=== PATIENT | male | born 1935 | race Caucasian/White ===

== ENCOUNTER 2016-08-05 18:35 | Emergency (ER) | payer MEDICARE, OTHER, MEDICAID ==
[2016-08-05] MEDS ORDERED: Morphine 2 MG/ML Syringe ONE ×2 (19:02→20:11)
[2016-08-05] MEDS ORDERED: Morphine 2 MG/ML Syringe IM ONE (19:03)
[2016-08-05] MEDS ORDERED: Omeprazole 40 MG Cap.CR PO ONE (19:04)
[2016-08-05] MEDS ORDERED: Omeprazole 20 MG Cap.CR ONE (19:09)
[2016-08-05 19:25] VITALS: BP 165/72
--- NOTE | 2016-08-05 19:34 | EDM.PDOC ---
ED HPI Trauma - General Chief Complaint: Lower Extremity Injury/Pain Stated Complaint: FALL-LEFT HIP PAIN Time Seen by Provider: 08/05/16 19:05 Source: Reports: Patient History Limitations: Reports: No limitations - History of Present Illness INITIAL COMMENTS - FREE TEXT/NARRATIVE: This is an 81yo M here for a fall and left hip pain. Patient states the pain is 10/10 and was unable to get up and EMT had to bring him to the ER. Patient denies any loc or other factors involved in his fall and states his legs gave out. Patient denies any other injury and states he did bump his head a little but denies any head concerns. Symptom Onset Date: 08/05/16 Symptom Onset Time: 18:30 Occurred When: just prior to arrival Occurred Where: home Method of Injury: fall Severity: severe Pain/Injury Location: Reports: lower extremity, left Consciousness: Reports: remembers incident, remembers coming to hosp Associated Symptoms: Reports: denies other symptoms Allergies/ADRs: Allergies eszopiclone [From Lunesta] Allergy (Verified 08/05/16 18:45) Cannot Remember metoprolol Allergy (Verified 08/05/16 18:45) Cannot Remember sertraline HCl [From Zoloft] Allergy (Verified 08/05/16 18:45) Cannot Remember Home Medications: Ambulatory Orders Acetaminophen [Tylenol] 500 mg PO QID PRN 06/03/13 [Confirmed 08/05/16] Aspirin [Low Dose Aspirin EC] 81 mg PO DAILY 06/03/13 [Confirmed 08/05/16] Folic Acid 0.8 mg PO DAILY 06/03/13 [Confirmed 08/05/16] Lisinopril 2.5 mg PO DAILY 06/03/13 [Confirmed 08/05/16] Nitroglycerin [Nitrolingual] 1 spray TRLING ASDIRECTED PRN 06/03/13 [Confirmed 08/05/16] Simvastatin [Zocor] 40 mg PO QPM 06/03/13 [Confirmed 08/05/16] Tamsulosin [Tamsulosin 24 Hr] 0.8 mg PO DAILY 06/03/13 [Confirmed 08/05/16] Venlafaxine [Effexor XR 24 Hr] 75 mg PO DAILY 06/03/13 [Confirmed 08/05/16] Venlafaxine [Effexor XR] 150 mg PO DAILY 06/03/13 [Confirmed 08/05/16] Calcium Carbonate [Calcium] 600 mg PO DAILY 06/22/16 [Confirmed 08/05/16] Carvedilol [Coreg] 12.5 mg PO BID 06/22/16 [Confirmed 08/05/16] Clopidogrel [Plavix] 75 mg PO DAILY 06/22/16 [Confirmed 08/05/16] Methylphenidate [Ritalin] 5 mg PO DAILY 06/22/16 [Confirmed 08/05/16] Multivitamin [Multivitamins] 1 each PO DAILY 06/22/16 [Confirmed 08/05/16] Pantoprazole Sodium 40 mg PO QPM 06/22/16 [Confirmed 08/05/16] clonazePAM [Clonazepam] 0.25 mg PO BID 07/03/16 [Confirmed 08/05/16] Past Medical History HEENT History: Reports: Hard of hearing, Impaired vision Cardiovascular History: Reports: CAD, Hypertension, Stents Respiratory History: Reports: Asthma, SOB Gastrointestinal History: Reports: GERD, Other (see below) Other Gastrointestinal History: barretts esophagus Neurological History: Reports: Headaches, chronic, Other (see below) Other Neuro History: occipital neuralgia Endocrine/Metabolic History: Reports: Diabetes, type II - Infectious Disease History Infectious Disease History: Reports: Chicken pox, Influenza, Measles, Mumps - Past Surgical History HEENT Surgical History: Reports: Tonsillectomy Cardiovascular Surgical History: Reports: Carotid stents GI Surgical History: Reports: Colonoscopy, Hernia, abdominal Male Surgical History: Reports: Vasectomy Neurological Surgical History: Reports: Other (see below) Other Neurological Surgeries/Procedures: [place] Musculoskeletal Surgical History: Reports: Hip replacement Social & Family History - Family History Family Medical History: Noncontributory - Tobacco Use Smoking Status *Q: Never Smoker Second Hand Smoke Exposure: No - Caffeine Use Caffeine Use: Reports: Coffee - Alcohol Use Days Per Week of Alcohol Use: 0 - Recreational Drug Use Recreational Drug Use: No Review of Systems - Review of Systems Review Of Systems: ROS reveals no pertinent complaints other than HPI. Trauma Exam - Physical Exam Exam: See Below Exam Limited By: No limitations General Appearance: Reports: alert, WD/WN, moderate distress Head: Reports: atraumatic, normocephalic Throat/Mouth: Reports: Normal inspection Neck: Reports: non-tender Respiratory Exam: Reports: no respiratory distress, lungs clear Cardiovascular: Reports: normal peripheral pulses, regular rate, rhythm GI/Abdominal: Reports: normal bowel sounds, soft, non tender Extremities: Reports: pain with movement, tenderness, unable to bear weight Neurologic: Reports: no motor/sensory deficits, normal mood/affect, oriented x 3 Skin: Reports: Normal color, Warm/dry, Ecchymosis (left thigh anterior, left hip lateral) Course - Vital Signs Last Recorded V/S: Last Vital Signs Temp 36.9 C 08/05/16 19:22 Pulse 67 08/05/16 19:22 Resp 20 08/05/16 19:22 BP 165/72 H 08/05/16 19:22 Pulse Ox 92 L 08/05/16 19:22 - Orders/Labs/Meds Orders: Active Orders 24 hr Category Date Time Status EKG Documentation Completion [RC] ASDIRECTED Care 08/05/16 19:52 Active Insert Bradford Catheter [Insert Urinary Catheter] [OM.PC] Care 08/05/16 20:30 Ordered Q24H Urinary Catheter Assessment [RC] ASDIRECTED Care 08/05/16 20:23 Active Hip Min 2V or 3V w Pelvis Lt [CR] Stat Exams 08/05/16 19:03 Taken Morphine Med 08/05/16 20:20 Active 2 mg IVPUSH Q1H PRN Sodium Chloride 0.9% [Saline Flush] Med 08/05/16 20:22 Active 10 ml FLUSH ASDIRECTED PRN Peripheral IV Insertion Adult [OM.PC] Routine Oth 08/05/16 20:22 Ordered EKG 12 Lead [EK] Routine Ther 08/05/16 19:51 Ordered Medication Orders Morphine Sulfate (Morphine) 2 mg IVPUSH Q1H PRN PRN Reason: Pain Last Admin: 08/05/16 20:27 Dose: 2 mg Sodium Chloride (Saline Flush) 10 ml FLUSH ASDIRECTED PRN PRN Reason: Keep Vein Open Meds: Medications Generic Name Dose Route Start Last Admin Trade Name Freq PRN Reason Stop Dose Admin Morphine Sulfate 2 mg 08/05/16 20:20 08/05/16 20:27 Morphine IVPUSH 2 mg Q1H PRN Administration Pain Sodium Chloride 10 ml 08/05/16 20:22 Saline Flush FLUSH ASDIRECTED PRN Keep Vein Open Discontinued Medications Generic Name Dose Route Start Last Admin Trade Name Freq PRN Reason Stop Dose Admin Morphine Sulfate Confirm 08/05/16 19:02 08/05/16 19:13 Morphine Administered 08/05/16 19:03 Not Given Dose 2 mg .ROUTE .STK-MED ONE Morphine Sulfate 2 mg 08/05/16 19:03 08/05/16 19:14 Morphine IM 08/05/16 19:04 2 mg ONETIME ONE Administration Morphine Sulfate Confirm 08/05/16 20:11 Morphine Administered 08/05/16 20:12 Dose 4 mg .ROUTE .STK-MED ONE Omeprazole 40 mg 08/05/16 19:04 08/05/16 19:39 Omeprazole PO 08/05/16 19:05 40 mg ONETIME ONE Administration Omeprazole Confirm 08/05/16 19:09 08/05/16 19:14 Omeprazole Administered 08/05/16 19:10 Not Given Dose 40 mg .ROUTE .STK-MED ONE Departure - Departure Time of Disposition: 20:30 Disposition: DC/Tfer to Acute Hospital 02 Condition: undetermined Clinical Impression: Fracture of femur Instructions: Hip Pain Referrals: PCP,None [Primary Care Provider] - Forms: ED Department Discharge - Problem List & Annotations (1) Fracture of femur SNOMED Code(s): 06196116 Code(s): S72.90XA - UNSP FRACTURE OF UNSP FEMUR, INIT ENCNTR FOR CLOSED FRACTURE Status: Acute Current Visit: Yes - Problem List Review Problem List Initiated/Reviewed/Updated: Yes - My Orders Last 24 Hours: My Active Orders 08/05/16 19:03 Hip Min 2V or 3V w Pelvis Lt [CR] Stat 08/05/16 19:51 EKG 12 Lead [EK] Routine 08/05/16 19:52 EKG Documentation Completion [RC] ASDIRECTED 08/05/16 20:20 Morphine 2 mg IVPUSH Q1H PRN 08/05/16 20:22 Sodium Chloride 0.9% [Saline Flush] 10 ml FLUSH ASDIRECTED PRN Peripheral IV Insertion Adult [OM.PC] Routine 08/05/16 20:23 Urinary Catheter Assessment [RC] ASDIRECTED 08/05/16 20:30 Insert Bradford Catheter [Insert Urinary Catheter] [OM.PC] Q24H - Assessment/Plan Last 24 Hours: My Active Orders 08/05/16 19:03 Hip Min 2V or 3V w Pelvis Lt [CR] Stat 08/05/16 19:51 EKG 12 Lead [EK] Routine 08/05/16 19:52 EKG Documentation Completion [RC] ASDIRECTED 08/05/16 20:20 Morphine 2 mg IVPUSH Q1H PRN 08/05/16 20:22 Sodium Chloride 0.9% [Saline Flush] 10 ml FLUSH ASDIRECTED PRN Peripheral IV Insertion Adult [OM.PC] Routine 08/05/16 20:23 Urinary Catheter Assessment [RC] ASDIRECTED 08/05/16 20:30 Insert Bradford Catheter [Insert Urinary Catheter] [OM.PC] Q24H Plan: Transfer to [place] under Dr. Tamez with Dr. Zayda alston on consult. Patient will be transferred to [facility]. Patient placed in a left knee splint placed as high up the thigh as possible. Patient to be sent BLS. Counseled and patient agrees with plan.
[2016-08-05] MEDS ORDERED: Sodium Chloride 0.9% 10 ML Syringe FLUSH PRN (20:22)
[2016-08-05] MEDS: Morphine 2 MG/ML Syringe IVPUSH PRN ×2 (20:27→21:04)
--- NOTE | 2016-08-06 08:48 | CR ---
DATE OF SERVICE: 08/05/16 CLINICAL DATA: Fall. PELVIS AND LEFT HIP: No priors. The patient is status post left total hip arthroplasty. There is a mildly displaced oblique fracture through the proximal femur that does involve the femoral component. I do not see any other acute abnormalities. [id number] MTDD
== END 2016-08-05 21:05 ==
LOC: LB.ED 18:35
DX: S72.002A Fracture of unspecified part of neck of left femur, initial encounter for closed fracture (principal); I25.10 Atherosclerotic heart disease of native coronary artery without angina pectoris; I10 Essential (primary) hypertension; J45.909 Unspecified asthma, uncomplicated; K21.9 Gastro-esophageal reflux disease without esophagitis; E11.9 Type 2 diabetes mellitus without complications; Z88.8 Allergy status to other drugs, medicaments and biological substances; Z98.890 Other specified postprocedural states; W19.XXXA Unspecified fall, initial encounter; Y92.009 Unspecified place in unspecified non-institutional (private) residence as the place of occurrence of the external cause
CPT/HCPCS: 51702; 73502; 93005; 96372; 96374; 99284; A0425; A0429; A9270; J2270

== ENCOUNTER 2016-08-13 09:41 | Inpatient (IN) | payer MEDICARE, OTHER, MEDICAID ==
[2016-08-20] MEDS ORDERED: Furosemide 20 MG Tab PO PRN (10:29)
[2016-08-20] MEDS ORDERED: Nitroglycerin 0.4 MG Tab.SL SL PRN (10:31)
[2016-08-20] MEDS ORDERED: Acetaminophen 500 MG Tab PO PRN (10:34)
[2016-08-20] MEDS ORDERED: Carvedilol 12.5 MG Tab PO SCH (20:00)
[2016-08-20] MEDS ORDERED: oxyCODONE 5 MG Tab PO PRN (20:04)
[2016-08-20] MEDS ORDERED: NITROGLYCERIN TRLING PRN (20:04)
--- NOTE | 2016-08-20 20:38 | PCM.HP ---
H&P History of Present Illness - General Date of Service: 08/20/16 Admit Problem/Dx: Admission Diagnosis/Problem Admission Diagnosis/Problem Pain management Source of Information: Patient History Limitations: Reports: No limitations - History of Present Illness Initial Comments - Free Text/Narative: Pt is a 82 year old male who had a fall and sustained left periprosthetic femur fracture on 08/05/16. He was transferred to [facility] and he did under go open reduction with internal fixation. Pt has tolerated the procedure well he did have some postoperative anemia and needed 4 units blood transfusion. Patient has recovered well. At this point he has been transferred to [place], [place] for physical rehabilitation. Pt is non weight bearing on his left lower extremity. No fever or chills. No discharge, pain or swelling in the wound site. No complaints or concern from patient. Pt does have multiple co-morbid condition which are stable. - Related Data Allergies/Adverse Reactions: Allergies Allergy/AdvReac Type Severity Reaction Status Date / Time eszopiclone [From Lunesta] Allergy Cannot Verified 08/20/16 14:17 Remember metoprolol Allergy Cannot Verified 08/20/16 14:17 Remember sertraline HCl [From Zoloft] Allergy Cannot Verified 08/20/16 14:17 Remember Home Medications: Home Meds Aspirin [Low Dose Aspirin EC] 81 mg PO DAILY 06/03/13 [History] Folic Acid 0.8 mg PO DAILY 06/03/13 [History] Lisinopril 2.5 mg PO DAILY 06/03/13 [History] Nitroglycerin [Nitrolingual] 1 spray TRLING ASDIRECTED PRN 06/03/13 [History] Tamsulosin [Tamsulosin 24 Hr] 0.8 mg PO DAILY 06/03/13 [History] Venlafaxine [Effexor XR 24 Hr] 75 mg PO DAILY 06/03/13 [History] Venlafaxine [Effexor XR] 150 mg PO DAILY 06/03/13 [History] Clopidogrel [Plavix] 75 mg PO DAILY 06/22/16 [History] Multivitamin [Multivitamins] 1 each PO DAILY 06/22/16 [History] Pantoprazole Sodium 40 mg PO QPM 06/22/16 [History] clonazePAM [Clonazepam] 0.25 mg PO BID 07/03/16 [History] Acetaminophen [Tylenol Extra Strength] 500 mg PO QID 08/20/16 [History] Calcium Carbonate/Vitamin D3 [Caltrate 600+D 1500 MG-400 Units] 1 tab PO DAILY 08/20/16 [History] Carvedilol [Coreg] 25 mg PO BID 08/20/16 [History] Diltiazem [Cardizem] 120 mg PO DAILY 08/20/16 [History] Enoxaparin [Lovenox] 40 mg INJECT DAILY 08/20/16 [History] Mirtazapine 7.5 mg PO QPM 08/20/16 [History] Sennosides [Senokot] 8.6 mg PO DAILY 08/20/16 [History] oxyCODONE 5 mg PO Q4H PRN 08/20/16 [History] predniSONE [Prednisone] 40 mg PO DAILY 08/20/16 [History] Past Medical History HEENT History: Reports: Hard of hearing, Impaired vision Cardiovascular History: Reports: CAD, Hypertension, Stents Respiratory History: Reports: Asthma, SOB Gastrointestinal History: Reports: GERD, Other (see below) Other Gastrointestinal History: barretts esophagus Musculoskeletal History: Reports: Arthritis, Other (see below) Other Musculoskeletal History: frequent falls Neurological History: Reports: Headaches, chronic, Other (see below) Other Neuro History: occipital neuralgia Endocrine/Metabolic History: Reports: Diabetes, type II - Infectious Disease History Infectious Disease History: Reports: Chicken pox, Influenza, Measles, Mumps - Past Surgical History HEENT Surgical History: Reports: Tonsillectomy Cardiovascular Surgical History: Reports: Carotid stents GI Surgical History: Reports: Colonoscopy, Hernia, abdominal Male Surgical History: Reports: Vasectomy Neurological Surgical History: Reports: Other (see below) Other Neurological Surgeries/Procedures: [facility] Musculoskeletal Surgical History: Reports: Hip replacement Social & Family History - Family History Family Medical History: Noncontributory - Tobacco Use Smoking Status *Q: Never Smoker Second Hand Smoke Exposure: No - Caffeine Use Caffeine Use: Reports: Coffee - Alcohol Use Days Per Week of Alcohol Use: 0 - Recreational Drug Use Recreational Drug Use: No H&P Review of Systems - Review of Systems: Review Of Systems: See Below General: Denies: fever, chills HEENT: Denies: rhinitis, sore throat Pulmonary: Denies: shortness of breath, cough, sputum Cardiovascular: Denies: chest pain, lightheadedness Gastrointestinal: Denies: Abdominal pain, Nausea, Vomiting Genitourinary: Denies: dysuria, frequency Musculoskeletal: Denies: neck pain, shoulder pain, joint pain, joint swelling Skin: Denies: pruritis, rash, erythema Psychiatric: Denies: confusion, depression Neurological: Denies: confusion, dizziness, headache Hematologic/Lymphatic: Denies: anemia, easy bleeding Exam - Exam Exam: See Below - Vital Signs Vital Signs: Last Vital Signs Temp 96.8 F 08/20/16 17:05 Pulse 61 08/20/16 17:05 Resp 22 H 08/20/16 17:05 BP 146/75 H 08/20/16 17:05 Pulse Ox 99 08/20/16 17:05 Weight: 86.183 kg - Exam General: alert, oriented, 4 HEENT: PERRLA, Hearing intact, Mucosa moist & pink, Nares patent, Normal nasal septum, Posterior pharynx clear, Conjunctiva clear, EOMI, EACs clear, TMs clear Neck: supple, trachea midline, 2 Lungs: Clear to auscultation, Normal respiratory effort Cardiovascular: regular rate, regular rhythm Abdomen: normal bowel sounds, soft Extremities: other (Left thigh: there is a long incision extending form the left iliac crest into the mid thigh over the lateral aspect. The staple are clean. the margin has normal inflammation of healing. very minimal tenderness to pressure. Normal distal neurovascular exam.) Peripheral Pulses: 2+: carotid (L), carotid (R), radial (L), radial (R), posterior tibial (L), posterior tibial (R), dorsalis pedis (L), dorsalis pedis ( R) Skin: warm, intact *Q Meaningful Use (ADM) - VTE *Q VTE Criteria *Q: - Stroke *Q Stroke Criteria *Q: - AMI *Q AMI Criteria *Q: - Problem List (1) Fracture of femur SNOMED Code(s): 28470338 ICD Code: S72.90XA - UNSP FRACTURE OF UNSP FEMUR, INIT ENCNTR FOR CLOSED FRACTURE Status: Acute Current Visit: No (2) Other specified rehabilitation procedure SNOMED Code(s): 942615683, 724389851 ICD Code: Z51.89 - ENCOUNTER FOR OTHER SPECIFIED AFTERCARE Status: Acute Current Visit: No Problem List Initiated/Reviewed/Updated: Yes Orders Last 24hrs: Active Orders 24 hr Category Date Time Status Patient Status [ADT] Routine ADT 08/20/16 19:46 Active OT Evaluation and Treatment [CONS] Routine Cons 08/20/16 19:46 Active PT Evaluation and Treatment [CONS] Routine Cons 08/20/16 19:46 Active Heart Healthy Diet [DIET] Diet 08/20/16 Dinner Ordered Acetaminophen [Tylenol Extra Strength] Med 08/21/16 08:00 Ordered 500 mg PO QID Acetaminophen [Tylenol Extra Strength] Med 08/20/16 10:34 Active 500 mg PO QID PRN Aspirin [Halfprin] Med 08/21/16 08:00 Active 81 mg PO DAILY Aspirin [Halfprin] Med 08/21/16 08:00 Ordered 81 mg PO DAILY Calcium Carbonate/Vitamin D3 [Caltrate 600+D 1500 MG- Med 08/21/16 08:00 Active 400 Units] 1 tab PO DAILY Calcium Carbonate/Vitamin D3 [Caltrate 600+D 1500 MG- Med 08/21/16 08:00 Ordered 400 Units] 1 tab PO DAILY Carvedilol [Coreg] Med 08/20/16 20:00 Active 25 mg PO BID Carvedilol [Coreg] Med 08/21/16 08:00 Ordered 25 mg PO BID ClonazePAM [KlonoPIN] Med 08/20/16 20:00 Active 0.25 mg PO BID Clopidogrel [Plavix] Med 08/21/16 08:00 Active 75 mg PO DAILY Clopidogrel [Plavix] Med 08/21/16 08:00 Ordered 75 mg PO DAILY Diltiazem [Cardizem CD] Med 08/21/16 08:00 Active 120 mg PO DAILY Diltiazem [Cardizem] Med 08/21/16 08:00 Ordered 120 mg PO DAILY Docusate Sodium/Sennosides [Senna Plus] Med 08/20/16 11:17 Active 2 tab PO DAILY PRN Enoxaparin [Lovenox] Med 08/21/16 08:00 Active 40 mg SUBCUT DAILY Enoxaparin [Lovenox] Med 08/21/16 08:00 Ordered 40 mg SUBCUT DAILY Folic Acid Med 08/21/16 08:00 Active 0.8 mg PO DAILY Folic Acid Med 08/21/16 08:00 Ordered 0.8 mg PO DAILY Furosemide [Lasix] Med 08/20/16 10:29 Active 20 mg PO DAILY PRN Lisinopril [Prinivil] Med 08/21/16 08:00 Active 2.5 mg PO DAILY Lisinopril [Prinivil] Med 08/21/16 08:00 Ordered 2.5 mg PO DAILY Methylphenidate [Ritalin] Med 08/21/16 08:00 Pending 5 mg PO DAILY Mirtazapine [Mirtazapine] Med 08/21/16 20:00 Ordered 7.5 mg PO QPM Mirtazapine [Remeron] Med 08/20/16 20:00 Active 7.5 mg PO BEDTIME Multivitamin [Multivitamins] Med 08/21/16 08:00 Ordered 1 each PO DAILY Multivitamins w-Iron/Ca/FA/Min [Thera M Plus] Med 08/21/16 08:00 Active 1 tab PO DAILY Nitroglycerin [Nitrolingual [place]] Med 08/20/16 20:04 Ordered 1 spray TRLING ASDIRECTED PRN Nitroglycerin [Nitrostat] Med 08/20/16 10:31 Active 0.4 mg SL ASDIRECTED PRN Pantoprazole [Protonix] Med 08/21/16 08:00 Active 40 mg PO DAILY Pantoprazole [Protonix] Med 08/21/16 20:00 Ordered 40 mg PO QPM Sennosides [Senna] Med 08/21/16 08:00 Ordered 8.6 mg PO DAILY Simvastatin [Zocor] Med 08/20/16 20:00 Active 40 mg PO BEDTIME Tamsulosin [Flomax] Med 08/21/16 08:00 Active 0.8 mg PO DAILY Tamsulosin [Flomax] Med 08/21/16 08:00 Ordered 0.8 mg PO DAILY Tuberculin, PPD [Aplisol] Med 08/20/16 19:46 Once 5 unit IDERM ONETIME ONE Venlafaxine [Effexor XR] Med 08/21/16 08:00 Active 150 mg PO DAILY Venlafaxine [Effexor XR] Med 08/21/16 08:00 Ordered 150 mg PO DAILY Venlafaxine [Effexor XR] Med 08/20/16 20:00 Active 75 mg PO BEDTIME Venlafaxine [Effexor XR] Med 08/21/16 08:00 Ordered 75 mg PO DAILY clonazePAM [Clonazepam] Med 08/21/16 08:00 Ordered 0.25 mg PO BID oxyCODONE Med 08/20/16 11:17 Active 0.5 - 1 mg PO Q4H PRN oxyCODONE Med 08/20/16 20:04 Ordered 5 mg PO Q4H PRN predniSONE Med 08/21/16 08:00 Active 40 mg PO DAILY predniSONE Med 08/21/16 08:00 Ordered 40 mg PO DAILY Resuscitation Status Routine Resus Stat 08/20/16 19:46 Ordered Medication Orders Acetaminophen (Tylenol Extra Strength) 500 mg PO QID PRN PRN Reason: MILD PAIN Acetaminophen (Tylenol Extra Strength) 500 mg PO QID [facility] Aspirin (Halfprin) 81 mg PO DAILY [facility] Aspirin (Halfprin) 81 mg PO DAILY [facility] Calcium Carbonate (Caltrate 600+D 1500 Mg-400 Units) 1 tab PO DAILY [facility] Calcium Carbonate (Caltrate 600+D 1500 Mg-400 Units) 1 tab PO DAILY [facility] Carvedilol (Coreg) 25 mg PO BID [facility] Carvedilol (Coreg) 25 mg PO BID [facility] Clonazepam (Klonopin) 0.25 mg PO BID [facility] Clopidogrel Bisulfate (Plavix) 75 mg PO DAILY [facility] Clopidogrel Bisulfate (Plavix) 75 mg PO DAILY [facility] Diltiazem HCl (Cardizem Cd) 120 mg PO DAILY [facility] Enoxaparin Sodium (Lovenox) 40 mg SUBCUT DAILY [facility] Stop: 09/05/16 10:00 Enoxaparin Sodium (Lovenox) 40 mg SUBCUT DAILY [facility] Folic Acid (Folic Acid) 0.8 mg PO DAILY [facility] Folic Acid (Folic Acid) 0.8 mg PO DAILY [facility] Furosemide (Lasix) 20 mg PO DAILY PRN PRN Reason: DIURETIC Lisinopril (Prinivil) 2.5 mg PO DAILY [facility] Lisinopril (Prinivil) 2.5 mg PO DAILY [facility] Methylphenidate HCl (Ritalin) 5 mg PO DAILY [facility] Mirtazapine (Remeron) 7.5 mg PO BEDTIME [facility] Multivitamins/Minerals (Thera M Plus) 1 tab PO DAILY [facility] Nitroglycerin (Nitrostat) 0.4 mg SL ASDIRECTED PRN PRN Reason: CHEST PAIN Non-Formulary Medication (Diltiazem [Cardizem]) 120 mg PO DAILY [facility] Non-Formulary Medication (Mirtazapine [Mirtazapine]) 7.5 mg PO QPM [facility] Non-Formulary Medication (Multivitamin [Multivitamins]) 1 each PO DAILY [facility] Non-Formulary Medication (Nitroglycerin [Nitrolingual [place]]) 1 spray TRLING ASDIRECTED PRN PRN Reason: Chest Pain Non-Formulary Medication (Clonazepam [Clonazepam]) 0.25 mg PO BID [facility] Oxycodone HCl (Oxycodone) 0.5 - 1 mg PO Q4H PRN PRN Reason: MODERATE PAIN Oxycodone HCl (Oxycodone) 5 mg PO Q4H PRN PRN Reason: Pain Pantoprazole Sodium (Protonix) 40 mg PO DAILY [facility] Pantoprazole Sodium (Protonix) 40 mg PO QPM [facility] Prednisone (Prednisone) 40 mg PO DAILY [facility] Stop: 08/21/16 09:00 Prednisone (Prednisone) 40 mg PO DAILY [facility] Senna (Senna) 8.6 mg PO DAILY [facility] Senna/Docusate Sodium (Senna Plus) 2 tab PO DAILY PRN PRN Reason: CONSTIPATION Simvastatin (Zocor) 40 mg PO BEDTIME [facility] Tamsulosin HCl (Flomax) 0.8 mg PO DAILY [facility] Tamsulosin HCl (Flomax) 0.8 mg PO DAILY [facility] Tuberculin PPD (Aplisol) 5 unit IDERM ONETIME ONE Stop: 08/20/16 19:47 Venlafaxine HCl (Effexor Xr) 150 mg PO DAILY [facility] Venlafaxine HCl (Effexor Xr) 75 mg PO BEDTIME [facility] Venlafaxine HCl (Effexor Xr) 75 mg PO DAILY [facility] Venlafaxine HCl (Effexor Xr) 150 mg PO DAILY [facility] Assessment/Plan Comment:: Assessment: Left femur fracture S/p reduction for rehab Plan: patient has been admitted for OT and MS rehab. Will have his verenice removed on august 24 here. Also he is on Lovenox, which will be stopped on 08/26 He does have followup appointment with . Will have social service set up the appointment and make transfer arrangement for patient. Will repeat CBC in 1 wk for his blood loss followup.
[2016-08-20] MEDS: Venlafaxine 75 MG Cap.ER PO SCH (20:44)
[2016-08-20] MEDS: Simvastatin 40 MG Tab PO SCH (20:44)
[2016-08-20] MEDS: Carvedilol 25 MG Tab PO SCH (20:44)
[2016-08-20] MEDS: Mirtazapine 15 MG Tab PO SCH (20:45)
[2016-08-20] MEDS: ClonazePAM 0.5 MG Tab PO SCH (20:45)
[2016-08-20] MEDS: oxyCODONE 5 MG Tab PO PRN (20:46)
[2016-08-20] MEDS ORDERED: Albuterol/Ipratropium 3.0-0.5 MG/3 ML Neb Soln ONE (23:16)
[2016-08-21] MEDS ORDERED: Clopidogrel 75 MG Tab PO SCH (08:00)
[2016-08-21] MEDS ORDERED: Non-Formulary Medication 1 Each (Multivitamin [Multivitamins] 1 EACH) PO SCH (08:00)
[2016-08-21] MEDS ORDERED: Tamsulosin 0.4 MG Cap.ER PO SCH (08:00)
[2016-08-21] MEDS ORDERED: Carvedilol 25 MG Tab PO SCH (08:00)
[2016-08-21] MEDS ORDERED: Sennosides 8.6 MG Tab PO SCH (08:00)
[2016-08-21] MEDS ORDERED: Enoxaparin 40 MG/0.4 ML Syringe SUBCUT SCH (08:00)
[2016-08-21] MEDS ORDERED: Venlafaxine 75 MG Cap.ER PO SCH (08:00)
[2016-08-21] MEDS ORDERED: Venlafaxine 150 MG Cap.ER PO SCH (08:00)
[2016-08-21] MEDS ORDERED: Aspirin 81 MG Tab.EC PO SCH (08:00)
[2016-08-21] MEDS ORDERED: Lisinopril 2.5 MG Tab PO SCH (08:00)
[2016-08-21] MEDS ORDERED: DILTIAZEM 120 MG PO SCH (08:00)
[2016-08-21] MEDS ORDERED: Calcium Carbonate 600 MG Tab PO SCH (08:00)
[2016-08-21] MEDS ORDERED: CLONAZEPAM 0.25 MG PO SCH (08:00)
[2016-08-21] MEDS ORDERED: Acetaminophen 500 MG Tab PO SCH (08:00)
[2016-08-21] MEDS ORDERED: Folic Acid 0.4 MG Tab PO SCH (08:00)
[2016-08-21] MEDS ORDERED: predniSONE 20 MG Tab PO SCH ×2 (08:00)
[2016-08-21] MEDS ORDERED: Calcium Carbonate/Vitamin D3 1500 MG-400 Units Tab PO SCH (08:00)
[2016-08-21] MEDS: Clopidogrel 75 MG Tab PO SCH (08:02)
[2016-08-21] MEDS: ClonazePAM 0.5 MG Tab PO SCH ×2 (08:03→19:50)
[2016-08-21] MEDS: Tamsulosin 0.4 MG Cap.ER PO SCH (08:03)
[2016-08-21] MEDS: Pantoprazole 40 MG Tab.CR PO SCH (08:03)
[2016-08-21] MEDS: Calcium Carbonate/Vitamin D3 1500 MG-400 Units Tab PO SCH (08:04)
[2016-08-21] MEDS: Multivitamins with Iron/Calcium/Folic Acid/Minerals Tab PO SCH (08:04)
[2016-08-21] MEDS: Folic Acid 0.4 MG Tab PO SCH (08:04)
[2016-08-21] MEDS: Aspirin 81 MG Tab.EC PO SCH (08:04)
[2016-08-21] MEDS: Venlafaxine 150 MG Cap.ER PO SCH (08:05)
[2016-08-21] MEDS: Diltiazem 120 MG Cap.CD PO SCH (08:10)
[2016-08-21] MEDS: Lisinopril 2.5 MG Tab PO SCH (08:10)
[2016-08-21] MEDS: Carvedilol 25 MG Tab PO SCH ×2 (08:10→19:49)
[2016-08-21] MEDS: Enoxaparin 40 MG/0.4 ML Syringe SUBCUT SCH (08:11)
[2016-08-21] MEDS: oxyCODONE 5 MG Tab PO PRN ×2 (13:44→19:48)
[2016-08-21] MEDS: Tuberculin, PPD 5 Units/0.1 ML 1 ML MDV IDERM ONE (14:57)
[2016-08-21] MEDS: Methylphenidate 5 MG Tab PO SCH (14:58)
[2016-08-21] MEDS: Simvastatin 40 MG Tab PO SCH (19:48)
[2016-08-21] MEDS: Venlafaxine 75 MG Cap.ER PO SCH (19:49)
[2016-08-21] MEDS: Diazepam 10 MG Tab PO PRN ×2 (19:50)
[2016-08-21] MEDS ORDERED: Non-Formulary Medication 1 Each (Mirtazapine [Mirtazapine] 7.5 MG) PO SCH (20:00)
[2016-08-21] MEDS: Mirtazapine 15 MG Tab PO SCH (20:00)
[2016-08-21] MEDS ORDERED: Pantoprazole 40 MG Tab.CR PO SCH (20:00)
[2016-08-22] MEDS ORDERED: Albuterol/Ipratropium 3.0-0.5 MG/3 ML Neb Soln ONE (01:55)
[2016-08-22] MEDS: oxyCODONE 5 MG Tab PO PRN (01:58)
[2016-08-22] MEDS: Tuberculin, PPD 5 Units/0.1 ML 1 ML MDV IDERM ONE (07:02)
[2016-08-22] MEDS: Enoxaparin 40 MG/0.4 ML Syringe SUBCUT SCH (08:37)
[2016-08-22] MEDS: Carvedilol 25 MG Tab PO SCH ×2 (08:39→20:11)
[2016-08-22] MEDS: Calcium Carbonate/Vitamin D3 1500 MG-400 Units Tab PO SCH (08:46)
[2016-08-22] MEDS: Folic Acid 0.4 MG Tab PO SCH (08:47)
[2016-08-22] MEDS: Methylphenidate 5 MG Tab PO SCH (08:51)
[2016-08-22] MEDS: Aspirin 81 MG Tab.EC PO SCH (08:51)
[2016-08-22] MEDS: Tamsulosin 0.4 MG Cap.ER PO SCH (08:53)
[2016-08-22] MEDS: Diltiazem 120 MG Cap.CD PO SCH (08:54)
[2016-08-22] MEDS: Lisinopril 2.5 MG Tab PO SCH (08:54)
[2016-08-22] MEDS: Multivitamins with Iron/Calcium/Folic Acid/Minerals Tab PO SCH (08:55)
[2016-08-22] MEDS: Clopidogrel 75 MG Tab PO SCH (08:56)
[2016-08-22] MEDS: Pantoprazole 40 MG Tab.CR PO SCH (08:57)
[2016-08-22] MEDS: Venlafaxine 150 MG Cap.ER PO SCH (08:58)
[2016-08-22] MEDS: ClonazePAM 0.5 MG Tab PO SCH ×2 (08:58→20:10)
[2016-08-22] MEDS ORDERED: oxyCODONE 5 MG Tab PO PRN (14:11)
[2016-08-22] MEDS ORDERED: Azithromycin 500 MG Tab PO ONE (15:25)
--- NOTE | 2016-08-22 15:32 | PCM.PN ---
- General Info Date of Service: 08/22/16 Admission Dx/Problem (Free Text): Pt was admitted on 08/20/16 for rehab s/p left femur internal fixation. He had some low SPO2 yesterday and was started on oxygen. But today has been coughing and has been having wheezing episodes. No fever or chills. Pt claims he feels weak. Has had his PT done today. - Review of Systems General: Denies: Fever, Weakness HEENT: Denies: contact lenses, post nasal drip, sinus congestion Pulmonary: Reports: cough, sputum, wheezing. Denies: shortness of breath Cardiovascular: Denies: Chest Pain, Palpitations Gastrointestinal: Denies: Abdominal pain, Nausea, Vomiting Genitourinary: Denies: dysuria, frequency, flank pain Skin: Reports: bruising (from lovenox injections) Neurological: Denies: Confusion, Dizziness - Patient Data Vitals - most recent: Last Vital Signs Temp 98.3 F 08/21/16 20:00 Pulse 64 08/22/16 08:54 Resp 18 08/22/16 08:00 BP 132/72 08/22/16 08:54 Pulse Ox 98 08/22/16 08:00 Weight - most recent: 86.183 kg Lab Results last 24 hrs: Laboratory Results - last 24 hr 08/22/16 Range/Units 14:15 WBC 10.5 (4.0-11.0) K/uL RBC 3.38 L (4.50-6.50) M/uL Hgb 10.2 L D (13.0-18.0) g/dL Hct 32.0 L D (40.0-54.0) % MCV 95 (76-96) fL MCH 30.2 (27.0-32.0) pg MCHC 31.9 (31.0-35.0) g/dL RDW 16.4 H (11.0-16.0) % Plt Count 575 H D (150-400) K/uL MPV 8.2 (6.0-10.0) fL Neut % (Auto) 81.6 H (45.0-70.0) % Lymph % (Auto) 9.2 L (20.0-40.0) % Edgar % (Auto) 7.6 (3.0-10.0) % Eos % (Auto) 1.5 (1.0-5.0) % Baso % (Auto) 0.1 (0.0-0.5) % Neut # 8.57 H (2.00-7.50) K/uL Lymph # 0.97 L (1.50-4.00) K/uL Edgar # 0.80 (0.20-0.80) K/uL Eos # 0.16 (0.04-0.40) K/uL Baso # 0.01 L (0.02-0.10) K/uL Med Orders - Current: Current Medications Acetaminophen (Tylenol Extra Strength) 500 mg PO QID PRN PRN Reason: MILD PAIN Albuterol/Ipratropium (Duoneb 3.0-0.5 Mg/3 Ml) 3 ml NEB Q6H PRN PRN Reason: Wheezing Aspirin (Halfprin) 81 mg PO DAILY [facility] Last Admin: 08/22/16 08:51 Dose: 81 mg Calcium Carbonate (Caltrate 600+D 1500 Mg-400 Units) 1 tab PO DAILY [facility] Last Admin: 08/22/16 08:46 Dose: 1 tab Carvedilol (Coreg) 25 mg PO BID [facility] Last Admin: 08/22/16 08:39 Dose: 25 mg Clonazepam (Klonopin) 0.25 mg PO BID [facility] Last Admin: 08/22/16 08:58 Dose: 0.25 mg Clopidogrel Bisulfate (Plavix) 75 mg PO DAILY [facility] Last Admin: 08/22/16 08:56 Dose: 75 mg Diazepam (Valium) 10 mg PO BEDTIME PRN PRN Reason: Insomnia Last Admin: 08/21/16 19:50 Dose: 10 mg Diltiazem HCl (Cardizem Cd) 120 mg PO DAILY [facility] Last Admin: 08/22/16 08:54 Dose: 120 mg Enoxaparin Sodium (Lovenox) 40 mg SUBCUT DAILY [facility] Stop: 09/05/16 10:00 Last Admin: 08/22/16 08:37 Dose: 40 mg Folic Acid (Folic Acid) 0.8 mg PO DAILY [facility] Last Admin: 08/22/16 08:47 Dose: 0.8 mg Furosemide (Lasix) 20 mg PO DAILY PRN PRN Reason: DIURETIC Last Admin: 08/21/16 11:41 Dose: 20 mg Lisinopril (Prinivil) 2.5 mg PO DAILY [facility] Last Admin: 08/22/16 08:54 Dose: 2.5 mg Methylphenidate HCl (Ritalin) 5 mg PO DAILY [facility] Last Admin: 08/22/16 08:51 Dose: 5 mg Mirtazapine (Remeron) 7.5 mg PO BEDTIME [facility] Last Admin: 08/21/16 20:00 Dose: 7.5 mg Multivitamins/Minerals (Thera M Plus) 1 tab PO DAILY [facility] Last Admin: 08/22/16 08:55 Dose: 1 tab Nitroglycerin (Nitrostat) 0.4 mg SL ASDIRECTED PRN PRN Reason: CHEST PAIN Oxycodone HCl (Oxycodone) 5 mg PO Q4H PRN PRN Reason: MODERATE PAIN Pantoprazole Sodium (Protonix) 40 mg PO DAILY [facility] Last Admin: 08/22/16 08:57 Dose: 40 mg Senna/Docusate Sodium (Senna Plus) 2 tab PO DAILY PRN PRN Reason: CONSTIPATION Simvastatin (Zocor) 40 mg PO BEDTIME [facility] Last Admin: 08/21/16 19:48 Dose: 40 mg Tamsulosin HCl (Flomax) 0.8 mg PO DAILY [facility] Last Admin: 08/22/16 08:53 Dose: 0.8 mg Venlafaxine HCl (Effexor Xr) 150 mg PO DAILY [facility] Last Admin: 08/22/16 08:58 Dose: 150 mg Venlafaxine HCl (Effexor Xr) 75 mg PO BEDTIME [facility] Last Admin: 08/21/16 19:49 Dose: 75 mg Discontinued Medications Acetaminophen (Tylenol Extra Strength) 500 mg PO QID [facility] Albuterol/Ipratropium (Duoneb 3.0-0.5 Mg/3 Ml) Confirm Administered Dose 3 ml .ROUTE .STK-MED ONE Stop: 08/20/16 23:17 Last Admin: 08/20/16 23:53 Dose: 3 ml Albuterol/Ipratropium (Duoneb 3.0-0.5 Mg/3 Ml) Confirm Administered Dose 3 ml .ROUTE .STK-MED ONE Stop: 08/22/16 01:56 Last Admin: 08/22/16 02:00 Dose: 3 ml Aspirin (Halfprin) 81 mg PO DAILY [facility] Calcium Carbonate (Caltrate 600+D 1500 Mg-400 Units) 1 tab PO DAILY [facility] Carvedilol (Coreg) 25 mg PO BID [facility] Clopidogrel Bisulfate (Plavix) 75 mg PO DAILY [facility] Enoxaparin Sodium (Lovenox) 40 mg SUBCUT DAILY [facility] Folic Acid (Folic Acid) 0.8 mg PO DAILY [facility] Lisinopril (Prinivil) 2.5 mg PO DAILY [facility] Non-Formulary Medication (Diltiazem [Cardizem]) 120 mg PO DAILY [facility] Non-Formulary Medication (Mirtazapine [Mirtazapine]) 7.5 mg PO QPM [facility] Non-Formulary Medication (Multivitamin [Multivitamins]) 1 each PO DAILY [facility] Non-Formulary Medication (Nitroglycerin [Nitrolingual [place]]) 1 spray TRLING ASDIRECTED PRN PRN Reason: Chest Pain Non-Formulary Medication (Clonazepam [Clonazepam]) 0.25 mg PO BID [facility] Oxycodone HCl (Oxycodone) 0.5 - 1 mg PO Q4H PRN PRN Reason: MODERATE PAIN Last Admin: 08/21/16 13:44 Dose: 5 mg Oxycodone HCl (Oxycodone) 5 mg PO Q4H PRN PRN Reason: Pain Oxycodone HCl (Oxycodone) 2.5 - 5 mg PO Q4H PRN PRN Reason: MODERATE PAIN Last Admin: 08/22/16 01:58 Dose: 5 mg Pantoprazole Sodium (Protonix) 40 mg PO QPM [facility] Prednisone (Prednisone) 40 mg PO DAILY [facility] Stop: 08/21/16 09:00 Last Admin: 08/21/16 08:04 Dose: 40 mg Prednisone (Prednisone) 40 mg PO DAILY [facility] Senna (Senna) 8.6 mg PO DAILY [facility] Tamsulosin HCl (Flomax) 0.8 mg PO DAILY [facility] Tuberculin PPD (Aplisol) 5 unit IDERM ONETIME ONE Stop: 08/20/16 19:47 Last Admin: 08/22/16 07:02 Dose: Not Given Venlafaxine HCl (Effexor Xr) 75 mg PO DAILY [facility] Venlafaxine HCl (Effexor Xr) 150 mg PO DAILY [facility] - Exam General: alert, oriented HEENT: Pupils equal, Pupils reactive, EOMI, Mucous membr. moist/pink Neck: supple Lungs: Decreased breath sounds (both base,left worse than right), Rhonchi ( expiratory rhonchi heard all over the lung zarate). No: Crackles Cardiovascular: Regular Rate, Regular Rhythm Abdomen: bowel sounds present, soft, no tenderness, no distension, other (skin brusing from lovenox injections) Extremities: no edema Skin: warm, intact, other (left thigh surgical wound appear clean and dry.) - Problem List & Annotations (1) Fracture of femur SNOMED Code(s): 82700461 Code(s): S72.90XA - UNSP FRACTURE OF UNSP FEMUR, INIT ENCNTR FOR CLOSED FRACTURE Status: Acute Current Visit: No (2) Other specified rehabilitation procedure SNOMED Code(s): 480144853, 598952849 Code(s): Z51.89 - ENCOUNTER FOR OTHER SPECIFIED AFTERCARE Status: Acute Current Visit: No (3) Left lower lobe pneumonia SNOMED Code(s): 285988689 Code(s): J18.1 - LOBAR PNEUMONIA, UNSPECIFIED ORGANISM Status: Acute Current Visit: Yes - Problem List Review Problem List Initiated/Reviewed/Updated: Yes - My Orders Last 24 Hours: My Active Orders 08/22/16 10:42 CULTURE MRSA SURVEY [RM] Routine 08/22/16 14:05 Incentive Breathing [RT Incentive Spirometry] [RC] ASDIRECTED Chest 1V Frontal [CR] Routine 08/22/16 14:11 oxyCODONE 5 mg PO Q4H PRN 08/22/16 15:23 RT Aerosol Therapy [RC] ASDIRECTED Albuterol/Ipratropium [DuoNeb 3.0-0.5 MG/3 ML] 3 ml NEB Q6H PRN 08/22/16 15:25 Azithromycin [Zithromax] 500 mg PO ONETIME ONE - Assessment Assessment:: S/p left femur internal fixation LEft lower lobe penumonia. - Plan Plan:: Pt's chest xray one view does show left lower lobe infiltrate. His CBC shows white count of 10.5 with 81 % neutros. Pt claims that he has developed some cough for past 2 days. He was sent lying down flat in a medivan on a ride of 7 hrs. Post major surgery pt's do get basal atelectasis of the lung, which might have turned into a pneumonia at this time. He has been wheezing and needing oxygen to keep his SPO2. Got 1 set of blood cultures. Started on ZPAk. Deep breathing exercises and incentive spirometry.
[2016-08-22] MEDS: Albuterol/Ipratropium 3.0-0.5 MG/3 ML Neb Soln NEB PRN (20:09)
[2016-08-22] MEDS: Mirtazapine 15 MG Tab PO SCH (20:10)
[2016-08-22] MEDS: Venlafaxine 75 MG Cap.ER PO SCH (20:11)
[2016-08-22] MEDS: Simvastatin 40 MG Tab PO SCH (20:11)
[2016-08-22] MEDS: Diazepam 10 MG Tab PO PRN (21:13)
[2016-08-23] MEDS: Albuterol/Ipratropium 3.0-0.5 MG/3 ML Neb Soln NEB PRN (05:22)
--- NOTE | 2016-08-23 09:28 | CR ---
DATE OF SERVICE: 08/22/16 CLINICAL DATA: wheezing AP CHEST: Comparison is made to a prior exam dated 04/20/15. The patient is status post median sternotomy. The heart is enlarged. The aorta is calcified and ectatic. The pulmonary vasculature does appear more prominent than on the prior exam and there is some cephalization of flow suggesting mild pulmonary venous congestion. There is a poorly defined infiltrate in the left lower lung consistent with pneumonia. There is blunting of both costophrenic angles consistent with bilateral pleural effusions. The exam is otherwise unchanged from the prior exam. [id number] [facility]
[2016-08-23] MEDS ORDERED: Sodium Chloride 0.9% 1,000 ML IV SCH (09:30)
[2016-08-23 10:34] VITALS: BP 124/89
== END 2016-08-23 09:14 | disposition home or self-care (01) | DRG 560 ==
LOC: LB.MS 08-20 10:16 → UNDOADMIN 08-20 10:16 → LB.MS 08-20 19:46
PROVIDERS: ADMIT Family Medicine; ATTEND Family Medicine
DX: M97.8XXD Periprosthetic fracture around other internal prosthetic joint, subsequent encounter (principal); J95.89 Other postprocedural complications and disorders of respiratory system, not elsewhere classified; I10 Essential (primary) hypertension; I25.10 Atherosclerotic heart disease of native coronary artery without angina pectoris; E11.9 Type 2 diabetes mellitus without complications; Z79.52 Long term (current) use of systemic steroids; M19.90 Unspecified osteoarthritis, unspecified site; K21.9 Gastro-esophageal reflux disease without esophagitis; Z95.1 Presence of aortocoronary bypass graft
CPT/HCPCS: 36415; 71010; 85025; 86580; 87040; 97110-GP; 97161-GP; 97166-GO; 97530-GP; 97535-GO; A9270-GY; J1650; J7040; J7620

== ENCOUNTER 2016-08-23 09:19 | Inpatient (IN) | payer MEDICARE, OTHER, MEDICAID ==
--- NOTE | 2016-08-23 09:39 | PCM.PN ---
- General Info Date of Service: 08/23/16 Admission Dx/Problem (Free Text): Pt has post operative left lower lobe pneumonia. His BP is running around 89/ 29mmhg. He is alert, but feels tired. Has poor appetite. no fever or chills. Was started on azithromycin yesterday. Has had blood culture drawn prior to starting antibiotics. No wheezing. He is maintaining his SPO2 around 93% on 3-4 litres of O2. No complaints from patient other than feeling tired. Functional Status: Reports: pain controlled, tolerating diet, urinating, new symptoms. Denies: ambulating - Review of Systems General: Reports: Weakness, Fatigue, Appetite (decreased). Denies: Fever HEENT: Denies: headaches, sinus congestion Pulmonary: Reports: cough. Denies: shortness of breath, hemoptysis, wheezing Cardiovascular: Denies: Chest Pain, Lightheadedness Gastrointestinal: Denies: Abdominal pain, Nausea, Vomiting Genitourinary: Denies: dysuria, frequency Musculoskeletal: Denies: joint pain, joint swelling Skin: Denies: pruritis, rash Neurological: Denies: Confusion, Dizziness, Headache, Numbness, Tingling - Patient Data Weight - most recent: 86.183 kg - Exam Quality Assessment: supplemental oxygen General: alert, oriented, cooperative HEENT: Pupils equal, Pupils reactive, EOMI, Mucous membr. moist/pink Neck: supple Lungs: Normal respiratory effort, Crackles (expiratory crakles coarse in the left lower lobe) Cardiovascular: Regular Rate, Regular Rhythm Abdomen: bowel sounds present, soft, no tenderness, no distension Extremities: no edema, other (the stapled wound over the left lateral thigh appears clean and healthy.) - Problem List & Annotations (1) Left lower lobe pneumonia SNOMED Code(s): 788302525 Code(s): J18.1 - LOBAR PNEUMONIA, UNSPECIFIED ORGANISM Status: Acute Current Visit: No (2) Fracture of femur SNOMED Code(s): 10243686 Code(s): S72.90XA - UNSP FRACTURE OF UNSP FEMUR, INIT ENCNTR FOR CLOSED FRACTURE Status: Acute Current Visit: No (3) Other specified rehabilitation procedure SNOMED Code(s): 014007405, 467972801 Code(s): Z51.89 - ENCOUNTER FOR OTHER SPECIFIED AFTERCARE Status: Acute Current Visit: No - Problem List Review Problem List Initiated/Reviewed/Updated: Yes - My Orders Last 24 Hours: My Active Orders 08/23/16 09:28 CBC WITH AUTO DIFF [HEME] Stat COMPREHENSIVE METABOLIC PN,CMP [CHEM] Stat 08/23/16 09:30 Azithromycin [Zithromax] 500 mg Sodium Chloride 0.9% [Normal Saline] 250 ml IV Q24H - Assessment Assessment:: S/p left femoral arthroplasty for rehab Left lower lobe pneumonia. Loss of appetite with hypotension - Plan Plan:: Apparently patient has has developed left lower lobe pneumonia. On the day of admission he was feeling fine other feeling exhausted form the long travel he had from [place], [place] to [place]. He did have some drop in his SPO2 with out symptoms and was started on O2 considering that he is bedridden. Yesterday, he started having coughing spell at which point I did reevaluate patient and get some workup done. His chest xray was consistent with left lower lobe pneumonia. Was started on azithromyicin after taking blood culture. Also duonebs have been started for bronchospasm and incentive spirometry initiated. Today morning, patient has been feeling exhausted has not eaten his breakfast and his BP was down to 89/29mmhg. Will give him a bolus of 500ml normal saline followed by 100ml per hour. If his oral intake improve will stop Iv fluids. His white count today is 7.6 from 10.5 Hemoglobin stable at 11.6. his ABG is reassuring. his lactic acid is mildly elevated consistent with his pneumonia. His electrolyte and renal function are normal. Will closely monitor patient.
[2016-08-23] MEDS ORDERED: Sodium Chloride 0.9% 1,000 ML IV SCH (10:30)
[2016-08-23] MEDS: Azithromycin 500 MG in Sodium Chloride 0.9% 250 ML IV SCH (10:32)
[2016-08-23] MEDS ORDERED: Acetaminophen 500 MG Tab PO PRN (11:00)
[2016-08-23] MEDS ORDERED: Furosemide 20 MG Tab PO PRN (11:11)
[2016-08-23] MEDS ORDERED: oxyCODONE 5 MG Tab PO PRN ×2 (11:15→11:32)
[2016-08-23] MEDS ORDERED: NITROGLYCERIN TRLING PRN (11:32)
[2016-08-23] MEDS ORDERED: Acetaminophen 500 MG Tab PO SCH (12:00)
[2016-08-23] MEDS: Tamsulosin 0.4 MG Cap.ER PO SCH ×2 (14:49→14:54)
[2016-08-23] MEDS: Venlafaxine 150 MG Cap.ER PO SCH (14:49)
[2016-08-23] MEDS: ClonazePAM 0.5 MG Tab PO SCH ×2 (14:50→20:48)
[2016-08-23] MEDS: Methylphenidate 5 MG Tab PO SCH (14:52)
[2016-08-23] MEDS: Pantoprazole 40 MG Tab.CR PO SCH (14:52)
[2016-08-23] MEDS: Clopidogrel 75 MG Tab PO SCH (14:54)
[2016-08-23] MEDS: Folic Acid 0.4 MG Tab PO SCH (14:55)
[2016-08-23] MEDS: Multivitamins with Iron/Calcium/Folic Acid/Minerals Tab PO SCH (14:56)
[2016-08-23] MEDS: Diltiazem 120 MG Cap.CD PO SCH (14:56)
[2016-08-23] MEDS: Calcium Carbonate/Vitamin D3 1500 MG-400 Units Tab PO SCH (14:57)
[2016-08-23] MEDS: Aspirin 81 MG Tab.EC PO SCH (14:57)
[2016-08-23] MEDS: Carvedilol 25 MG Tab PO SCH ×2 (14:57→20:45)
[2016-08-23] MEDS: Enoxaparin 40 MG/0.4 ML Syringe SUBCUT SCH (14:58)
[2016-08-23] MEDS: Lisinopril 2.5 MG Tab PO SCH (14:58)
[2016-08-23] MEDS ORDERED: Magnesium Hydroxide 400 MG/5 ML Susp 30 ML Cup ONE (15:33)
[2016-08-23] MEDS ORDERED: Pantoprazole 40 MG Tab.CR PO SCH (20:00)
[2016-08-23] MEDS ORDERED: Non-Formulary Medication 1 Each (Mirtazapine [Mirtazapine] 7.5 MG) PO SCH (20:00)
[2016-08-23] MEDS ORDERED: Carvedilol 25 MG Tab PO SCH (20:00)
[2016-08-23] MEDS ORDERED: CLONAZEPAM 0.25 MG PO SCH (20:00)
[2016-08-23] MEDS: Mirtazapine 15 MG Tab PO SCH (20:48)
[2016-08-23] MEDS: Venlafaxine 75 MG Cap.ER PO SCH (20:49)
[2016-08-23] MEDS: Simvastatin 40 MG Tab PO SCH (20:50)
[2016-08-23] MEDS ORDERED: Sodium Phosphate,Monobasic/Sodium Phosphate,Dibasic Enema 133 ML Bottle RECTAL ONE (22:25)
[2016-08-24] MEDS: Diazepam 10 MG Tab PO PRN (00:41)
[2016-08-24] MEDS: Albuterol/Ipratropium 3.0-0.5 MG/3 ML Neb Soln INH PRN ×3 (03:18→19:57)
[2016-08-24] MEDS ORDERED: Tamsulosin 0.4 MG Cap.ER PO SCH (08:00)
[2016-08-24] MEDS ORDERED: Calcium Carbonate/Vitamin D3 1500 MG-400 Units Tab PO SCH (08:00)
[2016-08-24] MEDS ORDERED: Sennosides 8.6 MG Tab PO SCH (08:00)
[2016-08-24] MEDS ORDERED: Lisinopril 2.5 MG Tab PO SCH (08:00)
[2016-08-24] MEDS ORDERED: Venlafaxine 75 MG Cap.ER PO SCH (08:00)
[2016-08-24] MEDS ORDERED: DILTIAZEM 120 MG PO SCH (08:00)
[2016-08-24] MEDS ORDERED: Non-Formulary Medication 1 Each (Multivitamin [Multivitamins] 1 EACH) PO SCH (08:00)
[2016-08-24] MEDS ORDERED: Aspirin 81 MG Tab.EC PO SCH (08:00)
[2016-08-24] MEDS ORDERED: Venlafaxine 150 MG Cap.ER PO SCH (08:00)
[2016-08-24] MEDS ORDERED: Clopidogrel 75 MG Tab PO SCH (08:00)
[2016-08-24] MEDS ORDERED: Enoxaparin 40 MG/0.4 ML Syringe SUBCUT SCH (08:00)
[2016-08-24] MEDS ORDERED: Folic Acid 0.4 MG Tab PO SCH (08:00)
[2016-08-24] MEDS: Calcium Carbonate/Vitamin D3 1500 MG-400 Units Tab PO SCH (08:54)
[2016-08-24] MEDS: Diltiazem 120 MG Cap.CD PO SCH (08:55)
[2016-08-24] MEDS: Carvedilol 25 MG Tab PO SCH ×2 (09:00→20:07)
[2016-08-24] MEDS: Venlafaxine 150 MG Cap.ER PO SCH (09:01)
[2016-08-24] MEDS: Enoxaparin 40 MG/0.4 ML Syringe SUBCUT SCH (09:01)
[2016-08-24] MEDS: Clopidogrel 75 MG Tab PO SCH (09:01)
[2016-08-24] MEDS: Aspirin 81 MG Tab.EC PO SCH (09:02)
[2016-08-24] MEDS: Methylphenidate 5 MG Tab PO SCH (09:02)
[2016-08-24] MEDS: Lisinopril 2.5 MG Tab PO SCH (09:02)
[2016-08-24] MEDS: predniSONE 20 MG Tab PO SCH (09:02)
[2016-08-24] MEDS: Multivitamins with Iron/Calcium/Folic Acid/Minerals Tab PO SCH (09:02)
[2016-08-24] MEDS: ClonazePAM 0.5 MG Tab PO SCH ×2 (09:03→19:59)
[2016-08-24] MEDS: Folic Acid 0.4 MG Tab PO SCH (09:05)
[2016-08-24] MEDS: Tamsulosin 0.4 MG Cap.ER PO SCH (09:05)
[2016-08-24] MEDS: Azithromycin 500 MG in Sodium Chloride 0.9% 250 ML IV SCH (09:30)
[2016-08-24] MEDS: Nitroglycerin 0.4 MG Tab.SL SL SCH (16:22)
[2016-08-24] MEDS: Venlafaxine 75 MG Cap.ER PO SCH (20:00)
[2016-08-24] MEDS: Pantoprazole 40 MG Tab.CR PO SCH (20:00)
[2016-08-24] MEDS: Simvastatin 40 MG Tab PO SCH (20:01)
[2016-08-24] MEDS: Mirtazapine 15 MG Tab PO SCH (20:47)
--- NOTE | 2016-08-25 09:50 | PCM.PN ---
- General Info Date of Service: 08/24/16 Admission Dx/Problem (Free Text): Pt has clinically improved, has been coughing, less shortness of breath. His bp is normal. Appetite has improved. Still coughing up sputum. no hemoptysis.On IV azithromycin. Functional Status: Reports: tolerating diet, urinating, incentive spirometry - Review of Systems General: Denies: Fever, Weakness HEENT: Denies: sinus congestion, visual changes Pulmonary: Reports: cough, sputum. Denies: shortness of breath, pleuritic chest pain, hemoptysis Cardiovascular: Denies: Chest Pain, Lightheadedness Gastrointestinal: Denies: Nausea, Vomiting Genitourinary: Denies: dysuria, frequency Musculoskeletal: Denies: shoulder pain, foot pain, joint pain Skin: Reports: bruising (from lovenox injections). Denies: pruritis, rash Neurological: Denies: No Symptoms - Patient Data Vitals - most recent: Last Vital Signs Temp 97.9 F 08/24/16 20:08 Pulse 44 L 08/24/16 20:08 Resp 22 H 08/24/16 20:08 BP 124/49 L 08/24/16 20:08 Pulse Ox 99 08/24/16 20:08 Weight - most recent: 80.921 kg Med Orders - Current: Current Medications Acetaminophen (Tylenol Extra Strength) 500 mg PO QID PRN PRN Reason: MILD PAIN Last Admin: 08/23/16 14:54 Dose: 500 mg Albuterol/Ipratropium (Duoneb 3.0-0.5 Mg/3 Ml) 3 ml INH Q6H PRN PRN Reason: Other Last Admin: 08/24/16 19:57 Dose: 3 ml Aspirin (Halfprin) 81 mg PO DAILY [facility] Last Admin: 08/24/16 09:02 Dose: 81 mg Calcium Carbonate (Caltrate 600+D 1500 Mg-400 Units) 1 tab PO DAILY [facility] Last Admin: 08/24/16 08:54 Dose: 1 tab Carvedilol (Coreg) 25 mg PO BID [facility] Last Admin: 08/24/16 20:07 Dose: Not Given Clonazepam (Klonopin) 0.25 mg PO BID [facility] Last Admin: 08/24/16 19:59 Dose: 0.25 mg Clopidogrel Bisulfate (Plavix) 75 mg PO DAILY [facility] Last Admin: 08/24/16 09:01 Dose: 75 mg Diazepam (Valium) 10 mg PO BEDTIME PRN PRN Reason: BEDTIME Last Admin: 08/24/16 00:41 Dose: 10 mg Diltiazem HCl (Cardizem Cd) 120 mg PO DAILY [facility] Last Admin: 08/24/16 08:55 Dose: 120 mg Enoxaparin Sodium (Lovenox) 40 mg SUBCUT DAILY [facility] Stop: 09/05/16 10:00 Last Admin: 08/24/16 09:01 Dose: 40 mg Folic Acid (Folic Acid) 0.8 mg PO DAILY [facility] Last Admin: 08/24/16 09:05 Dose: 0.8 mg Furosemide (Lasix) 20 mg PO DAILY PRN PRN Reason: DIURETIC Last Admin: 08/23/16 14:49 Dose: 20 mg Azithromycin 500 mg/ Sodium (Chloride) 250 mls @ 250 mls/hr IV Q24H [facility] Last Admin: 08/24/16 09:30 Dose: 250 mls/hr Lisinopril (Prinivil) 2.5 mg PO DAILY [facility] Last Admin: 08/24/16 09:02 Dose: 2.5 mg Methylphenidate HCl (Ritalin) 5 mg PO DAILY [facility] Last Admin: 08/24/16 09:02 Dose: 5 mg Mirtazapine (Remeron) 7.5 mg PO BEDTIME [facility] Last Admin: 08/24/16 20:47 Dose: 7.5 mg Multivitamins/Minerals (Thera M Plus) 1 tab PO DAILY [facility] Last Admin: 08/24/16 09:02 Dose: 1 tab Nitroglycerin (Nitrostat) 0.4 mg SL DAILY [facility] Last Admin: 08/24/16 16:22 Dose: Not Given Oxycodone HCl (Oxycodone) 5 mg PO Q4H PRN PRN Reason: MODERATE PAIN Pantoprazole Sodium (Protonix) 40 mg PO QPM [facility] Last Admin: 08/24/16 20:00 Dose: 40 mg Prednisone (Prednisone) 40 mg PO DAILY [facility] Last Admin: 08/24/16 09:02 Dose: 40 mg Senna/Docusate Sodium (Senna Plus) 2 tab PO DAILY PRN PRN Reason: CONSTIPATION Last Admin: 08/23/16 14:48 Dose: 2 tab Simvastatin (Zocor) 40 mg PO BEDTIME [facility] Last Admin: 08/24/16 20:01 Dose: 40 mg Tamsulosin HCl (Flomax) 0.8 mg PO DAILY [facility] Last Admin: 08/24/16 09:05 Dose: 0.8 mg Venlafaxine HCl (Effexor Xr) 150 mg PO DAILY [facility] Last Admin: 08/24/16 09:01 Dose: 150 mg Venlafaxine HCl (Effexor Xr) 75 mg PO BEDTIME [facility] Last Admin: 08/24/16 20:00 Dose: 75 mg Discontinued Medications Sodium Chloride (Normal Saline) 1,000 mls @ 100 mls/hr IV ASDIRECTED [facility] Magnesium Hydroxide (Milk Of Magnesia) Confirm Administered Dose 30 ml .ROUTE .STK-MED ONE Stop: 08/23/16 15:34 Last Admin: 08/23/16 16:00 Dose: 30 ml Sodium Biphosphate/Sodium Phosphate (Fleet Enema) 133 ml RECTAL ONETIME ONE Stop: 08/23/16 22:26 Last Admin: 08/23/16 23:32 Dose: 133 ml - Exam Quality Assessment: supplemental oxygen General: alert, oriented HEENT: Pupils equal, Pupils reactive, EOMI, Mucous membr. moist/pink Neck: supple Lungs: Normal respiratory effort, Crackles (coarse heard in left lower base. rest of the lung clears) Cardiovascular: Regular Rate, Regular Rhythm Abdomen: bowel sounds present, soft, no tenderness, no distension Extremities: no edema Skin: warm, intact, other (staoled surgical wound over the left thigh appears clean and healthy. No signs of infection) - Problem List & Annotations (1) Left lower lobe pneumonia SNOMED Code(s): 563500224 Code(s): J18.1 - LOBAR PNEUMONIA, UNSPECIFIED ORGANISM Status: Acute Current Visit: No (2) Fracture of femur SNOMED Code(s): 72388084 Code(s): S72.90XA - UNSP FRACTURE OF UNSP FEMUR, INIT ENCNTR FOR CLOSED FRACTURE Status: Acute Current Visit: No (3) Other specified rehabilitation procedure SNOMED Code(s): 561995215, 800664645 Code(s): Z51.89 - ENCOUNTER FOR OTHER SPECIFIED AFTERCARE Status: Acute Current Visit: No - Problem List Review Problem List Initiated/Reviewed/Updated: Yes - My Orders Last 24 Hours: My Active Orders 08/24/16 20:00 Pantoprazole [Protonix] 40 mg PO QPM - Assessment Assessment:: S/p left femoral arthroplasty for rehab Left lower lobe pneumonia. - Plan Plan:: Pt has left lower lobe pneumonia. He has been doing well. His shortness of breath and wheezing is better. Coughing up sputum. afebrile. His BP is stable presently not on IV fluids. Wound over left thigh clean and healthy. Will reassess patient tomorrow and if no change in his respiratory status , will change him to swing bed.
[2016-08-25] MEDS: Calcium Carbonate/Vitamin D3 1500 MG-400 Units Tab PO SCH (09:52)
[2016-08-25] MEDS: predniSONE 20 MG Tab PO SCH (09:52)
[2016-08-25] MEDS: Folic Acid 0.4 MG Tab PO SCH (09:52)
[2016-08-25] MEDS: Methylphenidate 5 MG Tab PO SCH (09:53)
[2016-08-25] MEDS: Carvedilol 25 MG Tab PO SCH ×2 (09:53→19:52)
[2016-08-25] MEDS: Diltiazem 120 MG Cap.CD PO SCH (09:56)
[2016-08-25] MEDS: Aspirin 81 MG Tab.EC PO SCH (09:57)
[2016-08-25] MEDS: Venlafaxine 150 MG Cap.ER PO SCH (09:57)
[2016-08-25] MEDS: Enoxaparin 40 MG/0.4 ML Syringe SUBCUT SCH (09:58)
[2016-08-25] MEDS: ClonazePAM 0.5 MG Tab PO SCH ×2 (09:58→19:53)
[2016-08-25] MEDS: Tamsulosin 0.4 MG Cap.ER PO SCH (09:58)
[2016-08-25] MEDS: Nitroglycerin 0.4 MG Tab.SL SL SCH (09:59)
[2016-08-25] MEDS: Clopidogrel 75 MG Tab PO SCH (10:00)
[2016-08-25] MEDS: Lisinopril 2.5 MG Tab PO SCH (10:00)
[2016-08-25] MEDS: Azithromycin 500 MG in Sodium Chloride 0.9% 250 ML IV SCH (10:00)
[2016-08-25] MEDS: Multivitamins with Iron/Calcium/Folic Acid/Minerals Tab PO SCH (10:00)
--- NOTE | 2016-08-25 11:46 | PCM.PN ---
- General Info Date of Service: 08/25/16 Admission Dx/Problem (Free Text): Pt has been coughing and getting lot of sputum. He has been afebrile. Feeding well. C/o being tired. Vital are stable. Maintaining SPO2 around 97-99%. No other complaints. Functional Status: Reports: tolerating diet, urinating, incentive spirometry - Review of Systems General: Denies: Fever, Weakness HEENT: Denies: sinus congestion, visual changes Pulmonary: Reports: cough, sputum. Denies: shortness of breath, hemoptysis, wheezing Cardiovascular: Denies: Chest Pain, Lightheadedness Gastrointestinal: Denies: Abdominal pain, Nausea, Vomiting Genitourinary: Denies: dysuria, frequency Musculoskeletal: Denies: joint pain, joint swelling Skin: Denies: pruritis, rash Neurological: Denies: Confusion, Dizziness Psychiatric: Denies: confusion, depression - Patient Data Vitals - most recent: Last Vital Signs Temp 97.9 F 08/24/16 20:08 Pulse 71 08/25/16 09:53 Resp 22 H 08/24/16 20:08 BP 141/53 H 08/25/16 09:59 Pulse Ox 99 08/24/16 20:08 Weight - most recent: 80.921 kg Med Orders - Current: Current Medications Acetaminophen (Tylenol Extra Strength) 500 mg PO QID PRN PRN Reason: MILD PAIN Last Admin: 08/23/16 14:54 Dose: 500 mg Albuterol/Ipratropium (Duoneb 3.0-0.5 Mg/3 Ml) 3 ml INH Q6H PRN PRN Reason: Other Last Admin: 08/24/16 19:57 Dose: 3 ml Aspirin (Halfprin) 81 mg PO DAILY [facility] Last Admin: 08/25/16 09:57 Dose: 81 mg Calcium Carbonate (Caltrate 600+D 1500 Mg-400 Units) 1 tab PO DAILY [facility] Last Admin: 08/25/16 09:52 Dose: 1 tab Carvedilol (Coreg) 25 mg PO BID [facility] Last Admin: 08/25/16 09:53 Dose: 25 mg Clonazepam (Klonopin) 0.25 mg PO BID [facility] Last Admin: 08/25/16 09:58 Dose: 0.25 mg Clopidogrel Bisulfate (Plavix) 75 mg PO DAILY [facility] Last Admin: 08/25/16 10:00 Dose: 75 mg Diazepam (Valium) 10 mg PO BEDTIME PRN PRN Reason: BEDTIME Last Admin: 08/24/16 00:41 Dose: 10 mg Diltiazem HCl (Cardizem Cd) 120 mg PO DAILY [facility] Last Admin: 08/25/16 09:56 Dose: Not Given Enoxaparin Sodium (Lovenox) 40 mg SUBCUT DAILY [facility] Stop: 09/05/16 10:00 Last Admin: 08/25/16 09:58 Dose: 40 mg Folic Acid (Folic Acid) 0.8 mg PO DAILY [facility] Last Admin: 08/25/16 09:52 Dose: 0.8 mg Furosemide (Lasix) 20 mg PO DAILY PRN PRN Reason: DIURETIC Last Admin: 08/23/16 14:49 Dose: 20 mg Azithromycin 500 mg/ Sodium (Chloride) 250 mls @ 250 mls/hr IV Q24H [facility] Last Admin: 08/25/16 10:00 Dose: 250 mls/hr Lisinopril (Prinivil) 2.5 mg PO DAILY [facility] Last Admin: 08/25/16 10:00 Dose: Not Given Methylphenidate HCl (Ritalin) 5 mg PO DAILY [facility] Last Admin: 08/25/16 09:53 Dose: 5 mg Mirtazapine (Remeron) 7.5 mg PO BEDTIME [facility] Last Admin: 08/24/16 20:47 Dose: 7.5 mg Multivitamins/Minerals (Thera M Plus) 1 tab PO DAILY [facility] Last Admin: 08/25/16 10:00 Dose: 1 tab Nitroglycerin (Nitrostat) 0.4 mg SL DAILY [facility] Last Admin: 08/25/16 09:59 Dose: Not Given Oxycodone HCl (Oxycodone) 5 mg PO Q4H PRN PRN Reason: MODERATE PAIN Pantoprazole Sodium (Protonix) 40 mg PO QPM [facility] Last Admin: 08/24/16 20:00 Dose: 40 mg Prednisone (Prednisone) 40 mg PO DAILY [facility] Last Admin: 08/25/16 09:52 Dose: 40 mg Senna/Docusate Sodium (Senna Plus) 2 tab PO DAILY PRN PRN Reason: CONSTIPATION Last Admin: 08/23/16 14:48 Dose: 2 tab Simvastatin (Zocor) 40 mg PO BEDTIME [facility] Last Admin: 08/24/16 20:01 Dose: 40 mg Tamsulosin HCl (Flomax) 0.8 mg PO DAILY [facility] Last Admin: 08/25/16 09:58 Dose: 0.8 mg Venlafaxine HCl (Effexor Xr) 150 mg PO DAILY [facility] Last Admin: 08/25/16 09:57 Dose: 150 mg Venlafaxine HCl (Effexor Xr) 75 mg PO BEDTIME [facility] Last Admin: 08/24/16 20:00 Dose: 75 mg Discontinued Medications Sodium Chloride (Normal Saline) 1,000 mls @ 100 mls/hr IV ASDIRECTED [facility] Magnesium Hydroxide (Milk Of Magnesia) Confirm Administered Dose 30 ml .ROUTE .STK-MED ONE Stop: 08/23/16 15:34 Last Admin: 08/23/16 16:00 Dose: 30 ml Sodium Biphosphate/Sodium Phosphate (Fleet Enema) 133 ml RECTAL ONETIME ONE Stop: 08/23/16 22:26 Last Admin: 08/23/16 23:32 Dose: 133 ml - Exam Quality Assessment: supplemental oxygen General: alert, oriented HEENT: Pupils equal, Pupils reactive, EOMI, Mucous membr. moist/pink Neck: supple Lungs: Normal respiratory effort, Decreased breath sounds (left base), Crackles (expiratory crackles heard) Cardiovascular: Regular Rate, Regular Rhythm Abdomen: bowel sounds present, soft, no tenderness, no distension Extremities: no edema, other (The stapled surgical woundover left thigh appears clean and healing well.) Peripheral Pulses: 2+: carotid (L), carotid (R), radial (L), radial (R) Skin: warm, intact Psy/Mental Status: alert, normal affect - Problem List & Annotations (1) Left lower lobe pneumonia SNOMED Code(s): 125618193 Code(s): J18.1 - LOBAR PNEUMONIA, UNSPECIFIED ORGANISM Status: Acute Current Visit: No (2) Fracture of femur SNOMED Code(s): 68817009 Code(s): S72.90XA - UNSP FRACTURE OF UNSP FEMUR, INIT ENCNTR FOR CLOSED FRACTURE Status: Acute Current Visit: No (3) Other specified rehabilitation procedure SNOMED Code(s): 342119534, 964292122 Code(s): Z51.89 - ENCOUNTER FOR OTHER SPECIFIED AFTERCARE Status: Acute Current Visit: No - Problem List Review Problem List Initiated/Reviewed/Updated: Yes - My Orders Last 24 Hours: My Active Orders 08/24/16 20:00 Pantoprazole [Protonix] 40 mg PO QPM - Assessment Assessment:: S/p left femoral arthroplasty for rehab Left lower lobe pneumonia. - Plan Plan:: Pt's left thigh wound appears clean and dry. Healing well. Has been working with therapy well. he has developed left lower lobe pneumonia. He has remained afebrile. maintain SPO2 well about 92%. Coughing and clearing up the secretions. Will start him on mucomyst to help with cough.Advised to continue incentive spirometry. Will stop his Azithromycin after tomorrow's dose. Need good pulmonary toileting.
[2016-08-25] MEDS ORDERED: guaiFENesin 600 MG Tab.ER PO SCH (14:00)
[2016-08-25] MEDS: Venlafaxine 75 MG Cap.ER PO SCH (19:52)
[2016-08-25] MEDS: Pantoprazole 40 MG Tab.CR PO SCH (19:54)
[2016-08-25] MEDS: Mirtazapine 15 MG Tab PO SCH (19:54)
[2016-08-25] MEDS: Simvastatin 40 MG Tab PO SCH (19:57)
[2016-08-26] MEDS: predniSONE 20 MG Tab PO SCH (08:30)
[2016-08-26] MEDS: Clopidogrel 75 MG Tab PO SCH (08:38)
[2016-08-26] MEDS: Lisinopril 2.5 MG Tab PO SCH (08:38)
[2016-08-26] MEDS: Enoxaparin 40 MG/0.4 ML Syringe SUBCUT SCH (08:38)
[2016-08-26] MEDS: Tamsulosin 0.4 MG Cap.ER PO SCH (08:38)
[2016-08-26] MEDS: ClonazePAM 0.5 MG Tab PO SCH ×2 (08:39→19:56)
[2016-08-26] MEDS: Folic Acid 0.4 MG Tab PO SCH (08:39)
[2016-08-26] MEDS: Diltiazem 120 MG Cap.CD PO SCH (08:39)
[2016-08-26] MEDS: Methylphenidate 5 MG Tab PO SCH (08:40)
[2016-08-26] MEDS: Calcium Carbonate/Vitamin D3 1500 MG-400 Units Tab PO SCH (08:40)
[2016-08-26] MEDS: Nitroglycerin 0.4 MG Tab.SL SL SCH (08:41)
[2016-08-26] MEDS: Carvedilol 25 MG Tab PO SCH ×2 (08:42→19:55)
[2016-08-26] MEDS: Multivitamins with Iron/Calcium/Folic Acid/Minerals Tab PO SCH (08:42)
[2016-08-26] MEDS: Aspirin 81 MG Tab.EC PO SCH (08:42)
[2016-08-26] MEDS: Venlafaxine 150 MG Cap.ER PO SCH (08:42)
--- NOTE | 2016-08-26 12:09 | PCM.PN ---
- General Info Date of Service: 08/26/16 Admission Dx/Problem (Free Text): Pt claims he has been feeling better. feeding well. Claims has mild cogh with sputum. HAs been suing incentive spirometer. Has been using less Oxygen. No fever or chills. 5th days of azithromycin Functional Status: Reports: tolerating diet, urinating, incentive spirometry - Review of Systems General: Denies: Fever, Weakness HEENT: Denies: headaches, sinus congestion Pulmonary: Reports: cough, sputum. Denies: shortness of breath, wheezing Cardiovascular: Denies: Chest Pain, Lightheadedness Gastrointestinal: Denies: Abdominal pain, Nausea, Vomiting Genitourinary: Denies: dysuria, frequency Musculoskeletal: Denies: neck pain, shoulder pain Skin: Reports: bruising (over abdomen from lovenox). Denies: pruritis, rash Neurological: Denies: Confusion, Dizziness, Headache Psychiatric: Denies: confusion, depression - Patient Data Vitals - most recent: Last Vital Signs Temp 97 F 08/26/16 08:00 Pulse 77 08/26/16 08:42 Resp 16 08/26/16 08:00 BP 152/67 H 08/26/16 08:42 Pulse Ox 98 08/26/16 00:00 Weight - most recent: 80.921 kg I&O - last 24 hours: Intake & Output 08/25/16 08/26/16 08/26/16 22:59 06:59 14:59 Intake Total 700 150 Output Total 600 300 Balance 100 -150 Med Orders - Current: Current Medications Acetaminophen (Tylenol Extra Strength) 500 mg PO QID PRN PRN Reason: MILD PAIN Last Admin: 08/23/16 14:54 Dose: 500 mg Albuterol/Ipratropium (Duoneb 3.0-0.5 Mg/3 Ml) 3 ml INH Q6H PRN PRN Reason: Other Last Admin: 08/24/16 19:57 Dose: 3 ml Aspirin (Halfprin) 81 mg PO DAILY [facility] Last Admin: 08/26/16 08:42 Dose: 81 mg Calcium Carbonate (Caltrate 600+D 1500 Mg-400 Units) 1 tab PO DAILY [facility] Last Admin: 08/26/16 08:40 Dose: 1 tab Carvedilol (Coreg) 25 mg PO BID [facility] Last Admin: 08/26/16 08:42 Dose: 25 mg Clonazepam (Klonopin) 0.25 mg PO BID [facility] Last Admin: 08/26/16 08:39 Dose: 0.25 mg Clopidogrel Bisulfate (Plavix) 75 mg PO DAILY [facility] Last Admin: 08/26/16 08:38 Dose: 75 mg Diazepam (Valium) 10 mg PO BEDTIME PRN PRN Reason: BEDTIME Last Admin: 08/24/16 00:41 Dose: 10 mg Diltiazem HCl (Cardizem Cd) 120 mg PO DAILY [facility] Last Admin: 08/26/16 08:39 Dose: 120 mg Enoxaparin Sodium (Lovenox) 40 mg SUBCUT DAILY [facility] Stop: 09/05/16 10:00 Last Admin: 08/26/16 08:38 Dose: 40 mg Folic Acid (Folic Acid) 0.8 mg PO DAILY [facility] Last Admin: 08/26/16 08:39 Dose: 0.8 mg Furosemide (Lasix) 20 mg PO DAILY PRN PRN Reason: DIURETIC Last Admin: 08/23/16 14:49 Dose: 20 mg Guaifenesin (Mucinex) 400 mg PO TID [facility] Azithromycin 500 mg/ Sodium (Chloride) 250 mls @ 250 mls/hr IV Q24H [facility] Last Admin: 08/25/16 10:00 Dose: 250 mls/hr Lisinopril (Prinivil) 2.5 mg PO DAILY [facility] Last Admin: 08/26/16 08:38 Dose: 2.5 mg Methylphenidate HCl (Ritalin) 5 mg PO DAILY [facility] Last Admin: 08/26/16 08:40 Dose: 5 mg Mirtazapine (Remeron) 7.5 mg PO BEDTIME [facility] Last Admin: 08/25/16 19:54 Dose: 7.5 mg Multivitamins/Minerals (Thera M Plus) 1 tab PO DAILY [facility] Last Admin: 08/26/16 08:42 Dose: 1 tab Nitroglycerin (Nitrostat) 0.4 mg SL DAILY [facility] Last Admin: 08/26/16 08:41 Dose: Not Given Oxycodone HCl (Oxycodone) 5 mg PO Q4H PRN PRN Reason: MODERATE PAIN Pantoprazole Sodium (Protonix) 40 mg PO QPM [facility] Last Admin: 08/25/16 19:54 Dose: 40 mg Prednisone (Prednisone) 40 mg PO DAILY [facility] Last Admin: 08/26/16 08:30 Dose: 40 mg Senna/Docusate Sodium (Senna Plus) 2 tab PO DAILY PRN PRN Reason: CONSTIPATION Last Admin: 08/23/16 14:48 Dose: 2 tab Simvastatin (Zocor) 40 mg PO BEDTIME [facility] Last Admin: 08/25/16 19:57 Dose: 40 mg Tamsulosin HCl (Flomax) 0.8 mg PO DAILY [facility] Last Admin: 08/26/16 08:38 Dose: 0.8 mg Venlafaxine HCl (Effexor Xr) 150 mg PO DAILY [facility] Last Admin: 08/26/16 08:42 Dose: 150 mg Venlafaxine HCl (Effexor Xr) 75 mg PO BEDTIME [facility] Last Admin: 08/25/16 19:52 Dose: 75 mg Discontinued Medications Sodium Chloride (Normal Saline) 1,000 mls @ 100 mls/hr IV ASDIRECTED [facility] Magnesium Hydroxide (Milk Of Magnesia) Confirm Administered Dose 30 ml .ROUTE .STK-MED ONE Stop: 08/23/16 15:34 Last Admin: 08/23/16 16:00 Dose: 30 ml Sodium Biphosphate/Sodium Phosphate (Fleet Enema) 133 ml RECTAL ONETIME ONE Stop: 08/23/16 22:26 Last Admin: 08/23/16 23:32 Dose: 133 ml - Exam Quality Assessment: supplemental oxygen General: alert, oriented HEENT: Pupils equal, Pupils reactive, EOMI, Mucous membr. moist/pink Neck: supple Lungs: Normal respiratory effort, Crackles (expiratory in the left base) Cardiovascular: Regular Rate, Regular Rhythm Abdomen: bowel sounds present, soft, no tenderness, no distension Extremities: no edema Wound/Incisions: healing well (left thigh stapled wound) - Problem List & Annotations (1) Left lower lobe pneumonia SNOMED Code(s): 182727462 Code(s): J18.1 - LOBAR PNEUMONIA, UNSPECIFIED ORGANISM Status: Acute Current Visit: No (2) Fracture of femur SNOMED Code(s): 32513828 Code(s): S72.90XA - UNSP FRACTURE OF UNSP FEMUR, INIT ENCNTR FOR CLOSED FRACTURE Status: Acute Current Visit: No (3) Other specified rehabilitation procedure SNOMED Code(s): 178567301, 133444592 Code(s): Z51.89 - ENCOUNTER FOR OTHER SPECIFIED AFTERCARE Status: Acute Current Visit: No - Problem List Review Problem List Initiated/Reviewed/Updated: Yes - My Orders Last 24 Hours: My Active Orders 08/25/16 14:00 guaiFENesin [Mucinex] 400 mg PO TID 08/25/16 Dinner Heart Healthy Diet [DIET] - Assessment Assessment:: S/p left femoral arthroplasty for rehab Left lower lobe pneumonia. - Plan Plan:: Pt's left thigh wound appears clean and dry. Healing well. he has developed left lower lobe pneumonia. He has remained afebrile. maintain SPO2 well about 92%.Will discontinue his azithromycin as this is 5th days. Continue incentive spirometry.
[2016-08-26] MEDS: Albuterol/Ipratropium 3.0-0.5 MG/3 ML Neb Soln INH PRN (13:06)
[2016-08-26] MEDS ORDERED: guaiFENesin 600 MG Tab.ER ONE (13:10)
[2016-08-26] MEDS: Venlafaxine 75 MG Cap.ER PO SCH (19:55)
[2016-08-26] MEDS: Pantoprazole 40 MG Tab.CR PO SCH (19:56)
[2016-08-26] MEDS: Mirtazapine 15 MG Tab PO SCH (19:57)
[2016-08-26] MEDS: Simvastatin 40 MG Tab PO SCH (19:58)
[2016-08-26] MEDS: Diazepam 10 MG Tab PO PRN (23:01)
[2016-08-27] MEDS ORDERED: Magnesium Hydroxide 400 MG/5 ML Susp 30 ML Cup ONE (00:23)
[2016-08-27] MEDS: Albuterol/Ipratropium 3.0-0.5 MG/3 ML Neb Soln INH PRN (06:17)
[2016-08-27] MEDS ORDERED: guaiFENesin 600 MG Tab.ER PO SCH (08:00)
[2016-08-27] MEDS: Tamsulosin 0.4 MG Cap.ER PO SCH (08:14)
[2016-08-27] MEDS: Carvedilol 25 MG Tab PO SCH (08:15)
[2016-08-27] MEDS: Lisinopril 2.5 MG Tab PO SCH (08:15)
[2016-08-27] MEDS: predniSONE 20 MG Tab PO SCH (08:15)
[2016-08-27] MEDS: Clopidogrel 75 MG Tab PO SCH (08:16)
[2016-08-27] MEDS: Multivitamins with Iron/Calcium/Folic Acid/Minerals Tab PO SCH (08:16)
[2016-08-27] MEDS: Methylphenidate 5 MG Tab PO SCH (08:16)
[2016-08-27] MEDS: ClonazePAM 0.5 MG Tab PO SCH (08:16)
[2016-08-27] MEDS: Aspirin 81 MG Tab.EC PO SCH (08:16)
[2016-08-27] MEDS: Folic Acid 0.4 MG Tab PO SCH (08:16)
[2016-08-27] MEDS: Diltiazem 120 MG Cap.CD PO SCH (08:17)
[2016-08-27] MEDS: Calcium Carbonate/Vitamin D3 1500 MG-400 Units Tab PO SCH (08:17)
[2016-08-27] MEDS: Venlafaxine 150 MG Cap.ER PO SCH (08:17)
[2016-08-27] MEDS: Enoxaparin 40 MG/0.4 ML Syringe SUBCUT SCH (08:18)
--- NOTE | 2016-08-27 09:20 | PCM.DCSUM1 ---
Discharge Summary - Hospital Course Free Text/Narrative:: Pt was admitted with left lower lobe pneumonia of acute onset. He was started on azithromycin. Over the period on time his SPO2 has improved. He has gone form using 4 litre [place] oxygen to maintain his SPO2 at 96% on room air. He is still coughing up sputum. He is off his 5 day course of azithromycin. afebrile and at his baseline. Feeing well. He does have left femoral fracture with internal fixation, for which he is under going rehab presently. So at this point. pt has been doing his incentive spirometry, and pulmonary toileting and mucinex for expectoration. Paln is to discharge him from acute care and change his admission status to swing bed. Staple over the left thigh removed under aseptic precautions and steri-strips applied. Pt advised to be careful when he is going to turn and roll in the bed, if there is increase lateral tension over the wound could cause wound dehiscence. Brief History: Pt was admitted as Swing bed on 08/20/16 post left femure internal fixation done at [facility]. He was placed in [facility] and had a long 7 -[address] he was found in a poll of urine and food all over his face and berd when he was admitted here. Pt did develop cough with productive sputum by day 2 of admisiin with his SPO2 dropping in mid 80s. At which point work up ws done and he had developed left lower lobe penumonia. Hence patient was admitted to inpatient care for treatment of Left lower lobe pneumonia. - Discharge Data Discharge Date: 08/27/16 Discharge Disposition: DC/Tfer W/I Hosp To Swing Condition: Good - Discharge Diagnosis/Problem(s) (1) Left lower lobe pneumonia SNOMED Code(s): 566662909 ICD Code: J18.1 - LOBAR PNEUMONIA, UNSPECIFIED ORGANISM Status: Acute Current Visit: No (2) Fracture of femur SNOMED Code(s): 38626322 ICD Code: S72.90XA - UNSP FRACTURE OF UNSP FEMUR, INIT ENCNTR FOR CLOSED FRACTURE Status: Acute Current Visit: No (3) Other specified rehabilitation procedure SNOMED Code(s): 481407275, 067203774 ICD Code: Z51.89 - ENCOUNTER FOR OTHER SPECIFIED AFTERCARE Status: Acute Current Visit: No - Patient Instructions Diet: Heart Healthy Diet Activity: As Tolerated (per rehab) Showering/Bathing: October Shower - Discharge Plan Home Medications: Home Meds Aspirin [Low Dose Aspirin EC] 81 mg PO DAILY 06/03/13 [History] Folic Acid 0.8 mg PO DAILY 06/03/13 [History] Lisinopril 2.5 mg PO DAILY 06/03/13 [History] Nitroglycerin [Nitrolingual [place]] 1 spray TRLING ASDIRECTED PRN 06/03/13 [ History] Tamsulosin [Flomax] 0.8 mg PO DAILY 06/03/13 [History] Venlafaxine [Effexor XR] 75 mg PO DAILY 06/03/13 [History] Venlafaxine [Effexor XR] 150 mg PO DAILY 06/03/13 [History] Clopidogrel [Plavix] 75 mg PO DAILY 06/22/16 [History] Multivitamin [Multivitamins] 1 each PO DAILY 06/22/16 [History] Pantoprazole Sodium 40 mg PO QPM 06/22/16 [History] clonazePAM [Clonazepam] 0.25 mg PO BID 07/03/16 [History] Acetaminophen [Tylenol Extra Strength] 500 mg PO QID 08/20/16 [History] Calcium Carbonate/Vitamin D3 [Caltrate 600+D 1500 MG-400 Units] 1 tab PO DAILY 08/20/16 [History] Carvedilol [Coreg] 25 mg PO BID 08/20/16 [History] Diltiazem [Cardizem] 120 mg PO DAILY 08/20/16 [History] Enoxaparin [Lovenox] 40 mg INJECT DAILY 08/20/16 [History] Mirtazapine 7.5 mg PO QPM 08/20/16 [History] Sennosides [Senokot] 8.6 mg PO DAILY 08/20/16 [History] oxyCODONE 5 mg PO Q4H PRN 08/20/16 [History] predniSONE [Prednisone] 40 mg PO DAILY 08/20/16 [History] guaiFENesin [Mucinex] 600 mg PO Q12H tab.er 08/27/16 [Rx] - Discharge Summary/Plan Comment DC Time >30 min.: Yes Discharge Summary/Plan Comment: Kindly use this discharge summary as the admission note for swing bed. - General Info Date of Service: 08/27/16 Functional Status: Reports: pain controlled, tolerating diet, urinating - Review of Systems General: Denies: Fever, Weakness HEENT: Denies: headaches, sinus congestion, sore throat Pulmonary: Reports: cough, sputum. Denies: shortness of breath, hemoptysis, wheezing Cardiovascular: Denies: Chest Pain, Lightheadedness Gastrointestinal: Denies: Abdominal pain, Nausea, Vomiting Genitourinary: Denies: dysuria, frequency Musculoskeletal: Denies: neck pain, joint pain, joint swelling Skin: Reports: bruising (from lovenox). Denies: pruritis, rash Neurological: Denies: Confusion, Dizziness, Headache - Patient Data Vitals - Most Recent: Last Vital Signs Temp 97.7 F 08/27/16 00:00 Pulse 73 08/27/16 08:17 Resp 20 08/27/16 00:00 BP 147/62 H 08/27/16 08:17 Pulse Ox 93 L 08/27/16 00:00 Weight - Most Recent: 80.921 kg I&O - Last 24 hours: Intake & Output 08/26/16 08/27/16 08/27/16 22:59 06:59 14:59 Intake Total 500 520 Output Total 600 675 Balance -100 -155 Med Orders - Current: Current Medications Acetaminophen (Tylenol Extra Strength) 500 mg PO QID PRN PRN Reason: MILD PAIN Last Admin: 08/23/16 14:54 Dose: 500 mg Albuterol/Ipratropium (Duoneb 3.0-0.5 Mg/3 Ml) 3 ml INH Q6H PRN PRN Reason: Other Last Admin: 08/27/16 06:17 Dose: 3 ml Aspirin (Halfprin) 81 mg PO DAILY [facility] Last Admin: 08/27/16 08:16 Dose: 81 mg Calcium Carbonate (Caltrate 600+D 1500 Mg-400 Units) 1 tab PO DAILY [facility] Last Admin: 08/27/16 08:17 Dose: 1 tab Carvedilol (Coreg) 25 mg PO BID [facility] Last Admin: 08/27/16 08:15 Dose: 25 mg Clonazepam (Klonopin) 0.25 mg PO BID [facility] Last Admin: 08/27/16 08:16 Dose: 0.25 mg Clopidogrel Bisulfate (Plavix) 75 mg PO DAILY [facility] Last Admin: 08/27/16 08:16 Dose: 75 mg Diazepam (Valium) 10 mg PO BEDTIME PRN PRN Reason: BEDTIME Last Admin: 08/26/16 23:01 Dose: 10 mg Diltiazem HCl (Cardizem Cd) 120 mg PO DAILY [facility] Last Admin: 08/27/16 08:17 Dose: 120 mg Enoxaparin Sodium (Lovenox) 40 mg SUBCUT DAILY [facility] Stop: 09/05/16 10:00 Last Admin: 08/27/16 08:18 Dose: 40 mg Folic Acid (Folic Acid) 0.8 mg PO DAILY [facility] Last Admin: 08/27/16 08:16 Dose: 0.8 mg Furosemide (Lasix) 20 mg PO DAILY PRN PRN Reason: DIURETIC Last Admin: 08/23/16 14:49 Dose: 20 mg Guaifenesin (Mucinex) 600 mg PO Q12H [facility] Lisinopril (Prinivil) 2.5 mg PO DAILY [facility] Last Admin: 08/27/16 08:15 Dose: 2.5 mg Methylphenidate HCl (Ritalin) 5 mg PO DAILY [facility] Last Admin: 08/27/16 08:16 Dose: 5 mg Mirtazapine (Remeron) 7.5 mg PO BEDTIME [facility] Last Admin: 08/26/16 19:57 Dose: 7.5 mg Multivitamins/Minerals (Thera M Plus) 1 tab PO DAILY [facility] Last Admin: 08/27/16 08:16 Dose: 1 tab Nitroglycerin (Nitrostat) 0.4 mg SL DAILY [facility] Last Admin: 08/26/16 08:41 Dose: Not Given Oxycodone HCl (Oxycodone) 5 mg PO Q4H PRN PRN Reason: MODERATE PAIN Pantoprazole Sodium (Protonix) 40 mg PO QPM [facility] Last Admin: 08/26/16 19:56 Dose: 40 mg Prednisone (Prednisone) 40 mg PO DAILY [facility] Last Admin: 08/27/16 08:15 Dose: 40 mg Senna/Docusate Sodium (Senna Plus) 2 tab PO DAILY PRN PRN Reason: CONSTIPATION Last Admin: 08/23/16 14:48 Dose: 2 tab Simvastatin (Zocor) 40 mg PO BEDTIME [facility] Last Admin: 08/26/16 19:58 Dose: 40 mg Tamsulosin HCl (Flomax) 0.8 mg PO DAILY [facility] Last Admin: 08/27/16 08:14 Dose: 0.8 mg Venlafaxine HCl (Effexor Xr) 150 mg PO DAILY [facility] Last Admin: 08/27/16 08:17 Dose: 150 mg Venlafaxine HCl (Effexor Xr) 75 mg PO BEDTIME [facility] Last Admin: 08/26/16 19:55 Dose: 75 mg Discontinued Medications Guaifenesin (Mucinex) Confirm Administered Dose 600 mg .ROUTE .STK-MED ONE Stop: 08/26/16 13:11 Last Admin: 08/26/16 18:31 Dose: 600 mg Azithromycin 500 mg/ Sodium (Chloride) 250 mls @ 250 mls/hr IV Q24H [facility] Last Admin: 08/25/16 10:00 Dose: 250 mls/hr Sodium Chloride (Normal Saline) 1,000 mls @ 100 mls/hr IV ASDIRECTED [facility] Magnesium Hydroxide (Milk Of Magnesia) Confirm Administered Dose 30 ml .ROUTE .STK-MED ONE Stop: 08/23/16 15:34 Last Admin: 08/23/16 16:00 Dose: 30 ml Magnesium Hydroxide (Milk Of Magnesia) Confirm Administered Dose 30 ml .ROUTE .STK-MED ONE Stop: 08/27/16 00:24 Last Admin: 08/27/16 00:28 Dose: 30 ml Sodium Biphosphate/Sodium Phosphate (Fleet Enema) 133 ml RECTAL ONETIME ONE Stop: 08/23/16 22:26 Last Admin: 08/23/16 23:32 Dose: 133 ml - Exam General: Reports: alert, oriented HEENT: Reports: Pupils equal, Pupils reactive, EOMI, Mucous membr. moist/pink Neck: Reports: supple Lungs: Reports: Normal respiratory effort, Decreased breath sounds, Crackles ( lefyt base expiratory crackle coarse) Cardiovascular: Reports: Regular Rate, Regular Rhythm Abdomen: Reports: bowel sounds present, soft, no tenderness, no distension Extremities: Reports: no edema, other (left thight well healed sugical wound. No signs of infection) Skin: Reports: warm, intact Neurological: Reports: no new focal deficit Psy/Mental Status: Reports: alert, normal affect, normal mood *Q Meaningful Use (DIS) - VTE *Q VTE Criteria *Q: - Stroke *Q Stroke Criteria *Q: - AMI *Q AMI Criteria *Q:
[2016-08-27 12:38] VITALS: BP 134/77
== END 2016-08-27 12:48 | disposition swing bed (61) | DRG 195 ==
LOC: LB.MS 09:19 → UNDOADMIN 09:19 → LB.MS 14:14
PROVIDERS: ADMIT Family Medicine; ATTEND Family Medicine
DX: J18.1 Lobar pneumonia, unspecified organism (principal); Z51.89 Encounter for other specified aftercare; S72.90XD Unspecified fracture of unspecified femur, subsequent encounter for closed fracture with routine healing
CPT/HCPCS: 36415; 36600; 80053; 81001; 82803; 83605; 85025; A9270-GY; J0456; J1650; J7050; J7620

== ENCOUNTER 2016-08-27 08:54 | Inpatient (IN) | payer MEDICARE, OTHER, MEDICAID ==
[2016-08-27] MEDS ORDERED: NITROGLYCERIN TRLING PRN (10:11)
[2016-08-27] MEDS ORDERED: Nitroglycerin 0.4 MG Tab.SL SL PRN (11:09)
[2016-08-27] MEDS ORDERED: Diazepam 10 MG Tab PO PRN (16:15)
[2016-08-27] MEDS: guaiFENesin 600 MG Tab.ER PO SCH ×2 (18:15→20:58)
[2016-08-27] MEDS: Acetaminophen 500 MG Tab PO SCH ×2 (18:15→20:57)
[2016-08-27] MEDS ORDERED: CLONAZEPAM 0.25 MG PO SCH (20:00)
[2016-08-27] MEDS ORDERED: Non-Formulary Medication 1 Each (Mirtazapine [Mirtazapine] 7.5 MG) PO SCH (20:00)
[2016-08-27] MEDS: Carvedilol 25 MG Tab PO SCH (20:56)
[2016-08-27] MEDS: ClonazePAM 0.5 MG Tab PO SCH (20:57)
[2016-08-27] MEDS: Pantoprazole 40 MG Tab.CR PO SCH (20:57)
[2016-08-27] MEDS: Simvastatin 40 MG Tab PO SCH (20:57)
[2016-08-27] MEDS: Mirtazapine 15 MG Tab PO SCH (20:57)
[2016-08-28] MEDS: guaiFENesin 600 MG Tab.ER PO SCH ×3 (00:39→22:00)
[2016-08-28] MEDS: ClonazePAM 0.5 MG Tab PO SCH ×2 (07:28→20:27)
[2016-08-28] MEDS: Venlafaxine 75 MG Cap.ER PO SCH ×2 (07:28→20:26)
[2016-08-28] MEDS: Aspirin 81 MG Tab.EC PO SCH (07:28)
[2016-08-28] MEDS: Clopidogrel 75 MG Tab PO SCH (07:29)
[2016-08-28] MEDS: Lisinopril 2.5 MG Tab PO SCH (07:29)
[2016-08-28] MEDS: Acetaminophen 500 MG Tab PO SCH ×4 (07:29→20:25)
[2016-08-28] MEDS: Sennosides 8.6 MG Tab PO SCH (07:30)
[2016-08-28] MEDS: predniSONE 20 MG Tab PO SCH (07:30)
[2016-08-28] MEDS: Multivitamins with Iron/Calcium/Folic Acid/Minerals Tab PO SCH (07:30)
[2016-08-28] MEDS: Carvedilol 25 MG Tab PO SCH ×2 (07:30→20:25)
[2016-08-28] MEDS: Folic Acid 0.4 MG Tab PO SCH (07:30)
[2016-08-28] MEDS: Venlafaxine 150 MG Cap.ER PO SCH (07:31)
[2016-08-28] MEDS: Enoxaparin 40 MG/0.4 ML Syringe SUBCUT SCH (07:31)
[2016-08-28] MEDS: Diltiazem 120 MG Cap.CD PO SCH (07:31)
[2016-08-28] MEDS: Calcium Carbonate/Vitamin D3 1500 MG-400 Units Tab PO SCH (07:31)
[2016-08-28] MEDS ORDERED: DILTIAZEM 120 MG PO SCH (08:00)
[2016-08-28] MEDS ORDERED: Non-Formulary Medication 1 Each (Multivitamin [Multivitamins] 1 EACH) PO SCH (08:00)
[2016-08-28] MEDS: Tamsulosin 0.4 MG Cap.ER PO SCH (08:26)
[2016-08-28] MEDS: oxyCODONE 5 MG Tab PO PRN (13:31)
[2016-08-28] MEDS ORDERED: Albuterol/Ipratropium 3.0-0.5 MG/3 ML Neb Soln ONE (13:48)
[2016-08-28] MEDS: Albuterol/Ipratropium 3.0-0.5 MG/3 ML Neb Soln NEB PRN ×2 (14:00→18:51)
[2016-08-28] MEDS ORDERED: Haloperidol 1 MG Tab PO ONE (19:33)
[2016-08-28] MEDS: Pantoprazole 40 MG Tab.CR PO SCH (20:25)
[2016-08-28] MEDS: Simvastatin 40 MG Tab PO SCH (20:25)
[2016-08-28] MEDS: Mirtazapine 15 MG Tab PO SCH (20:26)
[2016-08-29] MEDS: Clopidogrel 75 MG Tab PO SCH (08:43)
[2016-08-29] MEDS: Lisinopril 2.5 MG Tab PO SCH (08:43)
[2016-08-29] MEDS: Sennosides 8.6 MG Tab PO SCH (08:43)
[2016-08-29] MEDS: Acetaminophen 500 MG Tab PO SCH ×4 (08:43→19:44)
[2016-08-29] MEDS: Tamsulosin 0.4 MG Cap.ER PO SCH (08:43)
[2016-08-29] MEDS: predniSONE 20 MG Tab PO SCH (08:44)
[2016-08-29] MEDS: Carvedilol 25 MG Tab PO SCH ×2 (08:44→19:43)
[2016-08-29] MEDS: Diltiazem 120 MG Cap.CD PO SCH (08:44)
[2016-08-29] MEDS: ClonazePAM 0.5 MG Tab PO SCH ×2 (08:45→19:44)
[2016-08-29] MEDS: Folic Acid 0.4 MG Tab PO SCH (08:45)
[2016-08-29] MEDS: Aspirin 81 MG Tab.EC PO SCH (08:45)
[2016-08-29] MEDS: Venlafaxine 150 MG Cap.ER PO SCH (08:45)
[2016-08-29] MEDS: Calcium Carbonate/Vitamin D3 1500 MG-400 Units Tab PO SCH (08:46)
[2016-08-29] MEDS: Multivitamins with Iron/Calcium/Folic Acid/Minerals Tab PO SCH (08:46)
[2016-08-29] MEDS: Enoxaparin 40 MG/0.4 ML Syringe SUBCUT SCH (08:46)
[2016-08-29] MEDS: oxyCODONE 5 MG Tab PO PRN (13:00)
[2016-08-29] MEDS: guaiFENesin 600 MG Tab.ER PO SCH ×2 (15:28→23:11)
[2016-08-29] MEDS: QUEtiapine 25 MG Tab PO SCH (15:58)
[2016-08-29] MEDS: Pantoprazole 40 MG Tab.CR PO SCH (19:43)
[2016-08-29] MEDS: Venlafaxine 75 MG Cap.ER PO SCH (19:44)
[2016-08-29] MEDS: Mirtazapine 15 MG Tab PO SCH (19:45)
[2016-08-29] MEDS: Simvastatin 40 MG Tab PO SCH (19:46)
[2016-08-29] MEDS: Albuterol/Ipratropium 3.0-0.5 MG/3 ML Neb Soln NEB PRN (19:54)
[2016-08-30] MEDS: Enoxaparin 40 MG/0.4 ML Syringe SUBCUT SCH (08:21)
[2016-08-30] MEDS: Multivitamins with Iron/Calcium/Folic Acid/Minerals Tab PO SCH (08:21)
[2016-08-30] MEDS: Lisinopril 2.5 MG Tab PO SCH (08:21)
[2016-08-30] MEDS: ClonazePAM 0.5 MG Tab PO SCH (08:22)
[2016-08-30] MEDS: Clopidogrel 75 MG Tab PO SCH (08:22)
[2016-08-30] MEDS: QUEtiapine 25 MG Tab PO SCH ×2 (08:22→21:20)
[2016-08-30] MEDS: Aspirin 81 MG Tab.EC PO SCH (08:22)
[2016-08-30] MEDS: Tamsulosin 0.4 MG Cap.ER PO SCH (08:22)
[2016-08-30] MEDS: predniSONE 20 MG Tab PO SCH (08:22)
[2016-08-30] MEDS: Carvedilol 25 MG Tab PO SCH ×2 (08:23→21:16)
[2016-08-30] MEDS: Calcium Carbonate/Vitamin D3 1500 MG-400 Units Tab PO SCH (08:23)
[2016-08-30] MEDS: Sennosides 8.6 MG Tab PO SCH (08:23)
[2016-08-30] MEDS: Diltiazem 120 MG Cap.CD PO SCH (08:23)
[2016-08-30] MEDS: Venlafaxine 150 MG Cap.ER PO SCH (08:24)
[2016-08-30] MEDS: Acetaminophen 500 MG Tab PO SCH ×4 (08:24→21:21)
[2016-08-30] MEDS: Folic Acid 0.4 MG Tab PO SCH (08:24)
[2016-08-30] MEDS: guaiFENesin 600 MG Tab.ER PO SCH ×2 (09:31→21:18)
[2016-08-30] MEDS: oxyCODONE 5 MG Tab PO PRN (11:04)
[2016-08-30] MEDS: Magnesium Hydroxide 400 MG/5 ML Susp 30 ML Cup PO PRN (18:24)
[2016-08-30] MEDS ORDERED: ClonazePAM 0.5 MG Tab PO PRN (18:47)
[2016-08-30] MEDS ORDERED: Mirtazapine 15 MG Tab PO SCH (20:00)
--- NOTE | 2016-08-30 20:37 | PCM.PN ---
- General Info Date of Service: 08/30/16 Admission Dx/Problem (Free Text): Pt has had significant psychosis and agitation over the past few days now. He has been verbally abusive to the staff. Hence I have started patient on seroquel 25mg daily. Pt seems much calm today. No cough. has been maintaining his saturation well. tolerating diet well. Also patient has had choking episodes with food and has had speech eval today. Functional Status: Reports: pain controlled, tolerating diet, urinating, incentive spirometry - Review of Systems General: Denies: Fever, Weakness HEENT: Denies: glasses, visual changes Pulmonary: Denies: shortness of breath, cough, sputum, wheezing Cardiovascular: Denies: Chest Pain, Lightheadedness Gastrointestinal: Denies: Abdominal pain, Nausea, Vomiting Genitourinary: Denies: dysuria, frequency Musculoskeletal: Denies: joint pain, joint swelling Skin: Denies: bruising, pruritis, rash Neurological: Denies: Confusion, Dizziness Psychiatric: Reports: agitation. Denies: confusion, depression - Patient Data Vitals - most recent: Last Vital Signs Temp 97.8 F 08/30/16 08:00 Pulse 63 08/30/16 08:23 Resp 18 08/30/16 08:00 BP 142/74 H 08/30/16 08:23 Pulse Ox 96 08/30/16 08:00 Weight - most recent: 80.739 kg Med Orders - Current: Current Medications Acetaminophen (Tylenol Extra Strength) 500 mg PO QID [facility] Last Admin: 08/30/16 16:26 Dose: 500 mg Albuterol/Ipratropium (Duoneb 3.0-0.5 Mg/3 Ml) 3 ml NEB Q4H PRN PRN Reason: Shortness of Breath Last Admin: 08/29/16 19:54 Dose: 3 ml Aspirin (Halfprin) 81 mg PO DAILY [facility] Last Admin: 08/30/16 08:22 Dose: 81 mg Calcium Carbonate (Caltrate 600+D 1500 Mg-400 Units) 1 tab PO DAILY [facility] Last Admin: 08/30/16 08:23 Dose: 1 tab Carvedilol (Coreg) 25 mg PO BID [facility] Last Admin: 08/30/16 08:23 Dose: 25 mg Clonazepam (Klonopin) 0.25 mg PO BID PRN PRN Reason: Insomnia Clopidogrel Bisulfate (Plavix) 75 mg PO DAILY [facility] Last Admin: 08/30/16 08:22 Dose: 75 mg Diltiazem HCl (Cardizem Cd) 120 mg PO DAILY [facility] Last Admin: 08/30/16 08:23 Dose: 120 mg Enoxaparin Sodium (Lovenox) 40 mg SUBCUT DAILY [facility] Stop: 09/05/16 10:00 Last Admin: 08/30/16 08:21 Dose: 40 mg Folic Acid (Folic Acid) 0.8 mg PO DAILY [facility] Last Admin: 08/30/16 08:24 Dose: 0.8 mg Furosemide (Lasix) 20 mg PO DAILY PRN PRN Reason: edema Guaifenesin (Mucinex) 600 mg PO BID [facility] Lisinopril (Prinivil) 2.5 mg PO DAILY [facility] Last Admin: 08/30/16 08:21 Dose: 2.5 mg Magnesium Hydroxide (Milk Of Magnesia) 30 ml PO Q4H PRN PRN Reason: Constipation Last Admin: 08/30/16 18:24 Dose: 30 ml Mirtazapine (Remeron) 15 mg PO QPM [facility] Multivitamins/Minerals (Thera M Plus) 1 tab PO DAILY [facility] Last Admin: 08/30/16 08:21 Dose: 1 tab Nitroglycerin (Nitrostat) 0.4 mg SL ASDIRECTED PRN PRN Reason: CHEST PAIN Oxycodone HCl (Oxycodone) 5 mg PO Q4H PRN PRN Reason: MODERATE PAIN Last Admin: 08/30/16 11:04 Dose: 5 mg Pantoprazole Sodium (Protonix) 40 mg PO QPM [facility] Last Admin: 08/29/16 19:43 Dose: 40 mg Prednisone (Prednisone) 40 mg PO DAILY [facility] Last Admin: 08/30/16 08:22 Dose: 40 mg Quetiapine Fumarate (Seroquel) 37.5 mg PO QPM [facility] Senna (Senna) 8.6 mg PO DAILY [facility] Last Admin: 08/30/16 08:23 Dose: 8.6 mg Simvastatin (Zocor) 40 mg PO BEDTIME [facility] Last Admin: 08/29/16 19:46 Dose: 40 mg Tamsulosin HCl (Flomax) 0.8 mg PO DAILY [facility] Last Admin: 08/30/16 08:22 Dose: 0.8 mg Venlafaxine HCl (Effexor Xr) 75 mg PO BEDTIME [facility] Last Admin: 08/29/16 19:44 Dose: 75 mg Venlafaxine HCl (Effexor Xr) 150 mg PO DAILY [facility] Last Admin: 08/30/16 08:24 Dose: 150 mg Discontinued Medications Albuterol/Ipratropium (Duoneb 3.0-0.5 Mg/3 Ml) Confirm Administered Dose 3 ml .ROUTE .STK-MED ONE Stop: 08/28/16 13:49 Last Admin: 08/28/16 16:18 Dose: Not Given Clonazepam (Klonopin) 0.25 mg PO BID [facility] Last Admin: 08/30/16 08:22 Dose: 0.25 mg Diazepam (Valium) 10 mg PO BEDTIME PRN PRN Reason: pain/spasms Last Admin: 08/29/16 20:00 Dose: 10 mg Guaifenesin (Mucinex) 600 mg PO Q12H [facility] Last Admin: 08/30/16 09:31 Dose: 600 mg Haloperidol (Haldol) 5 mg PO ONETIME ONE Stop: 08/28/16 19:34 Last Admin: 08/28/16 19:49 Dose: 5 mg Mirtazapine (Remeron) 7.5 mg PO BEDTIME [facility] Last Admin: 08/29/16 19:45 Dose: 7.5 mg Mirtazapine (Remeron) 15 mg PO BEDTIME [facility] Quetiapine Fumarate (Seroquel) 25 mg PO DAILY [facility] Last Admin: 08/30/16 08:22 Dose: 25 mg - Exam General: alert, oriented HEENT: Pupils equal, Pupils reactive, EOMI, Mucous membr. moist/pink Neck: supple Lungs: Clear to auscultation, Normal respiratory effort Cardiovascular: Regular Rate, Regular Rhythm Extremities: no edema, other (left thigh wound is clean. there are intemittent verenice. no wound gaping. No signs of infection. non tender.) Psy/Mental Status: alert, agitated - Problem List & Annotations (1) Agitation SNOMED Code(s): 82264420 Code(s): R45.1 - RESTLESSNESS AND AGITATION Status: Acute Current Visit: Yes (2) Fracture of femur SNOMED Code(s): 38208580 Code(s): S72.90XA - UNSP FRACTURE OF UNSP FEMUR, INIT ENCNTR FOR CLOSED FRACTURE Status: Acute Current Visit: No - Problem List Review Problem List Initiated/Reviewed/Updated: Yes - My Orders Last 24 Hours: My Active Orders 08/30/16 08:44 Consult to Speech Language Pathology [TALENT ACQUISITION COORDINATOR Evaluation and Treatment] [CONS] Routine 08/30/16 17:57 Magnesium Hydroxide [Milk of Magnesia] 30 ml PO Q4H PRN 08/30/16 18:47 ClonazePAM [KlonoPIN] 0.25 mg PO BID PRN 08/30/16 20:00 guaiFENesin [Mucinex] 600 mg PO BID - Assessment Assessment:: left femur fracture S/p reduction Agitation Dysphagia - Plan Plan:: Verenice removed and steri-strips applied. wound appear clean and healthy. Also he has had psych eval today. His remeron has been increased to 15 mg and seroquel to 37.5 mg at bedtime. His klonopin is PRN and has discontinued his diazepam. Also he has had speech evaluation done today. recommended videoscopic swallow study for his choking episode. Will have it scheduled at [facility] for workup.
[2016-08-30] MEDS: Venlafaxine 75 MG Cap.ER PO SCH (21:17)
[2016-08-30] MEDS: Pantoprazole 40 MG Tab.CR PO SCH (21:18)
[2016-08-30] MEDS: Mirtazapine 15 MG Tab PO SCH (21:21)
[2016-08-30] MEDS: Simvastatin 40 MG Tab PO SCH (21:22)
[2016-08-31] MEDS: Lisinopril 2.5 MG Tab PO SCH (07:49)
[2016-08-31] MEDS: Sennosides 8.6 MG Tab PO SCH (07:49)
[2016-08-31] MEDS: Tamsulosin 0.4 MG Cap.ER PO SCH (07:50)
[2016-08-31] MEDS: Multivitamins with Iron/Calcium/Folic Acid/Minerals Tab PO SCH (07:50)
[2016-08-31] MEDS: Carvedilol 25 MG Tab PO SCH ×2 (07:50→20:04)
[2016-08-31] MEDS: predniSONE 20 MG Tab PO SCH (07:50)
[2016-08-31] MEDS: Calcium Carbonate/Vitamin D3 1500 MG-400 Units Tab PO SCH (07:51)
[2016-08-31] MEDS: Diltiazem 120 MG Cap.CD PO SCH (07:51)
[2016-08-31] MEDS: Clopidogrel 75 MG Tab PO SCH (07:51)
[2016-08-31] MEDS: Folic Acid 0.4 MG Tab PO SCH (07:51)
[2016-08-31] MEDS: Acetaminophen 500 MG Tab PO SCH ×4 (07:51→20:09)
[2016-08-31] MEDS: Aspirin 81 MG Tab.EC PO SCH (07:51)
[2016-08-31] MEDS: Enoxaparin 40 MG/0.4 ML Syringe SUBCUT SCH (07:52)
[2016-08-31] MEDS: guaiFENesin 600 MG Tab.ER PO SCH ×2 (07:52→20:08)
[2016-08-31] MEDS: Venlafaxine 150 MG Cap.ER PO SCH (07:52)
--- NOTE | 2016-08-31 07:57 | CONS ---
DATE OF CONSULTATION: 08/30/2016 Psychiatric Inpatient Consultation. A 60-minute Inpatient clinical event. IDENTIFICATION: The patient is an 81-year-old male who was admitted through the inpatient medical unit [facility] in [place], [place], and he was seen for psychiatric evaluation. CHIEF COMPLAINT: "I had a hip replacement about 15 years ago. I am subject to falls." HISTORY OF PRESENT ILLNESS: The patient is an 81-year-old male, who recently had a hip replacement surgery in [place], but then developed pneumonia, was subsequently admitted to the inpatient medical unit on 08/20/2016. The patient states that he has been more depressed of late because of his health issues and, in particular, "because of my confinement." He states "the fact that I cannot walk is probably" the most difficult thing for him to deal with at this point in time, and it brings his mood down quite a bit. The patient also reports that he struggles with some visual hallucinosis of late where "I see things out of the corners of my eyes." He has good interest in things, but he reports lack of energy. He also reports poor memory. He states he gets about 8 hours of sleep over a 24 hour period, but the sleep is sporadic, never more than 2 hours at a time. He denies any suicidal or homicidal ideation. He states he would like his meds adjusted to see if that would help with his mood and his energy levels. PSYCHIATRIC MEDICATIONS: At the time of presentation: 1. Effexor XR 150 mg q.a.m., 75 mg at bedtime. 2. Klonopin 0.25 mg b.i.d. 3. Remeron 7.5 mg at bedtime. 4. Seroquel 25 mg q.a.m. 5. Valium 10 mg daily p.r.n. ALLERGIES: NO KNOWN DRUG ALLERGIES. PAST MEDICAL HISTORY: 1. Status post hip replacement. 2. Status post pneumonia. 3. Status post stroke x2. REVIEW OF SYSTEMS: Aside from musculoskeletal, pulmonary and all other major organ systems are negative at this point in time for acute difficulties or complications. FAMILY PSYCHIATRIC AND CHEMICAL DEPENDENCY HISTORY: None reported. PAST PSYCHIATRIC AND CHEMICAL DEPENDENCY HISTORY: Denies any previous psychiatric hospitalization or chemical dependency. Denies any previous suicide attempts, self-induced behaviors, or eating disorder history. Does report a long-standing history of struggling with depression, since he was quite young and he reports long psychiatric medication history that includes Lunesta and Ritalin. SOCIAL HISTORY: The patient was born in [place] and raised in both [place] and [place], [place]. 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 He is x1 for 50 years, but his in 2011. He reports he has 1 child, who lives over in [place]. The patient currently lives in assisted living facility in [place] since 2016. MENTAL STATUS EXAM: The patient is an 81-year-old soft-spoken white male, in no apparent distress. Speech is at regular rate and rhythm. The patient is cognitively oriented x3. Psychomotor activities within normal limits. There are no abnormal motor movements or tics observed. Gait and station are not observed, as this patient is bedbound over the entirety of the interview. Mood is depressed. Affect is consistent with state of mood, somewhat restricted, but cooperative overall for the purposes of the inpatient psychiatric consultation. There is no behaviorally stated evidence of acute suicidal or homicidal ideation, but thought content is significant for visual hallucination. Thought processes organized overall, though the patient does display some tangentiality and circumstantiality that can be redirected during the course of interview. There are no acute manic symptoms or loose association evident. Judgement and insight appear unimpaired at this point in time. Motivation for help is good. Vitals at the time of presentation 142/74, 63, 18, and 97.8 degrees. IMPRESSION: Cherry I: 1. Major depressive disorder, recurrent F33.3. 2. Psychosis, not otherwise specified, F29. 3. Anxiety disorder, not otherwise specified, F41.9. Cherry II: None. Cherry III: 1. Post hip replacement. 2. Status post pneumonia. 3. Status post stroke x2. Cherry IV: Severe. Cherry V: 55. PLAN: 1. Increase Remeron from 7.5 to 15 mg at bedtime to help improve mood, reduce anxiety, and improve sleep patterns. 2. Change Seroquel from a.m. dosing to bedtime dosing and increase overall dose from 25 to 37.5 mg at bedtime to help treat the patient's visual hallucinosis and improved sleep initiation and maintenance at night, as well as to help reduce anxiety throughout the 24-hour period. 3. Continue Effexor XR 150 mg q.a.m., 75 mg at bedtime. 4. Continue Klonopin 0.25 mg b.i.d. for anxiety reduction. 5. Continue Valium 10 mg daily p.r.n. for time being. 6. Recommend the primary medical treatment consider discontinuing either the Valium or the Klonopin going forward, as eliminating one of these benzodiazepines may help the patient improve his energy levels and not be so sedated during the day. 7. Other medications at dose prescribed by the patient's primary medical treatment team. 8. We will continue to follow up with the patient on regular basis as needed while the patient remains on the medical unit. 9. We will follow up the patient sooner if there are any complications in the interim. 10.Crisis plan is in place. MAYDA /[id number]
[2016-08-31] MEDS: Pantoprazole 40 MG Tab.CR PO SCH (20:08)
[2016-08-31] MEDS: Mirtazapine 15 MG Tab PO SCH (20:08)
[2016-08-31] MEDS: Simvastatin 40 MG Tab PO SCH (20:08)
[2016-08-31] MEDS: Venlafaxine 75 MG Cap.ER PO SCH (20:09)
[2016-08-31] MEDS: QUEtiapine 25 MG Tab PO SCH (20:09)
[2016-08-31] MEDS: ClonazePAM 0.5 MG Tab PO PRN (22:15)
[2016-09-01] MEDS: Calcium Carbonate/Vitamin D3 1500 MG-400 Units Tab PO SCH (07:20)
[2016-09-01] MEDS: Folic Acid 0.4 MG Tab PO SCH (07:20)
[2016-09-01] MEDS: Tamsulosin 0.4 MG Cap.ER PO SCH (07:20)
[2016-09-01] MEDS: predniSONE 20 MG Tab PO SCH (07:21)
[2016-09-01] MEDS: Multivitamins with Iron/Calcium/Folic Acid/Minerals Tab PO SCH (07:21)
[2016-09-01] MEDS: Sennosides 8.6 MG Tab PO SCH (07:21)
[2016-09-01] MEDS: Clopidogrel 75 MG Tab PO SCH (07:21)
[2016-09-01] MEDS: Carvedilol 25 MG Tab PO SCH ×2 (07:22→19:16)
[2016-09-01] MEDS: Aspirin 81 MG Tab.EC PO SCH (07:22)
[2016-09-01] MEDS: guaiFENesin 600 MG Tab.ER PO SCH ×2 (07:22→19:17)
[2016-09-01] MEDS: Diltiazem 120 MG Cap.CD PO SCH (07:22)
[2016-09-01] MEDS: Acetaminophen 500 MG Tab PO SCH ×4 (07:22→19:16)
[2016-09-01] MEDS: Lisinopril 2.5 MG Tab PO SCH (07:23)
[2016-09-01] MEDS: Enoxaparin 40 MG/0.4 ML Syringe SUBCUT SCH (07:24)
[2016-09-01] MEDS: Venlafaxine 150 MG Cap.ER PO SCH (07:24)
[2016-09-01] MEDS: Magnesium Hydroxide 400 MG/5 ML Susp 30 ML Cup PO PRN ×2 (14:11→21:30)
[2016-09-01] MEDS ORDERED: Acetaminophen 500 MG Tab ONE (18:07)
[2016-09-01] MEDS: Mirtazapine 15 MG Tab PO SCH (19:16)
[2016-09-01] MEDS: QUEtiapine 25 MG Tab PO SCH (19:16)
[2016-09-01] MEDS: Venlafaxine 75 MG Cap.ER PO SCH (19:17)
[2016-09-01] MEDS: Simvastatin 40 MG Tab PO SCH (19:17)
[2016-09-01] MEDS: Pantoprazole 40 MG Tab.CR PO SCH (19:17)
[2016-09-02] MEDS: oxyCODONE 5 MG Tab PO PRN ×2 (01:22→23:19)
[2016-09-02] MEDS: Diltiazem 120 MG Cap.CD PO SCH (07:48)
[2016-09-02] MEDS: Clopidogrel 75 MG Tab PO SCH (07:48)
[2016-09-02] MEDS: Calcium Carbonate/Vitamin D3 1500 MG-400 Units Tab PO SCH (07:48)
[2016-09-02] MEDS: Lisinopril 2.5 MG Tab PO SCH (07:49)
[2016-09-02] MEDS: Folic Acid 0.4 MG Tab PO SCH (07:50)
[2016-09-02] MEDS: Carvedilol 25 MG Tab PO SCH ×2 (07:51→20:49)
[2016-09-02] MEDS: Multivitamins with Iron/Calcium/Folic Acid/Minerals Tab PO SCH (07:51)
[2016-09-02] MEDS: Sennosides 8.6 MG Tab PO SCH (07:51)
[2016-09-02] MEDS: ClonazePAM 0.5 MG Tab PO PRN ×2 (07:51→21:06)
[2016-09-02] MEDS: Acetaminophen 500 MG Tab PO SCH ×4 (07:51→21:05)
[2016-09-02] MEDS: Tamsulosin 0.4 MG Cap.ER PO SCH (07:52)
[2016-09-02] MEDS: Enoxaparin 40 MG/0.4 ML Syringe SUBCUT SCH (07:52)
[2016-09-02] MEDS: Venlafaxine 150 MG Cap.ER PO SCH (07:52)
[2016-09-02] MEDS: Aspirin 81 MG Tab.EC PO SCH (07:52)
[2016-09-02] MEDS: predniSONE 20 MG Tab PO SCH (07:53)
[2016-09-02] MEDS: guaiFENesin 600 MG Tab.ER PO SCH ×2 (07:53→21:01)
[2016-09-02] MEDS: Magnesium Hydroxide 400 MG/5 ML Susp 30 ML Cup PO PRN (14:53)
[2016-09-02] MEDS: Venlafaxine 75 MG Cap.ER PO SCH (20:56)
[2016-09-02] MEDS: Mirtazapine 15 MG Tab PO SCH (21:02)
[2016-09-02] MEDS: Pantoprazole 40 MG Tab.CR PO SCH (21:02)
[2016-09-02] MEDS: QUEtiapine 25 MG Tab PO SCH (21:03)
[2016-09-02] MEDS: Simvastatin 40 MG Tab PO SCH (21:05)
[2016-09-03] MEDS: Diltiazem 120 MG Cap.CD PO SCH (08:08)
[2016-09-03] MEDS: Tamsulosin 0.4 MG Cap.ER PO SCH (08:08)
[2016-09-03] MEDS: Clopidogrel 75 MG Tab PO SCH (08:09)
[2016-09-03] MEDS: Carvedilol 25 MG Tab PO SCH ×2 (08:09→20:19)
[2016-09-03] MEDS: Venlafaxine 150 MG Cap.ER PO SCH (08:09)
[2016-09-03] MEDS: guaiFENesin 600 MG Tab.ER PO SCH ×2 (08:10→20:21)
[2016-09-03] MEDS: Lisinopril 2.5 MG Tab PO SCH (08:10)
[2016-09-03] MEDS: Enoxaparin 40 MG/0.4 ML Syringe SUBCUT SCH (08:10)
[2016-09-03] MEDS: Aspirin 81 MG Tab.EC PO SCH (08:11)
[2016-09-03] MEDS: Folic Acid 0.4 MG Tab PO SCH (08:12)
[2016-09-03] MEDS: Calcium Carbonate/Vitamin D3 1500 MG-400 Units Tab PO SCH (08:12)
[2016-09-03] MEDS: predniSONE 20 MG Tab PO SCH (08:12)
[2016-09-03] MEDS: Sennosides 8.6 MG Tab PO SCH (08:13)
[2016-09-03] MEDS: Acetaminophen 500 MG Tab PO SCH ×4 (08:13→20:26)
[2016-09-03] MEDS: Multivitamins with Iron/Calcium/Folic Acid/Minerals Tab PO SCH (08:13)
[2016-09-03] MEDS: ClonazePAM 0.5 MG Tab PO PRN ×2 (13:53→20:28)
[2016-09-03] MEDS: Venlafaxine 75 MG Cap.ER PO SCH (20:20)
[2016-09-03] MEDS: Pantoprazole 40 MG Tab.CR PO SCH (20:21)
[2016-09-03] MEDS: Mirtazapine 15 MG Tab PO SCH (20:22)
[2016-09-03] MEDS: QUEtiapine 25 MG Tab PO SCH (20:22)
[2016-09-03] MEDS: Simvastatin 40 MG Tab PO SCH (20:26)
[2016-09-03] MEDS: oxyCODONE 5 MG Tab PO PRN (22:25)
[2016-09-04] MEDS: Lisinopril 2.5 MG Tab PO SCH (07:57)
[2016-09-04] MEDS: Folic Acid 0.4 MG Tab PO SCH (07:57)
[2016-09-04] MEDS: Aspirin 81 MG Tab.EC PO SCH (07:58)
[2016-09-04] MEDS: Multivitamins with Iron/Calcium/Folic Acid/Minerals Tab PO SCH (07:58)
[2016-09-04] MEDS: Tamsulosin 0.4 MG Cap.ER PO SCH (07:58)
[2016-09-04] MEDS: Carvedilol 25 MG Tab PO SCH ×2 (07:59→19:35)
[2016-09-04] MEDS: Clopidogrel 75 MG Tab PO SCH (07:59)
[2016-09-04] MEDS: Venlafaxine 150 MG Cap.ER PO SCH (08:00)
[2016-09-04] MEDS: Calcium Carbonate/Vitamin D3 1500 MG-400 Units Tab PO SCH (08:00)
[2016-09-04] MEDS: Sennosides 8.6 MG Tab PO SCH (08:01)
[2016-09-04] MEDS: guaiFENesin 600 MG Tab.ER PO SCH ×2 (08:01→19:36)
[2016-09-04] MEDS: predniSONE 20 MG Tab PO SCH (08:01)
[2016-09-04] MEDS: Enoxaparin 40 MG/0.4 ML Syringe SUBCUT SCH (08:01)
[2016-09-04] MEDS: Diltiazem 120 MG Cap.CD PO SCH (08:02)
[2016-09-04] MEDS: Acetaminophen 500 MG Tab PO SCH ×2 (08:02→19:34)
[2016-09-04] MEDS: Venlafaxine 75 MG Cap.ER PO SCH (19:35)
[2016-09-04] MEDS: Simvastatin 40 MG Tab PO SCH (19:35)
[2016-09-04] MEDS: Mirtazapine 15 MG Tab PO SCH (19:36)
[2016-09-04] MEDS: QUEtiapine 25 MG Tab PO SCH (19:36)
[2016-09-04] MEDS: Pantoprazole 40 MG Tab.CR PO SCH (19:36)
[2016-09-05] MEDS: ClonazePAM 0.5 MG Tab PO PRN ×2 (00:56→21:56)
[2016-09-05] MEDS: Acetaminophen 500 MG Tab PO SCH ×6 (08:27→19:33)
[2016-09-05] MEDS: Diltiazem 120 MG Cap.CD PO SCH (08:28)
[2016-09-05] MEDS: Calcium Carbonate/Vitamin D3 1500 MG-400 Units Tab PO SCH (08:28)
[2016-09-05] MEDS: Carvedilol 25 MG Tab PO SCH ×2 (08:29→19:37)
[2016-09-05] MEDS: Lisinopril 2.5 MG Tab PO SCH (08:30)
[2016-09-05] MEDS: Aspirin 81 MG Tab.EC PO SCH (08:30)
[2016-09-05] MEDS: Multivitamins with Iron/Calcium/Folic Acid/Minerals Tab PO SCH (08:30)
[2016-09-05] MEDS: guaiFENesin 600 MG Tab.ER PO SCH ×2 (08:31→19:36)
[2016-09-05] MEDS: Sennosides 8.6 MG Tab PO SCH (08:31)
[2016-09-05] MEDS: Venlafaxine 150 MG Cap.ER PO SCH (08:31)
[2016-09-05] MEDS: predniSONE 20 MG Tab PO SCH (08:31)
[2016-09-05] MEDS: Folic Acid 0.4 MG Tab PO SCH (08:32)
[2016-09-05] MEDS: Clopidogrel 75 MG Tab PO SCH (08:32)
[2016-09-05] MEDS: Tamsulosin 0.4 MG Cap.ER PO SCH (08:35)
[2016-09-05] MEDS: Enoxaparin 40 MG/0.4 ML Syringe SUBCUT SCH (08:36)
[2016-09-05] MEDS: Simvastatin 40 MG Tab PO SCH (19:34)
[2016-09-05] MEDS: Pantoprazole 40 MG Tab.CR PO SCH (19:34)
[2016-09-05] MEDS: Venlafaxine 75 MG Cap.ER PO SCH (19:34)
[2016-09-05] MEDS: Mirtazapine 15 MG Tab PO SCH (19:35)
[2016-09-05] MEDS: QUEtiapine 25 MG Tab PO SCH (19:35)
[2016-09-06] MEDS: Aspirin 81 MG Tab.EC PO SCH (07:43)
[2016-09-06] MEDS: Carvedilol 25 MG Tab PO SCH ×2 (07:43→19:19)
[2016-09-06] MEDS: Clopidogrel 75 MG Tab PO SCH (07:44)
[2016-09-06] MEDS: Multivitamins with Iron/Calcium/Folic Acid/Minerals Tab PO SCH (07:44)
[2016-09-06] MEDS: Tamsulosin 0.4 MG Cap.ER PO SCH (07:44)
[2016-09-06] MEDS: Sennosides 8.6 MG Tab PO SCH (07:45)
[2016-09-06] MEDS: Calcium Carbonate/Vitamin D3 1500 MG-400 Units Tab PO SCH (07:45)
[2016-09-06] MEDS: Acetaminophen 500 MG Tab PO SCH ×4 (07:45→19:20)
[2016-09-06] MEDS: Diltiazem 120 MG Cap.CD PO SCH (07:46)
[2016-09-06] MEDS: Folic Acid 0.4 MG Tab PO SCH (07:46)
[2016-09-06] MEDS: guaiFENesin 600 MG Tab.ER PO SCH ×2 (07:46→19:19)
[2016-09-06] MEDS: predniSONE 20 MG Tab PO SCH (07:47)
[2016-09-06] MEDS: Lisinopril 2.5 MG Tab PO SCH (07:47)
[2016-09-06] MEDS: Venlafaxine 150 MG Cap.ER PO SCH (07:48)
[2016-09-06] MEDS: Venlafaxine 75 MG Cap.ER PO SCH (19:16)
[2016-09-06] MEDS: QUEtiapine 25 MG Tab PO SCH (19:17)
[2016-09-06] MEDS: Mirtazapine 15 MG Tab PO SCH (19:17)
[2016-09-06] MEDS: Simvastatin 40 MG Tab PO SCH (19:18)
[2016-09-06] MEDS: Pantoprazole 40 MG Tab.CR PO SCH (19:19)
[2016-09-06] MEDS: ClonazePAM 0.5 MG Tab PO PRN (21:20)
[2016-09-07] MEDS: Tamsulosin 0.4 MG Cap.ER PO SCH (09:35)
[2016-09-07] MEDS: Lisinopril 2.5 MG Tab PO SCH (09:36)
[2016-09-07] MEDS: Aspirin 81 MG Tab.EC PO SCH (09:36)
[2016-09-07] MEDS: Clopidogrel 75 MG Tab PO SCH (09:36)
[2016-09-07] MEDS: predniSONE 20 MG Tab PO SCH (09:37)
[2016-09-07] MEDS: guaiFENesin 600 MG Tab.ER PO SCH ×2 (09:37→19:50)
[2016-09-07] MEDS: Calcium Carbonate/Vitamin D3 1500 MG-400 Units Tab PO SCH (09:37)
[2016-09-07] MEDS: Acetaminophen 500 MG Tab PO SCH ×4 (09:38→19:48)
[2016-09-07] MEDS: Carvedilol 25 MG Tab PO SCH ×2 (09:38→19:48)
[2016-09-07] MEDS: Sennosides 8.6 MG Tab PO SCH (09:38)
[2016-09-07] MEDS: Multivitamins with Iron/Calcium/Folic Acid/Minerals Tab PO SCH (09:38)
[2016-09-07] MEDS: Furosemide 20 MG Tab PO PRN (09:38)
[2016-09-07] MEDS: Folic Acid 0.4 MG Tab PO SCH (09:39)
[2016-09-07] MEDS: Venlafaxine 150 MG Cap.ER PO SCH (09:39)
[2016-09-07] MEDS: ClonazePAM 0.5 MG Tab PO PRN ×2 (09:39→20:37)
[2016-09-07] MEDS: Diltiazem 120 MG Cap.CD PO SCH (09:40)
[2016-09-07] MEDS: QUEtiapine 25 MG Tab PO SCH (19:48)
[2016-09-07] MEDS: Venlafaxine 75 MG Cap.ER PO SCH (19:48)
[2016-09-07] MEDS: Pantoprazole 40 MG Tab.CR PO SCH (19:48)
[2016-09-07] MEDS: Simvastatin 40 MG Tab PO SCH (19:48)
[2016-09-07] MEDS: Mirtazapine 15 MG Tab PO SCH (19:48)
[2016-09-07] MEDS: Psyllium Husk Powder Sugar Free 5.85 GM Packet PO SCH (19:49)
[2016-09-07] MEDS ORDERED: Psyllium Husk Powder Sugar Free 3.4 GM Packet PO SCH (20:00)
[2016-09-08] MEDS: ClonazePAM 0.5 MG Tab PO PRN ×2 (01:56→19:36)
[2016-09-08] MEDS ORDERED: Polyethylene Glycol 3350 Powder 17 GM Packet PO SCH (08:00)
[2016-09-08] MEDS: Tamsulosin 0.4 MG Cap.ER PO SCH (09:34)
[2016-09-08] MEDS: Aspirin 81 MG Tab.EC PO SCH (09:35)
[2016-09-08] MEDS: Acetaminophen 500 MG Tab PO SCH ×4 (09:35→19:36)
[2016-09-08] MEDS: Sennosides 8.6 MG Tab PO SCH (09:36)
[2016-09-08] MEDS: Venlafaxine 150 MG Cap.ER PO SCH (09:36)
[2016-09-08] MEDS: Calcium Carbonate/Vitamin D3 1500 MG-400 Units Tab PO SCH (09:36)
[2016-09-08] MEDS: Multivitamins with Iron/Calcium/Folic Acid/Minerals Tab PO SCH (09:37)
[2016-09-08] MEDS: Folic Acid 0.4 MG Tab PO SCH (09:37)
[2016-09-08] MEDS: Lisinopril 2.5 MG Tab PO SCH (09:37)
[2016-09-08] MEDS: Diltiazem 120 MG Cap.CD PO SCH (09:38)
[2016-09-08] MEDS: predniSONE 20 MG Tab PO SCH (09:40)
[2016-09-08] MEDS: Clopidogrel 75 MG Tab PO SCH (09:42)
[2016-09-08] MEDS: Carvedilol 25 MG Tab PO SCH ×2 (09:42→19:36)
[2016-09-08] MEDS: guaiFENesin 600 MG Tab.ER PO SCH ×2 (09:45→19:37)
[2016-09-08] MEDS: Venlafaxine 75 MG Cap.ER PO SCH (19:36)
[2016-09-08] MEDS: Psyllium Husk Powder Sugar Free 5.85 GM Packet PO SCH (19:37)
[2016-09-08] MEDS: Pantoprazole 40 MG Tab.CR PO SCH (19:37)
[2016-09-08] MEDS: QUEtiapine 25 MG Tab PO SCH (19:37)
[2016-09-08] MEDS: Simvastatin 40 MG Tab PO SCH (19:38)
[2016-09-08] MEDS: Mirtazapine 15 MG Tab PO SCH (19:38)
[2016-09-09] MEDS: predniSONE 20 MG Tab PO SCH (09:40)
[2016-09-09] MEDS: guaiFENesin 600 MG Tab.ER PO SCH ×2 (09:40→19:25)
[2016-09-09] MEDS: Clopidogrel 75 MG Tab PO SCH (09:41)
[2016-09-09] MEDS: Calcium Carbonate/Vitamin D3 1500 MG-400 Units Tab PO SCH (09:41)
[2016-09-09] MEDS: Carvedilol 25 MG Tab PO SCH ×2 (09:41→19:24)
[2016-09-09] MEDS: Folic Acid 0.4 MG Tab PO SCH (09:42)
[2016-09-09] MEDS: Lisinopril 2.5 MG Tab PO SCH (09:42)
[2016-09-09] MEDS: Multivitamins with Iron/Calcium/Folic Acid/Minerals Tab PO SCH (09:42)
[2016-09-09] MEDS: Tamsulosin 0.4 MG Cap.ER PO SCH (09:43)
[2016-09-09] MEDS: Sennosides 8.6 MG Tab PO SCH (09:44)
[2016-09-09] MEDS: Aspirin 81 MG Tab.EC PO SCH (09:44)
[2016-09-09] MEDS: Acetaminophen 500 MG Tab PO SCH ×2 (09:44→19:23)
[2016-09-09] MEDS: Venlafaxine 150 MG Cap.ER PO SCH (09:45)
[2016-09-09] MEDS: Diltiazem 120 MG Cap.CD PO SCH (09:45)
[2016-09-09] MEDS ORDERED: Polyethylene Glycol 3350 Powder 17 GM Packet ONE (12:45)
[2016-09-09] MEDS: Venlafaxine 75 MG Cap.ER PO SCH (19:22)
[2016-09-09] MEDS: ClonazePAM 0.5 MG Tab PO PRN (19:24)
[2016-09-09] MEDS: Pantoprazole 40 MG Tab.CR PO SCH (19:24)
[2016-09-09] MEDS: QUEtiapine 25 MG Tab PO SCH (19:24)
[2016-09-09] MEDS: Psyllium Husk Powder Sugar Free 5.85 GM Packet PO SCH (19:25)
[2016-09-09] MEDS: Mirtazapine 15 MG Tab PO SCH (19:25)
[2016-09-09] MEDS: Simvastatin 40 MG Tab PO SCH (19:25)
[2016-09-10] MEDS: Aspirin 81 MG Tab.EC PO SCH (07:58)
[2016-09-10] MEDS: Clopidogrel 75 MG Tab PO SCH (07:59)
[2016-09-10] MEDS: Lisinopril 2.5 MG Tab PO SCH (08:03)
[2016-09-10] MEDS: Acetaminophen 500 MG Tab PO SCH ×5 (08:03→21:00)
[2016-09-10] MEDS: Tamsulosin 0.4 MG Cap.ER PO SCH (08:04)
[2016-09-10] MEDS: Sennosides 8.6 MG Tab PO SCH (08:05)
[2016-09-10] MEDS: Folic Acid 0.4 MG Tab PO SCH (08:05)
[2016-09-10] MEDS: Carvedilol 25 MG Tab PO SCH ×2 (08:06→20:58)
[2016-09-10] MEDS: Diltiazem 120 MG Cap.CD PO SCH (08:06)
[2016-09-10] MEDS: Multivitamins with Iron/Calcium/Folic Acid/Minerals Tab PO SCH (08:06)
[2016-09-10] MEDS: Calcium Carbonate/Vitamin D3 1500 MG-400 Units Tab PO SCH (08:06)
[2016-09-10] MEDS: Venlafaxine 150 MG Cap.ER PO SCH (08:06)
[2016-09-10] MEDS: predniSONE 20 MG Tab PO SCH (08:07)
[2016-09-10] MEDS ORDERED: predniSONE 20 MG Tab ONE (08:10)
[2016-09-10] MEDS: guaiFENesin 600 MG Tab.ER PO SCH ×2 (08:10→21:01)
[2016-09-10] MEDS: oxyCODONE 5 MG Tab PO PRN (20:57)
[2016-09-10] MEDS: Venlafaxine 75 MG Cap.ER PO SCH (20:58)
[2016-09-10] MEDS: QUEtiapine 25 MG Tab PO SCH (21:00)
[2016-09-10] MEDS: Pantoprazole 40 MG Tab.CR PO SCH (21:00)
[2016-09-10] MEDS: Mirtazapine 15 MG Tab PO SCH (21:00)
[2016-09-10] MEDS: ClonazePAM 0.5 MG Tab PO PRN (21:00)
[2016-09-10] MEDS: Psyllium Husk Powder Sugar Free 5.85 GM Packet PO SCH (21:01)
[2016-09-10] MEDS: Simvastatin 40 MG Tab PO SCH (21:02)
[2016-09-11] MEDS: Diltiazem 120 MG Cap.CD PO SCH (08:48)
[2016-09-11] MEDS: Tamsulosin 0.4 MG Cap.ER PO SCH (08:49)
[2016-09-11] MEDS: Aspirin 81 MG Tab.EC PO SCH (08:49)
[2016-09-11] MEDS: Lisinopril 2.5 MG Tab PO SCH (08:49)
[2016-09-11] MEDS: Acetaminophen 500 MG Tab PO SCH ×4 (08:49→21:04)
[2016-09-11] MEDS: Calcium Carbonate/Vitamin D3 1500 MG-400 Units Tab PO SCH (08:49)
[2016-09-11] MEDS: predniSONE 20 MG Tab PO SCH (08:50)
[2016-09-11] MEDS: Folic Acid 0.4 MG Tab PO SCH (08:50)
[2016-09-11] MEDS: Sennosides 8.6 MG Tab PO SCH (08:51)
[2016-09-11] MEDS: Carvedilol 25 MG Tab PO SCH ×2 (08:51→21:03)
[2016-09-11] MEDS: Clopidogrel 75 MG Tab PO SCH (08:51)
[2016-09-11] MEDS: Multivitamins with Iron/Calcium/Folic Acid/Minerals Tab PO SCH (08:51)
[2016-09-11] MEDS: Venlafaxine 150 MG Cap.ER PO SCH (08:52)
[2016-09-11] MEDS: guaiFENesin 600 MG Tab.ER PO SCH ×2 (08:52→21:04)
--- NOTE | 2016-09-11 16:53 | PCM.PN ---
- General Info Date of Service: 09/11/16 Functional Status: Reports: pain controlled, tolerating diet - Review of Systems General: Reports: Weakness HEENT: Reports: no symptoms Pulmonary: Reports: no symptoms Cardiovascular: Reports: No Symptoms Gastrointestinal: Reports: No symptoms Genitourinary: Reports: no symptoms Musculoskeletal: Reports: leg pain Skin: Reports: no symptoms Neurological: Reports: No Symptoms Psychiatric: Reports: no symptoms - Patient Data Vitals - most recent: Last Vital Signs Temp 36.2 C 09/11/16 08:00 Pulse 64 09/11/16 08:51 Resp 18 09/11/16 08:00 BP 141/68 H 09/11/16 08:51 Pulse Ox 98 09/11/16 08:00 Weight - most recent: 79.832 kg Med Orders - Current: Current Medications Acetaminophen (Tylenol Extra Strength) 500 mg PO QID [facility] Last Admin: 09/11/16 13:09 Dose: 500 mg Albuterol/Ipratropium (Duoneb 3.0-0.5 Mg/3 Ml) 3 ml NEB Q4H PRN PRN Reason: Shortness of Breath Last Admin: 08/29/16 19:54 Dose: 3 ml Aspirin (Halfprin) 81 mg PO DAILY [facility] Last Admin: 09/11/16 08:49 Dose: 81 mg Calcium Carbonate (Caltrate 600+D 1500 Mg-400 Units) 1 tab PO DAILY [facility] Last Admin: 09/11/16 08:49 Dose: 1 tab Carvedilol (Coreg) 25 mg PO BID [facility] Last Admin: 09/11/16 08:51 Dose: 25 mg Clonazepam (Klonopin) 0.5 mg PO BID PRN PRN Reason: Anxiety Last Admin: 09/10/16 21:00 Dose: 0.5 mg Clopidogrel Bisulfate (Plavix) 75 mg PO DAILY [facility] Last Admin: 09/11/16 08:51 Dose: 75 mg Diltiazem HCl (Cardizem Cd) 120 mg PO DAILY [facility] Last Admin: 09/11/16 08:48 Dose: 120 mg Folic Acid (Folic Acid) 0.8 mg PO DAILY [facility] Last Admin: 09/11/16 08:50 Dose: 0.8 mg Furosemide (Lasix) 20 mg PO DAILY PRN PRN Reason: edema Last Admin: 09/07/16 09:38 Dose: 20 mg Guaifenesin (Mucinex) 600 mg PO BID [facility] Last Admin: 09/11/16 08:52 Dose: 600 mg Lisinopril (Prinivil) 2.5 mg PO DAILY [facility] Last Admin: 09/11/16 08:49 Dose: 2.5 mg Magnesium Hydroxide (Milk Of Magnesia) 30 ml PO Q4H PRN PRN Reason: Constipation Last Admin: 09/02/16 14:53 Dose: 30 ml Mirtazapine (Remeron) 15 mg PO QPM [facility] Last Admin: 09/10/16 21:00 Dose: 15 mg Multivitamins/Minerals (Thera M Plus) 1 tab PO DAILY [facility] Last Admin: 09/11/16 08:51 Dose: 1 tab Nitroglycerin (Nitrostat) 0.4 mg SL ASDIRECTED PRN PRN Reason: CHEST PAIN Oxycodone HCl (Oxycodone) 5 mg PO Q4H PRN PRN Reason: MODERATE PAIN Last Admin: 09/10/16 20:57 Dose: 5 mg Pantoprazole Sodium (Protonix) 40 mg PO QPM [facility] Last Admin: 09/10/16 21:00 Dose: 40 mg Prednisone (Prednisone) 40 mg PO DAILY [facility] Last Admin: 09/11/16 08:50 Dose: 40 mg Psyllium Husk (Metamucil Sugar Free) 1 pkt PO BEDTIME [facility] Last Admin: 09/10/16 21:01 Dose: 1 pkt Quetiapine Fumarate (Seroquel) 37.5 mg PO QPM [facility] Last Admin: 09/10/16 21:00 Dose: 37.5 mg Senna (Senna) 8.6 mg PO DAILY [facility] Last Admin: 09/11/16 08:51 Dose: 8.6 mg Simvastatin (Zocor) 40 mg PO BEDTIME [facility] Last Admin: 09/10/16 21:02 Dose: 40 mg Tamsulosin HCl (Flomax) 0.8 mg PO DAILY [facility] Last Admin: 09/11/16 08:49 Dose: 0.8 mg Venlafaxine HCl (Effexor Xr) 75 mg PO BEDTIME [facility] Last Admin: 09/10/16 20:58 Dose: 75 mg Venlafaxine HCl (Effexor Xr) 150 mg PO DAILY [facility] Last Admin: 09/11/16 08:52 Dose: 150 mg Discontinued Medications Acetaminophen (Tylenol Extra Strength) Confirm Administered Dose 500 mg .ROUTE .STK-MED ONE Stop: 09/01/16 18:08 Last Admin: 09/01/16 18:40 Dose: Not Given Albuterol/Ipratropium (Duoneb 3.0-0.5 Mg/3 Ml) Confirm Administered Dose 3 ml .ROUTE .STK-MED ONE Stop: 08/28/16 13:49 Last Admin: 08/28/16 16:18 Dose: Not Given Clonazepam (Klonopin) 0.25 mg PO BID [facility] Last Admin: 08/30/16 08:22 Dose: 0.25 mg Clonazepam (Klonopin) 0.25 mg PO BID PRN PRN Reason: Insomnia Diazepam (Valium) 10 mg PO BEDTIME PRN PRN Reason: pain/spasms Last Admin: 08/29/16 20:00 Dose: 10 mg Enoxaparin Sodium (Lovenox) 40 mg SUBCUT DAILY [facility] Stop: 09/05/16 10:00 Last Admin: 09/05/16 08:36 Dose: 40 mg Guaifenesin (Mucinex) 600 mg PO Q12H [facility] Last Admin: 08/30/16 09:31 Dose: 600 mg Haloperidol (Haldol) 5 mg PO ONETIME ONE Stop: 08/28/16 19:34 Last Admin: 08/28/16 19:49 Dose: 5 mg Mirtazapine (Remeron) 7.5 mg PO BEDTIME [facility] Last Admin: 08/29/16 19:45 Dose: 7.5 mg Mirtazapine (Remeron) 15 mg PO BEDTIME [facility] Polyethylene Glycol (Miralax) 17 gm PO DAILY [facility] Stop: 09/08/16 18:00 Last Admin: 09/08/16 09:57 Dose: 17 gm Polyethylene Glycol (Miralax) Confirm Administered Dose 17 gm .ROUTE .STK-MED ONE Stop: 09/09/16 12:46 Last Admin: 09/09/16 12:50 Dose: 17 gm Prednisone (Prednisone) Confirm Administered Dose 20 mg .ROUTE .STK-MED ONE Stop: 09/10/16 08:11 Last Admin: 09/10/16 08:10 Dose: Not Given Psyllium Husk (Metamucil Sugar Free) 1 packet PO BEDTIME [facility] Quetiapine Fumarate (Seroquel) 25 mg PO DAILY [facility] Last Admin: 08/30/16 08:22 Dose: 25 mg - Exam General: alert, oriented HEENT: Pupils equal, Pupils reactive, EOMI Neck: supple Lungs: Clear to auscultation, Normal respiratory effort Cardiovascular: Regular Rate, Regular Rhythm Extremities: other (left thigh tenderness) Peripheral Pulses: 2+: dorsalis pedis (L), dorsalis pedis (R) Skin: warm, dry, intact Wound/Incisions: healing well Neurological: no new focal deficit Psy/Mental Status: alert, normal affect, normal mood - Problem List Review Problem List Initiated/Reviewed/Updated: Yes - Assessment Assessment:: left femur fracture S/p reduction Agitation Dysphagia - Plan Plan:: Ludin removed and steri-strips applied. wound appear clean and healthy. Also he has had psych eval today. His remeron has been increased to 15 mg and seroquel to 37.5 mg at bedtime. His klonopin is PRN and has discontinued his diazepam. Also he has had speech evaluation done today. recommended videoscopic swallow study for his choking episode. Will have it scheduled at [facility] for workup. 09/11/16 Continue with current management and PT. Patient is doing well and wound healing well also. No changes to management or medications.
[2016-09-11] MEDS: Simvastatin 40 MG Tab PO SCH (21:02)
[2016-09-11] MEDS: Venlafaxine 75 MG Cap.ER PO SCH (21:02)
[2016-09-11] MEDS: Mirtazapine 15 MG Tab PO SCH (21:02)
[2016-09-11] MEDS: ClonazePAM 0.5 MG Tab PO PRN (21:02)
[2016-09-11] MEDS: Pantoprazole 40 MG Tab.CR PO SCH (21:04)
[2016-09-11] MEDS: Psyllium Husk Powder Sugar Free 5.85 GM Packet PO SCH (21:04)
[2016-09-11] MEDS: QUEtiapine 25 MG Tab PO SCH (21:04)
[2016-09-11] MEDS: oxyCODONE 5 MG Tab PO PRN (21:05)
[2016-09-12] MEDS: Clopidogrel 75 MG Tab PO SCH (08:32)
[2016-09-12] MEDS: Multivitamins with Iron/Calcium/Folic Acid/Minerals Tab PO SCH (08:32)
[2016-09-12] MEDS: Aspirin 81 MG Tab.EC PO SCH (08:32)
[2016-09-12] MEDS: Tamsulosin 0.4 MG Cap.ER PO SCH (08:32)
[2016-09-12] MEDS: Acetaminophen 500 MG Tab PO SCH ×4 (08:32→19:34)
[2016-09-12] MEDS: Folic Acid 0.4 MG Tab PO SCH (08:33)
[2016-09-12] MEDS: predniSONE 20 MG Tab PO SCH (08:33)
[2016-09-12] MEDS: Calcium Carbonate/Vitamin D3 1500 MG-400 Units Tab PO SCH (08:33)
[2016-09-12] MEDS: Lisinopril 2.5 MG Tab PO SCH (08:33)
[2016-09-12] MEDS: Carvedilol 25 MG Tab PO SCH ×2 (08:34→19:36)
[2016-09-12] MEDS: Diltiazem 120 MG Cap.CD PO SCH (08:34)
[2016-09-12] MEDS: Sennosides 8.6 MG Tab PO SCH (08:34)
[2016-09-12] MEDS: Venlafaxine 150 MG Cap.ER PO SCH (08:35)
[2016-09-12] MEDS: guaiFENesin 600 MG Tab.ER PO SCH ×2 (08:35→19:33)
[2016-09-12] MEDS: Psyllium Husk Powder Sugar Free 5.85 GM Packet PO SCH (19:31)
[2016-09-12] MEDS: Pantoprazole 40 MG Tab.CR PO SCH (19:33)
[2016-09-12] MEDS: Simvastatin 40 MG Tab PO SCH (19:33)
[2016-09-12] MEDS: Venlafaxine 75 MG Cap.ER PO SCH (19:33)
[2016-09-12] MEDS: QUEtiapine 25 MG Tab PO SCH (19:34)
[2016-09-12] MEDS: Mirtazapine 15 MG Tab PO SCH (19:34)
[2016-09-13] MEDS: Tamsulosin 0.4 MG Cap.ER PO SCH (08:15)
[2016-09-13] MEDS: Aspirin 81 MG Tab.EC PO SCH (08:15)
[2016-09-13] MEDS: Folic Acid 0.4 MG Tab PO SCH (08:16)
[2016-09-13] MEDS: Lisinopril 2.5 MG Tab PO SCH (08:16)
[2016-09-13] MEDS: Acetaminophen 500 MG Tab PO SCH ×4 (08:17→19:56)
[2016-09-13] MEDS: Diltiazem 120 MG Cap.CD PO SCH (08:17)
[2016-09-13] MEDS: Clopidogrel 75 MG Tab PO SCH (08:17)
[2016-09-13] MEDS: Multivitamins with Iron/Calcium/Folic Acid/Minerals Tab PO SCH (08:17)
[2016-09-13] MEDS: Sennosides 8.6 MG Tab PO SCH (08:17)
[2016-09-13] MEDS: Venlafaxine 150 MG Cap.ER PO SCH (08:17)
[2016-09-13] MEDS: Calcium Carbonate/Vitamin D3 1500 MG-400 Units Tab PO SCH (08:17)
[2016-09-13] MEDS: Carvedilol 25 MG Tab PO SCH ×2 (08:17→19:56)
[2016-09-13] MEDS: guaiFENesin 600 MG Tab.ER PO SCH ×2 (08:18→19:56)
[2016-09-13] MEDS: predniSONE 20 MG Tab PO SCH (08:18)
[2016-09-13] MEDS: Venlafaxine 75 MG Cap.ER PO SCH (19:55)
[2016-09-13] MEDS: QUEtiapine 25 MG Tab PO SCH (19:55)
[2016-09-13] MEDS: Psyllium Husk Powder Sugar Free 5.85 GM Packet PO SCH (19:55)
[2016-09-13] MEDS: Pantoprazole 40 MG Tab.CR PO SCH (19:56)
[2016-09-13] MEDS: Simvastatin 40 MG Tab PO SCH (19:56)
[2016-09-13] MEDS: Mirtazapine 15 MG Tab PO SCH (19:56)
[2016-09-14] MEDS: predniSONE 20 MG Tab PO SCH (08:08)
[2016-09-14] MEDS: Folic Acid 0.4 MG Tab PO SCH (08:09)
[2016-09-14] MEDS: Sennosides 8.6 MG Tab PO SCH (08:10)
[2016-09-14] MEDS: Tamsulosin 0.4 MG Cap.ER PO SCH (08:10)
[2016-09-14] MEDS: Diltiazem 120 MG Cap.CD PO SCH (08:11)
[2016-09-14] MEDS: guaiFENesin 600 MG Tab.ER PO SCH ×2 (08:12→20:05)
[2016-09-14] MEDS: Lisinopril 2.5 MG Tab PO SCH (08:12)
[2016-09-14] MEDS: Multivitamins with Iron/Calcium/Folic Acid/Minerals Tab PO SCH (08:13)
[2016-09-14] MEDS: Venlafaxine 150 MG Cap.ER PO SCH (08:13)
[2016-09-14] MEDS: Carvedilol 25 MG Tab PO SCH ×2 (08:13→20:05)
[2016-09-14] MEDS: Acetaminophen 500 MG Tab PO SCH ×4 (08:13→20:05)
[2016-09-14] MEDS: Clopidogrel 75 MG Tab PO SCH (08:14)
[2016-09-14] MEDS: Calcium Carbonate/Vitamin D3 1500 MG-400 Units Tab PO SCH (08:14)
[2016-09-14] MEDS: Aspirin 81 MG Tab.EC PO SCH (08:14)
[2016-09-14] MEDS: Venlafaxine 75 MG Cap.ER PO SCH (20:04)
[2016-09-14] MEDS: Simvastatin 40 MG Tab PO SCH (20:05)
[2016-09-14] MEDS: Pantoprazole 40 MG Tab.CR PO SCH (20:05)
[2016-09-14] MEDS: QUEtiapine 25 MG Tab PO SCH (20:05)
[2016-09-14] MEDS: Mirtazapine 15 MG Tab PO SCH (20:05)
[2016-09-14] MEDS: Psyllium Husk Powder Sugar Free 5.85 GM Packet PO SCH (20:06)
[2016-09-15] MEDS: predniSONE 20 MG Tab PO SCH (08:08)
[2016-09-15] MEDS: guaiFENesin 600 MG Tab.ER PO SCH ×2 (08:10→20:00)
[2016-09-15] MEDS: Venlafaxine 150 MG Cap.ER PO SCH (08:10)
[2016-09-15] MEDS: Folic Acid 0.4 MG Tab PO SCH (08:10)
[2016-09-15] MEDS: Tamsulosin 0.4 MG Cap.ER PO SCH (08:11)
[2016-09-15] MEDS: Multivitamins with Iron/Calcium/Folic Acid/Minerals Tab PO SCH (08:11)
[2016-09-15] MEDS: Aspirin 81 MG Tab.EC PO SCH (08:11)
[2016-09-15] MEDS: Sennosides 8.6 MG Tab PO SCH (08:12)
[2016-09-15] MEDS: Calcium Carbonate/Vitamin D3 1500 MG-400 Units Tab PO SCH (08:13)
[2016-09-15] MEDS: Acetaminophen 500 MG Tab PO SCH ×4 (08:13→20:01)
[2016-09-15] MEDS: Clopidogrel 75 MG Tab PO SCH (08:13)
[2016-09-15] MEDS: Carvedilol 25 MG Tab PO SCH ×2 (08:14→20:00)
[2016-09-15] MEDS: Diltiazem 120 MG Cap.CD PO SCH (08:14)
[2016-09-15] MEDS: Lisinopril 2.5 MG Tab PO SCH (08:21)
[2016-09-15] MEDS: QUEtiapine 25 MG Tab PO SCH (19:59)
[2016-09-15] MEDS: Simvastatin 40 MG Tab PO SCH (20:00)
[2016-09-15] MEDS: Mirtazapine 15 MG Tab PO SCH (20:01)
[2016-09-15] MEDS: Pantoprazole 40 MG Tab.CR PO SCH (20:01)
[2016-09-15] MEDS: Venlafaxine 75 MG Cap.ER PO SCH (20:01)
[2016-09-15] MEDS: Psyllium Husk Powder Sugar Free 5.85 GM Packet PO SCH (20:02)
[2016-09-16] MEDS: predniSONE 20 MG Tab PO SCH (08:33)
[2016-09-16] MEDS: Tamsulosin 0.4 MG Cap.ER PO SCH (08:33)
[2016-09-16] MEDS: guaiFENesin 600 MG Tab.ER PO SCH ×2 (08:34→19:58)
[2016-09-16] MEDS: Folic Acid 0.4 MG Tab PO SCH (08:34)
[2016-09-16] MEDS: Multivitamins with Iron/Calcium/Folic Acid/Minerals Tab PO SCH (08:34)
[2016-09-16] MEDS: Aspirin 81 MG Tab.EC PO SCH (08:35)
[2016-09-16] MEDS: Acetaminophen 500 MG Tab PO SCH ×4 (08:36→19:57)
[2016-09-16] MEDS: Diltiazem 120 MG Cap.CD PO SCH (08:36)
[2016-09-16] MEDS: Venlafaxine 150 MG Cap.ER PO SCH (08:36)
[2016-09-16] MEDS: Clopidogrel 75 MG Tab PO SCH (08:37)
[2016-09-16] MEDS: Sennosides 8.6 MG Tab PO SCH (08:37)
[2016-09-16] MEDS: Calcium Carbonate/Vitamin D3 1500 MG-400 Units Tab PO SCH (08:37)
[2016-09-16] MEDS: Carvedilol 25 MG Tab PO SCH ×2 (08:38→19:57)
[2016-09-16] MEDS: Lisinopril 2.5 MG Tab PO SCH (08:39)
[2016-09-16] MEDS: Psyllium Husk Powder Sugar Free 5.85 GM Packet PO SCH (19:56)
[2016-09-16] MEDS: QUEtiapine 25 MG Tab PO SCH (19:56)
[2016-09-16] MEDS: Pantoprazole 40 MG Tab.CR PO SCH (19:57)
[2016-09-16] MEDS: Simvastatin 40 MG Tab PO SCH (19:57)
[2016-09-16] MEDS: Mirtazapine 15 MG Tab PO SCH (19:57)
[2016-09-16] MEDS: Venlafaxine 75 MG Cap.ER PO SCH (19:58)
[2016-09-17] MEDS: Lisinopril 2.5 MG Tab PO SCH (07:37)
[2016-09-17] MEDS: Acetaminophen 500 MG Tab PO SCH ×4 (07:37→20:42)
[2016-09-17] MEDS: Clopidogrel 75 MG Tab PO SCH (07:37)
[2016-09-17] MEDS: Sennosides 8.6 MG Tab PO SCH (07:37)
[2016-09-17] MEDS: Folic Acid 0.4 MG Tab PO SCH (07:37)
[2016-09-17] MEDS: Venlafaxine 150 MG Cap.ER PO SCH (07:38)
[2016-09-17] MEDS: Tamsulosin 0.4 MG Cap.ER PO SCH (07:38)
[2016-09-17] MEDS: predniSONE 20 MG Tab PO SCH (07:38)
[2016-09-17] MEDS: Multivitamins with Iron/Calcium/Folic Acid/Minerals Tab PO SCH (07:38)
[2016-09-17] MEDS: Carvedilol 25 MG Tab PO SCH ×2 (07:38→20:44)
[2016-09-17] MEDS: Aspirin 81 MG Tab.EC PO SCH (07:39)
[2016-09-17] MEDS: Calcium Carbonate/Vitamin D3 1500 MG-400 Units Tab PO SCH (07:39)
[2016-09-17] MEDS: Diltiazem 120 MG Cap.CD PO SCH (07:39)
[2016-09-17] MEDS: guaiFENesin 600 MG Tab.ER PO SCH ×2 (07:40→20:44)
--- NOTE | 2016-09-17 13:49 | PCM.PN ---
- General Info Date of Service: 09/17/16 Functional Status: Reports: pain controlled, tolerating diet, ambulating - Review of Systems General: Reports: Weakness HEENT: Reports: no symptoms Pulmonary: Reports: no symptoms Cardiovascular: Reports: No Symptoms Gastrointestinal: Reports: No symptoms Genitourinary: Reports: no symptoms Musculoskeletal: Reports: no symptoms Skin: Reports: no symptoms Neurological: Reports: No Symptoms Psychiatric: Reports: no symptoms - Patient Data Vitals - most recent: Last Vital Signs Temp 36.8 C 09/17/16 08:00 Pulse 62 09/17/16 08:00 Resp 18 09/17/16 08:00 BP 154/61 H 09/17/16 08:00 Pulse Ox 98 09/17/16 08:00 Weight - most recent: 79.832 kg Med Orders - Current: Current Medications Acetaminophen (Tylenol Extra Strength) 500 mg PO QID [facility] Last Admin: 09/17/16 12:46 Dose: Not Given Albuterol/Ipratropium (Duoneb 3.0-0.5 Mg/3 Ml) 3 ml NEB Q4H PRN PRN Reason: Shortness of Breath Last Admin: 08/29/16 19:54 Dose: 3 ml Aspirin (Halfprin) 81 mg PO DAILY [facility] Last Admin: 09/17/16 07:39 Dose: 81 mg Calcium Carbonate (Caltrate 600+D 1500 Mg-400 Units) 1 tab PO DAILY [facility] Last Admin: 09/17/16 07:39 Dose: 1 tab Carvedilol (Coreg) 25 mg PO BID [facility] Last Admin: 09/17/16 07:38 Dose: 25 mg Clonazepam (Klonopin) 0.5 mg PO BID PRN PRN Reason: Anxiety Last Admin: 09/11/16 21:02 Dose: 0.5 mg Clopidogrel Bisulfate (Plavix) 75 mg PO DAILY [facility] Last Admin: 09/17/16 07:37 Dose: 75 mg Diltiazem HCl (Cardizem Cd) 120 mg PO DAILY [facility] Last Admin: 09/17/16 07:39 Dose: 120 mg Folic Acid (Folic Acid) 0.8 mg PO DAILY [facility] Last Admin: 09/17/16 07:37 Dose: 0.8 mg Furosemide (Lasix) 20 mg PO DAILY PRN PRN Reason: edema Last Admin: 09/07/16 09:38 Dose: 20 mg Guaifenesin (Mucinex) 600 mg PO BID [facility] Last Admin: 09/17/16 07:40 Dose: 600 mg Lisinopril (Prinivil) 2.5 mg PO DAILY [facility] Last Admin: 09/17/16 07:37 Dose: 2.5 mg Magnesium Hydroxide (Milk Of Magnesia) 30 ml PO Q4H PRN PRN Reason: Constipation Last Admin: 09/02/16 14:53 Dose: 30 ml Mirtazapine (Remeron) 15 mg PO QPM [facility] Last Admin: 09/16/16 19:57 Dose: 15 mg Multivitamins/Minerals (Thera M Plus) 1 tab PO DAILY [facility] Last Admin: 09/17/16 07:38 Dose: 1 tab Nitroglycerin (Nitrostat) 0.4 mg SL ASDIRECTED PRN PRN Reason: CHEST PAIN Oxycodone HCl (Oxycodone) 5 mg PO Q4H PRN PRN Reason: MODERATE PAIN Last Admin: 09/11/16 21:05 Dose: 5 mg Pantoprazole Sodium (Protonix) 40 mg PO QPM [facility] Last Admin: 09/16/16 19:57 Dose: 40 mg Prednisone (Prednisone) 40 mg PO DAILY [facility] Last Admin: 09/17/16 07:38 Dose: 40 mg Psyllium Husk (Metamucil Sugar Free) 1 pkt PO BEDTIME [facility] Last Admin: 09/16/16 19:56 Dose: 1 pkt Quetiapine Fumarate (Seroquel) 37.5 mg PO QPM [facility] Last Admin: 09/16/16 19:56 Dose: 37.5 mg Senna (Senna) 8.6 mg PO DAILY [facility] Last Admin: 09/17/16 07:37 Dose: 8.6 mg Simvastatin (Zocor) 40 mg PO BEDTIME [facility] Last Admin: 09/16/16 19:57 Dose: 40 mg Tamsulosin HCl (Flomax) 0.8 mg PO DAILY [facility] Last Admin: 09/17/16 07:38 Dose: 0.8 mg Venlafaxine HCl (Effexor Xr) 75 mg PO BEDTIME [facility] Last Admin: 09/16/16 19:58 Dose: 75 mg Venlafaxine HCl (Effexor Xr) 150 mg PO DAILY [facility] Last Admin: 09/17/16 07:38 Dose: 150 mg Discontinued Medications Acetaminophen (Tylenol Extra Strength) Confirm Administered Dose 500 mg .ROUTE .STK-MED ONE Stop: 09/01/16 18:08 Last Admin: 09/01/16 18:40 Dose: Not Given Albuterol/Ipratropium (Duoneb 3.0-0.5 Mg/3 Ml) Confirm Administered Dose 3 ml .ROUTE .STK-MED ONE Stop: 08/28/16 13:49 Last Admin: 08/28/16 16:18 Dose: Not Given Clonazepam (Klonopin) 0.25 mg PO BID [facility] Last Admin: 08/30/16 08:22 Dose: 0.25 mg Clonazepam (Klonopin) 0.25 mg PO BID PRN PRN Reason: Insomnia Diazepam (Valium) 10 mg PO BEDTIME PRN PRN Reason: pain/spasms Last Admin: 08/29/16 20:00 Dose: 10 mg Enoxaparin Sodium (Lovenox) 40 mg SUBCUT DAILY [facility] Stop: 09/05/16 10:00 Last Admin: 09/05/16 08:36 Dose: 40 mg Guaifenesin (Mucinex) 600 mg PO Q12H [facility] Last Admin: 08/30/16 09:31 Dose: 600 mg Haloperidol (Haldol) 5 mg PO ONETIME ONE Stop: 08/28/16 19:34 Last Admin: 08/28/16 19:49 Dose: 5 mg Mirtazapine (Remeron) 7.5 mg PO BEDTIME [facility] Last Admin: 08/29/16 19:45 Dose: 7.5 mg Mirtazapine (Remeron) 15 mg PO BEDTIME [facility] Polyethylene Glycol (Miralax) 17 gm PO DAILY [facility] Stop: 09/08/16 18:00 Last Admin: 09/08/16 09:57 Dose: 17 gm Polyethylene Glycol (Miralax) Confirm Administered Dose 17 gm .ROUTE .STK-MED ONE Stop: 09/09/16 12:46 Last Admin: 09/09/16 12:50 Dose: 17 gm Prednisone (Prednisone) Confirm Administered Dose 20 mg .ROUTE .STK-MED ONE Stop: 09/10/16 08:11 Last Admin: 09/10/16 08:10 Dose: Not Given Psyllium Husk (Metamucil Sugar Free) 1 packet PO BEDTIME [facility] Quetiapine Fumarate (Seroquel) 25 mg PO DAILY [facility] Last Admin: 08/30/16 08:22 Dose: 25 mg - Exam General: alert, oriented, cooperative HEENT: Pupils equal, Pupils reactive Neck: supple Lungs: Clear to auscultation, Normal respiratory effort Cardiovascular: Regular Rate, Regular Rhythm Abdomen: bowel sounds present Extremities: no edema Peripheral Pulses: 2+: dorsalis pedis (L), dorsalis pedis (R) Skin: warm, dry, intact Psy/Mental Status: alert, normal affect, normal mood - Problem List & Annotations (1) Fracture of femur SNOMED Code(s): 84580801 Code(s): S72.90XA - UNSP FRACTURE OF UNSP FEMUR, INIT ENCNTR FOR CLOSED FRACTURE Status: Chronic Priority: High Current Visit: Yes (2) Other specified rehabilitation procedure SNOMED Code(s): 527263520, 904399864 Code(s): Z51.89 - ENCOUNTER FOR OTHER SPECIFIED AFTERCARE Status: Acute Priority: High Current Visit: Yes - Problem List Review Problem List Initiated/Reviewed/Updated: Yes - Assessment Assessment:: left femur fracture S/p reduction Agitation Dysphagia - Plan Plan:: [place] removed and steri-strips applied. wound appear clean and healthy. Also he has had psych eval today. His remeron has been increased to 15 mg and seroquel to 37.5 mg at bedtime. His klonopin is PRN and has discontinued his diazepam. Also he has had speech evaluation done today. recommended videoscopic swallow study for his choking episode. Will have it scheduled at [facility] for workup. 09/11/16 Continue with current management and PT. Patient is doing well and wound healing well also. No changes to management or medications. 09/17/16 Continue PT/OT. Patient discharge planning started. We will consider d/ c back to [facility] when ready.
[2016-09-17] MEDS: QUEtiapine 25 MG Tab PO SCH (20:42)
[2016-09-17] MEDS: Venlafaxine 75 MG Cap.ER PO SCH (20:42)
[2016-09-17] MEDS: Mirtazapine 15 MG Tab PO SCH (20:43)
[2016-09-17] MEDS: Simvastatin 40 MG Tab PO SCH (20:44)
[2016-09-17] MEDS: Psyllium Husk Powder Sugar Free 5.85 GM Packet PO SCH (20:44)
[2016-09-17] MEDS: Pantoprazole 40 MG Tab.CR PO SCH (20:44)
[2016-09-18] MEDS: Multivitamins with Iron/Calcium/Folic Acid/Minerals Tab PO SCH (07:40)
[2016-09-18] MEDS: Diltiazem 120 MG Cap.CD PO SCH (07:41)
[2016-09-18] MEDS: Sennosides 8.6 MG Tab PO SCH (07:41)
[2016-09-18] MEDS: predniSONE 20 MG Tab PO SCH (07:41)
[2016-09-18] MEDS: Lisinopril 2.5 MG Tab PO SCH (07:41)
[2016-09-18] MEDS: Carvedilol 25 MG Tab PO SCH ×2 (07:41→20:14)
[2016-09-18] MEDS: Acetaminophen 500 MG Tab PO SCH ×4 (07:42→20:20)
[2016-09-18] MEDS: Tamsulosin 0.4 MG Cap.ER PO SCH (07:42)
[2016-09-18] MEDS: Calcium Carbonate/Vitamin D3 1500 MG-400 Units Tab PO SCH (07:42)
[2016-09-18] MEDS: guaiFENesin 600 MG Tab.ER PO SCH ×2 (07:42→20:20)
[2016-09-18] MEDS: Clopidogrel 75 MG Tab PO SCH (07:42)
[2016-09-18] MEDS: Folic Acid 0.4 MG Tab PO SCH (07:42)
[2016-09-18] MEDS: Aspirin 81 MG Tab.EC PO SCH (07:42)
[2016-09-18] MEDS: Venlafaxine 150 MG Cap.ER PO SCH (07:42)
[2016-09-18] MEDS: QUEtiapine 25 MG Tab PO SCH (20:13)
[2016-09-18] MEDS: Pantoprazole 40 MG Tab.CR PO SCH (20:14)
[2016-09-18] MEDS: Mirtazapine 15 MG Tab PO SCH (20:19)
[2016-09-18] MEDS: Simvastatin 40 MG Tab PO SCH (20:19)
[2016-09-18] MEDS: Psyllium Husk Powder Sugar Free 5.85 GM Packet PO SCH (20:20)
[2016-09-18] MEDS: Venlafaxine 75 MG Cap.ER PO SCH (20:20)
[2016-09-19] MEDS: Sennosides 8.6 MG Tab PO SCH (08:00)
[2016-09-19] MEDS: Folic Acid 0.4 MG Tab PO SCH (08:22)
[2016-09-19] MEDS: Acetaminophen 500 MG Tab PO SCH ×3 (08:23→16:21)
[2016-09-19] MEDS: Diltiazem 120 MG Cap.CD PO SCH (08:23)
[2016-09-19] MEDS: Tamsulosin 0.4 MG Cap.ER PO SCH (08:23)
[2016-09-19] MEDS: guaiFENesin 600 MG Tab.ER PO SCH ×2 (08:24→20:13)
[2016-09-19] MEDS: Clopidogrel 75 MG Tab PO SCH (08:24)
[2016-09-19] MEDS: Venlafaxine 150 MG Cap.ER PO SCH (08:24)
[2016-09-19] MEDS: Lisinopril 2.5 MG Tab PO SCH (08:24)
[2016-09-19] MEDS: predniSONE 20 MG Tab PO SCH (08:24)
[2016-09-19] MEDS: Aspirin 81 MG Tab.EC PO SCH (08:24)
[2016-09-19] MEDS: Calcium Carbonate/Vitamin D3 1500 MG-400 Units Tab PO SCH (08:24)
[2016-09-19] MEDS: Carvedilol 25 MG Tab PO SCH ×2 (08:25→20:11)
[2016-09-19] MEDS: Multivitamins with Iron/Calcium/Folic Acid/Minerals Tab PO SCH (08:25)
[2016-09-19] MEDS ORDERED: Acetaminophen 500 MG Tab PO PRN (16:30)
[2016-09-19] MEDS: Psyllium Husk Powder Sugar Free 5.85 GM Packet PO SCH (20:09)
[2016-09-19] MEDS: Pantoprazole 40 MG Tab.CR PO SCH (20:10)
[2016-09-19] MEDS: QUEtiapine 25 MG Tab PO SCH (20:10)
[2016-09-19] MEDS: Simvastatin 40 MG Tab PO SCH (20:11)
[2016-09-19] MEDS: Mirtazapine 15 MG Tab PO SCH (20:11)
[2016-09-19] MEDS: Venlafaxine 75 MG Cap.ER PO SCH (20:13)
[2016-09-20] MEDS: Diltiazem 120 MG Cap.CD PO SCH (08:10)
[2016-09-20] MEDS: Calcium Carbonate/Vitamin D3 1500 MG-400 Units Tab PO SCH (08:10)
[2016-09-20] MEDS: Sennosides 8.6 MG Tab PO SCH (08:11)
[2016-09-20] MEDS: Clopidogrel 75 MG Tab PO SCH (08:11)
[2016-09-20] MEDS: Multivitamins with Iron/Calcium/Folic Acid/Minerals Tab PO SCH (08:11)
[2016-09-20] MEDS: Folic Acid 0.4 MG Tab PO SCH (08:11)
[2016-09-20] MEDS: Tamsulosin 0.4 MG Cap.ER PO SCH (08:11)
[2016-09-20] MEDS: Carvedilol 25 MG Tab PO SCH ×2 (08:11→19:53)
[2016-09-20] MEDS: Lisinopril 2.5 MG Tab PO SCH (08:11)
[2016-09-20] MEDS: Venlafaxine 150 MG Cap.ER PO SCH (08:11)
[2016-09-20] MEDS: Aspirin 81 MG Tab.EC PO SCH (08:11)
[2016-09-20] MEDS: guaiFENesin 600 MG Tab.ER PO SCH ×2 (08:11→19:54)
[2016-09-20] MEDS: predniSONE 20 MG Tab PO SCH (08:12)
[2016-09-20] MEDS: Venlafaxine 75 MG Cap.ER PO SCH (19:51)
[2016-09-20] MEDS: QUEtiapine 25 MG Tab PO SCH (19:51)
[2016-09-20] MEDS: Mirtazapine 15 MG Tab PO SCH (19:52)
[2016-09-20] MEDS: Pantoprazole 40 MG Tab.CR PO SCH (19:53)
[2016-09-20] MEDS: Psyllium Husk Powder Sugar Free 5.85 GM Packet PO SCH (19:59)
[2016-09-20] MEDS: Simvastatin 40 MG Tab PO SCH (19:59)
[2016-09-21] MEDS: predniSONE 20 MG Tab PO SCH (07:51)
[2016-09-21] MEDS: Folic Acid 0.4 MG Tab PO SCH (07:52)
[2016-09-21] MEDS: Diltiazem 120 MG Cap.CD PO SCH (07:52)
[2016-09-21] MEDS: guaiFENesin 600 MG Tab.ER PO SCH ×2 (07:52→19:43)
[2016-09-21] MEDS: Lisinopril 2.5 MG Tab PO SCH (07:55)
[2016-09-21] MEDS: Venlafaxine 150 MG Cap.ER PO SCH (07:55)
[2016-09-21] MEDS: Carvedilol 25 MG Tab PO SCH ×2 (07:55→19:51)
[2016-09-21] MEDS: Calcium Carbonate/Vitamin D3 1500 MG-400 Units Tab PO SCH (07:55)
[2016-09-21] MEDS: Tamsulosin 0.4 MG Cap.ER PO SCH (07:55)
[2016-09-21] MEDS: Clopidogrel 75 MG Tab PO SCH (07:56)
[2016-09-21] MEDS: Sennosides 8.6 MG Tab PO SCH (07:56)
[2016-09-21] MEDS: Aspirin 81 MG Tab.EC PO SCH (07:56)
[2016-09-21] MEDS: Multivitamins with Iron/Calcium/Folic Acid/Minerals Tab PO SCH (07:56)
[2016-09-21] MEDS: Magnesium Hydroxide 400 MG/5 ML Susp 30 ML Cup PO PRN (11:32)
[2016-09-21] MEDS: Venlafaxine 75 MG Cap.ER PO SCH (19:42)
[2016-09-21] MEDS: Pantoprazole 40 MG Tab.CR PO SCH (19:42)
[2016-09-21] MEDS: Mirtazapine 15 MG Tab PO SCH (19:43)
[2016-09-21] MEDS: Simvastatin 40 MG Tab PO SCH (19:43)
[2016-09-21] MEDS: QUEtiapine 25 MG Tab PO SCH (19:44)
[2016-09-21] MEDS: Psyllium Husk Powder Sugar Free 5.85 GM Packet PO SCH (19:50)
[2016-09-22] MEDS: Calcium Carbonate/Vitamin D3 1500 MG-400 Units Tab PO SCH (07:35)
[2016-09-22] MEDS: guaiFENesin 600 MG Tab.ER PO SCH ×2 (07:35→19:38)
[2016-09-22] MEDS: Aspirin 81 MG Tab.EC PO SCH (07:35)
[2016-09-22] MEDS: Tamsulosin 0.4 MG Cap.ER PO SCH (07:35)
[2016-09-22] MEDS: Clopidogrel 75 MG Tab PO SCH (07:35)
[2016-09-22] MEDS: Folic Acid 0.4 MG Tab PO SCH (07:36)
[2016-09-22] MEDS: Lisinopril 2.5 MG Tab PO SCH (07:36)
[2016-09-22] MEDS: Venlafaxine 150 MG Cap.ER PO SCH (07:36)
[2016-09-22] MEDS: predniSONE 20 MG Tab PO SCH (07:36)
[2016-09-22] MEDS: Multivitamins with Iron/Calcium/Folic Acid/Minerals Tab PO SCH (07:36)
[2016-09-22] MEDS: Diltiazem 120 MG Cap.CD PO SCH (07:37)
[2016-09-22] MEDS: Carvedilol 25 MG Tab PO SCH ×2 (07:37→19:38)
[2016-09-22] MEDS: Sennosides 8.6 MG Tab PO SCH (07:42)
[2016-09-22] MEDS: QUEtiapine 25 MG Tab PO SCH (19:34)
[2016-09-22] MEDS: Pantoprazole 40 MG Tab.CR PO SCH (19:35)
[2016-09-22] MEDS: Mirtazapine 15 MG Tab PO SCH (19:37)
[2016-09-22] MEDS: Psyllium Husk Powder Sugar Free 5.85 GM Packet PO SCH (19:37)
[2016-09-22] MEDS: Venlafaxine 75 MG Cap.ER PO SCH (19:37)
[2016-09-22] MEDS: Simvastatin 40 MG Tab PO SCH (19:37)
[2016-09-23] MEDS: Diltiazem 120 MG Cap.CD PO SCH (08:22)
[2016-09-23] MEDS: Calcium Carbonate/Vitamin D3 1500 MG-400 Units Tab PO SCH (08:22)
[2016-09-23] MEDS: Folic Acid 0.4 MG Tab PO SCH (08:25)
[2016-09-23] MEDS: Carvedilol 25 MG Tab PO SCH ×2 (08:25→19:29)
[2016-09-23] MEDS: Venlafaxine 150 MG Cap.ER PO SCH (08:25)
[2016-09-23] MEDS: Lisinopril 2.5 MG Tab PO SCH (08:25)
[2016-09-23] MEDS: predniSONE 20 MG Tab PO SCH (08:25)
[2016-09-23] MEDS: guaiFENesin 600 MG Tab.ER PO SCH ×2 (08:26→19:29)
[2016-09-23] MEDS: Tamsulosin 0.4 MG Cap.ER PO SCH (08:26)
[2016-09-23] MEDS: Clopidogrel 75 MG Tab PO SCH (08:26)
[2016-09-23] MEDS: Sennosides 8.6 MG Tab PO SCH (08:26)
[2016-09-23] MEDS: Aspirin 81 MG Tab.EC PO SCH (08:26)
[2016-09-23] MEDS: Multivitamins with Iron/Calcium/Folic Acid/Minerals Tab PO SCH (08:26)
[2016-09-23] MEDS: Simvastatin 40 MG Tab PO SCH (19:28)
[2016-09-23] MEDS: Furosemide 20 MG Tab PO PRN (19:28)
[2016-09-23] MEDS: Venlafaxine 75 MG Cap.ER PO SCH (19:28)
[2016-09-23] MEDS: QUEtiapine 25 MG Tab PO SCH (19:28)
[2016-09-23] MEDS: Pantoprazole 40 MG Tab.CR PO SCH (19:28)
[2016-09-23] MEDS: Mirtazapine 15 MG Tab PO SCH (19:28)
[2016-09-23] MEDS: Psyllium Husk Powder Sugar Free 5.85 GM Packet PO SCH (19:30)
[2016-09-24] MEDS: Folic Acid 0.4 MG Tab PO SCH (07:29)
[2016-09-24] MEDS: predniSONE 20 MG Tab PO SCH (07:35)
[2016-09-24] MEDS: Lisinopril 2.5 MG Tab PO SCH (07:36)
[2016-09-24] MEDS: Tamsulosin 0.4 MG Cap.ER PO SCH (07:36)
[2016-09-24] MEDS: Calcium Carbonate/Vitamin D3 1500 MG-400 Units Tab PO SCH (07:37)
[2016-09-24] MEDS: Venlafaxine 150 MG Cap.ER PO SCH (07:37)
[2016-09-24] MEDS: Aspirin 81 MG Tab.EC PO SCH (07:37)
[2016-09-24] MEDS: Clopidogrel 75 MG Tab PO SCH (07:37)
[2016-09-24] MEDS: Carvedilol 25 MG Tab PO SCH ×2 (07:38→19:52)
[2016-09-24] MEDS: Sennosides 8.6 MG Tab PO SCH (07:38)
[2016-09-24] MEDS: Multivitamins with Iron/Calcium/Folic Acid/Minerals Tab PO SCH (07:39)
[2016-09-24] MEDS: guaiFENesin 600 MG Tab.ER PO SCH ×2 (07:39→19:45)
[2016-09-24] MEDS: Diltiazem 120 MG Cap.CD PO SCH (07:39)
--- NOTE | 2016-09-24 09:48 | PCM.PN ---
- General Info Date of Service: 09/24/16 Subjective Update: Jose states he is doing well without any concerns. He has been improving daily and denies any fever, chills, chest pain or sob. Patient has a good appetite and has been continuing with PT/OT and Orthopedics f/u with Krzysztof and Dr. Carlin. Functional Status: Reports: pain controlled, tolerating diet, urinating - Review of Systems General: Reports: Weakness HEENT: Reports: no symptoms Pulmonary: Reports: no symptoms Cardiovascular: Reports: No Symptoms Gastrointestinal: Reports: No symptoms Genitourinary: Reports: no symptoms Musculoskeletal: Reports: joint pain Skin: Reports: no symptoms Neurological: Reports: No Symptoms - Patient Data Vitals - most recent: Last Vital Signs Temp 36.9 C 09/24/16 07:43 Pulse 60 09/24/16 07:43 Resp 16 09/24/16 07:43 BP 150/66 H 09/24/16 07:43 Pulse Ox 99 09/24/16 07:43 Weight - most recent: 79.832 kg Med Orders - Current: Current Medications Acetaminophen (Tylenol Extra Strength) 500 mg PO QID PRN PRN Reason: Pain Albuterol/Ipratropium (Duoneb 3.0-0.5 Mg/3 Ml) 3 ml NEB Q4H PRN PRN Reason: Shortness of Breath Last Admin: 08/29/16 19:54 Dose: 3 ml Aspirin (Halfprin) 81 mg PO DAILY [facility] Last Admin: 09/24/16 07:37 Dose: 81 mg Calcium Carbonate (Caltrate 600+D 1500 Mg-400 Units) 1 tab PO DAILY [facility] Last Admin: 09/24/16 07:37 Dose: 1 tab Carvedilol (Coreg) 25 mg PO BID [facility] Last Admin: 09/24/16 07:38 Dose: 25 mg Clonazepam (Klonopin) 0.5 mg PO BID PRN PRN Reason: Anxiety Last Admin: 09/11/16 21:02 Dose: 0.5 mg Clopidogrel Bisulfate (Plavix) 75 mg PO DAILY [facility] Last Admin: 09/24/16 07:37 Dose: 75 mg Diltiazem HCl (Cardizem Cd) 120 mg PO DAILY [facility] Last Admin: 09/24/16 07:39 Dose: 120 mg Folic Acid (Folic Acid) 0.8 mg PO DAILY [facility] Last Admin: 09/24/16 07:29 Dose: 0.8 mg Furosemide (Lasix) 20 mg PO DAILY PRN PRN Reason: edema Last Admin: 09/23/16 19:28 Dose: 20 mg Guaifenesin (Mucinex) 600 mg PO BID [facility] Last Admin: 09/24/16 07:39 Dose: 600 mg Lisinopril (Prinivil) 2.5 mg PO DAILY [facility] Last Admin: 09/24/16 07:36 Dose: 2.5 mg Magnesium Hydroxide (Milk Of Magnesia) 30 ml PO Q4H PRN PRN Reason: Constipation Last Admin: 09/21/16 11:32 Dose: 30 ml Mirtazapine (Remeron) 15 mg PO QPM [facility] Last Admin: 09/23/16 19:28 Dose: 15 mg Multivitamins/Minerals (Thera M Plus) 1 tab PO DAILY [facility] Last Admin: 09/24/16 07:39 Dose: 1 tab Nitroglycerin (Nitrostat) 0.4 mg SL ASDIRECTED PRN PRN Reason: CHEST PAIN Oxycodone HCl (Oxycodone) 5 mg PO Q4H PRN PRN Reason: MODERATE PAIN Last Admin: 09/11/16 21:05 Dose: 5 mg Pantoprazole Sodium (Protonix) 40 mg PO QPM [facility] Last Admin: 09/23/16 19:28 Dose: 40 mg Prednisone (Prednisone) 40 mg PO DAILY [facility] Last Admin: 09/24/16 07:35 Dose: 40 mg Psyllium Husk (Metamucil Sugar Free) 1 pkt PO BEDTIME [facility] Last Admin: 09/23/16 19:30 Dose: 1 pkt Quetiapine Fumarate (Seroquel) 37.5 mg PO QPM [facility] Last Admin: 09/23/16 19:28 Dose: 37.5 mg Senna (Senna) 8.6 mg PO DAILY [facility] Last Admin: 09/24/16 07:38 Dose: 8.6 mg Simvastatin (Zocor) 40 mg PO BEDTIME [facility] Last Admin: 09/23/16 19:28 Dose: 40 mg Tamsulosin HCl (Flomax) 0.8 mg PO DAILY [facility] Last Admin: 09/24/16 07:36 Dose: 0.8 mg Venlafaxine HCl (Effexor Xr) 75 mg PO BEDTIME [facility] Last Admin: 09/23/16 19:28 Dose: 75 mg Venlafaxine HCl (Effexor Xr) 150 mg PO DAILY [facility] Last Admin: 09/24/16 07:37 Dose: 150 mg Discontinued Medications Acetaminophen (Tylenol Extra Strength) 500 mg PO QID [facility] Last Admin: 09/19/16 16:21 Dose: Not Given Acetaminophen (Tylenol Extra Strength) Confirm Administered Dose 500 mg .ROUTE .STK-MED ONE Stop: 09/01/16 18:08 Last Admin: 09/01/16 18:40 Dose: Not Given Albuterol/Ipratropium (Duoneb 3.0-0.5 Mg/3 Ml) Confirm Administered Dose 3 ml .ROUTE .STK-MED ONE Stop: 08/28/16 13:49 Last Admin: 08/28/16 16:18 Dose: Not Given Clonazepam (Klonopin) 0.25 mg PO BID [facility] Last Admin: 08/30/16 08:22 Dose: 0.25 mg Clonazepam (Klonopin) 0.25 mg PO BID PRN PRN Reason: Insomnia Diazepam (Valium) 10 mg PO BEDTIME PRN PRN Reason: pain/spasms Last Admin: 08/29/16 20:00 Dose: 10 mg Enoxaparin Sodium (Lovenox) 40 mg SUBCUT DAILY [facility] Stop: 09/05/16 10:00 Last Admin: 09/05/16 08:36 Dose: 40 mg Guaifenesin (Mucinex) 600 mg PO Q12H [facility] Last Admin: 08/30/16 09:31 Dose: 600 mg Haloperidol (Haldol) 5 mg PO ONETIME ONE Stop: 08/28/16 19:34 Last Admin: 08/28/16 19:49 Dose: 5 mg Mirtazapine (Remeron) 7.5 mg PO BEDTIME [facility] Last Admin: 08/29/16 19:45 Dose: 7.5 mg Mirtazapine (Remeron) 15 mg PO BEDTIME [facility] Polyethylene Glycol (Miralax) 17 gm PO DAILY [facility] Stop: 09/08/16 18:00 Last Admin: 09/08/16 09:57 Dose: 17 gm Polyethylene Glycol (Miralax) Confirm Administered Dose 17 gm .ROUTE .STK-MED ONE Stop: 09/09/16 12:46 Last Admin: 09/09/16 12:50 Dose: 17 gm Prednisone (Prednisone) Confirm Administered Dose 20 mg .ROUTE .STK-MED ONE Stop: 09/10/16 08:11 Last Admin: 09/10/16 08:10 Dose: Not Given Psyllium Husk (Metamucil Sugar Free) 1 packet PO BEDTIME [facility] Quetiapine Fumarate (Seroquel) 25 mg PO DAILY [facility] Last Admin: 08/30/16 08:22 Dose: 25 mg - Exam General: alert, oriented HEENT: EOMI, Other (blind in one eye) Neck: supple Lungs: Clear to auscultation, Normal respiratory effort Cardiovascular: Regular Rate, Regular Rhythm Abdomen: bowel sounds present, soft, no tenderness Extremities: edema (1+) Peripheral Pulses: 1+: dorsalis pedis (L), dorsalis pedis (R) Skin: warm, dry, intact Neurological: no new focal deficit Psy/Mental Status: alert, normal affect, normal mood - Problem List & Annotations (1) Fracture of femur SNOMED Code(s): 01959731 Code(s): S72.90XA - UNSP FRACTURE OF UNSP FEMUR, INIT ENCNTR FOR CLOSED FRACTURE Status: Chronic Priority: High Current Visit: Yes (2) Other specified rehabilitation procedure SNOMED Code(s): 370605485, 439001495 Code(s): Z51.89 - ENCOUNTER FOR OTHER SPECIFIED AFTERCARE Status: Acute Priority: High Current Visit: Yes - Problem List Review Problem List Initiated/Reviewed/Updated: Yes - Assessment Assessment:: left femur fracture S/p reduction Agitation Dysphagia - Plan Plan:: [place] removed and steri-strips applied. wound appear clean and healthy. Also he has had psych eval today. His remeron has been increased to 15 mg and seroquel to 37.5 mg at bedtime. His klonopin is PRN and has discontinued his diazepam. Also he has had speech evaluation done today. recommended videoscopic swallow study for his choking episode. Will have it scheduled at [facility] for workup. 09/11/16 Continue with current management and PT. Patient is doing well and wound healing well also. No changes to management or medications. 09/17/16 Continue PT/OT. Patient discharge planning started. We will consider d/ c back to [facility] when ready. 09/24/16 Patient continues with improvement in strength and ADLs. We will continue PT/OT until patient is ready for discharge.
[2016-09-24] MEDS: Simvastatin 40 MG Tab PO SCH (19:45)
[2016-09-24] MEDS: Venlafaxine 75 MG Cap.ER PO SCH (19:45)
[2016-09-24] MEDS: QUEtiapine 25 MG Tab PO SCH (19:45)
[2016-09-24] MEDS: Psyllium Husk Powder Sugar Free 5.85 GM Packet PO SCH (19:46)
[2016-09-24] MEDS: Pantoprazole 40 MG Tab.CR PO SCH (19:46)
[2016-09-24] MEDS: Mirtazapine 15 MG Tab PO SCH (19:47)
[2016-09-25] MEDS: Aspirin 81 MG Tab.EC PO SCH (07:43)
[2016-09-25] MEDS: Venlafaxine 150 MG Cap.ER PO SCH (07:44)
[2016-09-25] MEDS: Carvedilol 25 MG Tab PO SCH ×2 (07:44→19:55)
[2016-09-25] MEDS: Multivitamins with Iron/Calcium/Folic Acid/Minerals Tab PO SCH (07:44)
[2016-09-25] MEDS: predniSONE 20 MG Tab PO SCH (07:44)
[2016-09-25] MEDS: guaiFENesin 600 MG Tab.ER PO SCH ×2 (07:45→19:55)
[2016-09-25] MEDS: Calcium Carbonate/Vitamin D3 1500 MG-400 Units Tab PO SCH (07:45)
[2016-09-25] MEDS: Lisinopril 2.5 MG Tab PO SCH (07:46)
[2016-09-25] MEDS: Tamsulosin 0.4 MG Cap.ER PO SCH (07:46)
[2016-09-25] MEDS: Clopidogrel 75 MG Tab PO SCH (07:46)
[2016-09-25] MEDS: Sennosides 8.6 MG Tab PO SCH (07:47)
[2016-09-25] MEDS: Folic Acid 0.4 MG Tab PO SCH (07:47)
[2016-09-25] MEDS: Diltiazem 120 MG Cap.CD PO SCH (07:48)
[2016-09-25] MEDS: Mirtazapine 15 MG Tab PO SCH (19:54)
[2016-09-25] MEDS: Simvastatin 40 MG Tab PO SCH (19:55)
[2016-09-25] MEDS: Venlafaxine 75 MG Cap.ER PO SCH (19:55)
[2016-09-25] MEDS: QUEtiapine 25 MG Tab PO SCH (19:55)
[2016-09-25] MEDS: Psyllium Husk Powder Sugar Free 5.85 GM Packet PO SCH (19:56)
[2016-09-25] MEDS: Pantoprazole 40 MG Tab.CR PO SCH (19:56)
[2016-09-26] MEDS: predniSONE 20 MG Tab PO SCH (07:47)
[2016-09-26] MEDS: Sennosides 8.6 MG Tab PO SCH (07:47)
[2016-09-26] MEDS: Lisinopril 2.5 MG Tab PO SCH (07:47)
[2016-09-26] MEDS: Diltiazem 120 MG Cap.CD PO SCH (07:47)
[2016-09-26] MEDS: guaiFENesin 600 MG Tab.ER PO SCH ×2 (07:47→19:42)
[2016-09-26] MEDS: Clopidogrel 75 MG Tab PO SCH (07:48)
[2016-09-26] MEDS: Multivitamins with Iron/Calcium/Folic Acid/Minerals Tab PO SCH (07:48)
[2016-09-26] MEDS: Folic Acid 0.4 MG Tab PO SCH (07:48)
[2016-09-26] MEDS: Tamsulosin 0.4 MG Cap.ER PO SCH (07:48)
[2016-09-26] MEDS: Venlafaxine 150 MG Cap.ER PO SCH (07:48)
[2016-09-26] MEDS: Calcium Carbonate/Vitamin D3 1500 MG-400 Units Tab PO SCH (07:48)
[2016-09-26] MEDS: Carvedilol 25 MG Tab PO SCH ×2 (07:48→19:42)
[2016-09-26] MEDS: Aspirin 81 MG Tab.EC PO SCH (07:48)
[2016-09-26] MEDS: QUEtiapine 25 MG Tab PO SCH (19:41)
[2016-09-26] MEDS: Venlafaxine 75 MG Cap.ER PO SCH (19:42)
[2016-09-26] MEDS: Pantoprazole 40 MG Tab.CR PO SCH (19:43)
[2016-09-26] MEDS: Mirtazapine 15 MG Tab PO SCH (19:43)
[2016-09-26] MEDS: Simvastatin 40 MG Tab PO SCH (19:43)
[2016-09-26] MEDS: Psyllium Husk Powder Sugar Free 5.85 GM Packet PO SCH (19:44)
[2016-09-27] MEDS: predniSONE 20 MG Tab PO SCH (07:57)
[2016-09-27] MEDS: Diltiazem 120 MG Cap.CD PO SCH (07:58)
[2016-09-27] MEDS: Folic Acid 0.4 MG Tab PO SCH (08:00)
[2016-09-27] MEDS: Venlafaxine 150 MG Cap.ER PO SCH (08:00)
[2016-09-27] MEDS: Carvedilol 25 MG Tab PO SCH ×2 (08:01→19:49)
[2016-09-27] MEDS: guaiFENesin 600 MG Tab.ER PO SCH ×2 (08:02→19:50)
[2016-09-27] MEDS: Tamsulosin 0.4 MG Cap.ER PO SCH (08:02)
[2016-09-27] MEDS: Lisinopril 2.5 MG Tab PO SCH (08:03)
[2016-09-27] MEDS: Calcium Carbonate/Vitamin D3 1500 MG-400 Units Tab PO SCH (08:03)
[2016-09-27] MEDS: Sennosides 8.6 MG Tab PO SCH (08:03)
[2016-09-27] MEDS: Clopidogrel 75 MG Tab PO SCH (08:04)
[2016-09-27] MEDS: Aspirin 81 MG Tab.EC PO SCH (08:04)
[2016-09-27] MEDS: Multivitamins with Iron/Calcium/Folic Acid/Minerals Tab PO SCH (08:04)
[2016-09-27] MEDS: QUEtiapine 25 MG Tab PO SCH (19:48)
[2016-09-27] MEDS: Simvastatin 40 MG Tab PO SCH (19:50)
[2016-09-27] MEDS: Venlafaxine 75 MG Cap.ER PO SCH (19:50)
[2016-09-27] MEDS: Pantoprazole 40 MG Tab.CR PO SCH (19:50)
[2016-09-27] MEDS: ClonazePAM 0.5 MG Tab PO PRN (19:50)
[2016-09-27] MEDS: Mirtazapine 15 MG Tab PO SCH (19:50)
[2016-09-27] MEDS: Psyllium Husk Powder Sugar Free 5.85 GM Packet PO SCH (19:51)
[2016-09-28] MEDS: Carvedilol 25 MG Tab PO SCH ×2 (07:59→20:06)
[2016-09-28] MEDS: Calcium Carbonate/Vitamin D3 1500 MG-400 Units Tab PO SCH (07:59)
[2016-09-28] MEDS: Clopidogrel 75 MG Tab PO SCH (07:59)
[2016-09-28] MEDS: Venlafaxine 150 MG Cap.ER PO SCH (07:59)
[2016-09-28] MEDS: Aspirin 81 MG Tab.EC PO SCH (07:59)
[2016-09-28] MEDS: Folic Acid 0.4 MG Tab PO SCH (07:59)
[2016-09-28] MEDS: Multivitamins with Iron/Calcium/Folic Acid/Minerals Tab PO SCH (08:00)
[2016-09-28] MEDS: Diltiazem 120 MG Cap.CD PO SCH (08:00)
[2016-09-28] MEDS: Lisinopril 2.5 MG Tab PO SCH (08:00)
[2016-09-28] MEDS: Sennosides 8.6 MG Tab PO SCH (08:00)
[2016-09-28] MEDS: predniSONE 20 MG Tab PO SCH (08:01)
[2016-09-28] MEDS: Tamsulosin 0.4 MG Cap.ER PO SCH (08:01)
[2016-09-28] MEDS: guaiFENesin 600 MG Tab.ER PO SCH ×2 (08:01→20:08)
[2016-09-28] MEDS: Psyllium Husk Powder Sugar Free 5.85 GM Packet PO SCH (20:07)
[2016-09-28] MEDS: Venlafaxine 75 MG Cap.ER PO SCH (20:07)
[2016-09-28] MEDS: Pantoprazole 40 MG Tab.CR PO SCH (20:08)
[2016-09-28] MEDS: Mirtazapine 15 MG Tab PO SCH (20:08)
[2016-09-28] MEDS: QUEtiapine 25 MG Tab PO SCH (20:09)
[2016-09-28] MEDS: Simvastatin 40 MG Tab PO SCH (20:10)
[2016-09-29] MEDS: Furosemide 20 MG Tab PO PRN (06:16)
[2016-09-29] MEDS: predniSONE 20 MG Tab PO SCH (07:39)
[2016-09-29] MEDS: Diltiazem 120 MG Cap.CD PO SCH (07:40)
[2016-09-29] MEDS: Clopidogrel 75 MG Tab PO SCH (07:40)
[2016-09-29] MEDS: Venlafaxine 150 MG Cap.ER PO SCH (07:40)
[2016-09-29] MEDS: Aspirin 81 MG Tab.EC PO SCH (07:40)
[2016-09-29] MEDS: Folic Acid 0.4 MG Tab PO SCH (07:40)
[2016-09-29] MEDS: Lisinopril 2.5 MG Tab PO SCH (07:40)
[2016-09-29] MEDS: Multivitamins with Iron/Calcium/Folic Acid/Minerals Tab PO SCH (07:41)
[2016-09-29] MEDS: Tamsulosin 0.4 MG Cap.ER PO SCH (07:41)
[2016-09-29] MEDS: Sennosides 8.6 MG Tab PO SCH (07:41)
[2016-09-29] MEDS: guaiFENesin 600 MG Tab.ER PO SCH ×2 (07:41→19:42)
[2016-09-29] MEDS: Calcium Carbonate/Vitamin D3 1500 MG-400 Units Tab PO SCH (07:41)
[2016-09-29] MEDS: Carvedilol 25 MG Tab PO SCH ×2 (07:41→19:39)
[2016-09-29] MEDS: Pantoprazole 40 MG Tab.CR PO SCH (19:36)
[2016-09-29] MEDS: QUEtiapine 25 MG Tab PO SCH (19:37)
[2016-09-29] MEDS: Venlafaxine 75 MG Cap.ER PO SCH (19:38)
[2016-09-29] MEDS: Mirtazapine 15 MG Tab PO SCH (19:39)
[2016-09-29] MEDS: Simvastatin 40 MG Tab PO SCH (19:43)
[2016-09-29] MEDS: Psyllium Husk Powder Sugar Free 5.85 GM Packet PO SCH (19:44)
[2016-09-30] MEDS: Carvedilol 25 MG Tab PO SCH ×2 (08:23→19:44)
[2016-09-30] MEDS: Venlafaxine 150 MG Cap.ER PO SCH (08:23)
[2016-09-30] MEDS: guaiFENesin 600 MG Tab.ER PO SCH ×2 (08:23→19:45)
[2016-09-30] MEDS: Sennosides 8.6 MG Tab PO SCH (08:24)
[2016-09-30] MEDS: predniSONE 20 MG Tab PO SCH (08:24)
[2016-09-30] MEDS: Lisinopril 2.5 MG Tab PO SCH (08:24)
[2016-09-30] MEDS: Diltiazem 120 MG Cap.CD PO SCH (08:24)
[2016-09-30] MEDS: Folic Acid 0.4 MG Tab PO SCH (08:24)
[2016-09-30] MEDS: Clopidogrel 75 MG Tab PO SCH (08:24)
[2016-09-30] MEDS: Multivitamins with Iron/Calcium/Folic Acid/Minerals Tab PO SCH (08:24)
[2016-09-30] MEDS: Aspirin 81 MG Tab.EC PO SCH (08:24)
[2016-09-30] MEDS: Calcium Carbonate/Vitamin D3 1500 MG-400 Units Tab PO SCH (08:25)
[2016-09-30] MEDS: Tamsulosin 0.4 MG Cap.ER PO SCH (08:25)
[2016-09-30] MEDS: Venlafaxine 75 MG Cap.ER PO SCH (19:45)
[2016-09-30] MEDS: Psyllium Husk Powder Sugar Free 5.85 GM Packet PO SCH (19:45)
[2016-09-30] MEDS: Pantoprazole 40 MG Tab.CR PO SCH (19:45)
[2016-09-30] MEDS: Mirtazapine 15 MG Tab PO SCH (19:46)
[2016-09-30] MEDS: QUEtiapine 25 MG Tab PO SCH (19:46)
[2016-09-30] MEDS: Simvastatin 40 MG Tab PO SCH (19:47)
[2016-10-01] MEDS: Diltiazem 120 MG Cap.CD PO SCH (07:32)
[2016-10-01] MEDS: Calcium Carbonate/Vitamin D3 1500 MG-400 Units Tab PO SCH (07:32)
[2016-10-01] MEDS: Multivitamins with Iron/Calcium/Folic Acid/Minerals Tab PO SCH (07:33)
[2016-10-01] MEDS: Carvedilol 25 MG Tab PO SCH ×2 (07:33→19:23)
[2016-10-01] MEDS: Aspirin 81 MG Tab.EC PO SCH (07:33)
[2016-10-01] MEDS: Clopidogrel 75 MG Tab PO SCH (07:33)
[2016-10-01] MEDS: Venlafaxine 150 MG Cap.ER PO SCH (07:33)
[2016-10-01] MEDS: Tamsulosin 0.4 MG Cap.ER PO SCH (07:33)
[2016-10-01] MEDS: predniSONE 20 MG Tab PO SCH (07:33)
[2016-10-01] MEDS: Lisinopril 2.5 MG Tab PO SCH (07:34)
[2016-10-01] MEDS: Sennosides 8.6 MG Tab PO SCH (07:34)
[2016-10-01] MEDS: guaiFENesin 600 MG Tab.ER PO SCH ×2 (07:34→19:23)
[2016-10-01] MEDS: Folic Acid 0.4 MG Tab PO SCH (07:34)
--- NOTE | 2016-10-01 16:35 | PCM.PN ---
- General Info Date of Service: 10/01/16 Functional Status: Reports: pain controlled, tolerating diet, ambulating - Review of Systems General: Reports: Weakness HEENT: Reports: other (history of right eye blindness) Pulmonary: Reports: no symptoms Cardiovascular: Reports: No Symptoms Gastrointestinal: Reports: No symptoms Genitourinary: Reports: no symptoms Musculoskeletal: Reports: joint pain Skin: Reports: no symptoms Neurological: Reports: Difficulty Walking, Weakness Psychiatric: Reports: no symptoms - Patient Data Vitals - most recent: Last Vital Signs Temp 36.3 C 10/01/16 08:00 Pulse 58 L 10/01/16 08:00 Resp 18 10/01/16 08:00 BP 149/58 H 10/01/16 08:00 Pulse Ox 98 10/01/16 08:00 Weight - most recent: 81.374 kg Med Orders - Current: Current Medications Acetaminophen (Tylenol Extra Strength) 500 mg PO QID PRN PRN Reason: Pain Albuterol/Ipratropium (Duoneb 3.0-0.5 Mg/3 Ml) 3 ml NEB Q4H PRN PRN Reason: Shortness of Breath Last Admin: 08/29/16 19:54 Dose: 3 ml Aspirin (Halfprin) 81 mg PO DAILY [facility] Last Admin: 10/01/16 07:33 Dose: 81 mg Calcium Carbonate (Caltrate 600+D 1500 Mg-400 Units) 1 tab PO DAILY [facility] Last Admin: 10/01/16 07:32 Dose: 1 tab Carvedilol (Coreg) 25 mg PO BID [facility] Last Admin: 10/01/16 07:33 Dose: 25 mg Clonazepam (Klonopin) 0.5 mg PO BID PRN PRN Reason: Anxiety Last Admin: 09/27/16 19:50 Dose: 0.5 mg Clopidogrel Bisulfate (Plavix) 75 mg PO DAILY [facility] Last Admin: 10/01/16 07:33 Dose: 75 mg Diltiazem HCl (Cardizem Cd) 120 mg PO DAILY [facility] Last Admin: 10/01/16 07:32 Dose: 120 mg Folic Acid (Folic Acid) 0.8 mg PO DAILY [facility] Last Admin: 10/01/16 07:34 Dose: 0.8 mg Furosemide (Lasix) 20 mg PO DAILY PRN PRN Reason: edema Last Admin: 09/29/16 06:16 Dose: 20 mg Guaifenesin (Mucinex) 600 mg PO BID [facility] Last Admin: 10/01/16 07:34 Dose: 600 mg Lisinopril (Prinivil) 2.5 mg PO DAILY [facility] Last Admin: 10/01/16 07:34 Dose: 2.5 mg Magnesium Hydroxide (Milk Of Magnesia) 30 ml PO Q4H PRN PRN Reason: Constipation Last Admin: 09/21/16 11:32 Dose: 30 ml Mirtazapine (Remeron) 15 mg PO QPM [facility] Last Admin: 09/30/16 19:46 Dose: 15 mg Multivitamins/Minerals (Thera M Plus) 1 tab PO DAILY [facility] Last Admin: 10/01/16 07:33 Dose: 1 tab Nitroglycerin (Nitrostat) 0.4 mg SL ASDIRECTED PRN PRN Reason: CHEST PAIN Oxycodone HCl (Oxycodone) 5 mg PO Q4H PRN PRN Reason: MODERATE PAIN Last Admin: 09/11/16 21:05 Dose: 5 mg Pantoprazole Sodium (Protonix) 40 mg PO QPM [facility] Last Admin: 09/30/16 19:45 Dose: 40 mg Prednisone (Prednisone) 40 mg PO DAILY [facility] Last Admin: 10/01/16 07:33 Dose: 40 mg Psyllium Husk (Metamucil Sugar Free) 1 pkt PO BEDTIME [facility] Last Admin: 09/30/16 19:45 Dose: 1 pkt Quetiapine Fumarate (Seroquel) 37.5 mg PO QPM [facility] Last Admin: 09/30/16 19:46 Dose: 37.5 mg Senna (Senna) 8.6 mg PO DAILY [facility] Last Admin: 10/01/16 07:34 Dose: 8.6 mg Simvastatin (Zocor) 40 mg PO BEDTIME [facility] Last Admin: 09/30/16 19:47 Dose: 40 mg Tamsulosin HCl (Flomax) 0.8 mg PO DAILY [facility] Last Admin: 10/01/16 07:33 Dose: 0.8 mg Venlafaxine HCl (Effexor Xr) 75 mg PO BEDTIME [facility] Last Admin: 09/30/16 19:45 Dose: 75 mg Venlafaxine HCl (Effexor Xr) 150 mg PO DAILY [facility] Last Admin: 10/01/16 07:33 Dose: 150 mg Discontinued Medications Acetaminophen (Tylenol Extra Strength) 500 mg PO QID [facility] Last Admin: 09/19/16 16:21 Dose: Not Given Acetaminophen (Tylenol Extra Strength) Confirm Administered Dose 500 mg .ROUTE .STK-MED ONE Stop: 09/01/16 18:08 Last Admin: 09/01/16 18:40 Dose: Not Given Albuterol/Ipratropium (Duoneb 3.0-0.5 Mg/3 Ml) Confirm Administered Dose 3 ml .ROUTE .STK-MED ONE Stop: 08/28/16 13:49 Last Admin: 08/28/16 16:18 Dose: Not Given Clonazepam (Klonopin) 0.25 mg PO BID [facility] Last Admin: 08/30/16 08:22 Dose: 0.25 mg Clonazepam (Klonopin) 0.25 mg PO BID PRN PRN Reason: Insomnia Diazepam (Valium) 10 mg PO BEDTIME PRN PRN Reason: pain/spasms Last Admin: 08/29/16 20:00 Dose: 10 mg Enoxaparin Sodium (Lovenox) 40 mg SUBCUT DAILY [facility] Stop: 09/05/16 10:00 Last Admin: 09/05/16 08:36 Dose: 40 mg Guaifenesin (Mucinex) 600 mg PO Q12H [facility] Last Admin: 08/30/16 09:31 Dose: 600 mg Haloperidol (Haldol) 5 mg PO ONETIME ONE Stop: 08/28/16 19:34 Last Admin: 08/28/16 19:49 Dose: 5 mg Mirtazapine (Remeron) 7.5 mg PO BEDTIME [facility] Last Admin: 08/29/16 19:45 Dose: 7.5 mg Mirtazapine (Remeron) 15 mg PO BEDTIME [facility] Polyethylene Glycol (Miralax) 17 gm PO DAILY [facility] Stop: 09/08/16 18:00 Last Admin: 09/08/16 09:57 Dose: 17 gm Polyethylene Glycol (Miralax) Confirm Administered Dose 17 gm .ROUTE .STK-MED ONE Stop: 09/09/16 12:46 Last Admin: 09/09/16 12:50 Dose: 17 gm Prednisone (Prednisone) Confirm Administered Dose 20 mg .ROUTE .STK-MED ONE Stop: 09/10/16 08:11 Last Admin: 09/10/16 08:10 Dose: Not Given Psyllium Husk (Metamucil Sugar Free) 1 packet PO BEDTIME [facility] Quetiapine Fumarate (Seroquel) 25 mg PO DAILY [facility] Last Admin: 08/30/16 08:22 Dose: 25 mg - Exam General: alert, oriented, cooperative Neck: supple Lungs: Clear to auscultation, Normal respiratory effort Cardiovascular: Regular Rate, Regular Rhythm Abdomen: bowel sounds present, soft Extremities: no edema Peripheral Pulses: 1+: dorsalis pedis (L), dorsalis pedis (R) Skin: warm, dry, intact Psy/Mental Status: alert, normal affect, normal mood - Problem List & Annotations (1) Fracture of femur SNOMED Code(s): 47950443 Code(s): S72.90XA - UNSP FRACTURE OF UNSP FEMUR, INIT ENCNTR FOR CLOSED FRACTURE Status: Chronic Priority: High Current Visit: Yes (2) Other specified rehabilitation procedure SNOMED Code(s): 257820248, 522722247 Code(s): Z51.89 - ENCOUNTER FOR OTHER SPECIFIED AFTERCARE Status: Acute Priority: High Current Visit: Yes - Problem List Review Problem List Initiated/Reviewed/Updated: Yes - Assessment Assessment:: left femur fracture S/p reduction Agitation Dysphagia - Plan Plan:: Ludin removed and steri-strips applied. wound appear clean and healthy. Also he has had psych eval today. His remeron has been increased to 15 mg and seroquel to 37.5 mg at bedtime. His klonopin is PRN and has discontinued his diazepam. Also he has had speech evaluation done today. recommended videoscopic swallow study for his choking episode. [facility]. 09/11/16 Continue with current management and PT. Patient is doing well and wound healing well also. No changes to management or medications. 09/17/16 Continue PT/OT. Patient discharge planning started. We will consider d/ c back to [facility] when ready. 09/24/16 Patient continues with improvement in strength and ADLs. We will continue PT/OT until patient is ready for discharge. 10/01/16 No changes with plan of care. Continue with PT/OT and management. Patient has shown improvement weekly.
[2016-10-01] MEDS: Venlafaxine 75 MG Cap.ER PO SCH (19:23)
[2016-10-01] MEDS: QUEtiapine 25 MG Tab PO SCH (19:23)
[2016-10-01] MEDS: Pantoprazole 40 MG Tab.CR PO SCH (19:23)
[2016-10-01] MEDS: Mirtazapine 15 MG Tab PO SCH (19:23)
[2016-10-01] MEDS: Simvastatin 40 MG Tab PO SCH (19:23)
[2016-10-01] MEDS: Psyllium Husk Powder Sugar Free 5.85 GM Packet PO SCH (19:24)
[2016-10-02] MEDS: guaiFENesin 600 MG Tab.ER PO SCH ×2 (07:34→19:31)
[2016-10-02] MEDS: Calcium Carbonate/Vitamin D3 1500 MG-400 Units Tab PO SCH (07:34)
[2016-10-02] MEDS: Multivitamins with Iron/Calcium/Folic Acid/Minerals Tab PO SCH (07:34)
[2016-10-02] MEDS: Clopidogrel 75 MG Tab PO SCH (07:34)
[2016-10-02] MEDS: Sennosides 8.6 MG Tab PO SCH (07:35)
[2016-10-02] MEDS: Venlafaxine 150 MG Cap.ER PO SCH (07:35)
[2016-10-02] MEDS: Carvedilol 25 MG Tab PO SCH ×2 (07:35→19:33)
[2016-10-02] MEDS: Tamsulosin 0.4 MG Cap.ER PO SCH (07:35)
[2016-10-02] MEDS: Diltiazem 120 MG Cap.CD PO SCH (07:35)
[2016-10-02] MEDS: Aspirin 81 MG Tab.EC PO SCH (07:35)
[2016-10-02] MEDS: Lisinopril 2.5 MG Tab PO SCH (07:35)
[2016-10-02] MEDS: predniSONE 20 MG Tab PO SCH (07:35)
[2016-10-02] MEDS: Folic Acid 0.4 MG Tab PO SCH (07:36)
[2016-10-02] MEDS: QUEtiapine 25 MG Tab PO SCH (19:30)
[2016-10-02] MEDS: Psyllium Husk Powder Sugar Free 5.85 GM Packet PO SCH (19:31)
[2016-10-02] MEDS: Mirtazapine 15 MG Tab PO SCH (19:31)
[2016-10-02] MEDS: Venlafaxine 75 MG Cap.ER PO SCH (19:31)
[2016-10-02] MEDS: Simvastatin 40 MG Tab PO SCH (19:31)
[2016-10-02] MEDS: Pantoprazole 40 MG Tab.CR PO SCH (19:32)
[2016-10-03] MEDS: Aspirin 81 MG Tab.EC PO SCH (07:37)
[2016-10-03] MEDS: Clopidogrel 75 MG Tab PO SCH (07:37)
[2016-10-03] MEDS: Folic Acid 0.4 MG Tab PO SCH (07:37)
[2016-10-03] MEDS: Calcium Carbonate/Vitamin D3 1500 MG-400 Units Tab PO SCH (07:37)
[2016-10-03] MEDS: Lisinopril 2.5 MG Tab PO SCH (07:37)
[2016-10-03] MEDS: Sennosides 8.6 MG Tab PO SCH (07:38)
[2016-10-03] MEDS: Multivitamins with Iron/Calcium/Folic Acid/Minerals Tab PO SCH (07:38)
[2016-10-03] MEDS: Carvedilol 25 MG Tab PO SCH ×2 (07:38→19:36)
[2016-10-03] MEDS: Diltiazem 120 MG Cap.CD PO SCH (07:38)
[2016-10-03] MEDS: predniSONE 20 MG Tab PO SCH (07:38)
[2016-10-03] MEDS: Tamsulosin 0.4 MG Cap.ER PO SCH (07:38)
[2016-10-03] MEDS: guaiFENesin 600 MG Tab.ER PO SCH ×2 (07:38→19:36)
[2016-10-03] MEDS: Venlafaxine 150 MG Cap.ER PO SCH (07:39)
[2016-10-03] MEDS: Pantoprazole 40 MG Tab.CR PO SCH (19:35)
[2016-10-03] MEDS: QUEtiapine 25 MG Tab PO SCH (19:35)
[2016-10-03] MEDS: Simvastatin 40 MG Tab PO SCH (19:35)
[2016-10-03] MEDS: Mirtazapine 15 MG Tab PO SCH (19:35)
[2016-10-03] MEDS: Venlafaxine 75 MG Cap.ER PO SCH (19:35)
[2016-10-03] MEDS: Psyllium Husk Powder Sugar Free 5.85 GM Packet PO SCH (19:36)
[2016-10-04] MEDS ORDERED: Folic Acid 0.4 MG Tab ONE (07:54)
[2016-10-04] MEDS: Tamsulosin 0.4 MG Cap.ER PO SCH (07:57)
[2016-10-04] MEDS: Diltiazem 120 MG Cap.CD PO SCH (07:58)
[2016-10-04] MEDS: predniSONE 20 MG Tab PO SCH (07:58)
[2016-10-04] MEDS: guaiFENesin 600 MG Tab.ER PO SCH ×2 (07:59→20:55)
[2016-10-04] MEDS: Venlafaxine 150 MG Cap.ER PO SCH (07:59)
[2016-10-04] MEDS: Multivitamins with Iron/Calcium/Folic Acid/Minerals Tab PO SCH (08:00)
[2016-10-04] MEDS: Calcium Carbonate/Vitamin D3 1500 MG-400 Units Tab PO SCH (08:00)
[2016-10-04] MEDS: Carvedilol 25 MG Tab PO SCH ×2 (08:00→20:56)
[2016-10-04] MEDS: Lisinopril 2.5 MG Tab PO SCH (08:00)
[2016-10-04] MEDS: Aspirin 81 MG Tab.EC PO SCH (08:01)
[2016-10-04] MEDS: Clopidogrel 75 MG Tab PO SCH (08:01)
[2016-10-04] MEDS: Sennosides 8.6 MG Tab PO SCH (08:01)
[2016-10-04] MEDS: Folic Acid 0.4 MG Tab PO SCH (08:02)
[2016-10-04] MEDS: Pantoprazole 40 MG Tab.CR PO SCH (20:55)
[2016-10-04] MEDS: Psyllium Husk Powder Sugar Free 5.85 GM Packet PO SCH (20:55)
[2016-10-04] MEDS: Venlafaxine 75 MG Cap.ER PO SCH (20:56)
[2016-10-04] MEDS: Mirtazapine 15 MG Tab PO SCH (20:56)
[2016-10-04] MEDS: Simvastatin 40 MG Tab PO SCH (20:56)
[2016-10-04] MEDS: QUEtiapine 25 MG Tab PO SCH (20:57)
[2016-10-05] MEDS: Carvedilol 25 MG Tab PO SCH ×2 (07:55→20:04)
[2016-10-05] MEDS: Calcium Carbonate/Vitamin D3 1500 MG-400 Units Tab PO SCH (07:56)
[2016-10-05] MEDS: predniSONE 20 MG Tab PO SCH (07:56)
[2016-10-05] MEDS: Clopidogrel 75 MG Tab PO SCH (07:57)
[2016-10-05] MEDS: Multivitamins with Iron/Calcium/Folic Acid/Minerals Tab PO SCH (07:57)
[2016-10-05] MEDS: Venlafaxine 150 MG Cap.ER PO SCH (07:57)
[2016-10-05] MEDS: guaiFENesin 600 MG Tab.ER PO SCH ×2 (07:57→20:04)
[2016-10-05] MEDS: Folic Acid 0.4 MG Tab PO SCH (07:57)
[2016-10-05] MEDS: Tamsulosin 0.4 MG Cap.ER PO SCH (07:57)
[2016-10-05] MEDS: Lisinopril 2.5 MG Tab PO SCH (07:57)
[2016-10-05] MEDS: Sennosides 8.6 MG Tab PO SCH (07:58)
[2016-10-05] MEDS: Diltiazem 120 MG Cap.CD PO SCH (07:58)
[2016-10-05] MEDS: Aspirin 81 MG Tab.EC PO SCH (07:58)
[2016-10-05] MEDS: Pantoprazole 40 MG Tab.CR PO SCH (20:03)
[2016-10-05] MEDS: Mirtazapine 15 MG Tab PO SCH (20:03)
[2016-10-05] MEDS: Venlafaxine 75 MG Cap.ER PO SCH (20:04)
[2016-10-05] MEDS: Simvastatin 40 MG Tab PO SCH (20:04)
[2016-10-05] MEDS: Psyllium Husk Powder Sugar Free 5.85 GM Packet PO SCH (20:05)
[2016-10-05] MEDS: QUEtiapine 25 MG Tab PO SCH (20:05)
[2016-10-06] MEDS: Folic Acid 0.4 MG Tab PO SCH (07:28)
[2016-10-06] MEDS: Lisinopril 2.5 MG Tab PO SCH (07:28)
[2016-10-06] MEDS: Aspirin 81 MG Tab.EC PO SCH (07:28)
[2016-10-06] MEDS: Tamsulosin 0.4 MG Cap.ER PO SCH (07:28)
[2016-10-06] MEDS: Venlafaxine 150 MG Cap.ER PO SCH (07:28)
[2016-10-06] MEDS: Multivitamins with Iron/Calcium/Folic Acid/Minerals Tab PO SCH (07:28)
[2016-10-06] MEDS: Clopidogrel 75 MG Tab PO SCH (07:28)
[2016-10-06] MEDS: Carvedilol 25 MG Tab PO SCH ×2 (07:29→19:59)
[2016-10-06] MEDS: Calcium Carbonate/Vitamin D3 1500 MG-400 Units Tab PO SCH (07:29)
[2016-10-06] MEDS: Sennosides 8.6 MG Tab PO SCH (07:29)
[2016-10-06] MEDS: predniSONE 20 MG Tab PO SCH (07:30)
[2016-10-06] MEDS: Diltiazem 120 MG Cap.CD PO SCH (07:30)
[2016-10-06] MEDS: guaiFENesin 600 MG Tab.ER PO SCH ×2 (07:30→19:59)
[2016-10-06] MEDS: QUEtiapine 25 MG Tab PO SCH (19:55)
[2016-10-06] MEDS: Mirtazapine 15 MG Tab PO SCH (19:59)
[2016-10-06] MEDS: Simvastatin 40 MG Tab PO SCH (19:59)
[2016-10-06] MEDS: Venlafaxine 75 MG Cap.ER PO SCH (19:59)
[2016-10-06] MEDS: Psyllium Husk Powder Sugar Free 5.85 GM Packet PO SCH (20:00)
[2016-10-06] MEDS: Pantoprazole 40 MG Tab.CR PO SCH (20:00)
[2016-10-07] MEDS: Lisinopril 2.5 MG Tab PO SCH (08:31)
[2016-10-07] MEDS: Sennosides 8.6 MG Tab PO SCH (08:32)
[2016-10-07] MEDS: Carvedilol 25 MG Tab PO SCH ×2 (08:32→19:52)
[2016-10-07] MEDS: Tamsulosin 0.4 MG Cap.ER PO SCH (08:32)
[2016-10-07] MEDS: predniSONE 20 MG Tab PO SCH (08:33)
[2016-10-07] MEDS: Aspirin 81 MG Tab.EC PO SCH (08:33)
[2016-10-07] MEDS: Clopidogrel 75 MG Tab PO SCH (08:33)
[2016-10-07] MEDS: Calcium Carbonate/Vitamin D3 1500 MG-400 Units Tab PO SCH (08:34)
[2016-10-07] MEDS: Diltiazem 120 MG Cap.CD PO SCH (08:34)
[2016-10-07] MEDS: Multivitamins with Iron/Calcium/Folic Acid/Minerals Tab PO SCH (08:35)
[2016-10-07] MEDS: Venlafaxine 150 MG Cap.ER PO SCH (08:35)
[2016-10-07] MEDS: Folic Acid 0.4 MG Tab PO SCH (08:35)
[2016-10-07] MEDS: guaiFENesin 600 MG Tab.ER PO SCH ×2 (08:35→19:54)
[2016-10-07] MEDS: Pantoprazole 40 MG Tab.CR PO SCH (19:52)
[2016-10-07] MEDS: QUEtiapine 25 MG Tab PO SCH (19:53)
[2016-10-07] MEDS: Venlafaxine 75 MG Cap.ER PO SCH (19:54)
[2016-10-07] MEDS: Simvastatin 40 MG Tab PO SCH (19:54)
[2016-10-07] MEDS: Psyllium Husk Powder Sugar Free 5.85 GM Packet PO SCH (19:54)
[2016-10-07] MEDS: Mirtazapine 15 MG Tab PO SCH (19:54)
[2016-10-08] MEDS: Sennosides 8.6 MG Tab PO SCH (07:43)
[2016-10-08] MEDS: Lisinopril 2.5 MG Tab PO SCH (07:43)
[2016-10-08] MEDS: Clopidogrel 75 MG Tab PO SCH (07:43)
[2016-10-08] MEDS: Aspirin 81 MG Tab.EC PO SCH (07:43)
[2016-10-08] MEDS: Tamsulosin 0.4 MG Cap.ER PO SCH (07:43)
[2016-10-08] MEDS: Venlafaxine 150 MG Cap.ER PO SCH (07:44)
[2016-10-08] MEDS: Multivitamins with Iron/Calcium/Folic Acid/Minerals Tab PO SCH (07:44)
[2016-10-08] MEDS: Folic Acid 0.4 MG Tab PO SCH (07:44)
[2016-10-08] MEDS: Carvedilol 25 MG Tab PO SCH ×2 (07:44→19:46)
[2016-10-08] MEDS: Calcium Carbonate/Vitamin D3 1500 MG-400 Units Tab PO SCH (07:44)
[2016-10-08] MEDS: Diltiazem 120 MG Cap.CD PO SCH (07:45)
[2016-10-08] MEDS: guaiFENesin 600 MG Tab.ER PO SCH ×2 (07:45→19:46)
[2016-10-08] MEDS: predniSONE 20 MG Tab PO SCH (07:45)
[2016-10-08] MEDS: QUEtiapine 25 MG Tab PO SCH (19:46)
[2016-10-08] MEDS: Simvastatin 40 MG Tab PO SCH (19:46)
[2016-10-08] MEDS: Pantoprazole 40 MG Tab.CR PO SCH (19:46)
[2016-10-08] MEDS: Venlafaxine 75 MG Cap.ER PO SCH (19:47)
[2016-10-08] MEDS: Psyllium Husk Powder Sugar Free 5.85 GM Packet PO SCH (19:47)
[2016-10-08] MEDS: Mirtazapine 15 MG Tab PO SCH (19:47)
[2016-10-09] MEDS: Tamsulosin 0.4 MG Cap.ER PO SCH (07:31)
[2016-10-09] MEDS: Lisinopril 2.5 MG Tab PO SCH (07:31)
[2016-10-09] MEDS: Folic Acid 0.4 MG Tab PO SCH (07:31)
[2016-10-09] MEDS: Sennosides 8.6 MG Tab PO SCH ×2 (07:31→19:34)
[2016-10-09] MEDS: Diltiazem 120 MG Cap.CD PO SCH (07:31)
[2016-10-09] MEDS: Aspirin 81 MG Tab.EC PO SCH (07:31)
[2016-10-09] MEDS: Carvedilol 25 MG Tab PO SCH ×2 (07:31→19:34)
[2016-10-09] MEDS: Multivitamins with Iron/Calcium/Folic Acid/Minerals Tab PO SCH (07:31)
[2016-10-09] MEDS: guaiFENesin 600 MG Tab.ER PO SCH ×2 (07:32→19:35)
[2016-10-09] MEDS: Venlafaxine 150 MG Cap.ER PO SCH (07:32)
[2016-10-09] MEDS: Calcium Carbonate/Vitamin D3 1500 MG-400 Units Tab PO SCH (07:32)
[2016-10-09] MEDS: Clopidogrel 75 MG Tab PO SCH (08:32)
[2016-10-09] MEDS: predniSONE 20 MG Tab PO SCH (08:44)
--- NOTE | 2016-10-09 09:15 | PCM.PN ---
- General Info Date of Service: 10/09/16 Functional Status: Reports: pain controlled, tolerating diet, ambulating - Review of Systems General: Reports: No Symptoms HEENT: Reports: glasses, other (history of blindness of right eye) Pulmonary: Reports: no symptoms Cardiovascular: Reports: No Symptoms Gastrointestinal: Reports: Constipation Genitourinary: Reports: no symptoms Musculoskeletal: Reports: leg pain, joint pain Skin: Reports: no symptoms Neurological: Reports: Difficulty Walking, Weakness Psychiatric: Reports: no symptoms - Patient Data Vitals - most recent: Last Vital Signs Temp 36.5 C 10/09/16 08:00 Pulse 70 10/09/16 08:00 Resp 18 10/09/16 08:00 BP 122/55 L 10/09/16 08:00 Pulse Ox 97 10/09/16 08:00 Weight - most recent: 84.64 kg Med Orders - Current: Current Medications Acetaminophen (Tylenol Extra Strength) 500 mg PO QID PRN PRN Reason: Pain Albuterol/Ipratropium (Duoneb 3.0-0.5 Mg/3 Ml) 3 ml NEB Q4H PRN PRN Reason: Shortness of Breath Last Admin: 08/29/16 19:54 Dose: 3 ml Aspirin (Halfprin) 81 mg PO DAILY [facility] Last Admin: 10/09/16 07:31 Dose: 81 mg Calcium Carbonate (Caltrate 600+D 1500 Mg-400 Units) 1 tab PO DAILY [facility] Last Admin: 10/09/16 07:32 Dose: 1 tab Carvedilol (Coreg) 25 mg PO BID [facility] Last Admin: 10/09/16 07:31 Dose: 25 mg Clonazepam (Klonopin) 0.5 mg PO BID PRN PRN Reason: Anxiety Last Admin: 09/27/16 19:50 Dose: 0.5 mg Clopidogrel Bisulfate (Plavix) 75 mg PO DAILY [facility] Last Admin: 10/09/16 08:32 Dose: 75 mg Diltiazem HCl (Cardizem Cd) 120 mg PO DAILY [facility] Last Admin: 10/09/16 07:31 Dose: 120 mg Folic Acid (Folic Acid) 0.8 mg PO DAILY [facility] Last Admin: 10/09/16 07:31 Dose: 0.8 mg Furosemide (Lasix) 20 mg PO DAILY PRN PRN Reason: edema Last Admin: 09/29/16 06:16 Dose: 20 mg Guaifenesin (Mucinex) 600 mg PO BID [facility] Last Admin: 10/09/16 07:32 Dose: 600 mg Lisinopril (Prinivil) 2.5 mg PO DAILY [facility] Last Admin: 10/09/16 07:31 Dose: 2.5 mg Magnesium Hydroxide (Milk Of Magnesia) 30 ml PO Q4H PRN PRN Reason: Constipation Last Admin: 09/21/16 11:32 Dose: 30 ml Mirtazapine (Remeron) 15 mg PO QPM [facility] Last Admin: 10/08/16 19:47 Dose: 15 mg Multivitamins/Minerals (Thera M Plus) 1 tab PO DAILY [facility] Last Admin: 10/09/16 07:31 Dose: 1 tab Nitroglycerin (Nitrostat) 0.4 mg SL ASDIRECTED PRN PRN Reason: CHEST PAIN Oxycodone HCl (Oxycodone) 5 mg PO Q4H PRN PRN Reason: MODERATE PAIN Last Admin: 09/11/16 21:05 Dose: 5 mg Pantoprazole Sodium (Protonix) 40 mg PO QPM [facility] Last Admin: 10/08/16 19:46 Dose: 40 mg Prednisone (Prednisone) 20 mg PO DAILY [facility] Psyllium Husk (Metamucil Sugar Free) 1 pkt PO BEDTIME [facility] Last Admin: 10/08/16 19:47 Dose: 1 pkt Quetiapine Fumarate (Seroquel) 37.5 mg PO QPM [facility] Last Admin: 10/08/16 19:46 Dose: 37.5 mg Senna (Senna) 8.6 mg PO BID [facility] Simvastatin (Zocor) 40 mg PO BEDTIME [facility] Last Admin: 10/08/16 19:46 Dose: 40 mg Tamsulosin HCl (Flomax) 0.8 mg PO DAILY [facility] Last Admin: 10/09/16 07:31 Dose: 0.8 mg Venlafaxine HCl (Effexor Xr) 75 mg PO BEDTIME [facility] Last Admin: 10/08/16 19:47 Dose: 75 mg Venlafaxine HCl (Effexor Xr) 150 mg PO DAILY [facility] Last Admin: 10/09/16 07:32 Dose: 150 mg Discontinued Medications Acetaminophen (Tylenol Extra Strength) 500 mg PO QID [facility] Last Admin: 09/19/16 16:21 Dose: Not Given Acetaminophen (Tylenol Extra Strength) Confirm Administered Dose 500 mg .ROUTE .STK-MED ONE Stop: 09/01/16 18:08 Last Admin: 09/01/16 18:40 Dose: Not Given Albuterol/Ipratropium (Duoneb 3.0-0.5 Mg/3 Ml) Confirm Administered Dose 3 ml .ROUTE .STK-MED ONE Stop: 08/28/16 13:49 Last Admin: 08/28/16 16:18 Dose: Not Given Clonazepam (Klonopin) 0.25 mg PO BID [facility] Last Admin: 08/30/16 08:22 Dose: 0.25 mg Clonazepam (Klonopin) 0.25 mg PO BID PRN PRN Reason: Insomnia Diazepam (Valium) 10 mg PO BEDTIME PRN PRN Reason: pain/spasms Last Admin: 08/29/16 20:00 Dose: 10 mg Enoxaparin Sodium (Lovenox) 40 mg SUBCUT DAILY [facility] Stop: 09/05/16 10:00 Last Admin: 09/05/16 08:36 Dose: 40 mg Folic Acid (Folic Acid) Confirm Administered Dose 0.4 mg .ROUTE .STK-MED ONE Stop: 10/04/16 07:55 Last Admin: 10/04/16 07:57 Dose: 0.4 mg Guaifenesin (Mucinex) 600 mg PO Q12H [facility] Last Admin: 08/30/16 09:31 Dose: 600 mg Haloperidol (Haldol) 5 mg PO ONETIME ONE Stop: 08/28/16 19:34 Last Admin: 08/28/16 19:49 Dose: 5 mg Mirtazapine (Remeron) 7.5 mg PO BEDTIME [facility] Last Admin: 08/29/16 19:45 Dose: 7.5 mg Mirtazapine (Remeron) 15 mg PO BEDTIME [facility] Polyethylene Glycol (Miralax) 17 gm PO DAILY [facility] Stop: 09/08/16 18:00 Last Admin: 09/08/16 09:57 Dose: 17 gm Polyethylene Glycol (Miralax) Confirm Administered Dose 17 gm .ROUTE .STK-MED ONE Stop: 09/09/16 12:46 Last Admin: 09/09/16 12:50 Dose: 17 gm Prednisone (Prednisone) 40 mg PO DAILY [facility] Last Admin: 10/09/16 08:44 Dose: 40 mg Prednisone (Prednisone) Confirm Administered Dose 20 mg .ROUTE .STK-MED ONE Stop: 09/10/16 08:11 Last Admin: 09/10/16 08:10 Dose: Not Given Psyllium Husk (Metamucil Sugar Free) 1 packet PO BEDTIME [facility] Quetiapine Fumarate (Seroquel) 25 mg PO DAILY [facility] Last Admin: 08/30/16 08:22 Dose: 25 mg Senna (Senna) 8.6 mg PO DAILY [facility] Last Admin: 10/09/16 07:31 Dose: 8.6 mg - Exam General: alert, oriented, cooperative HEENT: Pupils equal, Pupils reactive Lungs: Clear to auscultation, Normal respiratory effort Cardiovascular: Regular Rate, Regular Rhythm Abdomen: bowel sounds present, soft, no distension Back Exam: normal inspection Extremities: no edema Peripheral Pulses: 1+: dorsalis pedis (L), dorsalis pedis (R) Skin: warm, dry, intact Wound/Incisions: healing well Neurological: no new focal deficit Psy/Mental Status: alert, normal affect, normal mood - Problem List & Annotations (1) Fracture of femur SNOMED Code(s): 25300558 Code(s): S72.90XA - UNSP FRACTURE OF UNSP FEMUR, INIT ENCNTR FOR CLOSED FRACTURE Status: Chronic Priority: High Current Visit: Yes (2) Other specified rehabilitation procedure SNOMED Code(s): 641329365, 689055836 Code(s): Z51.89 - ENCOUNTER FOR OTHER SPECIFIED AFTERCARE Status: Acute Priority: High Current Visit: Yes - Problem List Review Problem List Initiated/Reviewed/Updated: Yes - My Orders Last 24 Hours: My Active Orders 10/09/16 08:52 predniSONE 20 mg PO DAILY 10/09/16 20:00 Sennosides [Senna] 8.6 mg PO BID - Assessment Assessment:: left femur fracture S/p reduction Agitation Dysphagia - Plan Plan:: [place] removed and steri-strips applied. wound appear clean and healthy. Also he has had psych eval today. His remeron has been increased to 15 mg and seroquel to 37.5 mg at bedtime. His klonopin is PRN and has discontinued his diazepam. Also he has had speech evaluation done today. recommended videoscopic swallow study for his choking episode. Will have it scheduled at [facility] for workup. 09/11/16 Continue with current management and PT. Patient is doing well and wound healing well also. No changes to management or medications. 09/17/16 Continue PT/OT. Patient discharge planning started. We will consider d/ c back to [facility] when ready. 09/24/16 Patient continues with improvement in strength and ADLs. We will continue PT/OT until patient is ready for discharge. 10/01/16 Improvement continues with patient strength and ADLs. No changes to medications or PT/OT management. 10/09/16 Patient changed to BID Sennosides due to constipation. Patient continues with improvement and PT/OT management. Patient has been doing very well with activity improvement and has no current concerns.
[2016-10-09] MEDS: QUEtiapine 25 MG Tab PO SCH (19:33)
[2016-10-09] MEDS: Simvastatin 40 MG Tab PO SCH (19:34)
[2016-10-09] MEDS: Venlafaxine 75 MG Cap.ER PO SCH (19:34)
[2016-10-09] MEDS: Mirtazapine 15 MG Tab PO SCH (19:34)
[2016-10-09] MEDS: Pantoprazole 40 MG Tab.CR PO SCH (19:35)
[2016-10-09] MEDS: Psyllium Husk Powder Sugar Free 5.85 GM Packet PO SCH (19:35)
[2016-10-10] MEDS: Folic Acid 0.4 MG Tab PO SCH (07:40)
[2016-10-10] MEDS: Carvedilol 25 MG Tab PO SCH ×2 (07:41→19:35)
[2016-10-10] MEDS: Lisinopril 2.5 MG Tab PO SCH (07:41)
[2016-10-10] MEDS: Clopidogrel 75 MG Tab PO SCH (07:42)
[2016-10-10] MEDS: Diltiazem 120 MG Cap.CD PO SCH (07:42)
[2016-10-10] MEDS: guaiFENesin 600 MG Tab.ER PO SCH ×2 (07:43→19:35)
[2016-10-10] MEDS: predniSONE 20 MG Tab PO SCH (07:43)
[2016-10-10] MEDS: Venlafaxine 150 MG Cap.ER PO SCH (07:44)
[2016-10-10] MEDS: Multivitamins with Iron/Calcium/Folic Acid/Minerals Tab PO SCH (07:44)
[2016-10-10] MEDS: Tamsulosin 0.4 MG Cap.ER PO SCH (07:44)
[2016-10-10] MEDS: Calcium Carbonate/Vitamin D3 1500 MG-400 Units Tab PO SCH (07:45)
[2016-10-10] MEDS: Aspirin 81 MG Tab.EC PO SCH (07:45)
[2016-10-10] MEDS: Sennosides 8.6 MG Tab PO SCH ×2 (07:45→19:35)
[2016-10-10] MEDS: Psyllium Husk Powder Sugar Free 5.85 GM Packet PO SCH (19:34)
[2016-10-10] MEDS: Venlafaxine 75 MG Cap.ER PO SCH (19:35)
[2016-10-10] MEDS: Simvastatin 40 MG Tab PO SCH (19:35)
[2016-10-10] MEDS: Mirtazapine 15 MG Tab PO SCH (19:35)
[2016-10-10] MEDS: QUEtiapine 25 MG Tab PO SCH (19:36)
[2016-10-10] MEDS: Pantoprazole 40 MG Tab.CR PO SCH (19:36)
[2016-10-11] MEDS: Lisinopril 2.5 MG Tab PO SCH (07:28)
[2016-10-11] MEDS: Folic Acid 0.4 MG Tab PO SCH (07:28)
[2016-10-11] MEDS: Sennosides 8.6 MG Tab PO SCH ×2 (07:29→20:31)
[2016-10-11] MEDS: Multivitamins with Iron/Calcium/Folic Acid/Minerals Tab PO SCH (07:29)
[2016-10-11] MEDS: Clopidogrel 75 MG Tab PO SCH (07:29)
[2016-10-11] MEDS: Carvedilol 25 MG Tab PO SCH ×2 (07:29→20:23)
[2016-10-11] MEDS: Calcium Carbonate/Vitamin D3 1500 MG-400 Units Tab PO SCH (07:29)
[2016-10-11] MEDS: Venlafaxine 150 MG Cap.ER PO SCH (07:29)
[2016-10-11] MEDS: Tamsulosin 0.4 MG Cap.ER PO SCH (07:29)
[2016-10-11] MEDS: Furosemide 20 MG Tab PO PRN ×2 (07:29→13:56)
[2016-10-11] MEDS: predniSONE 20 MG Tab PO SCH (07:29)
[2016-10-11] MEDS: Diltiazem 120 MG Cap.CD PO SCH (07:30)
[2016-10-11] MEDS: guaiFENesin 600 MG Tab.ER PO SCH ×2 (07:30→20:23)
[2016-10-11] MEDS: Aspirin 81 MG Tab.EC PO SCH (07:30)
[2016-10-11] MEDS ORDERED: Furosemide 20 MG Tab PO ONE (14:00)
[2016-10-11] MEDS: Psyllium Husk Powder Sugar Free 5.85 GM Packet PO SCH (20:00)
[2016-10-11] MEDS: Simvastatin 40 MG Tab PO SCH (20:23)
[2016-10-11] MEDS: Venlafaxine 75 MG Cap.ER PO SCH (20:23)
[2016-10-11] MEDS: Mirtazapine 15 MG Tab PO SCH (20:31)
[2016-10-11] MEDS: Pantoprazole 40 MG Tab.CR PO SCH (20:31)
[2016-10-11] MEDS: QUEtiapine 25 MG Tab PO SCH (20:31)
[2016-10-12] MEDS: Multivitamins with Iron/Calcium/Folic Acid/Minerals Tab PO SCH (07:57)
[2016-10-12] MEDS: Folic Acid 0.4 MG Tab PO SCH (07:57)
[2016-10-12] MEDS: Aspirin 81 MG Tab.EC PO SCH (07:57)
[2016-10-12] MEDS: guaiFENesin 600 MG Tab.ER PO SCH ×2 (07:58→19:52)
[2016-10-12] MEDS: Calcium Carbonate/Vitamin D3 1500 MG-400 Units Tab PO SCH (07:58)
[2016-10-12] MEDS: Tamsulosin 0.4 MG Cap.ER PO SCH (07:59)
[2016-10-12] MEDS: predniSONE 20 MG Tab PO SCH (07:59)
[2016-10-12] MEDS: Furosemide 20 MG Tab PO PRN (08:00)
[2016-10-12] MEDS: Lisinopril 2.5 MG Tab PO SCH (08:01)
[2016-10-12] MEDS: Diltiazem 120 MG Cap.CD PO SCH (08:03)
[2016-10-12] MEDS: Clopidogrel 75 MG Tab PO SCH (08:04)
[2016-10-12] MEDS: Carvedilol 25 MG Tab PO SCH ×2 (08:04→19:52)
[2016-10-12] MEDS: Venlafaxine 150 MG Cap.ER PO SCH (08:05)
[2016-10-12] MEDS: Sennosides 8.6 MG Tab PO SCH ×2 (08:09→19:51)
--- NOTE | 2016-10-12 10:52 | PCM.PN ---
- General Info Date of Service: 10/11/16 Subjective Update: Nursing was concerned of bluish discoloration of the right foot. Functional Status: Reports: pain controlled, tolerating diet, ambulating - Review of Systems General: Reports: No Symptoms HEENT: Reports: no symptoms Pulmonary: Reports: no symptoms Cardiovascular: Reports: Edema (3+) Gastrointestinal: Reports: No symptoms - Patient Data Vitals - most recent: Last Vital Signs Temp 36.9 C 10/12/16 08:00 Pulse 83 10/12/16 08:04 Resp 16 10/12/16 08:00 BP 130/55 L 10/12/16 08:04 Pulse Ox 83 L 10/12/16 08:00 Weight - most recent: 81.374 kg Med Orders - Current: Current Medications Acetaminophen (Tylenol Extra Strength) 500 mg PO QID PRN PRN Reason: Pain Albuterol/Ipratropium (Duoneb 3.0-0.5 Mg/3 Ml) 3 ml NEB Q4H PRN PRN Reason: Shortness of Breath Last Admin: 08/29/16 19:54 Dose: 3 ml Aspirin (Halfprin) 81 mg PO DAILY [facility] Last Admin: 10/12/16 07:57 Dose: 81 mg Calcium Carbonate (Caltrate 600+D 1500 Mg-400 Units) 1 tab PO DAILY [facility] Last Admin: 10/12/16 07:58 Dose: 1 tab Carvedilol (Coreg) 25 mg PO BID [facility] Last Admin: 10/12/16 08:04 Dose: 25 mg Clonazepam (Klonopin) 0.5 mg PO BID PRN PRN Reason: Anxiety Last Admin: 09/27/16 19:50 Dose: 0.5 mg Clopidogrel Bisulfate (Plavix) 75 mg PO DAILY [facility] Last Admin: 10/12/16 08:04 Dose: 75 mg Diltiazem HCl (Cardizem Cd) 120 mg PO DAILY [facility] Last Admin: 10/12/16 08:03 Dose: 120 mg Folic Acid (Folic Acid) 0.8 mg PO DAILY [facility] Last Admin: 10/12/16 07:57 Dose: 0.8 mg Furosemide (Lasix) 20 mg PO DAILY PRN PRN Reason: edema Last Admin: 10/12/16 08:00 Dose: 20 mg Guaifenesin (Mucinex) 600 mg PO BID [facility] Last Admin: 10/12/16 07:58 Dose: 600 mg Lisinopril (Prinivil) 2.5 mg PO DAILY [facility] Last Admin: 10/12/16 08:01 Dose: 2.5 mg Magnesium Hydroxide (Milk Of Magnesia) 30 ml PO Q4H PRN PRN Reason: Constipation Last Admin: 09/21/16 11:32 Dose: 30 ml Mirtazapine (Remeron) 15 mg PO QPM [facility] Last Admin: 10/11/16 20:31 Dose: 15 mg Multivitamins/Minerals (Thera M Plus) 1 tab PO DAILY [facility] Last Admin: 10/12/16 07:57 Dose: 1 tab Nitroglycerin (Nitrostat) 0.4 mg SL ASDIRECTED PRN PRN Reason: CHEST PAIN Oxycodone HCl (Oxycodone) 5 mg PO Q4H PRN PRN Reason: MODERATE PAIN Last Admin: 09/11/16 21:05 Dose: 5 mg Pantoprazole Sodium (Protonix) 40 mg PO QPM [facility] Last Admin: 10/11/16 20:31 Dose: 40 mg Prednisone (Prednisone) 20 mg PO DAILY [facility] Last Admin: 10/12/16 07:59 Dose: 20 mg Psyllium Husk (Metamucil Sugar Free) 1 pkt PO BEDTIME [facility] Last Admin: 10/11/16 20:00 Dose: 1 pkt Quetiapine Fumarate (Seroquel) 37.5 mg PO QPM [facility] Last Admin: 10/11/16 20:31 Dose: 37.5 mg Senna (Senna) 8.6 mg PO BID [facility] Last Admin: 10/12/16 08:09 Dose: 8.6 mg Simvastatin (Zocor) 40 mg PO BEDTIME [facility] Last Admin: 10/11/16 20:23 Dose: 40 mg Tamsulosin HCl (Flomax) 0.8 mg PO DAILY [facility] Last Admin: 10/12/16 07:59 Dose: 0.8 mg Venlafaxine HCl (Effexor Xr) 75 mg PO BEDTIME [facility] Last Admin: 10/11/16 20:23 Dose: 75 mg Venlafaxine HCl (Effexor Xr) 150 mg PO DAILY [facility] Last Admin: 10/12/16 08:05 Dose: 150 mg Discontinued Medications Acetaminophen (Tylenol Extra Strength) 500 mg PO QID [facility] Last Admin: 09/19/16 16:21 Dose: Not Given Acetaminophen (Tylenol Extra Strength) Confirm Administered Dose 500 mg .ROUTE .STK-MED ONE Stop: 09/01/16 18:08 Last Admin: 09/01/16 18:40 Dose: Not Given Albuterol/Ipratropium (Duoneb 3.0-0.5 Mg/3 Ml) Confirm Administered Dose 3 ml .ROUTE .STK-MED ONE Stop: 08/28/16 13:49 Last Admin: 08/28/16 16:18 Dose: Not Given Clonazepam (Klonopin) 0.25 mg PO BID [facility] Last Admin: 08/30/16 08:22 Dose: 0.25 mg Clonazepam (Klonopin) 0.25 mg PO BID PRN PRN Reason: Insomnia Diazepam (Valium) 10 mg PO BEDTIME PRN PRN Reason: pain/spasms Last Admin: 08/29/16 20:00 Dose: 10 mg Enoxaparin Sodium (Lovenox) 40 mg SUBCUT DAILY [facility] Stop: 09/05/16 10:00 Last Admin: 09/05/16 08:36 Dose: 40 mg Folic Acid (Folic Acid) Confirm Administered Dose 0.4 mg .ROUTE .STK-MED ONE Stop: 10/04/16 07:55 Last Admin: 10/04/16 07:57 Dose: 0.4 mg Furosemide (Lasix) 20 mg PO ONETIME ONE Stop: 10/11/16 14:01 Last Admin: 10/11/16 16:44 Dose: Not Given Guaifenesin (Mucinex) 600 mg PO Q12H [facility] Last Admin: 08/30/16 09:31 Dose: 600 mg Haloperidol (Haldol) 5 mg PO ONETIME ONE Stop: 08/28/16 19:34 Last Admin: 08/28/16 19:49 Dose: 5 mg Mirtazapine (Remeron) 7.5 mg PO BEDTIME [facility] Last Admin: 08/29/16 19:45 Dose: 7.5 mg Mirtazapine (Remeron) 15 mg PO BEDTIME [facility] Polyethylene Glycol (Miralax) 17 gm PO DAILY [facility] Stop: 09/08/16 18:00 Last Admin: 09/08/16 09:57 Dose: 17 gm Polyethylene Glycol (Miralax) Confirm Administered Dose 17 gm .ROUTE .STK-MED ONE Stop: 09/09/16 12:46 Last Admin: 09/09/16 12:50 Dose: 17 gm Prednisone (Prednisone) 40 mg PO DAILY [facility] Last Admin: 10/09/16 08:44 Dose: 40 mg Prednisone (Prednisone) Confirm Administered Dose 20 mg .ROUTE .STK-MED ONE Stop: 09/10/16 08:11 Last Admin: 09/10/16 08:10 Dose: Not Given Psyllium Husk (Metamucil Sugar Free) 1 packet PO BEDTIME [facility] Quetiapine Fumarate (Seroquel) 25 mg PO DAILY [facility] Last Admin: 08/30/16 08:22 Dose: 25 mg Senna (Senna) 8.6 mg PO DAILY [facility] Last Admin: 10/09/16 07:31 Dose: 8.6 mg - Exam General: alert, oriented HEENT: Pupils equal Neck: supple Lungs: Clear to auscultation, Normal respiratory effort Cardiovascular: Regular Rate, Regular Rhythm Extremities: edema (3+) Peripheral Pulses: 1+: dorsalis pedis (L), dorsalis pedis (R) Skin: warm, dry, intact - Problem List & Annotations (1) Fracture of femur SNOMED Code(s): 24764669 Code(s): S72.90XA - UNSP FRACTURE OF UNSP FEMUR, INIT ENCNTR FOR CLOSED FRACTURE Status: Chronic Priority: High Current Visit: Yes (2) Other specified rehabilitation procedure SNOMED Code(s): 891398964, 686280362 Code(s): Z51.89 - ENCOUNTER FOR OTHER SPECIFIED AFTERCARE Status: Acute Priority: High Current Visit: Yes (3) Edema extremities SNOMED Code(s): 828153775 Code(s): R60.0 - LOCALIZED EDEMA Status: Chronic Priority: Medium Current Visit: Yes - Problem List Review Problem List Initiated/Reviewed/Updated: Yes - Assessment Assessment:: left femur fracture S/p reduction Agitation Dysphagia - Plan Plan:: [place] removed and steri-strips applied. wound appear clean and healthy. Also he has had psych eval today. His remeron has been increased to 15 mg and seroquel to 37.5 mg at bedtime. His klonopin is PRN and has discontinued his diazepam. Also he has had speech evaluation done today. recommended videoscopic swallow study for his choking episode. Will have it scheduled at [facility] for workup. 09/11/16 Continue with current management and PT. Patient is doing well and wound healing well also. No changes to management or medications. 09/17/16 Continue PT/OT. Patient discharge planning started. We will consider d/ c back to [facility] when ready. 09/24/16 Patient continues with improvement in strength and ADLs. We will continue PT/OT until patient is ready for discharge. 10/01/16 No changes with plan of care. Continue with PT/OT and management. Patient has shown improvement weekly. 10/11/16 Examined right foot color change - this is bruising likely due to increasing weight and use with toe-touch weight bearing and not because of a vascular concern. We will continue to monitor the right foot as needed. Patient denies any discomfort. There is b/l leg swelling that has increased the past few days but patient denies any sob or concerns. We will adjust lasix at this time - patient states he does have occasional leg swelling and he does take extra diuretics at those times at home.
[2016-10-12] MEDS ORDERED: Furosemide 20 MG Tab ONE (11:15)
[2016-10-12] MEDS: Furosemide 40 MG Tab PO SCH (15:51)
[2016-10-12] MEDS: Mirtazapine 15 MG Tab PO SCH (19:50)
[2016-10-12] MEDS: Pantoprazole 40 MG Tab.CR PO SCH (19:50)
[2016-10-12] MEDS: Venlafaxine 75 MG Cap.ER PO SCH (19:51)
[2016-10-12] MEDS: Simvastatin 40 MG Tab PO SCH (19:51)
[2016-10-12] MEDS: QUEtiapine 25 MG Tab PO SCH (19:52)
[2016-10-12] MEDS: Psyllium Husk Powder Sugar Free 5.85 GM Packet PO SCH (19:55)
[2016-10-13] MEDS: Calcium Carbonate/Vitamin D3 1500 MG-400 Units Tab PO SCH (07:35)
[2016-10-13] MEDS: Venlafaxine 150 MG Cap.ER PO SCH (07:35)
[2016-10-13] MEDS: Folic Acid 0.4 MG Tab PO SCH (07:35)
[2016-10-13] MEDS: Lisinopril 2.5 MG Tab PO SCH (07:35)
[2016-10-13] MEDS: Multivitamins with Iron/Calcium/Folic Acid/Minerals Tab PO SCH (07:36)
[2016-10-13] MEDS: Aspirin 81 MG Tab.EC PO SCH (07:36)
[2016-10-13] MEDS: Tamsulosin 0.4 MG Cap.ER PO SCH (07:36)
[2016-10-13] MEDS: Clopidogrel 75 MG Tab PO SCH (07:36)
[2016-10-13] MEDS: Carvedilol 25 MG Tab PO SCH ×2 (07:36→19:36)
[2016-10-13] MEDS: Furosemide 40 MG Tab PO SCH ×2 (07:36→15:46)
[2016-10-13] MEDS: guaiFENesin 600 MG Tab.ER PO SCH ×2 (07:36→19:31)
[2016-10-13] MEDS: Sennosides 8.6 MG Tab PO SCH ×2 (07:36→19:32)
[2016-10-13] MEDS: predniSONE 20 MG Tab PO SCH (07:36)
[2016-10-13] MEDS: Diltiazem 120 MG Cap.CD PO SCH (07:37)
[2016-10-13] MEDS: Venlafaxine 75 MG Cap.ER PO SCH (19:31)
[2016-10-13] MEDS: Pantoprazole 40 MG Tab.CR PO SCH (19:31)
[2016-10-13] MEDS: Simvastatin 40 MG Tab PO SCH (19:31)
[2016-10-13] MEDS: Mirtazapine 15 MG Tab PO SCH (19:32)
[2016-10-13] MEDS: QUEtiapine 25 MG Tab PO SCH (19:32)
[2016-10-13] MEDS: Psyllium Husk Powder Sugar Free 5.85 GM Packet PO SCH (19:34)
[2016-10-14] MEDS: Diltiazem 120 MG Cap.CD PO SCH (07:37)
[2016-10-14] MEDS: Lisinopril 2.5 MG Tab PO SCH (07:37)
[2016-10-14] MEDS: Venlafaxine 150 MG Cap.ER PO SCH (07:37)
[2016-10-14] MEDS: Folic Acid 0.4 MG Tab PO SCH (07:37)
[2016-10-14] MEDS: guaiFENesin 600 MG Tab.ER PO SCH ×2 (07:37→19:33)
[2016-10-14] MEDS: Sennosides 8.6 MG Tab PO SCH ×2 (07:38→19:29)
[2016-10-14] MEDS: Tamsulosin 0.4 MG Cap.ER PO SCH (07:38)
[2016-10-14] MEDS: Aspirin 81 MG Tab.EC PO SCH (07:38)
[2016-10-14] MEDS: Furosemide 40 MG Tab PO SCH ×2 (07:38→16:07)
[2016-10-14] MEDS: predniSONE 20 MG Tab PO SCH (07:38)
[2016-10-14] MEDS: Clopidogrel 75 MG Tab PO SCH (07:38)
[2016-10-14] MEDS: Carvedilol 25 MG Tab PO SCH ×2 (07:38→19:32)
[2016-10-14] MEDS: Calcium Carbonate/Vitamin D3 1500 MG-400 Units Tab PO SCH (07:38)
[2016-10-14] MEDS: Multivitamins with Iron/Calcium/Folic Acid/Minerals Tab PO SCH (07:38)
[2016-10-14] MEDS: Psyllium Husk Powder Sugar Free 5.85 GM Packet PO SCH (19:24)
[2016-10-14] MEDS: Venlafaxine 75 MG Cap.ER PO SCH (19:30)
[2016-10-14] MEDS: Mirtazapine 15 MG Tab PO SCH (19:30)
[2016-10-14] MEDS: QUEtiapine 25 MG Tab PO SCH (19:31)
[2016-10-14] MEDS: Pantoprazole 40 MG Tab.CR PO SCH (19:32)
[2016-10-14] MEDS: Simvastatin 40 MG Tab PO SCH (19:33)
[2016-10-15] MEDS: Calcium Carbonate/Vitamin D3 1500 MG-400 Units Tab PO SCH (08:36)
[2016-10-15] MEDS: Diltiazem 120 MG Cap.CD PO SCH (08:36)
[2016-10-15] MEDS: Carvedilol 25 MG Tab PO SCH ×2 (08:37→19:44)
[2016-10-15] MEDS: Venlafaxine 150 MG Cap.ER PO SCH (08:37)
[2016-10-15] MEDS: Tamsulosin 0.4 MG Cap.ER PO SCH (08:38)
[2016-10-15] MEDS: Folic Acid 0.4 MG Tab PO SCH (08:38)
[2016-10-15] MEDS: Aspirin 81 MG Tab.EC PO SCH (08:38)
[2016-10-15] MEDS: guaiFENesin 600 MG Tab.ER PO SCH ×2 (08:39→19:46)
[2016-10-15] MEDS: Furosemide 40 MG Tab PO SCH ×2 (08:39→16:08)
[2016-10-15] MEDS: Clopidogrel 75 MG Tab PO SCH (08:39)
[2016-10-15] MEDS: Sennosides 8.6 MG Tab PO SCH ×2 (08:40→19:46)
[2016-10-15] MEDS: predniSONE 20 MG Tab PO SCH (08:40)
[2016-10-15] MEDS: Multivitamins with Iron/Calcium/Folic Acid/Minerals Tab PO SCH (08:40)
[2016-10-15] MEDS: Lisinopril 2.5 MG Tab PO SCH (08:40)
[2016-10-15] MEDS: Venlafaxine 75 MG Cap.ER PO SCH (19:41)
[2016-10-15] MEDS: Simvastatin 40 MG Tab PO SCH (19:41)
[2016-10-15] MEDS: Mirtazapine 15 MG Tab PO SCH (19:42)
[2016-10-15] MEDS: QUEtiapine 25 MG Tab PO SCH (19:42)
[2016-10-15] MEDS: Psyllium Husk Powder Sugar Free 5.85 GM Packet PO SCH (19:43)
[2016-10-15] MEDS: Pantoprazole 40 MG Tab.CR PO SCH (19:45)
[2016-10-16] MEDS: Lisinopril 2.5 MG Tab PO SCH (07:22)
[2016-10-16] MEDS: Calcium Carbonate/Vitamin D3 1500 MG-400 Units Tab PO SCH (07:22)
[2016-10-16] MEDS: Clopidogrel 75 MG Tab PO SCH (07:22)
[2016-10-16] MEDS: Folic Acid 0.4 MG Tab PO SCH (07:22)
[2016-10-16] MEDS: Sennosides 8.6 MG Tab PO SCH ×2 (07:22→20:11)
[2016-10-16] MEDS: Carvedilol 25 MG Tab PO SCH ×2 (07:22→20:08)
[2016-10-16] MEDS: guaiFENesin 600 MG Tab.ER PO SCH ×2 (07:23→20:09)
[2016-10-16] MEDS: predniSONE 20 MG Tab PO SCH (07:23)
[2016-10-16] MEDS: Venlafaxine 150 MG Cap.ER PO SCH (07:23)
[2016-10-16] MEDS: Diltiazem 120 MG Cap.CD PO SCH (07:23)
[2016-10-16] MEDS: Aspirin 81 MG Tab.EC PO SCH (07:24)
[2016-10-16] MEDS: Furosemide 40 MG Tab PO SCH ×2 (07:24→17:51)
[2016-10-16] MEDS: Multivitamins with Iron/Calcium/Folic Acid/Minerals Tab PO SCH (07:24)
[2016-10-16] MEDS: Tamsulosin 0.4 MG Cap.ER PO SCH (07:24)
[2016-10-16] MEDS ORDERED: diphenhydrAMINE 50 MG Cap PO ONE (17:30)
[2016-10-16] MEDS: Venlafaxine 75 MG Cap.ER PO SCH (20:08)
[2016-10-16] MEDS: Psyllium Husk Powder Sugar Free 5.85 GM Packet PO SCH (20:09)
[2016-10-16] MEDS: Pantoprazole 40 MG Tab.CR PO SCH (20:10)
[2016-10-16] MEDS: Mirtazapine 15 MG Tab PO SCH (20:10)
[2016-10-16] MEDS: QUEtiapine 25 MG Tab PO SCH (20:12)
[2016-10-16] MEDS: Simvastatin 40 MG Tab PO SCH (20:14)
[2016-10-17] MEDS: Tamsulosin 0.4 MG Cap.ER PO SCH (08:02)
[2016-10-17] MEDS: Folic Acid 0.4 MG Tab PO SCH (08:02)
[2016-10-17] MEDS: Lisinopril 2.5 MG Tab PO SCH (08:02)
[2016-10-17] MEDS: Diltiazem 120 MG Cap.CD PO SCH (08:02)
[2016-10-17] MEDS: Aspirin 81 MG Tab.EC PO SCH (08:03)
[2016-10-17] MEDS: Venlafaxine 150 MG Cap.ER PO SCH (08:05)
[2016-10-17] MEDS: Carvedilol 25 MG Tab PO SCH ×2 (08:05→20:02)
[2016-10-17] MEDS: Clopidogrel 75 MG Tab PO SCH (08:06)
[2016-10-17] MEDS: Calcium Carbonate/Vitamin D3 1500 MG-400 Units Tab PO SCH ×2 (08:06→08:07)
[2016-10-17] MEDS: Multivitamins with Iron/Calcium/Folic Acid/Minerals Tab PO SCH (08:06)
[2016-10-17] MEDS: Furosemide 40 MG Tab PO SCH ×2 (08:06→17:51)
[2016-10-17] MEDS: predniSONE 20 MG Tab PO SCH (08:06)
[2016-10-17] MEDS: Sennosides 8.6 MG Tab PO SCH ×2 (08:07→20:03)
[2016-10-17] MEDS: guaiFENesin 600 MG Tab.ER PO SCH ×3 (08:08→20:04)
[2016-10-17] MEDS: Simvastatin 40 MG Tab PO SCH (20:03)
[2016-10-17] MEDS: Psyllium Husk Powder Sugar Free 5.85 GM Packet PO SCH (20:04)
[2016-10-17] MEDS: Pantoprazole 40 MG Tab.CR PO SCH (20:05)
[2016-10-17] MEDS: Mirtazapine 15 MG Tab PO SCH (20:20)
[2016-10-17] MEDS: QUEtiapine 25 MG Tab PO SCH (20:20)
[2016-10-17] MEDS: Venlafaxine 75 MG Cap.ER PO SCH (20:20)
[2016-10-18] MEDS: Carvedilol 25 MG Tab PO SCH ×2 (07:38→19:41)
[2016-10-18] MEDS: predniSONE 20 MG Tab PO SCH (07:39)
[2016-10-18] MEDS: Tamsulosin 0.4 MG Cap.ER PO SCH (07:39)
[2016-10-18] MEDS: guaiFENesin 600 MG Tab.ER PO SCH ×2 (07:39→19:41)
[2016-10-18] MEDS: Aspirin 81 MG Tab.EC PO SCH (07:39)
[2016-10-18] MEDS: Clopidogrel 75 MG Tab PO SCH (07:40)
[2016-10-18] MEDS: Diltiazem 120 MG Cap.CD PO SCH (07:40)
[2016-10-18] MEDS: Furosemide 20 MG Tab PO SCH (07:40)
[2016-10-18] MEDS: Lisinopril 2.5 MG Tab PO SCH (07:40)
[2016-10-18] MEDS: Multivitamins with Iron/Calcium/Folic Acid/Minerals Tab PO SCH (07:40)
[2016-10-18] MEDS: Calcium Carbonate/Vitamin D3 1500 MG-400 Units Tab PO SCH (07:41)
[2016-10-18] MEDS: Venlafaxine 150 MG Cap.ER PO SCH (07:41)
[2016-10-18] MEDS: Folic Acid 0.4 MG Tab PO SCH (07:41)
[2016-10-18] MEDS: Sennosides 8.6 MG Tab PO SCH ×2 (07:41→19:41)
[2016-10-18] MEDS ORDERED: Furosemide 20 MG Tab PO ONE (08:00)
[2016-10-18] MEDS: Pantoprazole 40 MG Tab.CR PO SCH (19:39)
[2016-10-18] MEDS: QUEtiapine 25 MG Tab PO SCH (19:40)
[2016-10-18] MEDS: Mirtazapine 15 MG Tab PO SCH (19:41)
[2016-10-18] MEDS: Venlafaxine 75 MG Cap.ER PO SCH (19:41)
[2016-10-18] MEDS: Simvastatin 40 MG Tab PO SCH (19:41)
[2016-10-18] MEDS: Psyllium Husk Powder Sugar Free 5.85 GM Packet PO SCH (19:42)
[2016-10-19] MEDS: Tamsulosin 0.4 MG Cap.ER PO SCH (07:19)
[2016-10-19] MEDS: Clopidogrel 75 MG Tab PO SCH (07:19)
[2016-10-19] MEDS: Multivitamins with Iron/Calcium/Folic Acid/Minerals Tab PO SCH (07:19)
[2016-10-19] MEDS: Venlafaxine 150 MG Cap.ER PO SCH (07:20)
[2016-10-19] MEDS: Diltiazem 120 MG Cap.CD PO SCH (07:20)
[2016-10-19] MEDS: guaiFENesin 600 MG Tab.ER PO SCH ×2 (07:20→20:33)
[2016-10-19] MEDS: Lisinopril 2.5 MG Tab PO SCH (07:20)
[2016-10-19] MEDS: Sennosides 8.6 MG Tab PO SCH ×2 (07:20→20:33)
[2016-10-19] MEDS: Folic Acid 0.4 MG Tab PO SCH (07:20)
[2016-10-19] MEDS: Calcium Carbonate/Vitamin D3 1500 MG-400 Units Tab PO SCH (07:20)
[2016-10-19] MEDS: Carvedilol 25 MG Tab PO SCH ×2 (07:21→20:32)
[2016-10-19] MEDS: predniSONE 20 MG Tab PO SCH (07:21)
[2016-10-19] MEDS: Furosemide 20 MG Tab PO SCH (07:39)
[2016-10-19] MEDS: Aspirin 81 MG Tab.EC PO SCH (07:39)
[2016-10-19] MEDS: Venlafaxine 75 MG Cap.ER PO SCH (20:32)
[2016-10-19] MEDS: Mirtazapine 15 MG Tab PO SCH (20:32)
[2016-10-19] MEDS: Psyllium Husk Powder Sugar Free 5.85 GM Packet PO SCH (20:32)
[2016-10-19] MEDS: Pantoprazole 40 MG Tab.CR PO SCH (20:33)
[2016-10-19] MEDS: Simvastatin 40 MG Tab PO SCH (20:33)
[2016-10-19] MEDS: QUEtiapine 25 MG Tab PO SCH (20:33)
--- NOTE | 2016-10-19 22:14 | PCM.PN ---
- General Info Date of Service: 10/19/16 Subjective Update: Staff asked to evaluate Mr. Orr. He claims he has been having increase spasms in his legs over the past week. he has had clonic spasms of the legs and arms for several years and has had evaluation at [facility] with no organized treatment plan. Also he has no swelling of the extremities. His BMP shows drop in GFR to 33cc/min. Also staff if concerned about the bluish discoloration and cold feet. Functional Status: Reports: tolerating diet, ambulating, urinating - Review of Systems General: Denies: Fever, Weakness, Fatigue HEENT: Denies: contact lenses, sinus congestion Pulmonary: Denies: shortness of breath, pleuritic chest pain Cardiovascular: Denies: Chest Pain, Lightheadedness Gastrointestinal: Denies: Abdominal pain, Constipation, Nausea, Vomiting Genitourinary: Denies: frequency, burning Musculoskeletal: Denies: joint pain, joint swelling Skin: Denies: pruritis, rash Neurological: Denies: Confusion, Dizziness, Seizure, Syncope, Weakness - Patient Data Vitals - most recent: Last Vital Signs Temp 98.6 F 10/19/16 20:00 Pulse 72 10/19/16 20:32 Resp 16 10/19/16 20:00 BP 132/62 10/19/16 20:32 Pulse Ox 99 10/19/16 20:00 Weight - most recent: 80.286 kg Med Orders - Current: Current Medications Acetaminophen (Tylenol Extra Strength) 500 mg PO QID PRN PRN Reason: Pain Albuterol/Ipratropium (Duoneb 3.0-0.5 Mg/3 Ml) 3 ml NEB Q4H PRN PRN Reason: Shortness of Breath Last Admin: 08/29/16 19:54 Dose: 3 ml Aspirin (Halfprin) 81 mg PO DAILY [facility] Last Admin: 10/19/16 07:39 Dose: 81 mg Calcium Carbonate (Caltrate 600+D 1500 Mg-400 Units) 1 tab PO DAILY [facility] Last Admin: 10/19/16 07:20 Dose: 1 tab Carvedilol (Coreg) 25 mg PO BID [facility] Last Admin: 10/19/16 20:32 Dose: 25 mg Clonazepam (Klonopin) 0.5 mg PO BID PRN PRN Reason: Anxiety Last Admin: 04/20/17 19:50 Dose: 0.5 mg Clopidogrel Bisulfate (Plavix) 75 mg PO DAILY [facility] Last Admin: 10/19/16 07:19 Dose: 75 mg Diltiazem HCl (Cardizem Cd) 120 mg PO DAILY [facility] Last Admin: 10/19/16 07:20 Dose: 120 mg Folic Acid (Folic Acid) 0.8 mg PO DAILY [facility] Last Admin: 10/19/16 07:20 Dose: 0.8 mg Furosemide (Lasix) 20 mg PO DAILY PRN PRN Reason: Other Guaifenesin (Mucinex) 600 mg PO BID [facility] Last Admin: 10/19/16 20:33 Dose: 600 mg Lisinopril (Prinivil) 2.5 mg PO DAILY [facility] Last Admin: 10/19/16 07:20 Dose: 2.5 mg Magnesium Hydroxide (Milk Of Magnesia) 30 ml PO Q4H PRN PRN Reason: Constipation Last Admin: 09/21/16 11:32 Dose: 30 ml Mirtazapine (Remeron) 15 mg PO QPM [facility] Last Admin: 10/19/16 20:32 Dose: 15 mg Multivitamins/Minerals (Thera M Plus) 1 tab PO DAILY [facility] Last Admin: 10/19/16 07:19 Dose: 1 tab Nitroglycerin (Nitrostat) 0.4 mg SL ASDIRECTED PRN PRN Reason: CHEST PAIN Oxycodone HCl (Oxycodone) 5 mg PO Q4H PRN PRN Reason: MODERATE PAIN Last Admin: 09/11/16 21:05 Dose: 5 mg Pantoprazole Sodium (Protonix) 40 mg PO QPM [facility] Last Admin: 10/19/16 20:33 Dose: 40 mg Prednisone (Prednisone) 10 mg PO DAILY [facility] Psyllium Husk (Metamucil Sugar Free) 1 pkt PO BEDTIME [facility] Last Admin: 10/19/16 20:32 Dose: 1 pkt Quetiapine Fumarate (Seroquel) 37.5 mg PO QPM [facility] Last Admin: 10/19/16 20:33 Dose: 37.5 mg Senna (Senna) 8.6 mg PO BID [facility] Last Admin: 10/19/16 20:33 Dose: 8.6 mg Simvastatin (Zocor) 40 mg PO BEDTIME [facility] Last Admin: 10/19/16 20:33 Dose: 40 mg Tamsulosin HCl (Flomax) 0.8 mg PO DAILY [facility] Last Admin: 10/19/16 07:19 Dose: 0.8 mg Venlafaxine HCl (Effexor Xr) 75 mg PO BEDTIME [facility] Last Admin: 10/19/16 20:32 Dose: 75 mg Venlafaxine HCl (Effexor Xr) 150 mg PO DAILY [facility] Last Admin: 10/19/16 07:20 Dose: 150 mg Discontinued Medications Acetaminophen (Tylenol Extra Strength) 500 mg PO QID [facility] Last Admin: 09/19/16 16:21 Dose: Not Given Acetaminophen (Tylenol Extra Strength) Confirm Administered Dose 500 mg .ROUTE .STK-MED ONE Stop: 09/01/16 18:08 Last Admin: 09/01/16 18:40 Dose: Not Given Albuterol/Ipratropium (Duoneb 3.0-0.5 Mg/3 Ml) Confirm Administered Dose 3 ml .ROUTE .STK-MED ONE Stop: 08/28/16 13:49 Last Admin: 08/28/16 16:18 Dose: Not Given Clonazepam (Klonopin) 0.25 mg PO BID [facility] Last Admin: 08/30/16 08:22 Dose: 0.25 mg Clonazepam (Klonopin) 0.25 mg PO BID PRN PRN Reason: Insomnia Diazepam (Valium) 10 mg PO BEDTIME PRN PRN Reason: pain/spasms Last Admin: 08/29/16 20:00 Dose: 10 mg Diphenhydramine HCl (Benadryl) 50 mg PO ONETIME ONE Stop: 10/16/16 17:31 Last Admin: 10/16/16 17:51 Dose: 50 mg Enoxaparin Sodium (Lovenox) 40 mg SUBCUT DAILY [facility] Stop: 09/05/16 10:00 Last Admin: 09/05/16 08:36 Dose: 40 mg Folic Acid (Folic Acid) Confirm Administered Dose 0.4 mg .ROUTE .STK-MED ONE Stop: 10/04/16 07:55 Last Admin: 10/04/16 07:57 Dose: 0.4 mg Furosemide (Lasix) 20 mg PO DAILY PRN PRN Reason: edema Last Admin: 10/12/16 08:00 Dose: 20 mg Furosemide (Lasix) 20 mg PO ONETIME ONE Stop: 10/11/16 14:01 Last Admin: 10/11/16 16:44 Dose: Not Given Furosemide (Lasix) 40 mg PO BIDDIURETIC [facility] Stop: 10/18/19 16:01 Last Admin: 10/17/16 17:51 Dose: Not Given Furosemide (Lasix) Confirm Administered Dose 20 mg .ROUTE .STK-MED ONE Stop: 10/12/16 11:16 Last Admin: 10/12/16 11:17 Dose: 20 mg Furosemide (Lasix) 20 mg PO DAILY ONE Stop: 10/18/16 08:01 Furosemide (Lasix) 20 mg PO DAILY [facility] Last Admin: 10/19/16 07:39 Dose: 20 mg Guaifenesin (Mucinex) 600 mg PO Q12H [facility] Last Admin: 08/30/16 09:31 Dose: 600 mg Haloperidol (Haldol) 5 mg PO ONETIME ONE Stop: 08/28/16 19:34 Last Admin: 08/28/16 19:49 Dose: 5 mg Mirtazapine (Remeron) 7.5 mg PO BEDTIME [facility] Last Admin: 08/29/16 19:45 Dose: 7.5 mg Mirtazapine (Remeron) 15 mg PO BEDTIME [facility] Polyethylene Glycol (Miralax) 17 gm PO DAILY [facility] Stop: 09/08/16 18:00 Last Admin: 09/08/16 09:57 Dose: 17 gm Polyethylene Glycol (Miralax) Confirm Administered Dose 17 gm .ROUTE .STK-MED ONE Stop: 09/09/16 12:46 Last Admin: 09/09/16 12:50 Dose: 17 gm Prednisone (Prednisone) 40 mg PO DAILY [facility] Last Admin: 10/09/16 08:44 Dose: 40 mg Prednisone (Prednisone) Confirm Administered Dose 20 mg .ROUTE .STK-MED ONE Stop: 09/10/16 08:11 Last Admin: 09/10/16 08:10 Dose: Not Given Prednisone (Prednisone) 20 mg PO DAILY [facility] Last Admin: 10/19/16 07:21 Dose: 20 mg Psyllium Husk (Metamucil Sugar Free) 1 packet PO BEDTIME [facility] Quetiapine Fumarate (Seroquel) 25 mg PO DAILY [facility] Last Admin: 08/30/16 08:22 Dose: 25 mg Senna (Senna) 8.6 mg PO DAILY [facility] Last Admin: 10/09/16 07:31 Dose: 8.6 mg - Exam General: alert, oriented, cooperative HEENT: Pupils equal, Pupils reactive, EOMI, Mucous membr. moist/pink Neck: supple Lungs: Clear to auscultation, Normal respiratory effort Cardiovascular: Regular Rate, Regular Rhythm Extremities: no edema (sen on otdays exam), normal pulses, no clubbing, no cyanosis, edema, other (Feet: there isprolonged capillary refill in the toes and slightly warm. Has weak pedal pulses.) - Problem List & Annotations (1) Agitation SNOMED Code(s): 81352555 Code(s): R45.1 - RESTLESSNESS AND AGITATION Status: Acute Current Visit: Yes (2) Fracture of femur SNOMED Code(s): 92482634 Code(s): S72.90XA - UNSP FRACTURE OF UNSP FEMUR, INIT ENCNTR FOR CLOSED FRACTURE Status: Chronic Priority: High Current Visit: Yes (3) Spasmodic movement of extremities SNOMED Code(s): 606113885 Code(s): R25.2 - CRAMP AND SPASM Status: Acute Current Visit: Yes - Problem List Review Problem List Initiated/Reviewed/Updated: Yes - My Orders Last 24 Hours: My Active Orders 10/19/16 09:15 VL Duplex Lwr Ext Art Comp Bi [US] Routine 10/19/16 09:19 Furosemide [Lasix] 20 mg PO DAILY PRN 10/19/16 09:21 predniSONE 10 mg PO DAILY 10/23/16 11:00 VL Duplex Lwr Ext Art Comp Bi [US] Routine - Assessment Assessment:: left femur fracture S/p reduction Muscle spasm of the lower extremities - Plan Plan:: [place] removed and steri-strips applied. wound appear clean and healthy. Also he has had psych eval today. His remeron has been increased to 15 mg and seroquel to 37.5 mg at bedtime. His klonopin is PRN and has discontinued his diazepam. Also he has had speech evaluation done today. recommended videoscopic swallow study for his choking episode. Will have it scheduled at [facility] for workup. 09/11/16 Continue with current management and PT. Patient is doing well and wound healing well also. No changes to management or medications. 09/17/16 Continue PT/OT. Patient discharge planning started. We will consider d/ c back to [facility] when ready. 09/24/16 Patient continues with improvement in strength and ADLs. We will continue PT/OT until patient is ready for discharge. 10/01/16 No changes with plan of care. Continue with PT/OT and management. Patient has shown improvement weekly. 10/11/16 Examined right foot color change - this is bruising likely due to increasing weight and use with toe-touch weight bearing and not because of a vascular concern. We will continue to monitor the right foot as needed. Patient denies any discomfort. There is b/l leg swelling that has increased the past few days but patient denies any sob or concerns. We will adjust lasix at this time - patient states he does have occasional leg swelling and he does take extra diuretics at those times at home. 10/19/16 Apparently patient has been on total of 80mg of lasix daily, which probably is the cause of the elevated creatinine and dropping GFR. at this point pt does not have pedal edema, so I have decreased lasix to 20mg as needed daily for edema. encourage oral fluids to hydrate, which should improve the renal functions. 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 I have recommended him to continue PT to improve strengthening. Also pt has been on prednisone 20mg daily, not sure, but will decrease it to 10mg daily, which probably can hamper with bone healing.
[2016-10-20] MEDS: Folic Acid 0.4 MG Tab PO SCH (08:26)
[2016-10-20] MEDS: Tamsulosin 0.4 MG Cap.ER PO SCH (08:27)
[2016-10-20] MEDS: Clopidogrel 75 MG Tab PO SCH (08:27)
[2016-10-20] MEDS: Lisinopril 2.5 MG Tab PO SCH (08:27)
[2016-10-20] MEDS: Aspirin 81 MG Tab.EC PO SCH (08:28)
[2016-10-20] MEDS: Calcium Carbonate/Vitamin D3 1500 MG-400 Units Tab PO SCH (08:29)
[2016-10-20] MEDS: Diltiazem 120 MG Cap.CD PO SCH (08:29)
[2016-10-20] MEDS: Carvedilol 25 MG Tab PO SCH ×2 (08:30→19:22)
[2016-10-20] MEDS: Multivitamins with Iron/Calcium/Folic Acid/Minerals Tab PO SCH (08:30)
[2016-10-20] MEDS: guaiFENesin 600 MG Tab.ER PO SCH ×2 (08:30→19:26)
[2016-10-20] MEDS: Venlafaxine 150 MG Cap.ER PO SCH (08:30)
[2016-10-20] MEDS: Sennosides 8.6 MG Tab PO SCH ×2 (08:30→19:26)
[2016-10-20] MEDS: predniSONE 20 MG Tab PO SCH (08:31)
[2016-10-20] MEDS: Simvastatin 40 MG Tab PO SCH (19:21)
[2016-10-20] MEDS: Pantoprazole 40 MG Tab.CR PO SCH (19:23)
[2016-10-20] MEDS: QUEtiapine 25 MG Tab PO SCH (19:23)
[2016-10-20] MEDS: Mirtazapine 15 MG Tab PO SCH (19:25)
[2016-10-20] MEDS: Venlafaxine 75 MG Cap.ER PO SCH (19:26)
[2016-10-20] MEDS: Psyllium Husk Powder Sugar Free 5.85 GM Packet PO SCH (19:29)
[2016-10-21] MEDS: Lisinopril 2.5 MG Tab PO SCH (07:34)
[2016-10-21] MEDS: Folic Acid 0.4 MG Tab PO SCH (07:34)
[2016-10-21] MEDS: Diltiazem 120 MG Cap.CD PO SCH (07:35)
[2016-10-21] MEDS: Carvedilol 25 MG Tab PO SCH ×2 (07:36→19:09)
[2016-10-21] MEDS: Sennosides 8.6 MG Tab PO SCH ×2 (07:36→19:07)
[2016-10-21] MEDS: Tamsulosin 0.4 MG Cap.ER PO SCH (07:37)
[2016-10-21] MEDS: Aspirin 81 MG Tab.EC PO SCH (07:38)
[2016-10-21] MEDS: Clopidogrel 75 MG Tab PO SCH (07:38)
[2016-10-21] MEDS: predniSONE 20 MG Tab PO SCH (07:39)
[2016-10-21] MEDS: Multivitamins with Iron/Calcium/Folic Acid/Minerals Tab PO SCH (07:39)
[2016-10-21] MEDS: Calcium Carbonate/Vitamin D3 1500 MG-400 Units Tab PO SCH (07:39)
[2016-10-21] MEDS: Venlafaxine 150 MG Cap.ER PO SCH (07:40)
[2016-10-21] MEDS: guaiFENesin 600 MG Tab.ER PO SCH ×2 (07:40→19:07)
[2016-10-21] MEDS: Venlafaxine 75 MG Cap.ER PO SCH (19:07)
[2016-10-21] MEDS: Mirtazapine 15 MG Tab PO SCH (19:07)
[2016-10-21] MEDS: Pantoprazole 40 MG Tab.CR PO SCH (19:07)
[2016-10-21] MEDS: Simvastatin 40 MG Tab PO SCH (19:07)
[2016-10-21] MEDS: QUEtiapine 25 MG Tab PO SCH (19:07)
[2016-10-21] MEDS: Psyllium Husk Powder Sugar Free 5.85 GM Packet PO SCH (19:12)
[2016-10-22] MEDS: Folic Acid 0.4 MG Tab PO SCH (07:29)
[2016-10-22] MEDS: Lisinopril 2.5 MG Tab PO SCH (07:29)
[2016-10-22] MEDS: Sennosides 8.6 MG Tab PO SCH ×2 (07:30→20:23)
[2016-10-22] MEDS: Multivitamins with Iron/Calcium/Folic Acid/Minerals Tab PO SCH (07:30)
[2016-10-22] MEDS: Calcium Carbonate/Vitamin D3 1500 MG-400 Units Tab PO SCH (07:30)
[2016-10-22] MEDS: Carvedilol 25 MG Tab PO SCH ×2 (07:31→20:21)
[2016-10-22] MEDS: Clopidogrel 75 MG Tab PO SCH (07:32)
[2016-10-22] MEDS: Tamsulosin 0.4 MG Cap.ER PO SCH (07:32)
[2016-10-22] MEDS: guaiFENesin 600 MG Tab.ER PO SCH ×2 (07:32→20:22)
[2016-10-22] MEDS: Aspirin 81 MG Tab.EC PO SCH (07:32)
[2016-10-22] MEDS: Diltiazem 120 MG Cap.CD PO SCH (07:33)
[2016-10-22] MEDS: Venlafaxine 150 MG Cap.ER PO SCH (07:34)
[2016-10-22] MEDS: predniSONE 20 MG Tab PO SCH (07:35)
[2016-10-22] MEDS: Pantoprazole 40 MG Tab.CR PO SCH (20:21)
[2016-10-22] MEDS: Venlafaxine 75 MG Cap.ER PO SCH (20:21)
[2016-10-22] MEDS: QUEtiapine 25 MG Tab PO SCH (20:22)
[2016-10-22] MEDS: Simvastatin 40 MG Tab PO SCH (20:22)
[2016-10-22] MEDS: Psyllium Husk Powder Sugar Free 5.85 GM Packet PO SCH (20:22)
[2016-10-22] MEDS: Mirtazapine 15 MG Tab PO SCH (20:23)
[2016-10-23] MEDS: guaiFENesin 600 MG Tab.ER PO SCH ×2 (07:54→19:41)
[2016-10-23] MEDS: Calcium Carbonate/Vitamin D3 1500 MG-400 Units Tab PO SCH (07:54)
[2016-10-23] MEDS: Folic Acid 0.4 MG Tab PO SCH (07:54)
[2016-10-23] MEDS: Multivitamins with Iron/Calcium/Folic Acid/Minerals Tab PO SCH (07:54)
[2016-10-23] MEDS: Aspirin 81 MG Tab.EC PO SCH (07:55)
[2016-10-23] MEDS: Tamsulosin 0.4 MG Cap.ER PO SCH (07:55)
[2016-10-23] MEDS: Clopidogrel 75 MG Tab PO SCH (07:55)
[2016-10-23] MEDS: Lisinopril 2.5 MG Tab PO SCH (07:55)
[2016-10-23] MEDS: Sennosides 8.6 MG Tab PO SCH ×2 (07:55→19:42)
[2016-10-23] MEDS: Venlafaxine 150 MG Cap.ER PO SCH (07:55)
[2016-10-23] MEDS: predniSONE 20 MG Tab PO SCH (07:55)
[2016-10-23] MEDS: Diltiazem 120 MG Cap.CD PO SCH (07:58)
[2016-10-23] MEDS: Carvedilol 25 MG Tab PO SCH ×2 (07:58→19:41)
[2016-10-23] MEDS: Furosemide 20 MG Tab PO PRN (08:33)
[2016-10-23] MEDS: Mirtazapine 15 MG Tab PO SCH (19:42)
[2016-10-23] MEDS: QUEtiapine 25 MG Tab PO SCH (19:42)
[2016-10-23] MEDS: Venlafaxine 75 MG Cap.ER PO SCH (19:42)
[2016-10-23] MEDS: Simvastatin 40 MG Tab PO SCH (19:42)
[2016-10-23] MEDS: Psyllium Husk Powder Sugar Free 5.85 GM Packet PO SCH (19:43)
[2016-10-23] MEDS: Pantoprazole 40 MG Tab.CR PO SCH (19:43)
[2016-10-24] MEDS: guaiFENesin 600 MG Tab.ER PO SCH ×2 (08:11→20:05)
[2016-10-24] MEDS: Venlafaxine 150 MG Cap.ER PO SCH (08:11)
[2016-10-24] MEDS: Folic Acid 0.4 MG Tab PO SCH (08:11)
[2016-10-24] MEDS: Aspirin 81 MG Tab.EC PO SCH (08:11)
[2016-10-24] MEDS: Multivitamins with Iron/Calcium/Folic Acid/Minerals Tab PO SCH (08:11)
[2016-10-24] MEDS: Tamsulosin 0.4 MG Cap.ER PO SCH (08:11)
[2016-10-24] MEDS: Carvedilol 25 MG Tab PO SCH ×2 (08:12→20:01)
[2016-10-24] MEDS: predniSONE 20 MG Tab PO SCH (08:12)
[2016-10-24] MEDS: Diltiazem 120 MG Cap.CD PO SCH (08:12)
[2016-10-24] MEDS: Clopidogrel 75 MG Tab PO SCH (08:12)
[2016-10-24] MEDS: Calcium Carbonate/Vitamin D3 1500 MG-400 Units Tab PO SCH (08:12)
[2016-10-24] MEDS: Lisinopril 2.5 MG Tab PO SCH (08:12)
[2016-10-24] MEDS: Sennosides 8.6 MG Tab PO SCH ×2 (08:12→20:02)
[2016-10-24] MEDS: Furosemide 20 MG Tab PO PRN (08:13)
[2016-10-24] MEDS: QUEtiapine 25 MG Tab PO SCH (20:03)
[2016-10-24] MEDS: Mirtazapine 15 MG Tab PO SCH (20:04)
[2016-10-24] MEDS: Simvastatin 40 MG Tab PO SCH (20:04)
[2016-10-24] MEDS: Venlafaxine 75 MG Cap.ER PO SCH (20:04)
[2016-10-24] MEDS: Pantoprazole 40 MG Tab.CR PO SCH (20:05)
[2016-10-24] MEDS: Psyllium Husk Powder Sugar Free 5.85 GM Packet PO SCH (20:06)
[2016-10-25] MEDS ORDERED: Tamsulosin 0.4 MG Cap.ER ONE (07:24)
[2016-10-25] MEDS: Aspirin 81 MG Tab.EC PO SCH (07:31)
[2016-10-25] MEDS: Calcium Carbonate/Vitamin D3 1500 MG-400 Units Tab PO SCH (07:32)
[2016-10-25] MEDS: Folic Acid 0.4 MG Tab PO SCH (07:32)
[2016-10-25] MEDS: Venlafaxine 150 MG Cap.ER PO SCH (07:33)
[2016-10-25] MEDS: Clopidogrel 75 MG Tab PO SCH (07:34)
[2016-10-25] MEDS: Tamsulosin 0.4 MG Cap.ER PO SCH (07:36)
[2016-10-25] MEDS: Multivitamins with Iron/Calcium/Folic Acid/Minerals Tab PO SCH (07:37)
[2016-10-25] MEDS: Carvedilol 25 MG Tab PO SCH ×2 (07:39→19:48)
[2016-10-25] MEDS: predniSONE 20 MG Tab PO SCH (07:40)
[2016-10-25] MEDS: Sennosides 8.6 MG Tab PO SCH ×2 (07:40→19:49)
[2016-10-25] MEDS: guaiFENesin 600 MG Tab.ER PO SCH ×2 (07:41→19:48)
[2016-10-25] MEDS: Diltiazem 120 MG Cap.CD PO SCH (07:41)
[2016-10-25] MEDS: Lisinopril 2.5 MG Tab PO SCH (07:42)
[2016-10-25] MEDS: Furosemide 20 MG Tab PO PRN (07:46)
[2016-10-25] MEDS: Psyllium Husk Powder Sugar Free 5.85 GM Packet PO SCH (19:48)
[2016-10-25] MEDS: Venlafaxine 75 MG Cap.ER PO SCH (19:48)
[2016-10-25] MEDS: Pantoprazole 40 MG Tab.CR PO SCH (19:48)
[2016-10-25] MEDS: QUEtiapine 25 MG Tab PO SCH (19:49)
[2016-10-25] MEDS: Simvastatin 40 MG Tab PO SCH (19:49)
[2016-10-25] MEDS: Mirtazapine 15 MG Tab PO SCH (19:49)
[2016-10-26] MEDS: Calcium Carbonate/Vitamin D3 1500 MG-400 Units Tab PO SCH (08:29)
[2016-10-26] MEDS: Diltiazem 120 MG Cap.CD PO SCH (08:30)
[2016-10-26] MEDS: Carvedilol 25 MG Tab PO SCH ×2 (08:30→20:15)
[2016-10-26] MEDS: Venlafaxine 150 MG Cap.ER PO SCH (08:31)
[2016-10-26] MEDS: Tamsulosin 0.4 MG Cap.ER PO SCH (08:31)
[2016-10-26] MEDS: Folic Acid 0.4 MG Tab PO SCH (08:32)
[2016-10-26] MEDS: Aspirin 81 MG Tab.EC PO SCH (08:32)
[2016-10-26] MEDS: Sennosides 8.6 MG Tab PO SCH ×2 (08:33→20:18)
[2016-10-26] MEDS: guaiFENesin 600 MG Tab.ER PO SCH ×2 (08:33→20:17)
[2016-10-26] MEDS: Clopidogrel 75 MG Tab PO SCH (08:33)
[2016-10-26] MEDS: Multivitamins with Iron/Calcium/Folic Acid/Minerals Tab PO SCH (08:34)
[2016-10-26] MEDS: Lisinopril 2.5 MG Tab PO SCH (08:34)
[2016-10-26] MEDS: predniSONE 20 MG Tab PO SCH (08:34)
[2016-10-26] MEDS: QUEtiapine 25 MG Tab PO SCH (20:14)
[2016-10-26] MEDS: Pantoprazole 40 MG Tab.CR PO SCH (20:16)
[2016-10-26] MEDS: Venlafaxine 75 MG Cap.ER PO SCH (20:16)
[2016-10-26] MEDS: Simvastatin 40 MG Tab PO SCH (20:16)
[2016-10-26] MEDS: Psyllium Husk Powder Sugar Free 5.85 GM Packet PO SCH (20:17)
[2016-10-26] MEDS: Mirtazapine 15 MG Tab PO SCH (20:17)
[2016-10-27] MEDS: Diltiazem 120 MG Cap.CD PO SCH (08:05)
[2016-10-27] MEDS: Folic Acid 0.4 MG Tab PO SCH (08:05)
[2016-10-27] MEDS: Lisinopril 2.5 MG Tab PO SCH (08:05)
[2016-10-27] MEDS: Carvedilol 25 MG Tab PO SCH ×2 (08:05→19:56)
[2016-10-27] MEDS: Aspirin 81 MG Tab.EC PO SCH (08:06)
[2016-10-27] MEDS: Multivitamins with Iron/Calcium/Folic Acid/Minerals Tab PO SCH (08:06)
[2016-10-27] MEDS: predniSONE 20 MG Tab PO SCH (08:06)
[2016-10-27] MEDS: Venlafaxine 150 MG Cap.ER PO SCH (08:06)
[2016-10-27] MEDS: Calcium Carbonate/Vitamin D3 1500 MG-400 Units Tab PO SCH (08:06)
[2016-10-27] MEDS: guaiFENesin 600 MG Tab.ER PO SCH ×2 (08:08→19:56)
[2016-10-27] MEDS: Clopidogrel 75 MG Tab PO SCH (08:08)
[2016-10-27] MEDS: Sennosides 8.6 MG Tab PO SCH ×2 (08:09→20:00)
[2016-10-27] MEDS: Tamsulosin 0.4 MG Cap.ER PO SCH (08:09)
[2016-10-27] MEDS: QUEtiapine 25 MG Tab PO SCH (19:55)
[2016-10-27] MEDS: Simvastatin 40 MG Tab PO SCH (19:56)
[2016-10-27] MEDS: Pantoprazole 40 MG Tab.CR PO SCH (19:56)
[2016-10-27] MEDS: Mirtazapine 15 MG Tab PO SCH (19:56)
[2016-10-27] MEDS: Venlafaxine 75 MG Cap.ER PO SCH (19:56)
[2016-10-27] MEDS: Psyllium Husk Powder Sugar Free 5.85 GM Packet PO SCH (20:00)
[2016-10-28] MEDS: Calcium Carbonate/Vitamin D3 1500 MG-400 Units Tab PO SCH (08:19)
[2016-10-28] MEDS: Tamsulosin 0.4 MG Cap.ER PO SCH (08:19)
[2016-10-28] MEDS: Lisinopril 2.5 MG Tab PO SCH (08:19)
[2016-10-28] MEDS: guaiFENesin 600 MG Tab.ER PO SCH ×2 (08:20→19:21)
[2016-10-28] MEDS: Clopidogrel 75 MG Tab PO SCH (08:20)
[2016-10-28] MEDS: Furosemide 20 MG Tab PO PRN (08:20)
[2016-10-28] MEDS: Aspirin 81 MG Tab.EC PO SCH (08:20)
[2016-10-28] MEDS: Folic Acid 0.4 MG Tab PO SCH (08:20)
[2016-10-28] MEDS: Multivitamins with Iron/Calcium/Folic Acid/Minerals Tab PO SCH (08:20)
[2016-10-28] MEDS: Diltiazem 120 MG Cap.CD PO SCH (08:21)
[2016-10-28] MEDS: Venlafaxine 150 MG Cap.ER PO SCH (08:21)
[2016-10-28] MEDS: Carvedilol 25 MG Tab PO SCH ×2 (08:21→19:21)
[2016-10-28] MEDS: Sennosides 8.6 MG Tab PO SCH (19:20)
[2016-10-28] MEDS: Venlafaxine 75 MG Cap.ER PO SCH (19:20)
[2016-10-28] MEDS: Mirtazapine 15 MG Tab PO SCH (19:21)
[2016-10-28] MEDS: Pantoprazole 40 MG Tab.CR PO SCH (19:21)
[2016-10-28] MEDS: Simvastatin 40 MG Tab PO SCH (19:21)
[2016-10-28] MEDS: QUEtiapine 25 MG Tab PO SCH (19:21)
[2016-10-28] MEDS: Psyllium Husk Powder Sugar Free 5.85 GM Packet PO SCH (19:22)
[2016-10-29] MEDS: Clopidogrel 75 MG Tab PO SCH (07:48)
[2016-10-29] MEDS: Lisinopril 2.5 MG Tab PO SCH (07:48)
[2016-10-29] MEDS: Aspirin 81 MG Tab.EC PO SCH (07:48)
[2016-10-29] MEDS: Multivitamins with Iron/Calcium/Folic Acid/Minerals Tab PO SCH (07:49)
[2016-10-29] MEDS: Calcium Carbonate/Vitamin D3 1500 MG-400 Units Tab PO SCH (07:49)
[2016-10-29] MEDS: Carvedilol 25 MG Tab PO SCH ×2 (07:49→19:55)
[2016-10-29] MEDS: Sennosides 8.6 MG Tab PO SCH ×3 (07:49→19:52)
[2016-10-29] MEDS: Venlafaxine 150 MG Cap.ER PO SCH (07:49)
[2016-10-29] MEDS: Diltiazem 120 MG Cap.CD PO SCH (07:50)
[2016-10-29] MEDS: guaiFENesin 600 MG Tab.ER PO SCH ×2 (07:50→19:55)
[2016-10-29] MEDS: predniSONE 10 MG Tab PO SCH (07:50)
[2016-10-29] MEDS: Tamsulosin 0.4 MG Cap.ER PO SCH (07:50)
[2016-10-29] MEDS: Folic Acid 0.4 MG Tab PO SCH (07:51)
[2016-10-29] MEDS: predniSONE 20 MG Tab PO SCH (08:49)
--- NOTE | 2016-10-29 09:52 | PCM.PN ---
- General Info Date of Service: 10/29/16 Functional Status: Reports: pain controlled - Review of Systems General: Reports: Weakness HEENT: Reports: no symptoms Pulmonary: Reports: no symptoms Cardiovascular: Reports: No Symptoms Gastrointestinal: Reports: No symptoms Genitourinary: Reports: no symptoms Musculoskeletal: Reports: no symptoms Skin: Reports: no symptoms Neurological: Reports: Difficulty Walking, Other (clonus - history of mild clonus for many years worked up by [facility] without conclusions per patient and for the past few weeks since the 4 limb clonus has worsened) Psychiatric: Reports: no symptoms - Patient Data Vitals - most recent: Last Vital Signs Temp 36.3 C 10/29/16 08:00 Pulse 67 10/29/16 08:00 Resp 16 10/29/16 08:00 BP 126/48 L 10/29/16 08:00 Pulse Ox 98 10/29/16 08:00 Weight - most recent: 81.647 kg Med Orders - Current: Current Medications Acetaminophen (Tylenol Extra Strength) 500 mg PO QID PRN PRN Reason: Pain Albuterol/Ipratropium (Duoneb 3.0-0.5 Mg/3 Ml) 3 ml NEB Q4H PRN PRN Reason: Shortness of Breath Last Admin: 08/29/16 19:54 Dose: 3 ml Aspirin (Halfprin) 81 mg PO DAILY [facility] Last Admin: 10/29/16 07:48 Dose: 81 mg Calcium Carbonate (Caltrate 600+D 1500 Mg-400 Units) 1 tab PO DAILY [facility] Last Admin: 10/29/16 07:49 Dose: 1 tab Carvedilol (Coreg) 25 mg PO BID [facility] Last Admin: 10/29/16 07:49 Dose: 25 mg Clonazepam (Klonopin) 0.5 mg PO BID PRN PRN Reason: Anxiety Last Admin: 09/27/16 19:50 Dose: 0.5 mg Clopidogrel Bisulfate (Plavix) 75 mg PO DAILY [facility] Last Admin: 10/29/16 07:48 Dose: 75 mg Diltiazem HCl (Cardizem Cd) 120 mg PO DAILY [facility] Last Admin: 10/29/16 07:50 Dose: 120 mg Folic Acid (Folic Acid) 0.8 mg PO DAILY [facility] Last Admin: 10/29/16 07:51 Dose: 0.8 mg Furosemide (Lasix) 20 mg PO DAILY PRN PRN Reason: Other Last Admin: 10/28/16 08:20 Dose: 20 mg Guaifenesin (Mucinex) 600 mg PO BID [facility] Last Admin: 10/29/16 07:50 Dose: 600 mg Lisinopril (Prinivil) 2.5 mg PO DAILY [facility] Last Admin: 10/29/16 07:48 Dose: 2.5 mg Magnesium Hydroxide (Milk Of Magnesia) 30 ml PO Q4H PRN PRN Reason: Constipation Last Admin: 09/21/16 11:32 Dose: 30 ml Mirtazapine (Remeron) 15 mg PO QPM [facility] Last Admin: 10/28/16 19:21 Dose: 15 mg Multivitamins/Minerals (Thera M Plus) 1 tab PO DAILY [facility] Last Admin: 10/29/16 07:49 Dose: 1 tab Nitroglycerin (Nitrostat) 0.4 mg SL ASDIRECTED PRN PRN Reason: CHEST PAIN Oxycodone HCl (Oxycodone) 5 mg PO Q4H PRN PRN Reason: MODERATE PAIN Last Admin: 09/11/16 21:05 Dose: 5 mg Pantoprazole Sodium (Protonix) 40 mg PO QPM [facility] Last Admin: 10/28/16 19:21 Dose: 40 mg Prednisone (Prednisone) 10 mg PO DAILY [facility] Last Admin: 10/29/16 07:50 Dose: 10 mg Psyllium Husk (Metamucil Sugar Free) 1 pkt PO BEDTIME [facility] Last Admin: 10/28/16 19:22 Dose: Not Given Quetiapine Fumarate (Seroquel) 37.5 mg PO QPM [facility] Last Admin: 10/28/16 19:21 Dose: 37.5 mg Senna (Senna) 8.6 mg PO BID [facility] Last Admin: 10/29/16 07:52 Dose: Not Given Simvastatin (Zocor) 40 mg PO BEDTIME [facility] Last Admin: 10/28/16 19:21 Dose: 40 mg Tamsulosin HCl (Flomax) 0.8 mg PO DAILY [facility] Last Admin: 10/29/16 07:50 Dose: 0.8 mg Venlafaxine HCl (Effexor Xr) 75 mg PO BEDTIME [facility] Last Admin: 10/28/16 19:20 Dose: 75 mg Venlafaxine HCl (Effexor Xr) 150 mg PO DAILY [facility] Last Admin: 10/29/16 07:49 Dose: 150 mg Discontinued Medications Acetaminophen (Tylenol Extra Strength) 500 mg PO QID [facility] Last Admin: 09/19/16 16:21 Dose: Not Given Acetaminophen (Tylenol Extra Strength) Confirm Administered Dose 500 mg .ROUTE .STK-MED ONE Stop: 09/01/16 18:08 Last Admin: 09/01/16 18:40 Dose: Not Given Albuterol/Ipratropium (Duoneb 3.0-0.5 Mg/3 Ml) Confirm Administered Dose 3 ml .ROUTE .STK-MED ONE Stop: 08/28/16 13:49 Last Admin: 08/28/16 16:18 Dose: Not Given Clonazepam (Klonopin) 0.25 mg PO BID [facility] Last Admin: 08/30/16 08:22 Dose: 0.25 mg Clonazepam (Klonopin) 0.25 mg PO BID PRN PRN Reason: Insomnia Diazepam (Valium) 10 mg PO BEDTIME PRN PRN Reason: pain/spasms Last Admin: 08/29/16 20:00 Dose: 10 mg Diphenhydramine HCl (Benadryl) 50 mg PO ONETIME ONE Stop: 10/16/16 17:31 Last Admin: 10/16/16 17:51 Dose: 50 mg Enoxaparin Sodium (Lovenox) 40 mg SUBCUT DAILY [facility] Stop: 09/05/16 10:00 Last Admin: 09/05/16 08:36 Dose: 40 mg Folic Acid (Folic Acid) Confirm Administered Dose 0.4 mg .ROUTE .STK-MED ONE Stop: 10/04/16 07:55 Last Admin: 10/04/16 07:57 Dose: 0.4 mg Furosemide (Lasix) 20 mg PO DAILY PRN PRN Reason: edema Last Admin: 10/12/16 08:00 Dose: 20 mg Furosemide (Lasix) 20 mg PO ONETIME ONE Stop: 10/11/16 14:01 Last Admin: 10/11/16 16:44 Dose: Not Given Furosemide (Lasix) 40 mg PO BIDDIURETIC [facility] Stop: 10/18/19 16:01 Last Admin: 10/17/16 17:51 Dose: Not Given Furosemide (Lasix) Confirm Administered Dose 20 mg .ROUTE .STK-MED ONE Stop: 10/12/16 11:16 Last Admin: 10/12/16 11:17 Dose: 20 mg Furosemide (Lasix) 20 mg PO DAILY ONE Stop: 10/18/16 08:01 Furosemide (Lasix) 20 mg PO DAILY [facility] Last Admin: 10/19/16 07:39 Dose: 20 mg Guaifenesin (Mucinex) 600 mg PO Q12H [facility] Last Admin: 08/30/16 09:31 Dose: 600 mg Haloperidol (Haldol) 5 mg PO ONETIME ONE Stop: 08/28/16 19:34 Last Admin: 08/28/16 19:49 Dose: 5 mg Mirtazapine (Remeron) 7.5 mg PO BEDTIME [facility] Last Admin: 08/29/16 19:45 Dose: 7.5 mg Mirtazapine (Remeron) 15 mg PO BEDTIME [facility] Polyethylene Glycol (Miralax) 17 gm PO DAILY [facility] Stop: 09/08/16 18:00 Last Admin: 09/08/16 09:57 Dose: 17 gm Polyethylene Glycol (Miralax) Confirm Administered Dose 17 gm .ROUTE .STK-MED ONE Stop: 09/09/16 12:46 Last Admin: 09/09/16 12:50 Dose: 17 gm Prednisone (Prednisone) 40 mg PO DAILY [facility] Last Admin: 10/09/16 08:44 Dose: 40 mg Prednisone (Prednisone) Confirm Administered Dose 20 mg .ROUTE .STK-MED ONE Stop: 09/10/16 08:11 Last Admin: 09/10/16 08:10 Dose: Not Given Prednisone (Prednisone) 20 mg PO DAILY [facility] Last Admin: 10/19/16 07:21 Dose: 20 mg Prednisone (Prednisone) 10 mg PO DAILY [facility] Last Admin: 10/29/16 08:49 Dose: Not Given Psyllium Husk (Metamucil Sugar Free) 1 packet PO BEDTIME [facility] Quetiapine Fumarate (Seroquel) 25 mg PO DAILY [facility] Last Admin: 08/30/16 08:22 Dose: 25 mg Senna (Senna) 8.6 mg PO DAILY [facility] Last Admin: 10/09/16 07:31 Dose: 8.6 mg Tamsulosin HCl (Flomax) Confirm Administered Dose 0.4 mg .ROUTE .STK-MED ONE Stop: 10/25/16 07:25 Last Admin: 10/25/16 07:31 Dose: Not Given - Exam General: alert, oriented, cooperative HEENT: Pupils equal, Pupils reactive Lungs: Clear to auscultation, Normal respiratory effort Cardiovascular: Regular Rate, Regular Rhythm Abdomen: bowel sounds present Back Exam: Normal Inspection Extremities: no edema Peripheral Pulses: 2+: Dorsalis Pedis (L), Dorsalis Pedis (R) Skin: warm, dry, intact Neurological: other (left leg clonus; appears to be some form of clonus of the arms - mild; right leg clonus but unable to elicit with reflexes) Psy/Mental Status: alert, normal affect, normal mood - Problem List & Annotations (1) Fracture of femur SNOMED Code(s): 46471260 Code(s): S72.90XA - UNSP FRACTURE OF UNSP FEMUR, INIT ENCNTR FOR CLOSED FRACTURE Status: Chronic Priority: High Current Visit: Yes (2) Other specified rehabilitation procedure SNOMED Code(s): 186745434, 551554811 Code(s): Z51.89 - ENCOUNTER FOR OTHER SPECIFIED AFTERCARE Status: Acute Priority: High Current Visit: Yes (3) Edema extremities SNOMED Code(s): 484420498 Code(s): R60.0 - LOCALIZED EDEMA Status: Chronic Priority: Medium Current Visit: Yes (4) Spasmodic movement of extremities SNOMED Code(s): 458970514 Code(s): R25.2 - CRAMP AND SPASM Status: Acute Current Visit: Yes - Problem List Review Problem List Initiated/Reviewed/Updated: Yes - Assessment Assessment:: left femur fracture S/p reduction Muscle spasm of the lower extremities - Plan Plan:: [place] removed and steri-strips applied. wound appear clean and healthy. Also he has had psych eval today. His remeron has been increased to 15 mg and seroquel to 37.5 mg at bedtime. His klonopin is PRN and has discontinued his diazepam. Also he has had speech evaluation done today. recommended videoscopic swallow study for his choking episode. Will have it scheduled at [facility] for workup. 09/11/16 Continue with current management and PT. Patient is doing well and wound healing well also. No changes to management or medications. 09/17/16 Continue PT/OT. Patient discharge planning started. We will consider d/ c back to [facility] when ready. 09/24/16 Patient continues with improvement in strength and ADLs. We will continue PT/OT until patient is ready for discharge. 10/01/16 No changes with plan of care. Continue with PT/OT and management. Patient has shown improvement weekly. 10/11/16 Examined right foot color change - this is bruising likely due to increasing weight and use with toe-touch weight bearing and not because of a vascular concern. We will continue to monitor the right foot as needed. Patient denies any discomfort. There is b/l leg swelling that has increased the past few days but patient denies any sob or concerns. We will adjust lasix at this time - patient states he does have occasional leg swelling and he does take extra diuretics at those times at home. 10/19/16 Apparently patient has been on total of 80mg of lasix daily, which probably is the cause of the elevated creatinine and dropping GFR. at this point pt does not have pedal edema, so I have decreased lasix to 20mg as needed daily for edema. encourage oral fluids to hydrate, which should improve the renal functions. Also the tremor I see on todays exam have been chronic issue, and there has been no treatment plan per [facility] on this.Will try calling his neurologist at [place] on Saturday. I have recommended him to continue PT to improve strengthening. Also pt has been on prednisone 20mg daily, not sure, but will decrease it to 10mg daily, which probably can hamper with bone healing. 10/29/16 There has been no change to the clonus the patient states. It does appear intermittently and patient is at times able to create the clonus by certain movements. Once again there appears to be a positive left leg clonus on exam but not right despite all extremities showing some clonus on observation. Other than the tremors/clonus patient has been doing very well and would like to go out on a day pass with help transferring to the car and go to his storage unit without getting out of the car and return to the hospital after his outing at the storage unit. Patient cleared if he stays within the car during this trip and receives assistance into and out of the vehicle at the hospital.
[2016-10-29] MEDS: QUEtiapine 25 MG Tab PO SCH (19:51)
[2016-10-29] MEDS: Venlafaxine 75 MG Cap.ER PO SCH (19:53)
[2016-10-29] MEDS: Pantoprazole 40 MG Tab.CR PO SCH (19:53)
[2016-10-29] MEDS: Simvastatin 40 MG Tab PO SCH (19:53)
[2016-10-29] MEDS: Mirtazapine 15 MG Tab PO SCH (19:54)
[2016-10-29] MEDS: Psyllium Husk Powder Sugar Free 5.85 GM Packet PO SCH (19:54)
[2016-10-30] MEDS: Tamsulosin 0.4 MG Cap.ER PO SCH (07:25)
[2016-10-30] MEDS: Aspirin 81 MG Tab.EC PO SCH (07:25)
[2016-10-30] MEDS: Calcium Carbonate/Vitamin D3 1500 MG-400 Units Tab PO SCH (07:25)
[2016-10-30] MEDS: Multivitamins with Iron/Calcium/Folic Acid/Minerals Tab PO SCH (07:25)
[2016-10-30] MEDS: Carvedilol 25 MG Tab PO SCH ×2 (07:26→19:12)
[2016-10-30] MEDS: Folic Acid 0.4 MG Tab PO SCH (07:26)
[2016-10-30] MEDS: Lisinopril 2.5 MG Tab PO SCH (07:26)
[2016-10-30] MEDS: Venlafaxine 150 MG Cap.ER PO SCH (07:26)
[2016-10-30] MEDS: guaiFENesin 600 MG Tab.ER PO SCH ×2 (07:26→19:13)
[2016-10-30] MEDS: Clopidogrel 75 MG Tab PO SCH (07:26)
[2016-10-30] MEDS: predniSONE 10 MG Tab PO SCH (07:26)
[2016-10-30] MEDS: Sennosides 8.6 MG Tab PO SCH ×2 (07:26→19:13)
[2016-10-30] MEDS: Diltiazem 120 MG Cap.CD PO SCH (07:26)
[2016-10-30] MEDS: Furosemide 20 MG Tab PO PRN (07:27)
[2016-10-30] MEDS: Pantoprazole 40 MG Tab.CR PO SCH (19:12)
[2016-10-30] MEDS: QUEtiapine 25 MG Tab PO SCH (19:12)
[2016-10-30] MEDS: Mirtazapine 15 MG Tab PO SCH (19:13)
[2016-10-30] MEDS: Psyllium Husk Powder Sugar Free 5.85 GM Packet PO SCH (19:13)
[2016-10-30] MEDS: Venlafaxine 75 MG Cap.ER PO SCH (19:13)
[2016-10-30] MEDS: Simvastatin 40 MG Tab PO SCH (19:13)
[2016-10-31] MEDS: Multivitamins with Iron/Calcium/Folic Acid/Minerals Tab PO SCH (07:45)
[2016-10-31] MEDS: Aspirin 81 MG Tab.EC PO SCH (07:45)
[2016-10-31] MEDS: Folic Acid 0.4 MG Tab PO SCH (07:45)
[2016-10-31] MEDS: Calcium Carbonate/Vitamin D3 1500 MG-400 Units Tab PO SCH (07:47)
[2016-10-31] MEDS: Tamsulosin 0.4 MG Cap.ER PO SCH (07:47)
[2016-10-31] MEDS: guaiFENesin 600 MG Tab.ER PO SCH ×2 (07:47→19:54)
[2016-10-31] MEDS: Sennosides 8.6 MG Tab PO SCH ×2 (07:47→19:51)
[2016-10-31] MEDS: Clopidogrel 75 MG Tab PO SCH (07:47)
[2016-10-31] MEDS: Carvedilol 25 MG Tab PO SCH ×2 (07:47→19:52)
[2016-10-31] MEDS: Diltiazem 120 MG Cap.CD PO SCH (07:48)
[2016-10-31] MEDS: predniSONE 10 MG Tab PO SCH (07:48)
[2016-10-31] MEDS: Venlafaxine 150 MG Cap.ER PO SCH (07:48)
[2016-10-31] MEDS: Lisinopril 2.5 MG Tab PO SCH (07:49)
[2016-10-31] MEDS: Psyllium Husk Powder Sugar Free 5.85 GM Packet PO SCH (19:51)
[2016-10-31] MEDS: Mirtazapine 15 MG Tab PO SCH (19:54)
[2016-10-31] MEDS: Venlafaxine 75 MG Cap.ER PO SCH (19:55)
[2016-10-31] MEDS: QUEtiapine 25 MG Tab PO SCH (19:55)
[2016-10-31] MEDS: Pantoprazole 40 MG Tab.CR PO SCH (19:55)
[2016-10-31] MEDS: Simvastatin 40 MG Tab PO SCH (19:55)
[2016-11-01] MEDS: Folic Acid 0.4 MG Tab PO SCH (08:00)
[2016-11-01] MEDS: Multivitamins with Iron/Calcium/Folic Acid/Minerals Tab PO SCH (08:01)
[2016-11-01] MEDS: Aspirin 81 MG Tab.EC PO SCH (08:01)
[2016-11-01] MEDS: Tamsulosin 0.4 MG Cap.ER PO SCH (08:01)
[2016-11-01] MEDS: guaiFENesin 600 MG Tab.ER PO SCH ×2 (08:01→19:30)
[2016-11-01] MEDS: Calcium Carbonate/Vitamin D3 1500 MG-400 Units Tab PO SCH (08:01)
[2016-11-01] MEDS: Lisinopril 2.5 MG Tab PO SCH (08:02)
[2016-11-01] MEDS: predniSONE 10 MG Tab PO SCH (08:02)
[2016-11-01] MEDS: Diltiazem 120 MG Cap.CD PO SCH (08:02)
[2016-11-01] MEDS: Carvedilol 25 MG Tab PO SCH ×2 (08:03→19:32)
[2016-11-01] MEDS: Venlafaxine 150 MG Cap.ER PO SCH (08:03)
[2016-11-01] MEDS: Clopidogrel 75 MG Tab PO SCH (08:03)
[2016-11-01] MEDS: Sennosides 8.6 MG Tab PO SCH ×2 (08:04→19:32)
[2016-11-01] MEDS: Venlafaxine 75 MG Cap.ER PO SCH (19:27)
[2016-11-01] MEDS: Pantoprazole 40 MG Tab.CR PO SCH (19:28)
[2016-11-01] MEDS: Simvastatin 40 MG Tab PO SCH (19:29)
[2016-11-01] MEDS: Mirtazapine 15 MG Tab PO SCH (19:30)
[2016-11-01] MEDS: Psyllium Husk Powder Sugar Free 5.85 GM Packet PO SCH (19:30)
[2016-11-01] MEDS: QUEtiapine 25 MG Tab PO SCH (19:31)
[2016-11-02 07:47] VITALS: BP 150/63
[2016-11-02] MEDS: guaiFENesin 600 MG Tab.ER PO SCH (07:48)
[2016-11-02] MEDS: predniSONE 10 MG Tab PO SCH (07:48)
[2016-11-02] MEDS: Tamsulosin 0.4 MG Cap.ER PO SCH (07:49)
[2016-11-02] MEDS: Folic Acid 0.4 MG Tab PO SCH (07:49)
[2016-11-02] MEDS: Venlafaxine 150 MG Cap.ER PO SCH (07:50)
[2016-11-02] MEDS: Aspirin 81 MG Tab.EC PO SCH (07:50)
[2016-11-02] MEDS: Calcium Carbonate/Vitamin D3 1500 MG-400 Units Tab PO SCH (07:50)
[2016-11-02] MEDS: Multivitamins with Iron/Calcium/Folic Acid/Minerals Tab PO SCH (07:51)
[2016-11-02] MEDS: Clopidogrel 75 MG Tab PO SCH (07:51)
[2016-11-02] MEDS: Diltiazem 120 MG Cap.CD PO SCH (07:51)
[2016-11-02] MEDS: Carvedilol 25 MG Tab PO SCH (07:52)
[2016-11-02] MEDS: Lisinopril 2.5 MG Tab PO SCH (07:53)
[2016-11-02] MEDS: Sennosides 8.6 MG Tab PO SCH (07:53)
--- NOTE | 2016-11-02 10:39 | PCM.DCSUM1 ---
Discharge Summary - Discharge Data Discharge Date: 11/02/16 Discharge Disposition: Home, Self-Care 01 Condition: Good - Discharge Diagnosis/Problem(s) (1) Fracture of femur SNOMED Code(s): 13204046 ICD Code: S72.90XA - UNSP FRACTURE OF UNSP FEMUR, INIT ENCNTR FOR CLOSED FRACTURE Status: Chronic Priority: High (2) Other specified rehabilitation procedure SNOMED Code(s): 164154715, 905103869 ICD Code: Z51.89 - ENCOUNTER FOR OTHER SPECIFIED AFTERCARE Status: Acute Priority: High (3) Edema extremities SNOMED Code(s): 659267960 ICD Code: R60.0 - LOCALIZED EDEMA Status: Chronic Priority: Medium (4) Spasmodic movement of extremities SNOMED Code(s): 835812444 ICD Code: R25.2 - CRAMP AND SPASM Status: Acute - Patient Summary/Data Consults: Consultations 08/27/16 10:10 OT Evaluation and Treatment [CONS] Routine Please Evaluate and Treat. OT Reason for Consult: ADL's This query below is only for informational purposes and is not editable. Admission Diagnosis/Problem: Pain management PT Evaluation and Treatment [CONS] Routine Please Evaluate and Treat. PT Reason for Consult: Strengthening This query below is only for informational purposes and is not editable. Admission Diagnosis/Problem: Pain management 08/29/16 15:13 Consult to Psychiatric Intake Coord [Behavioral Health Evaluation] [CONS] Routine Comment: Physician Instructions: Quantity: Reason for Consult: extreme agitation, abusive behaviour towards staff at the hospita 08/30/16 08:44 Consult to Speech Language Pathology [GOVERNMENT AFFAIRS SPECIALIST Evaluation and Treatment] [CONS] Routine Please Evaluate and Treat GOVERNMENT AFFAIRS SPECIALIST Reason for Consult: Swallow This query below is only for informational purposes and is not editable. Admission Diagnosis/Problem: Pain management - Patient Instructions Diet: Usual Diet as Tolerated Activity: As Tolerated Driving: Do Not Drive Notify Provider of: Fever - Discharge Plan Prescriptions/Med Rec: Furosemide [Lasix] 20 mg PO DAILY PRN #30 tab PRN Reason: Edema Simvastatin [Zocor] 40 mg PO BEDTIME #30 tab Home Medications: Home Meds Aspirin [Low Dose Aspirin EC] 81 mg PO DAILY 06/03/13 [History] Folic Acid 0.8 mg PO DAILY 06/03/13 [History] Lisinopril 2.5 mg PO DAILY 06/03/13 [History] Nitroglycerin [Nitrolingual [place]] 1 spray TRLING ASDIRECTED PRN 06/03/13 [ History] Tamsulosin [Flomax] 0.8 mg PO DAILY 06/03/13 [History] Venlafaxine [Effexor XR] 75 mg PO BEDTIME 06/03/13 [History] Venlafaxine [Effexor XR] 150 mg PO DAILY 06/03/13 [History] Clopidogrel [Plavix] 75 mg PO DAILY 06/22/16 [History] Multivitamin [Multivitamins] 1 each PO DAILY 06/22/16 [History] Pantoprazole Sodium 40 mg PO QPM 06/22/16 [History] Acetaminophen [Tylenol Extra Strength] 500 mg PO QID 08/20/16 [History] Calcium Carbonate/Vitamin D3 [Caltrate 600+D 1500 MG-400 Units] 1 tab PO DAILY 08/20/16 [History] Carvedilol [Coreg] 25 mg PO BID 08/20/16 [History] Diltiazem [Cardizem] 120 mg PO DAILY 08/20/16 [History] Furosemide [Lasix] 20 mg PO DAILY PRN #30 tab 11/02/16 [Rx] Mirtazapine 15 mg PO QPM #0 11/02/16 [Rx] QUEtiapine [SEROquel] 37.5 mg PO BEDTIME 11/02/16 [History] Sennosides [Senokot] 8.6 mg PO BID #0 11/02/16 [Rx] Simvastatin [Zocor] 40 mg PO BEDTIME #30 tab 11/02/16 [Rx] - Discharge Summary/Plan Comment DC Time >30 min.: Yes Discharge Summary/Plan Comment: Discussed plan of care, PT/OT and further f/u with PCP and rechecks with Ortho. Patient agrees with plan and f/u. - Patient Data Vitals - Most Recent: Last Vital Signs Temp 36.6 C 11/02/16 07:45 Pulse 87 11/02/16 07:51 Resp 16 11/02/16 07:45 BP 150/63 H 11/02/16 07:51 Pulse Ox 100 11/01/16 19:41 Weight - Most Recent: 82.214 kg Med Orders - Current: Current Medications Acetaminophen (Tylenol Extra Strength) 500 mg PO QID PRN PRN Reason: Pain Albuterol/Ipratropium (Duoneb 3.0-0.5 Mg/3 Ml) 3 ml NEB Q4H PRN PRN Reason: Shortness of Breath Last Admin: 08/29/16 19:54 Dose: 3 ml Aspirin (Halfprin) 81 mg PO DAILY [facility] Last Admin: 11/02/16 07:50 Dose: 81 mg Calcium Carbonate (Caltrate 600+D 1500 Mg-400 Units) 1 tab PO DAILY [facility] Last Admin: 11/02/16 07:50 Dose: 1 tab Carvedilol (Coreg) 25 mg PO BID [facility] Last Admin: 11/02/16 07:52 Dose: Not Given Clonazepam (Klonopin) 0.5 mg PO BID PRN PRN Reason: Anxiety Last Admin: 09/27/16 19:50 Dose: 0.5 mg Clopidogrel Bisulfate (Plavix) 75 mg PO DAILY [facility] Last Admin: 11/02/16 07:51 Dose: 75 mg Diltiazem HCl (Cardizem Cd) 120 mg PO DAILY [facility] Last Admin: 11/02/16 07:51 Dose: 120 mg Folic Acid (Folic Acid) 0.8 mg PO DAILY [facility] Last Admin: 11/02/16 07:49 Dose: 0.8 mg Furosemide (Lasix) 20 mg PO DAILY PRN PRN Reason: Other Last Admin: 10/30/16 07:27 Dose: 20 mg Guaifenesin (Mucinex) 600 mg PO BID [facility] Last Admin: 11/02/16 07:48 Dose: 600 mg Lisinopril (Prinivil) 2.5 mg PO DAILY [facility] Last Admin: 11/02/16 07:53 Dose: Not Given Magnesium Hydroxide (Milk Of Magnesia) 30 ml PO Q4H PRN PRN Reason: Constipation Last Admin: 09/21/16 11:32 Dose: 30 ml Mirtazapine (Remeron) 15 mg PO QPM [facility] Last Admin: 11/01/16 19:30 Dose: 15 mg Multivitamins/Minerals (Thera M Plus) 1 tab PO DAILY [facility] Last Admin: 11/02/16 07:51 Dose: 1 tab Nitroglycerin (Nitrostat) 0.4 mg SL ASDIRECTED PRN PRN Reason: CHEST PAIN Oxycodone HCl (Oxycodone) 5 mg PO Q4H PRN PRN Reason: MODERATE PAIN Last Admin: 09/11/16 21:05 Dose: 5 mg Pantoprazole Sodium (Protonix) 40 mg PO QPM [facility] Last Admin: 11/01/16 19:28 Dose: 40 mg Prednisone (Prednisone) 10 mg PO DAILY [facility] Last Admin: 11/02/16 07:48 Dose: 10 mg Psyllium Husk (Metamucil Sugar Free) 1 pkt PO BEDTIME [facility] Last Admin: 11/01/16 19:30 Dose: Not Given Quetiapine Fumarate (Seroquel) 37.5 mg PO QPM [facility] Last Admin: 11/01/16 19:31 Dose: 37.5 mg Senna (Senna) 8.6 mg PO BID [facility] Last Admin: 11/02/16 07:53 Dose: Not Given Simvastatin (Zocor) 40 mg PO BEDTIME [facility] Last Admin: 11/01/16 19:29 Dose: 40 mg Tamsulosin HCl (Flomax) 0.8 mg PO DAILY [facility] Last Admin: 11/02/16 07:49 Dose: 0.8 mg Venlafaxine HCl (Effexor Xr) 75 mg PO BEDTIME [facility] Last Admin: 11/01/16 19:27 Dose: 75 mg Venlafaxine HCl (Effexor Xr) 150 mg PO DAILY [facility] Last Admin: 11/02/16 07:50 Dose: 150 mg Discontinued Medications Acetaminophen (Tylenol Extra Strength) 500 mg PO QID [facility] Last Admin: 09/19/16 16:21 Dose: Not Given Acetaminophen (Tylenol Extra Strength) Confirm Administered Dose 500 mg .ROUTE .STK-MED ONE Stop: 09/01/16 18:08 Last Admin: 09/01/16 18:40 Dose: Not Given Albuterol/Ipratropium (Duoneb 3.0-0.5 Mg/3 Ml) Confirm Administered Dose 3 ml .ROUTE .STK-MED ONE Stop: 08/28/16 13:49 Last Admin: 08/28/16 16:18 Dose: Not Given Clonazepam (Klonopin) 0.25 mg PO BID [facility] Last Admin: 08/30/16 08:22 Dose: 0.25 mg Clonazepam (Klonopin) 0.25 mg PO BID PRN PRN Reason: Insomnia Diazepam (Valium) 10 mg PO BEDTIME PRN PRN Reason: pain/spasms Last Admin: 08/29/16 20:00 Dose: 10 mg Diphenhydramine HCl (Benadryl) 50 mg PO ONETIME ONE Stop: 10/16/16 17:31 Last Admin: 10/16/16 17:51 Dose: 50 mg Enoxaparin Sodium (Lovenox) 40 mg SUBCUT DAILY [facility] Stop: 09/05/16 10:00 Last Admin: 09/05/16 08:36 Dose: 40 mg Folic Acid (Folic Acid) Confirm Administered Dose 0.4 mg .ROUTE .STK-MED ONE Stop: 10/04/16 07:55 Last Admin: 10/04/16 07:57 Dose: 0.4 mg Furosemide (Lasix) 20 mg PO DAILY PRN PRN Reason: edema Last Admin: 10/12/16 08:00 Dose: 20 mg Furosemide (Lasix) 20 mg PO ONETIME ONE Stop: 10/11/16 14:01 Last Admin: 10/11/16 16:44 Dose: Not Given Furosemide (Lasix) 40 mg PO BIDDIURETIC [facility] Stop: 10/18/19 16:01 Last Admin: 10/17/16 17:51 Dose: Not Given Furosemide (Lasix) Confirm Administered Dose 20 mg .ROUTE .STK-MED ONE Stop: 10/12/16 11:16 Last Admin: 10/12/16 11:17 Dose: 20 mg Furosemide (Lasix) 20 mg PO DAILY ONE Stop: 10/18/16 08:01 Furosemide (Lasix) 20 mg PO DAILY [facility] Last Admin: 10/19/16 07:39 Dose: 20 mg Guaifenesin (Mucinex) 600 mg PO Q12H [facility] Last Admin: 08/30/16 09:31 Dose: 600 mg Haloperidol (Haldol) 5 mg PO ONETIME ONE Stop: 08/28/16 19:34 Last Admin: 08/28/16 19:49 Dose: 5 mg Mirtazapine (Remeron) 7.5 mg PO BEDTIME [facility] Last Admin: 08/29/16 19:45 Dose: 7.5 mg Mirtazapine (Remeron) 15 mg PO BEDTIME [facility] Polyethylene Glycol (Miralax) 17 gm PO DAILY [facility] Stop: 09/08/16 18:00 Last Admin: 09/08/16 09:57 Dose: 17 gm Polyethylene Glycol (Miralax) Confirm Administered Dose 17 gm .ROUTE .STK-MED ONE Stop: 09/09/16 12:46 Last Admin: 09/09/16 12:50 Dose: 17 gm Prednisone (Prednisone) 40 mg PO DAILY [facility] Last Admin: 10/09/16 08:44 Dose: 40 mg Prednisone (Prednisone) Confirm Administered Dose 20 mg .ROUTE .STK-MED ONE Stop: 09/10/16 08:11 Last Admin: 09/10/16 08:10 Dose: Not Given Prednisone (Prednisone) 20 mg PO DAILY [facility] Last Admin: 10/19/16 07:21 Dose: 20 mg Prednisone (Prednisone) 10 mg PO DAILY [facility] Last Admin: 10/29/16 08:49 Dose: Not Given Psyllium Husk (Metamucil Sugar Free) 1 packet PO BEDTIME [facility] Quetiapine Fumarate (Seroquel) 25 mg PO DAILY [facility] Last Admin: 08/30/16 08:22 Dose: 25 mg Senna (Senna) 8.6 mg PO DAILY [facility] Last Admin: 10/09/16 07:31 Dose: 8.6 mg Tamsulosin HCl (Flomax) Confirm Administered Dose 0.4 mg .ROUTE .Impact Driven-MED ONE Stop: 10/25/16 07:25 Last Admin: 10/25/16 07:31 Dose: Not Given *Q Meaningful Use (DIS) - VTE *Q VTE Criteria *Q: - Stroke *Q Stroke Criteria *Q: - AMI *Q AMI Criteria *Q:
== END 2016-11-02 10:32 | disposition home or self-care (01) | DRG 560 ==
LOC: LB.MS 10:10
PROVIDERS: ADMIT Family Medicine; ATTEND Family Medicine
DX: Z47.1 Aftercare following joint replacement surgery (principal); F33.3 Major depressive disorder, recurrent, severe with psychotic symptoms; Z96.642 Presence of left artificial hip joint; Z79.899 Other long term (current) drug therapy; Z87.01 Personal history of pneumonia (recurrent); Z86.73 Personal history of transient ischemic attack (TIA), and cerebral infarction without residual deficits; F29 Unspecified psychosis not due to a substance or known physiological condition; F41.9 Anxiety disorder, unspecified; R45.1 Restlessness and agitation; R13.10 Dysphagia, unspecified; K59.00 Constipation, unspecified; R60.0 Localized edema; R25.2 Cramp and spasm; Z79.82 Long term (current) use of aspirin; Z79.02 Long term (current) use of antithrombotics/antiplatelets; Z79.01 Long term (current) use of anticoagulants; Z79.52 Long term (current) use of systemic steroids
CPT/HCPCS: 36415; 80053; 92507-GN; 92523-GN; 92526-GN; 92610-GN; 97110-GO; 97110-GP; 97116-GP; 97530-GO; 97530-GP; 97535-GO; A9270-GY; G0426; J1650; J7620

== ENCOUNTER 2016-11-05 11:54 | Inpatient (IN) | payer MEDICARE, OTHER, MEDICAID ==
--- NOTE | 2016-11-06 09:37 | PCM.HP ---
H&P History of Present Illness - General Date of Service: 11/05/16 Admit Problem/Dx: Admission Diagnosis/Problem Admission Diagnosis/Problem Weakness Source of Information: Patient, Old Records, RN, RN Notes Reviewed History Limitations: Reports: No Limitations - History of Present Illness Initial Comments - Free Text/Narative: This is an 81yo M who called 911 in his [place] apartment as he states he slid down due to his weakness of his legs and was unable to get back up. He feels very weak but denies other issues or concerns. He was recently discharged from rehab due to a femur fracture. Onset of Symptoms: Reports: Sudden Duration of Symptoms: Reports: Hour(s): Location: Reports: Lower Extremity, Left, Lower Extremity, Right Severity: Severe Improves with: Reports: None Worsens with: Reports: None Context: Reports: Activity/Exercise Associated Symptoms: Reports: No Other Symptoms - Related Data Allergies/Adverse Reactions: Allergies Allergy/AdvReac Type Severity Reaction Status Date / Time eszopiclone [From Lunesta] Allergy Cannot Verified 11/06/16 07:23 Remember metoprolol Allergy Cannot Verified 11/06/16 07:23 Remember sertraline HCl [From Zoloft] Allergy Cannot Verified 11/06/16 07:23 Remember Home Medications: Home Meds Aspirin [Low Dose Aspirin EC] 81 mg PO DAILY 06/03/13 [History] Folic Acid 0.8 mg PO DAILY 06/03/13 [History] Lisinopril 2.5 mg PO DAILY 06/03/13 [History] Nitroglycerin [Nitrolingual [place]] 1 spray TRLING ASDIRECTED PRN 06/03/13 [ History] Tamsulosin [Flomax] 0.8 mg PO DAILY 06/03/13 [History] Venlafaxine [Effexor XR] 75 mg PO BEDTIME 06/03/13 [History] Venlafaxine [Effexor XR] 150 mg PO DAILY 06/03/13 [History] Clopidogrel [Plavix] 75 mg PO DAILY 06/22/16 [History] Multivitamin [Multivitamins] 1 each PO DAILY 06/22/16 [History] Pantoprazole Sodium 40 mg PO QPM 06/22/16 [History] Acetaminophen [Tylenol Extra Strength] 500 mg PO QID 08/20/16 [History] Calcium Carbonate/Vitamin D3 [Caltrate 600+D 1500 MG-400 Units] 1 tab PO DAILY 08/20/16 [History] Carvedilol [Coreg] 25 mg PO BID 08/20/16 [History] Diltiazem [Cardizem] 120 mg PO DAILY 08/20/16 [History] Furosemide [Lasix] 20 mg PO DAILY PRN #30 tab 11/02/16 [Rx] Mirtazapine 15 mg PO QPM #0 11/02/16 [Rx] QUEtiapine [SEROquel] 37.5 mg PO BEDTIME 11/02/16 [History] Sennosides [Senokot] 8.6 mg PO BID #0 11/02/16 [Rx] Simvastatin [Zocor] 40 mg PO BEDTIME #30 tab 11/02/16 [Rx] Past Medical History HEENT History: Reports: Hard of Hearing, Impaired Vision Cardiovascular History: Reports: CAD, Hypertension, Stents Respiratory History: Reports: Asthma, SOB Gastrointestinal History: Reports: GERD, Other (See Below) Other Gastrointestinal History: barretts esophagus Musculoskeletal History: Reports: Arthritis, Fracture, Other (See Below) Other Musculoskeletal History: frequent falls Neurological History: Reports: Headaches, Chronic, Other (See Below) Other Neuro History: occipital neuralgia Psychiatric History: Reports: ADHD, Aggressive/Hostile Behaviors, Anxiety, Depression, Mood Swings Endocrine/Metabolic History: Reports: Diabetes, Type II Hematologic History: Reports: Anticoagulation Therapy - Infectious Disease History Infectious Disease History: Reports: Chicken Pox, Influenza, Measles, Mumps - Past Surgical History Cardiovascular Surgical History: Reports: Carotid Stents GI Surgical History: Reports: Colonoscopy, Hernia, Abdominal Male Surgical History: Reports: Vasectomy Neurological Surgical History: Reports: Other (See Below) Musculoskeletal Surgical History: Reports: Hip Replacement, ORIF Social & Family History - Family History Family Medical History: Noncontributory - Tobacco Use Smoking Status *Q: Never Smoker Second Hand Smoke Exposure: No - Caffeine Use Caffeine Use: Reports: Coffee Other Caffeine Use: 2-3 cups a day - Alcohol Use Days Per Week of Alcohol Use: 1 Number of Drinks Per Day: 1 Total Drinks Per Week: 1 - Recreational Drug Use Recreational Drug Use: No H&P Review of Systems - Review of Systems: Review Of Systems: ROS reveals no pertinent complaints other than HPI. Exam - Exam Exam: See Below - Vital Signs Vital Signs: Last Vital Signs Temp 37.7 C 11/06/16 08:00 Pulse 80 11/06/16 08:00 Resp 16 11/06/16 08:00 BP 141/47 H 11/06/16 08:00 Pulse Ox 96 11/06/16 08:00 Weight: 81.193 kg - Exam General: Alert, Oriented, Cooperative HEENT: PERRLA, Conjunctiva Clear Neck: Supple, Trachea Midline Lungs: Clear to Auscultation, Normal Respiratory Effort Cardiovascular: Regular Rate Abdomen: Normal Bowel Sounds Back Exam: Normal Inspection, Full Range of Motion Extremities: Edema Peripheral Pulses: 1+: Dorsalis Pedis (L), Dorsalis Pedis (R) Skin: Warm, Dry, Intact Neurological: Cranial Nerves Intact, Reflexes Equal Bilateral Neuro Extensive - Mental Status: Alert, Oriented x3, Normal Mood/Affect, Normal Cognition Psychiatric: Alert, Normal Affect, Normal Mood - Patient Data Result Diagrams: 11/06/16 09:30 11/06/16 09:30 *Q Meaningful Use (ADM) - VTE *Q VTE Criteria *Q: - Stroke *Q Stroke Criteria *Q: - AMI *Q AMI Criteria *Q: - Problem List (1) Edema extremities SNOMED Code(s): 807884239 ICD Code: R60.0 - LOCALIZED EDEMA Status: Chronic Priority: Medium Current Visit: No (2) Weakness of both legs SNOMED Code(s): 9358237 ICD Code: R29.898 - OTH SYMPTOMS AND SIGNS INVOLVING THE MUSCULOSKELETAL SYSTEM Status: Acute Priority: High Current Visit: Yes Problem List Initiated/Reviewed/Updated: Yes Orders Last 24hrs: Active Orders 24 hr Category Date Time Status Admission Status [Patient Status] [ADT] Routine ADT 11/05/16 21:50 Active B-TYPE NATRIURETIC PEPTIDE,BNP [CHEM] Routine Lab 11/06/16 09:25 Ordered CBC WITH AUTO DIFF [HEME] Routine Lab 11/06/16 09:25 Ordered COMPREHENSIVE METABOLIC PN,CMP [CHEM] Routine Lab 11/06/16 09:25 Ordered CULTURE MRSA SURVEY [RM] Routine Lab 11/06/16 Received TSH ULTRASENSITIVE [CHEM] Routine Lab 11/06/16 09:25 Ordered Assessment/Plan Comment:: Patient to be placed in observation for weakness and monitoring. Patient denies other issues at this time and agrees with plan of care. We will f/u baseline labs in am and for weakness.
[2016-11-06] MEDS ORDERED: Furosemide 20 MG Tab PO PRN (09:43)
[2016-11-06] MEDS ORDERED: NITROGLYCERIN TRLING PRN (09:43)
[2016-11-06] MEDS ORDERED: Carvedilol 25 MG Tab PO SCH (09:45)
[2016-11-06] MEDS ORDERED: Non-Formulary Medication 1 Each (Multivitamin [Multivitamins] 1 EACH) PO SCH (09:45)
--- NOTE | 2016-11-06 10:19 | PCM.PN ---
- General Info Date of Service: 11/06/16 Subjective Update: Patient was initially placed in observation for weakness as patient states he slowly slid down and was not able to get up due to weakness of the legs. We obtained labs today as a baseline and for further workup of this new onset weakness. - Review of Systems General: Reports: Weakness HEENT: Reports: no symptoms Pulmonary: Reports: no symptoms Cardiovascular: Reports: No Symptoms Gastrointestinal: Reports: No symptoms Genitourinary: Reports: no symptoms Musculoskeletal: Reports: no symptoms Skin: Reports: no symptoms Neurological: Reports: Difficulty Walking, Weakness Psychiatric: Reports: no symptoms - Patient Data Vitals - most recent: Last Vital Signs Temp 37.7 C 11/06/16 08:00 Pulse 80 11/06/16 08:00 Resp 16 11/06/16 08:00 BP 141/47 H 11/06/16 08:00 Pulse Ox 96 11/06/16 08:00 Weight - most recent: 81.193 kg Med Orders - Current: Current Medications Acetaminophen (Tylenol Extra Strength) 500 mg PO QID [facility] Aspirin (Halfprin) 81 mg PO DAILY [facility] Calcium Carbonate (Caltrate 600+D 1500 Mg-400 Units) 1 tab PO DAILY [facility] Carvedilol (Coreg) 25 mg PO BID [facility] Clopidogrel Bisulfate (Plavix) 75 mg PO DAILY [facility] Folic Acid (Folic Acid) 0.8 mg PO DAILY [facility] Furosemide (Lasix) 20 mg PO DAILY PRN PRN Reason: Edema Lisinopril (Prinivil) 2.5 mg PO DAILY [facility] Non-Formulary Medication (Diltiazem [Cardizem]) 120 mg PO DAILY [facility] (Mirtazapine [ (Mirtazapine] 15 Mg)) 15 mg PO QPM [facility] Non-Formulary Medication (Multivitamin [Multivitamins]) 1 each PO DAILY [facility] Non-Formulary Medication (Nitroglycerin [Nitrolingual [place]]) 1 spray TRLING ASDIRECTED PRN PRN Reason: Chest Pain Pantoprazole Sodium (Protonix) 40 mg PO QPM [facility] Quetiapine Fumarate (Seroquel) 37.5 mg PO BEDTIME [facility] Senna (Senna) 8.6 mg PO BID [facility] Simvastatin (Zocor) 40 mg PO BEDTIME [facility] Tamsulosin HCl (Flomax) 0.8 mg PO DAILY [facility] Venlafaxine HCl (Effexor Xr) 75 mg PO BEDTIME [facility] Venlafaxine HCl (Effexor Xr) 150 mg PO DAILY [facility] - Exam General: alert, oriented HEENT: EOMI Lungs: Clear to auscultation, Normal respiratory effort Cardiovascular: Regular Rate, Regular Rhythm Abdomen: bowel sounds present, soft, no tenderness Back Exam: Normal Inspection Extremities: no edema Peripheral Pulses: 1+: Dorsalis Pedis (L), Dorsalis Pedis (R) Skin: warm, dry, intact Neurological: no new focal deficit Psy/Mental Status: alert, normal affect, normal mood - Problem List & Annotations (1) CHF exacerbation SNOMED Code(s): 79841656 Code(s): I50.9 - HEART FAILURE, UNSPECIFIED Status: Suspected Priority: High Current Visit: Yes Qualifiers: Congestive heart failure type: diastolic Qualified Code(s): I50.33 - Acute on chronic diastolic (congestive) heart failure Annotation/Comment:: Suspect acute on chronic hearth failure with exacerbation from anemia. (2) Anemia SNOMED Code(s): 649506309 Code(s): D64.9 - ANEMIA, UNSPECIFIED Status: Acute Priority: High Current Visit: Yes Qualifiers: Anemia type: unspecified type Qualified Code(s): D64.9 - Anemia, unspecified (3) Weakness of both legs SNOMED Code(s): 9292230 Code(s): R29.898 - OTH SYMPTOMS AND SIGNS INVOLVING THE MUSCULOSKELETAL SYSTEM Status: Acute Priority: High Current Visit: Yes - Problem List Review Problem List Initiated/Reviewed/Updated: Yes - My Orders Last 24 Hours: My Active Orders 11/05/16 21:50 Admission Status [Patient Status] [ADT] Routine 11/06/16 CULTURE MRSA SURVEY [RM] Routine 11/06/16 09:25 B-TYPE NATRIURETIC PEPTIDE,BNP [CHEM] Routine CBC WITH AUTO DIFF [HEME] Routine COMPREHENSIVE METABOLIC PN,CMP [CHEM] Routine TSH ULTRASENSITIVE [CHEM] Routine 11/06/16 09:42 OT Evaluation and Treatment [CONS] Routine PT Evaluation and Treatment [CONS] Routine 11/06/16 09:43 Furosemide [Lasix] 20 mg PO DAILY PRN Nitroglycerin [Nitrolingual [place]] 1 spray TRLING ASDIRECTED PRN 11/06/16 09:45 Aspirin [Halfprin] 81 mg PO DAILY Calcium Carbonate/Vitamin D3 [Caltrate 600+D 1500 MG-400 Units] 1 tab PO DAILY Carvedilol [Coreg] 25 mg PO BID Clopidogrel [Plavix] 75 mg PO DAILY Diltiazem [Cardizem] 120 mg PO DAILY Folic Acid 0.8 mg PO DAILY Lisinopril [Prinivil] 2.5 mg PO DAILY Multivitamin [Multivitamins] 1 each PO DAILY Sennosides [Senna] 8.6 mg PO BID Tamsulosin [Flomax] 0.8 mg PO DAILY Venlafaxine [Effexor XR] 150 mg PO DAILY 11/06/16 12:00 Acetaminophen [Tylenol Extra Strength] 500 mg PO QID 11/06/16 20:00 Mirtazapine [Mirtazapine] 15 mg PO QPM Pantoprazole [ProTONIX] 40 mg PO QPM QUEtiapine [SEROquel] 37.5 mg PO BEDTIME Simvastatin [Zocor] 40 mg PO BEDTIME Venlafaxine [Effexor XR] 75 mg PO BEDTIME - Plan Plan:: Patient to be admitted for CHF exacerbation. We will also transfuse 2 units of blood with some diuresis. PT/OT ordered. Repeat labs in am.
[2016-11-06] MEDS ORDERED: Nitroglycerin 0.4 MG Tab.SL SL PRN (10:36)
[2016-11-06] MEDS: Clopidogrel 75 MG Tab PO SCH (11:12)
[2016-11-06] MEDS: Venlafaxine 150 MG Cap.ER PO SCH (11:12)
[2016-11-06] MEDS: Folic Acid 0.4 MG Tab PO SCH (11:12)
[2016-11-06] MEDS: Sennosides 8.6 MG Tab PO SCH ×2 (11:12→19:56)
[2016-11-06] MEDS: Aspirin 81 MG Tab.EC PO SCH (11:13)
[2016-11-06] MEDS: Tamsulosin 0.4 MG Cap.ER PO SCH (11:13)
[2016-11-06] MEDS: Acetaminophen 500 MG Tab PO SCH ×3 (11:13→19:57)
[2016-11-06] MEDS: Lisinopril 2.5 MG Tab PO SCH (11:14)
[2016-11-06] MEDS: VIT D3 PO SCH (11:16)
[2016-11-06] MEDS: Calcium Carbonate/Vitamin D3 1500 MG-400 Units Tab PO SCH (11:16)
[2016-11-06] MEDS: CALCIUM PO SCH (11:16)
[2016-11-06] MEDS: Multivitamins with Iron/Calcium/Folic Acid/Minerals Tab PO SCH (11:16)
[2016-11-06] MEDS: Furosemide 20 MG/2 ML VIAL IVPUSH SCH (17:33)
[2016-11-06] MEDS: Simvastatin 40 MG Tab PO SCH (19:56)
[2016-11-06] MEDS: Carvedilol 25 MG Tab PO SCH (19:56)
[2016-11-06] MEDS: Venlafaxine 75 MG Cap.ER PO SCH (19:56)
[2016-11-06] MEDS: Mirtazapine 15 MG Tab PO SCH (19:57)
[2016-11-06] MEDS: QUEtiapine 25 MG Tab PO SCH (19:57)
[2016-11-06] MEDS: Pantoprazole 40 MG Tab.CR PO SCH (19:57)
[2016-11-06] MEDS ORDERED: Carvedilol 12.5 MG Tab PO SCH (20:00)
[2016-11-07] MEDS: Tamsulosin 0.4 MG Cap.ER PO SCH (08:05)
[2016-11-07] MEDS: Clopidogrel 75 MG Tab PO SCH (08:06)
[2016-11-07] MEDS: Carvedilol 25 MG Tab PO SCH ×2 (08:06→19:19)
[2016-11-07] MEDS: Acetaminophen 500 MG Tab PO SCH ×4 (08:06→19:21)
[2016-11-07] MEDS: Venlafaxine 150 MG Cap.ER PO SCH (08:06)
[2016-11-07] MEDS: Lisinopril 2.5 MG Tab PO SCH (08:06)
[2016-11-07] MEDS: Aspirin 81 MG Tab.EC PO SCH (08:06)
[2016-11-07] MEDS: Calcium Carbonate/Vitamin D3 1500 MG-400 Units Tab PO SCH (08:06)
[2016-11-07] MEDS: Multivitamins with Iron/Calcium/Folic Acid/Minerals Tab PO SCH (08:06)
[2016-11-07] MEDS: Sennosides 8.6 MG Tab PO SCH ×2 (08:06→19:20)
[2016-11-07] MEDS: Folic Acid 0.4 MG Tab PO SCH (08:07)
[2016-11-07] MEDS: Furosemide 20 MG/2 ML VIAL IVPUSH SCH (08:08)
[2016-11-07] MEDS: VIT D3 PO SCH (08:10)
[2016-11-07] MEDS: CALCIUM PO SCH (08:10)
--- NOTE | 2016-11-07 11:04 | PCM.PN ---
- General Info Date of Service: 11/07/16 Subjective Update: This is an 81yo M who appears greatly improved from his transfusion and able to get up and walk short distances but states he does not have the strength and does not feel up to it. Patient denies any acute concerns or issues. Functional Status: Reports: tolerating diet, ambulating - Review of Systems General: Reports: Weakness HEENT: Reports: no symptoms Pulmonary: Reports: no symptoms Cardiovascular: Reports: No Symptoms Gastrointestinal: Reports: No symptoms Genitourinary: Reports: frequency Musculoskeletal: Reports: no symptoms Skin: Reports: no symptoms Neurological: Reports: Weakness Psychiatric: Reports: anxiety - Patient Data Vitals - most recent: Last Vital Signs Temp 36.4 C 11/06/16 20:00 Pulse 80 11/07/16 08:06 Resp 12 11/06/16 20:00 BP 144/67 H 11/07/16 08:06 Pulse Ox 99 11/06/16 20:00 Weight - most recent: 81.193 kg I&O - last 24 hours: Intake & Output 11/06/16 11/07/16 11/07/16 22:59 06:59 14:59 Intake Total 390 390 Balance 390 390 Lab Results last 24 hrs: Laboratory Results - last 24 hr 11/06/16 11/07/16 11/07/16 Range/Units 09:30 07:30 07:30 WBC 9.1 (4.0-11.0) K/uL RBC 3.47 L (4.50-6.50) M/uL Hgb 9.3 L D (13.0-18.0) g/dL Hct 28.5 L (40.0-54.0) % MCV 82 (76-96) fL MCH 26.8 L (27.0-32.0) pg MCHC 32.6 (31.0-35.0) g/dL RDW 15.7 (11.0-16.0) % Plt Count 378 (150-400) K/uL MPV 8.7 (6.0-10.0) fL Neut % (Auto) 74.2 H (45.0-70.0) % Lymph % (Auto) 11.2 L (20.0-40.0) % [place] % (Auto) 10.8 H (3.0-10.0) % Eos % (Auto) 3.4 (1.0-5.0) % Baso % (Auto) 0.4 (0.0-0.5) % Neut # (Auto) 6.77 (2.00-7.50) K/uL Lymph # (Auto) 1.02 L (1.50-4.00) K/uL [place] # (Auto) 0.99 H (0.20-0.80) K/uL Eos # (Auto) 0.31 (0.04-0.40) K/uL Baso # (Auto) 0.04 (0.02-0.10) K/uL Sodium 139 (136-145) mmol/L Potassium 4.1 (3.5-5.1) mmol/L Chloride 106 (98-107) mmol/L Carbon Dioxide 28.5 (21.0-32.0) mmol/L Anion Gap 8.6 (5.0-15.0) mmol/L BUN 16 (8-26) mg/dL Creatinine 1.06 (0.70-1.30) mg/dL Est Cr Clr Drug Dosing 51.08 mL/min Estimated GFR (MDRD) > 60 (>60) MLS/MIN BUN/Creatinine Ratio 15.1 (6-25) Glucose 154 H (74-100) mg/dL Calcium 8.2 L (8.5-10.1) mg/dL Total Bilirubin 0.4 D (0.0-1.0) mg/dL AST 22 (15-37) U/L ALT 19 (12-78) U/L Alkaline Phosphatase 97 (46-116) U/L Total Protein 5.5 L (6.4-8.2) g/dL Albumin 2.5 L (3.4-5.0) g/dL Globulin 3.0 (2.2-4.2) g/dL Albumin/Globulin Ratio 0.8 (0.8-2.0) Blood Type O POSITIVE Gel Antibody Screen Negative Crossmatch See Detail Med Orders - Current: Current Medications Acetaminophen (Tylenol Extra Strength) 500 mg PO QID [facility] Last Admin: 11/07/16 08:06 Dose: 500 mg Aspirin (Halfprin) 81 mg PO DAILY [facility] Last Admin: 11/07/16 08:06 Dose: 81 mg Calcium Carbonate (Caltrate 600+D 1500 Mg-400 Units) 1 tab PO DAILY [facility] Last Admin: 11/07/16 08:06 Dose: 1 tab Carvedilol (Coreg) 25 mg PO BID [facility] Last Admin: 11/07/16 08:06 Dose: 25 mg Clopidogrel Bisulfate (Plavix) 75 mg PO DAILY [facility] Last Admin: 11/07/16 08:06 Dose: 75 mg Folic Acid (Folic Acid) 0.8 mg PO DAILY [facility] Last Admin: 11/07/16 08:07 Dose: 0.8 mg Furosemide (Lasix) 20 mg IVPUSH BID [facility] Last Admin: 11/07/16 08:08 Dose: 20 mg Lisinopril (Prinivil) 2.5 mg PO DAILY [facility] Last Admin: 11/07/16 08:06 Dose: 2.5 mg Mirtazapine (Remeron) 15 mg PO BEDTIME [facility] Last Admin: 11/06/16 19:57 Dose: 15 mg Multivitamins/Minerals (Thera M Plus) 1 tab PO DAILY [facility] Last Admin: 11/07/16 08:06 Dose: 1 tab Nitroglycerin (Nitrostat) 0.4 mg SL ASDIRECTED PRN PRN Reason: CHEST PAIN (Diltiazem [Cardizem (] 120 Mg) Er) 120 mg PO DAILY [facility] Last Admin: 11/07/16 08:14 Dose: 120 mg Calcium/Vit D3 600mg (/800iu) 1 each PO DAILY [facility] Last Admin: 11/06/16 11:16 Dose: 1 each Pantoprazole Sodium (Protonix) 40 mg PO QPM [facility] Last Admin: 11/06/16 19:57 Dose: 40 mg Quetiapine Fumarate (Seroquel) 37.5 mg PO BEDTIME [facility] Last Admin: 11/06/16 19:57 Dose: 37.5 mg Senna (Senna) 8.6 mg PO BID [facility] Last Admin: 11/07/16 08:06 Dose: 8.6 mg Simvastatin (Zocor) 40 mg PO BEDTIME [facility] Last Admin: 11/06/16 19:56 Dose: 40 mg Tamsulosin HCl (Flomax) 0.8 mg PO DAILY [facility] Last Admin: 11/07/16 08:05 Dose: 0.8 mg Venlafaxine HCl (Effexor Xr) 75 mg PO BEDTIME [facility] Last Admin: 11/06/16 19:56 Dose: 75 mg Venlafaxine HCl (Effexor Xr) 150 mg PO WITHBREAKFAST [facility] Last Admin: 11/07/16 08:06 Dose: 150 mg Discontinued Medications Carvedilol (Coreg) 25 mg PO BID [facility] Last Admin: 11/06/16 11:15 Dose: 25 mg Furosemide (Lasix) 20 mg PO DAILY PRN PRN Reason: Edema - Exam General: alert, oriented, cooperative HEENT: Pupils equal, Pupils reactive, EOMI Neck: supple Lungs: Clear to auscultation, Normal respiratory effort Cardiovascular: Regular Rate, Regular Rhythm Abdomen: bowel sounds present, soft, no tenderness Extremities: no edema Peripheral Pulses: 2+: Dorsalis Pedis (L), Dorsalis Pedis (R) Skin: warm, dry, intact Neurological: no new focal deficit - Problem List & Annotations (1) Edema extremities SNOMED Code(s): 982825263 Code(s): R60.0 - LOCALIZED EDEMA Status: Chronic Priority: Medium Current Visit: No (2) Weakness of both legs SNOMED Code(s): 0925669 Code(s): R29.898 - OTH SYMPTOMS AND SIGNS INVOLVING THE MUSCULOSKELETAL SYSTEM Status: Acute Priority: High Current Visit: Yes (3) Anemia SNOMED Code(s): 815545478 Code(s): D64.9 - ANEMIA, UNSPECIFIED Status: Chronic Priority: High Current Visit: Yes Qualifiers: Anemia type: unspecified type Qualified Code(s): D64.9 - Anemia, unspecified Annotation/Comment:: Improved Hg despite patient feeling no change. His color has improved from an ashen to pink cheeks. (4) CHF exacerbation SNOMED Code(s): 19437260 Code(s): I50.9 - HEART FAILURE, UNSPECIFIED Status: Suspected Priority: High Current Visit: Yes Qualifiers: Congestive heart failure type: diastolic Qualified Code(s): I50.33 - Acute on chronic diastolic (congestive) heart failure Annotation/Comment:: Suspect acute on chronic hearth failure with exacerbation from anemia. - Problem List Review Problem List Initiated/Reviewed/Updated: Yes - My Orders Last 24 Hours: My Active Orders 11/06/16 10:36 Nitroglycerin [Nitrostat] 0.4 mg SL ASDIRECTED PRN 11/06/16 12:00 Acetaminophen [Tylenol Extra Strength] 500 mg PO QID 11/06/16 12:04 Echo Comp wo Cont [US] Routine 11/06/16 12:15 Furosemide [Lasix] 20 mg IVPUSH BID 11/06/16 13:06 Telemetry Monitoring [Cardiac Monitoring] [RC] .As Directed 11/06/16 20:00 Carvedilol [Coreg] 25 mg PO BID Mirtazapine [Remeron] 15 mg PO BEDTIME Pantoprazole [ProTONIX] 40 mg PO QPM QUEtiapine [SEROquel] 37.5 mg PO BEDTIME Simvastatin [Zocor] 40 mg PO BEDTIME Venlafaxine [Effexor XR] 75 mg PO BEDTIME 11/07/16 08:00 Multivitamins w-Iron/Ca/FA/Min [Thera M Plus] 1 tab PO DAILY Non-Formulary Medication [NF Drug] 1 each PO DAILY - Plan Plan:: Patient to be placed in observation for weakness and monitoring. Patient denies other issues at this time and agrees with plan of care. We will f/u baseline labs in am and for weakness. 11/07/16 We will discuss with PT/OT for placement. Patient at this point will be considered for care center planning. We will f/u in AM and plan for discharge to care center.
[2016-11-07] MEDS: QUEtiapine 25 MG Tab PO SCH (19:17)
[2016-11-07] MEDS: Simvastatin 40 MG Tab PO SCH (19:19)
[2016-11-07] MEDS: Mirtazapine 15 MG Tab PO SCH (19:20)
[2016-11-07] MEDS: Venlafaxine 75 MG Cap.ER PO SCH (19:21)
[2016-11-07] MEDS: Pantoprazole 40 MG Tab.CR PO SCH (19:22)
[2016-11-08] MEDS ORDERED: Furosemide 20 MG/2 ML VIAL IVPUSH SCH (08:00)
[2016-11-08] MEDS: Lisinopril 2.5 MG Tab PO SCH (08:35)
[2016-11-08] MEDS: Clopidogrel 75 MG Tab PO SCH (08:35)
[2016-11-08] MEDS: Folic Acid 0.4 MG Tab PO SCH (08:35)
[2016-11-08] MEDS: Calcium Carbonate/Vitamin D3 1500 MG-400 Units Tab PO SCH (08:35)
[2016-11-08] MEDS: Tamsulosin 0.4 MG Cap.ER PO SCH (08:35)
[2016-11-08] MEDS: Venlafaxine 150 MG Cap.ER PO SCH (08:35)
[2016-11-08] MEDS: Acetaminophen 500 MG Tab PO SCH ×2 (08:36→12:31)
[2016-11-08] MEDS: Multivitamins with Iron/Calcium/Folic Acid/Minerals Tab PO SCH (08:36)
[2016-11-08] MEDS: Carvedilol 25 MG Tab PO SCH (08:36)
[2016-11-08] MEDS: Aspirin 81 MG Tab.EC PO SCH (08:36)
[2016-11-08] MEDS: Sennosides 8.6 MG Tab PO SCH (08:36)
[2016-11-08] MEDS: CALCIUM PO SCH (09:02)
[2016-11-08] MEDS: VIT D3 PO SCH (09:02)
--- NOTE | 2016-11-08 09:52 | PCM.DCSUM1 ---
Discharge Summary - Hospital Course Brief History: This is an 81yo M who stated on the weekend that he felt weak and slid down and unable to have the strength to get up and denied any other symptoms. He was admitted for weakness as an observation and did well over night. The next morning labs were obtained for a baseline and patient was anemic at 7.6. He was given 3 units and improved his Hg to 9.3. Patient denied any improvement despite the improved Hg. However, today he appears to have a complete turn around and states he has his baseline strength and would like to return to the [facility] independent living. He states he is able to care for himself and shower, change and eat. Today he did state he felt upset that he was not taken for a bath like he did in Swing bed in the whirlpool. He was not aware he had a shower in his room with a separate whirlpool tub. Patient did state that he has the strength to shower himself with the use of the shower seat. - Discharge Data Discharge Date: 11/08/16 Discharge Disposition: Home, Self-Care 01 Condition: Good - Discharge Diagnosis/Problem(s) (1) Edema extremities SNOMED Code(s): 855665015 ICD Code: R60.0 - LOCALIZED EDEMA Status: Chronic Priority: Medium Current Visit: No (2) Weakness of both legs SNOMED Code(s): 4939790 ICD Code: R29.898 - OTH SYMPTOMS AND SIGNS INVOLVING THE MUSCULOSKELETAL SYSTEM Status: Acute Priority: High Current Visit: Yes (3) Anemia SNOMED Code(s): 090690117 ICD Code: D64.9 - ANEMIA, UNSPECIFIED Status: Chronic Priority: High Current Visit: Yes Problem Details: Improved Hg despite patient feeling no change. His color has improved from an ashen to pink cheeks. Qualifiers: Anemia type: unspecified type Qualified Code(s): D64.9 - Anemia, unspecified (4) CHF exacerbation SNOMED Code(s): 95875226 ICD Code: I50.9 - HEART FAILURE, UNSPECIFIED Status: Suspected Priority: High Current Visit: Yes Problem Details: Suspect acute on chronic hearth failure with exacerbation from anemia. Qualifiers: Congestive heart failure type: diastolic Qualified Code(s): I50.33 - Acute on chronic diastolic (congestive) heart failure - Patient Summary/Data Consults: Consultations 11/06/16 09:42 OT Evaluation and Treatment [CONS] Routine Please Evaluate and Treat. OT Reason for Consult: ADL's Special Instructions: Evaluate weakness This query below is only for informational purposes and is not editable. Admission Diagnosis/Problem: Weakness PT Evaluation and Treatment [CONS] Routine Please Evaluate and Treat. PT Reason for Consult: Other (Type Response) Special Instructions: Consult weakness This query below is only for informational purposes and is not editable. Admission Diagnosis/Problem: Weakness - Patient Instructions Diet: Heart Healthy Diet Activity: As Tolerated, Rest and Relax Today Driving: Do Not Drive Showering/Bathing: May Shower - Discharge Plan Home Medications: Home Meds Aspirin [Low Dose Aspirin EC] 81 mg PO DAILY 06/03/13 [History] Folic Acid 0.8 mg PO DAILY 06/03/13 [History] Lisinopril 2.5 mg PO DAILY 06/03/13 [History] Nitroglycerin [Nitrolingual [place]] 1 spray TRLING ASDIRECTED PRN 06/03/13 [ History] Tamsulosin [Flomax] 0.8 mg PO DAILY 06/03/13 [History] Venlafaxine [Effexor XR] 75 mg PO BEDTIME 06/03/13 [History] Venlafaxine [Effexor XR] 150 mg PO DAILY 06/03/13 [History] Clopidogrel [Plavix] 75 mg PO DAILY 06/22/16 [History] Multivitamin [Multivitamins] 1 each PO DAILY 06/22/16 [History] Pantoprazole Sodium 40 mg PO QPM 06/22/16 [History] Acetaminophen [Tylenol Extra Strength] 500 mg PO QID 08/20/16 [History] Calcium Carbonate/Vitamin D3 [Caltrate 600+D 1500 MG-400 Units] 1 tab PO DAILY 08/20/16 [History] Carvedilol [Coreg] 25 mg PO BID 08/20/16 [History] Diltiazem [Cardizem] 120 mg PO DAILY 08/20/16 [History] Furosemide [Lasix] 20 mg PO DAILY PRN #30 tab 11/02/16 [Rx] Mirtazapine 15 mg PO QPM #0 11/02/16 [Rx] QUEtiapine [SEROquel] 37.5 mg PO BEDTIME 11/02/16 [History] Sennosides [Senokot] 8.6 mg PO BID #0 11/02/16 [Rx] Simvastatin [Zocor] 40 mg PO BEDTIME #30 tab 11/02/16 [Rx] Furosemide [Lasix] 20 mg IVPUSH DAILY vial 11/08/16 [Rx] Mirtazapine [Remeron] 15 mg PO BEDTIME tablet 11/08/16 [Rx] Non-Formulary Medication [NF Drug] 1 each PO DAILY each 11/08/16 [Rx] - Discharge Summary/Plan Comment DC Time >30 min.: Yes Discharge Summary/Plan Comment: Patient discharged to the [facility]. Counseled and patient reassured myself that he is safe and has his strength. We did a trial walk and movement and he is steady without his walker but counseled on using his walker at all times to prevent any falls. Patient to f/u in clinic in 1 week. Discussed plan of care and patient agrees with plan. - Patient Data Vitals - Most Recent: Last Vital Signs Temp 36.5 C 11/08/16 08:00 Pulse 73 11/08/16 08:36 Resp 18 11/08/16 08:00 BP 147/64 H 11/08/16 08:00 Pulse Ox 94 L 11/08/16 08:00 Weight - Most Recent: 81.193 kg Lab Results - Last 24 hrs: Laboratory Results - last 24 hr 11/08/16 11/08/16 Range/Units 07:10 07:15 WBC 7.2 D (4.0-11.0) K/uL RBC 3.71 L (4.50-6.50) M/uL Hgb 9.7 L (13.0-18.0) g/dL Hct 30.7 L (40.0-54.0) % MCV 83 (76-96) fL MCH 26.1 L (27.0-32.0) pg MCHC 31.6 (31.0-35.0) g/dL RDW 16.3 H (11.0-16.0) % Plt Count 415 H (150-400) K/uL MPV 8.8 (6.0-10.0) fL Neut % (Auto) 62.9 (45.0-70.0) % Lymph % (Auto) 17.3 L (20.0-40.0) % [place] % (Auto) 14.3 H (3.0-10.0) % Eos % (Auto) 4.7 (1.0-5.0) % Baso % (Auto) 0.8 H (0.0-0.5) % Neut # (Auto) 4.53 (2.00-7.50) K/uL Lymph # (Auto) 1.25 L (1.50-4.00) K/uL [place] # (Auto) 1.03 H (0.20-0.80) K/uL Eos # (Auto) 0.34 (0.04-0.40) K/uL Baso # (Auto) 0.06 (0.02-0.10) K/uL Sodium 136 (136-145) mmol/L Potassium 3.7 (3.5-5.1) mmol/L Chloride 101 (98-107) mmol/L Carbon Dioxide 29.1 (21.0-32.0) mmol/L Anion Gap 9.6 (5.0-15.0) mmol/L BUN 19 (8-26) mg/dL Creatinine 1.05 (0.70-1.30) mg/dL Est Cr Clr Drug Dosing 51.57 mL/min Estimated GFR (MDRD) > 60 (>60) MLS/MIN BUN/Creatinine Ratio 18.1 (6-25) Glucose 160 H (74-100) mg/dL Calcium 8.2 L (8.5-10.1) mg/dL Total Bilirubin 0.3 (0.0-1.0) mg/dL AST 18 (15-37) U/L ALT 19 (12-78) U/L Alkaline Phosphatase 98 (46-116) U/L Total Protein 5.6 L (6.4-8.2) g/dL Albumin 2.4 L (3.4-5.0) g/dL Globulin 3.2 (2.2-4.2) g/dL Albumin/Globulin Ratio 0.8 (0.8-2.0) [place] Results - Last 24 hrs: Microbiology 11/06/16 Unknown MRSA Surveillance Culture - Final Nose, Unspecified NO MRSA ISOLATED Med Orders - Current: Current Medications Acetaminophen (Tylenol Extra Strength) 500 mg PO QID [facility] Last Admin: 11/08/16 08:36 Dose: 500 mg Aspirin (Halfprin) 81 mg PO DAILY [facility] Last Admin: 11/08/16 08:36 Dose: 81 mg Calcium Carbonate (Caltrate 600+D 1500 Mg-400 Units) 1 tab PO DAILY [facility] Last Admin: 11/08/16 08:35 Dose: 1 tab Carvedilol (Coreg) 25 mg PO BID [facility] Last Admin: 11/08/16 08:36 Dose: 25 mg Clopidogrel Bisulfate (Plavix) 75 mg PO DAILY [facility] Last Admin: 11/08/16 08:35 Dose: 75 mg Folic Acid (Folic Acid) 0.8 mg PO DAILY [facility] Last Admin: 11/08/16 08:35 Dose: 0.8 mg Furosemide (Lasix) 20 mg IVPUSH DAILY [facility] Last Admin: 11/08/16 09:02 Dose: Not Given Lisinopril (Prinivil) 2.5 mg PO DAILY [facility] Last Admin: 11/08/16 08:35 Dose: 2.5 mg Mirtazapine (Remeron) 15 mg PO BEDTIME [facility] Last Admin: 11/07/16 19:20 Dose: 15 mg Multivitamins/Minerals (Thera M Plus) 1 tab PO DAILY [facility] Last Admin: 11/08/16 08:36 Dose: 1 tab Nitroglycerin (Nitrostat) 0.4 mg SL ASDIRECTED PRN PRN Reason: CHEST PAIN (Diltiazem [Cardizem (] 120 Mg) Er) 120 mg PO DAILY [facility] Last Admin: 11/08/16 08:36 Dose: 120 mg Calcium/Vit D3 600mg (/800iu) 1 each PO DAILY [facility] Last Admin: 11/08/16 09:02 Dose: Not Given Pantoprazole Sodium (Protonix) 40 mg PO QPM [facility] Last Admin: 11/07/16 19:22 Dose: 40 mg Quetiapine Fumarate (Seroquel) 37.5 mg PO BEDTIME [facility] Last Admin: 11/07/16 19:17 Dose: 37.5 mg Senna (Senna) 8.6 mg PO BID [facility] Last Admin: 11/08/16 08:36 Dose: 8.6 mg Simvastatin (Zocor) 40 mg PO BEDTIME [facility] Last Admin: 11/07/16 19:19 Dose: 40 mg Tamsulosin HCl (Flomax) 0.8 mg PO DAILY [facility] Last Admin: 11/08/16 08:35 Dose: 0.8 mg Venlafaxine HCl (Effexor Xr) 75 mg PO BEDTIME [facility] Last Admin: 11/07/16 19:21 Dose: 75 mg Venlafaxine HCl (Effexor Xr) 150 mg PO WITHBREAKFAST [facility] Last Admin: 11/08/16 08:35 Dose: 150 mg Discontinued Medications Carvedilol (Coreg) 25 mg PO BID [facility] Last Admin: 11/06/16 11:15 Dose: 25 mg Furosemide (Lasix) 20 mg PO DAILY PRN PRN Reason: Edema Furosemide (Lasix) 20 mg IVPUSH BID [facility] Last Admin: 11/07/16 08:08 Dose: 20 mg *Q Meaningful Use (DIS) - VTE *Q VTE Criteria *Q: - Stroke *Q Stroke Criteria *Q: - AMI *Q AMI Criteria *Q:
[2016-11-08 16:49] VITALS: BP 124/60
== END 2016-11-08 16:30 | disposition home or self-care (01) | DRG 293 ==
LOC: LB.MS 11:54 → UNDOADMOB 22:01 → LB.MS 22:01 → OBSVTOIN 11-06 11:54
PROVIDERS: ADMIT Family Medicine; ATTEND Family Medicine
PROC: 30253N1 (ICD-10-PCS; principal; 2016-11-06)
DX: I50.9 Heart failure, unspecified (principal); I11.0 Hypertensive heart disease with heart failure; R53.1 Weakness; I50.33 Acute on chronic diastolic (congestive) heart failure; D64.9 Anemia, unspecified; Z79.82 Long term (current) use of aspirin; I25.10 Atherosclerotic heart disease of native coronary artery without angina pectoris; Z95.5 Presence of coronary angioplasty implant and graft; K21.9 Gastro-esophageal reflux disease without esophagitis; F41.8 Other specified anxiety disorders
CPT/HCPCS: 36415; 80053; 83880; 84443; 85025; 86850; 86900; 86901; 86920; 86922; A9270 ×13; 36430; 97166-GO; 99219; G0378; J1940; P9016

== ENCOUNTER 2016-11-09 13:04 | Inpatient (IN) | payer OTHER ==
[2016-11-09] MEDS ORDERED: Nitroglycerin 0.4 MG Tab.SL SL PRN (14:36)
[2016-11-09] MEDS ORDERED: Furosemide 20 MG Tab PO SCH (14:45)
[2016-11-09] MEDS: Acetaminophen 500 MG Tab PO SCH ×2 (15:59→19:37)
--- NOTE | 2016-11-09 15:59 | PCM.HP ---
H&P History of Present Illness - General Date of Service: 11/09/16 Admit Problem/Dx: Admission Diagnosis/Problem Admission Diagnosis/Problem Fall on same level from slipping, tripping or stumbling Source of Information: Patient, RN History Limitations: Reports: No Limitations - History of Present Illness Initial Comments - Free Text/Narative: Pt has had periprosthetic left femur fracture in July of 2016. he has a long recovery as a swing bed patient. Pt was discharge to [facility] assisted living on 11/02/16 and apparently has had 2 episodes of fall in the [facility], with no major injuries. Apparently pt claims he slid of the bed last night and struggled to get back in the bed. he has not pain or discomfort. but has difficulty with balance and stumbles at times with ambulation.Pt is not in any acute pain or discomfort at this time. - Related Data Allergies/Adverse Reactions: Allergies Allergy/AdvReac Type Severity Reaction Status Date / Time eszopiclone [From Lunesta] Allergy Cannot Verified 11/06/16 07:23 Remember metoprolol Allergy Cannot Verified 11/06/16 07:23 Remember sertraline HCl [From Zoloft] Allergy Cannot Verified 11/06/16 07:23 Remember Home Medications: Home Meds Aspirin [Low Dose Aspirin EC] 81 mg PO DAILY 06/03/13 [History] Folic Acid 0.8 mg PO DAILY 06/03/13 [History] Lisinopril 2.5 mg PO DAILY 06/03/13 [History] Nitroglycerin [Nitrolingual [place]] 1 spray TRLING ASDIRECTED PRN 06/03/13 [ History] Tamsulosin [Flomax] 0.8 mg PO DAILY 06/03/13 [History] Venlafaxine [Effexor XR] 75 mg PO BEDTIME 06/03/13 [History] Venlafaxine [Effexor XR] 150 mg PO DAILY 06/03/13 [History] Clopidogrel [Plavix] 75 mg PO DAILY 06/22/16 [History] Multivitamin [Multivitamins] 1 each PO DAILY 06/22/16 [History] Pantoprazole Sodium 40 mg PO QPM 06/22/16 [History] Acetaminophen [Tylenol Extra Strength] 500 mg PO QID 08/20/16 [History] Calcium Carbonate/Vitamin D3 [Caltrate 600+D 1500 MG-400 Units] 1 tab PO DAILY 08/20/16 [History] Carvedilol [Coreg] 25 mg PO BID 08/20/16 [History] Diltiazem [Cardizem] 120 mg PO DAILY 08/20/16 [History] Furosemide [Lasix] 20 mg PO DAILY PRN #30 tab 11/02/16 [Rx] Mirtazapine 15 mg PO QPM #0 11/02/16 [Rx] QUEtiapine [SEROquel] 37.5 mg PO BEDTIME 11/02/16 [History] Sennosides [Senokot] 8.6 mg PO BID #0 11/02/16 [Rx] Simvastatin [Zocor] 40 mg PO BEDTIME #30 tab 11/02/16 [Rx] Mirtazapine [Remeron] 15 mg PO BEDTIME tablet 11/08/16 [Rx] Past Medical History HEENT History: Reports: Hard of Hearing, Impaired Vision, Other (See Below) 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 Cardiovascular History: Reports: CAD, Hypertension, Stents Respiratory History: Reports: Asthma, SOB Gastrointestinal History: Reports: GERD, Other (See Below) Other Gastrointestinal History: barretts esophagus Musculoskeletal History: Reports: Arthritis, Fracture, Other (See Below) Other Musculoskeletal History: frequent falls Neurological History: Reports: Headaches, Chronic, Other (See Below) Other Neuro History: occipital neuralgia Psychiatric History: Reports: ADHD, Aggressive/Hostile Behaviors, Anxiety, Depression, Mood Swings Endocrine/Metabolic History: Reports: Diabetes, Type II Hematologic History: Reports: Anticoagulation Therapy - Infectious Disease History Infectious Disease History: Reports: Chicken Pox, Influenza, Measles, Mumps - Past Surgical History HEENT Surgical History: Reports: Tonsillectomy Cardiovascular Surgical History: Reports: Carotid Stents Respiratory Surgical History: Reports: None GI Surgical History: Reports: Colonoscopy, Hernia, Abdominal Male Surgical History: Reports: Vasectomy Neurological Surgical History: Reports: Other (See Below) Other Neurological Surgeries/Procedures: scwannoma Musculoskeletal Surgical History: Reports: Hip Replacement, ORIF Other Musculoskeletal Surgeries/Procedures:: left hip fracture Social & Family History - Family History Family Medical History: Noncontributory - Tobacco Use Smoking Status *Q: Never Smoker Second Hand Smoke Exposure: No - Caffeine Use Caffeine Use: Reports: Soda Other Caffeine Use: 2-3 cups a day - Alcohol Use Days Per Week of Alcohol Use: 1 Number of Drinks Per Day: 1 Total Drinks Per Week: 1 - Recreational Drug Use Recreational Drug Use: No H&P Review of Systems - Review of Systems: Review Of Systems: See Below General: Denies: Fever, Chills, Weakness HEENT: Denies: Headaches, Rhinitis, Sore Throat, Vertigo Pulmonary: Denies: Cough, Sputum Cardiovascular: Denies: Chest Pain, Lightheadedness, Syncope Gastrointestinal: Denies: Abdominal Pain, Anorexia, Nausea, Vomiting Genitourinary: Denies: Dysuria, Frequency Musculoskeletal: Denies: Neck Pain, Shoulder Pain, Joint Pain, Joint Swelling Skin: Denies: Cyanosis, Jaundice, Pruritis, Rash Exam - Exam Exam: See Below - Vital Signs Weight: 81.193 kg - Exam General: Alert, Oriented, 4 HEENT: PERRLA, Hearing Intact, Mucosa Moist & [place], Nares Patent, Normal Nasal Septum, Posterior Pharynx Clear, Conjunctiva Clear, EOMI, EACs Clear, TMs Clear Neck: Supple, Trachea Midline, 2 Lungs: Clear to Auscultation, Normal Respiratory Effort Cardiovascular: Regular Rate, Regular Rhythm Abdomen: Normal Bowel Sounds, Soft, Pelvis Stable Extremities: 3, Normal Inspection, 10 *Q Meaningful Use (ADM) - VTE *Q VTE Criteria *Q: - Stroke *Q Stroke Criteria *Q: - AMI *Q AMI Criteria *Q: - Problem List (1) Fall SNOMED Code(s): 7505319, 921450760 ICD Code: W19.XXXA - UNSPECIFIED FALL, INITIAL ENCOUNTER Status: Acute Current Visit: Yes Problem List Initiated/Reviewed/Updated: Yes Orders Last 24hrs: Active Orders 24 hr Category Date Time Status Patient Status [ADT] Routine ADT 11/09/16 15:46 Active Acetaminophen [Tylenol Extra Strength] Med 11/09/16 16:00 Active 500 mg PO QID Aspirin [Halfprin] Med 11/10/16 08:00 Active 81 mg PO DAILY Carvedilol [Coreg] Med 11/09/16 20:00 Active 25 mg PO BID Clopidogrel [Plavix] Med 11/10/16 08:00 Active 75 mg PO DAILY Diltiazem [Cardizem CD] Med 11/10/16 08:00 Active 120 mg PO DAILY Furosemide [Lasix] Med 11/09/16 14:45 Active 20 mg PO ASDIRECTED Lisinopril [Prinivil] Med 11/10/16 08:00 Active 2.5 mg PO DAILY Mirtazapine [Remeron] Med 11/09/16 20:00 Active 15 mg PO BEDTIME Multivitamins w-Iron/Ca/FA/Min [Thera M Plus] Med 11/10/16 08:00 Active 1 tab PO DAILY Nitroglycerin [Nitrostat] Med 11/09/16 14:36 Active 0.4 mg SL ASDIRECTED PRN Non-Formulary Medication [NF Drug] Med 11/10/16 08:00 Active 1 each PO DAILY Non-Formulary Medication [NF Drug] Med 11/10/16 08:00 Active 1 each PO DAILY Pantoprazole [ProTONIX] Med 11/10/16 08:00 Active 40 mg PO DAILY QUEtiapine [SEROquel] Med 11/09/16 20:00 Active 37.5 mg PO BEDTIME Sennosides [Senna] Med 11/09/16 20:00 Active 8.6 mg PO BID Simvastatin [Zocor] Med 11/09/16 20:00 Active 40 mg PO BEDTIME Tamsulosin [Flomax] Med 11/10/16 08:00 Active 0.8 mg PO DAILY Venlafaxine [Effexor XR] Med 11/09/16 20:00 Active 150 mg PO BEDTIME Venlafaxine [Effexor XR] Med 11/10/16 08:00 Active 75 mg PO DAILY Resuscitation Status Routine Resus Stat 11/09/16 15:46 Ordered Medication Orders Acetaminophen (Tylenol Extra Strength) 500 mg PO QID [facility] Aspirin (Halfprin) 81 mg PO DAILY [facility] Carvedilol (Coreg) 25 mg PO BID [facility] Clopidogrel Bisulfate (Plavix) 75 mg PO DAILY [facility] Diltiazem HCl (Cardizem Cd) 120 mg PO DAILY [facility] Furosemide (Lasix) 20 mg PO ASDIRECTED [facility] Lisinopril (Prinivil) 2.5 mg PO DAILY [facility] Mirtazapine (Remeron) 15 mg PO BEDTIME [facility] Multivitamins/Minerals (Thera M Plus) 1 tab PO DAILY [facility] Nitroglycerin (Nitrostat) 0.4 mg SL ASDIRECTED PRN PRN Reason: CHEST PAIN Folic Acid 800mcg 1 each PO DAILY [facility] Calcium/D3 600mg/ (800iu) 1 each PO DAILY [facility] Pantoprazole Sodium (Protonix) 40 mg PO DAILY [facility] Quetiapine Fumarate (Seroquel) 37.5 mg PO BEDTIME [facility] Senna (Senna) 8.6 mg PO BID [facility] Simvastatin (Zocor) 40 mg PO BEDTIME [facility] Tamsulosin HCl (Flomax) 0.8 mg PO DAILY [facility] Venlafaxine HCl (Effexor Xr) 150 mg PO BEDTIME [facility] Venlafaxine HCl (Effexor Xr) 75 mg PO DAILY [facility] Assessment/Plan Comment:: Assessment: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 For the week end he will be admitted to hospital for respite care and will continue his home meds. Will plan on Care center admission on saturday.
[2016-11-09] MEDS: Sennosides 8.6 MG Tab PO SCH (19:37)
[2016-11-09] MEDS: Venlafaxine 150 MG Cap.ER PO SCH (19:37)
[2016-11-09] MEDS: QUEtiapine 25 MG Tab PO SCH (19:38)
[2016-11-09] MEDS: Carvedilol 12.5 MG Tab PO SCH (19:38)
[2016-11-09] MEDS: Mirtazapine 15 MG Tab PO SCH (19:38)
[2016-11-09] MEDS: Simvastatin 40 MG Tab PO SCH (19:38)
[2016-11-10] MEDS: Diltiazem 120 MG Cap.CD PO SCH (08:00)
[2016-11-10] MEDS: Carvedilol 12.5 MG Tab PO SCH ×2 (08:00→19:17)
[2016-11-10] MEDS: Venlafaxine 75 MG Cap.ER PO SCH (08:01)
[2016-11-10] MEDS: Aspirin 81 MG Tab.EC PO SCH (08:02)
[2016-11-10] MEDS: Tamsulosin 0.4 MG Cap.ER PO SCH (08:02)
[2016-11-10] MEDS: FOLIC ACID 800MCG PO SCH (08:03)
[2016-11-10] MEDS: CALCIUM PO SCH (08:03)
[2016-11-10] MEDS: D3 PO SCH (08:03)
[2016-11-10] MEDS: Lisinopril 2.5 MG Tab PO SCH (08:04)
[2016-11-10] MEDS: Clopidogrel 75 MG Tab PO SCH (08:04)
[2016-11-10] MEDS: Sennosides 8.6 MG Tab PO SCH ×2 (08:05→19:17)
[2016-11-10] MEDS: Multivitamins with Iron/Calcium/Folic Acid/Minerals Tab PO SCH (08:05)
[2016-11-10] MEDS: Pantoprazole 40 MG Tab.CR PO SCH (08:05)
[2016-11-10] MEDS: Acetaminophen 500 MG Tab PO SCH ×4 (08:06→19:17)
[2016-11-10] MEDS: Simvastatin 40 MG Tab PO SCH (19:17)
[2016-11-10] MEDS: Mirtazapine 15 MG Tab PO SCH (19:17)
[2016-11-10] MEDS: QUEtiapine 25 MG Tab PO SCH (19:17)
[2016-11-10] MEDS: Venlafaxine 150 MG Cap.ER PO SCH (19:17)
[2016-11-11] MEDS: Diltiazem 120 MG Cap.CD PO SCH (07:24)
[2016-11-11] MEDS: Carvedilol 12.5 MG Tab PO SCH ×2 (07:25→20:20)
[2016-11-11] MEDS: Venlafaxine 75 MG Cap.ER PO SCH (07:26)
[2016-11-11] MEDS: CALCIUM PO SCH (07:28)
[2016-11-11] MEDS: D3 PO SCH (07:28)
[2016-11-11] MEDS: Tamsulosin 0.4 MG Cap.ER PO SCH (07:28)
[2016-11-11] MEDS: Aspirin 81 MG Tab.EC PO SCH (07:28)
[2016-11-11] MEDS: Clopidogrel 75 MG Tab PO SCH (07:29)
[2016-11-11] MEDS: FOLIC ACID 800MCG PO SCH (07:29)
[2016-11-11] MEDS: Lisinopril 2.5 MG Tab PO SCH (07:30)
[2016-11-11] MEDS: Pantoprazole 40 MG Tab.CR PO SCH (07:31)
[2016-11-11] MEDS: Sennosides 8.6 MG Tab PO SCH ×2 (07:32→20:20)
[2016-11-11] MEDS: Multivitamins with Iron/Calcium/Folic Acid/Minerals Tab PO SCH (07:32)
[2016-11-11] MEDS: Acetaminophen 500 MG Tab PO SCH ×4 (07:33→20:20)
[2016-11-11] MEDS: Simvastatin 40 MG Tab PO SCH (20:19)
[2016-11-11] MEDS: Mirtazapine 15 MG Tab PO SCH (20:19)
[2016-11-11] MEDS: QUEtiapine 25 MG Tab PO SCH (20:19)
[2016-11-11] MEDS: Venlafaxine 150 MG Cap.ER PO SCH (20:21)
[2016-11-12] MEDS: Diltiazem 120 MG Cap.CD PO SCH (08:01)
[2016-11-12] MEDS: Tamsulosin 0.4 MG Cap.ER PO SCH (08:02)
[2016-11-12] MEDS: Aspirin 81 MG Tab.EC PO SCH (08:02)
[2016-11-12] MEDS: Venlafaxine 75 MG Cap.ER PO SCH (08:02)
[2016-11-12] MEDS: Carvedilol 12.5 MG Tab PO SCH ×2 (08:02→20:01)
[2016-11-12] MEDS: Lisinopril 2.5 MG Tab PO SCH (08:03)
[2016-11-12] MEDS: D3 PO SCH (08:03)
[2016-11-12] MEDS: FOLIC ACID 800MCG PO SCH (08:03)
[2016-11-12] MEDS: Clopidogrel 75 MG Tab PO SCH (08:03)
[2016-11-12] MEDS: CALCIUM PO SCH (08:03)
[2016-11-12] MEDS: Acetaminophen 500 MG Tab PO SCH ×4 (08:04→20:03)
[2016-11-12] MEDS: Multivitamins with Iron/Calcium/Folic Acid/Minerals Tab PO SCH (08:04)
[2016-11-12] MEDS: Sennosides 8.6 MG Tab PO SCH ×2 (08:04→20:03)
[2016-11-12] MEDS: Pantoprazole 40 MG Tab.CR PO SCH (08:04)
[2016-11-12] MEDS: Venlafaxine 150 MG Cap.ER PO SCH (20:01)
[2016-11-12] MEDS: Mirtazapine 15 MG Tab PO SCH (20:03)
[2016-11-12] MEDS: QUEtiapine 25 MG Tab PO SCH (20:03)
[2016-11-12] MEDS: Simvastatin 40 MG Tab PO SCH (20:03)
[2016-11-13] MEDS: Diltiazem 120 MG Cap.CD PO SCH (07:37)
[2016-11-13] MEDS: Carvedilol 12.5 MG Tab PO SCH ×2 (07:37→20:19)
[2016-11-13] MEDS: CALCIUM PO SCH (07:38)
[2016-11-13] MEDS: Aspirin 81 MG Tab.EC PO SCH (07:38)
[2016-11-13] MEDS: Tamsulosin 0.4 MG Cap.ER PO SCH (07:38)
[2016-11-13] MEDS: D3 PO SCH (07:38)
[2016-11-13] MEDS: Venlafaxine 75 MG Cap.ER PO SCH (07:38)
[2016-11-13] MEDS: Lisinopril 2.5 MG Tab PO SCH (07:39)
[2016-11-13] MEDS: Clopidogrel 75 MG Tab PO SCH (07:39)
[2016-11-13] MEDS: FOLIC ACID 800MCG PO SCH (07:39)
[2016-11-13] MEDS: Acetaminophen 500 MG Tab PO SCH ×4 (07:40→20:22)
[2016-11-13] MEDS: Multivitamins with Iron/Calcium/Folic Acid/Minerals Tab PO SCH (07:40)
[2016-11-13] MEDS: Pantoprazole 40 MG Tab.CR PO SCH (07:40)
[2016-11-13] MEDS: Sennosides 8.6 MG Tab PO SCH ×2 (07:40→20:25)
[2016-11-13] MEDS: Venlafaxine 150 MG Cap.ER PO SCH (20:19)
[2016-11-13] MEDS: Simvastatin 40 MG Tab PO SCH (20:21)
[2016-11-13] MEDS: Mirtazapine 15 MG Tab PO SCH (20:23)
[2016-11-13] MEDS: QUEtiapine 25 MG Tab PO SCH (20:25)
[2016-11-14] MEDS: Diltiazem 120 MG Cap.CD PO SCH (07:32)
[2016-11-14] MEDS: Carvedilol 12.5 MG Tab PO SCH (07:32)
[2016-11-14] MEDS: Tamsulosin 0.4 MG Cap.ER PO SCH (07:34)
[2016-11-14] MEDS: Venlafaxine 75 MG Cap.ER PO SCH (07:34)
[2016-11-14] MEDS: Aspirin 81 MG Tab.EC PO SCH (07:35)
[2016-11-14] MEDS: CALCIUM PO SCH (07:36)
[2016-11-14] MEDS: D3 PO SCH (07:36)
[2016-11-14] MEDS: Clopidogrel 75 MG Tab PO SCH (07:37)
[2016-11-14] MEDS: FOLIC ACID 800MCG PO SCH (07:37)
[2016-11-14] MEDS: Lisinopril 2.5 MG Tab PO SCH (07:38)
[2016-11-14] MEDS: Sennosides 8.6 MG Tab PO SCH (07:38)
[2016-11-14] MEDS: Pantoprazole 40 MG Tab.CR PO SCH (07:38)
[2016-11-14] MEDS: Multivitamins with Iron/Calcium/Folic Acid/Minerals Tab PO SCH (07:39)
[2016-11-14 07:40] VITALS: BP 146/59
--- NOTE | 2016-11-14 08:47 | PCM.DCSUM1 ---
Discharge Summary - Hospital Course Free Text/Narrative:: Pt is a 81 year old male who did sustain left periprosthetic fenur fracture on . He did under go ORIF at [facility] and was transferred back to [facility] for rehabilitation. Pt did have his rehab done, and when he attained maximum rehab potential he was transferred back to Assisted living facility. Pt has has several minor falls since discharge. Considering his age and risk of re-injury and fracture, pt has been considered unsafe to be in assisted living facility and was admitted to [facility] on respite care. Decision has been made between patient, Rehab, myself and social service that pt needs to be in safe environment, and it would be care center. Hence patient has been transferred to [facility] today. Brief History: Pt [facility] about a week ago and has had several minor falls and slipping of from bed. Consdering his recent left femur fracture, pt was consdering under to be at assisted living facility and admitted to hospital under respite care. - Discharge Data Discharge Date: 11/14/16 Discharge Disposition: DC/Tfer to [facility] Condition: Good - Discharge Diagnosis/Problem(s) (1) Fall SNOMED Code(s): 7260634, [id number] ICD Code: W19.XXXA - UNSPECIFIED FALL, INITIAL ENCOUNTER Status: Acute Current Visit: Yes - Patient Instructions Diet: Heart Healthy Diet Activity: As Tolerated Showering/Bathing: October Shower - Discharge Plan Home Medications: Home Meds Aspirin [Low Dose Aspirin EC] 81 mg PO DAILY 06/03/13 [History] Folic Acid 0.8 mg PO DAILY 06/03/13 [History] Lisinopril 2.5 mg PO DAILY 06/03/13 [History] Nitroglycerin [Nitrolingual [place]] 1 spray TRLING ASDIRECTED PRN 06/03/13 [ History] Tamsulosin [Flomax] 0.8 mg PO DAILY 06/03/13 [History] Venlafaxine [Effexor XR] 75 mg PO BEDTIME 06/03/13 [History] Venlafaxine [Effexor XR] 150 mg PO DAILY 06/03/13 [History] Clopidogrel [Plavix] 75 mg PO DAILY 06/22/16 [History] Multivitamin [Multivitamins] 1 each PO DAILY 06/22/16 [History] Pantoprazole Sodium 40 mg PO QPM 06/22/16 [History] Acetaminophen [Tylenol Extra Strength] 500 mg PO QID 08/20/16 [History] Calcium Carbonate/Vitamin D3 [Caltrate 600+D 1500 MG-400 Units] 1 tab PO DAILY 08/20/16 [History] Carvedilol [Coreg] 25 mg PO BID 08/20/16 [History] Diltiazem [Cardizem] 120 mg PO DAILY 08/20/16 [History] Furosemide [Lasix] 20 mg PO DAILY PRN #30 tab 11/02/16 [Rx] Mirtazapine 15 mg PO QPM #0 11/02/16 [Rx] QUEtiapine [SEROquel] 37.5 mg PO BEDTIME 11/02/16 [History] Sennosides [Senokot] 8.6 mg PO BID #0 11/02/16 [Rx] Simvastatin [Zocor] 40 mg PO BEDTIME #30 tab 11/02/16 [Rx] Mirtazapine [Remeron] 15 mg PO BEDTIME tablet 11/08/16 [Rx] - Discharge Summary/Plan Comment DC Time >30 min.: Yes - General Info Date of Service: 11/14/16 Functional Status: Reports: pain controlled, tolerating diet, ambulating, urinating - Review of Systems General: Denies: Fever, Weakness HEENT: Denies: sinus congestion, sore throat Pulmonary: Denies: shortness of breath, cough, sputum Cardiovascular: Denies: Chest Pain, Lightheadedness Gastrointestinal: Denies: Abdominal pain, Nausea, Vomiting Genitourinary: Denies: dysuria, frequency Musculoskeletal: Denies: neck pain, shoulder pain, joint pain, joint swelling Skin: Denies: pruritis, rash Neurological: Denies: Confusion, Dizziness, Headache, Numbness, Tingling Psychiatric: Denies: confusion, depression - Patient Data Vitals - Most Recent: Last Vital Signs Temp 99.2 F 11/14/16 08:00 Pulse 80 11/14/16 08:00 Resp 18 11/14/16 08:00 BP 146/59 H 11/14/16 08:00 Pulse Ox 96 11/14/16 08:00 Weight - Most Recent: 82.667 kg Med Orders - Current: Current Medications Acetaminophen (Tylenol Extra Strength) 500 mg PO QID [facility] Last Admin: 11/13/16 20:22 Dose: 500 mg Aspirin (Halfprin) 81 mg PO DAILY [facility] Last Admin: 11/14/16 07:35 Dose: 81 mg Carvedilol (Coreg) 25 mg PO BID [facility] Last Admin: 11/14/16 07:32 Dose: 25 mg Clopidogrel Bisulfate (Plavix) 75 mg PO DAILY [facility] Last Admin: 11/14/16 07:37 Dose: 75 mg Diltiazem HCl (Cardizem Cd) 120 mg PO DAILY [facility] Last Admin: 11/14/16 07:32 Dose: 120 mg Furosemide (Lasix) 20 mg PO ASDIRECTED [facility] Lisinopril (Prinivil) 2.5 mg PO DAILY [facility] Last Admin: 11/14/16 07:38 Dose: 2.5 mg Mirtazapine (Remeron) 15 mg PO BEDTIME [facility] Last Admin: 11/13/16 20:23 Dose: 15 mg Multivitamins/Minerals (Thera M Plus) 1 tab PO DAILY [facility] Last Admin: 11/14/16 07:39 Dose: 1 tab Nitroglycerin (Nitrostat) 0.4 mg SL ASDIRECTED PRN PRN Reason: CHEST PAIN Folic Acid 800mcg 1 each PO DAILY [facility] Last Admin: 11/14/16 07:37 Dose: 1 each Calcium/D3 600mg/ (800iu) 1 each PO DAILY [facility] Last Admin: 11/14/16 07:36 Dose: 1 each Pantoprazole Sodium (Protonix) 40 mg PO DAILY [facility] Last Admin: 11/14/16 07:38 Dose: 40 mg Quetiapine Fumarate (Seroquel) 37.5 mg PO BEDTIME [facility] Last Admin: 11/13/16 20:25 Dose: 37.5 mg Senna (Senna) 8.6 mg PO BID [facility] Last Admin: 11/14/16 07:38 Dose: 8.6 mg Simvastatin (Zocor) 40 mg PO BEDTIME [facility] Last Admin: 11/13/16 20:21 Dose: 40 mg Tamsulosin HCl (Flomax) 0.8 mg PO DAILY [facility] Last Admin: 11/14/16 07:34 Dose: 0.8 mg Venlafaxine HCl (Effexor Xr) 150 mg PO BEDTIME [facility] Last Admin: 11/13/16 20:19 Dose: 150 mg Venlafaxine HCl (Effexor Xr) 75 mg PO DAILY [facility] Last Admin: 11/14/16 07:34 Dose: 75 mg - Exam General: Reports: alert, oriented HEENT: Reports: Pupils equal, Pupils reactive, EOMI, Mucous membr. moist/pink Neck: Reports: supple Lungs: Reports: Clear to auscultation, Normal respiratory effort Cardiovascular: Reports: Regular Rate, Regular Rhythm Abdomen: Reports: bowel sounds present, soft, no tenderness, no distension Extremities: Reports: no edema, normal pulses Skin: Reports: warm, dry, intact Wound/Incisions: Reports: healing well Neurological: Reports: no new focal deficit Psy/Mental Status: Reports: alert, normal affect, normal mood *Q Meaningful Use (DIS) - VTE *Q VTE Criteria *Q: - Stroke *Q Stroke Criteria *Q: - AMI *Q AMI Criteria *Q:
[2016-11-14] MEDS: Acetaminophen 500 MG Tab PO SCH (09:03)
== END 2016-11-14 09:40 | DRG 884 ==
LOC: UNDOADMIN 13:04 → LB.MS 13:04
PROVIDERS: ADMIT Family Medicine; ATTEND Family Medicine
DX: R54 Age-related physical debility (principal); Z75.5 Holiday relief care; S72.90XD Unspecified fracture of unspecified femur, subsequent encounter for closed fracture with routine healing; W19.XXXD Unspecified fall, subsequent encounter; Z66 Do not resuscitate; I25.10 Atherosclerotic heart disease of native coronary artery without angina pectoris; I10 Essential (primary) hypertension; R29.6 Repeated falls; Z91.81 History of falling; F41.9 Anxiety disorder, unspecified; F32.9 Major depressive disorder, single episode, unspecified; M19.90 Unspecified osteoarthritis, unspecified site; Z95.5 Presence of coronary angioplasty implant and graft; H54.7 Unspecified visual loss; H91.90 Unspecified hearing loss, unspecified ear; Z79.82 Long term (current) use of aspirin; Z88.8 Allergy status to other drugs, medicaments and biological substances; Z96.649 Presence of unspecified artificial hip joint; H54.41 Blindness, right eye, normal vision left eye; F39 Unspecified mood [affective] disorder
CPT/HCPCS: 87070; A9270-GY

== ENCOUNTER 2017-03-22 09:37 | Day surgery (SDC) | payer MEDICARE, MEDICAID ==
[~2017-03-22 09:37] MED LIST: Metoclopramide 10 MG/2 ML SDV IV PRN; Sodium Chloride 0.9% 1,000 ML IV SCH
[2017-03-22] MEDS ORDERED: Propofol 200 MG/20 ML SDV ONE (11:15)
[2017-03-22 11:40] VITALS: BP 135/66
--- NOTE | 2017-03-22 15:54 | OR ---
DATE OF OPERATION: 03/22/2017 PREOPERATIVE DIAGNOSIS: Screening colonoscopy. POSTOPERATIVE DIAGNOSIS: Diverticulosis of the colon. OPERATION: Screening colonoscopy, average risk. COMPLICATIONS: None. DRAINS: None. SPECIMENS: None. ESTIMATED BLOOD LOSS: Zero. ANESTHESIA: General propofol anesthesia. INDICATION: Mr. Orr is an 81-year-old gentleman who has apparently never undergone a colonoscopy. He was recommended for a screening colonoscopy. The above-mentioned procedure was explained. The risks, benefits, complications were explained. The patient understood and agreed and was brought to the operating room. DESCRIPTION OF PROCEDURE: The patient was brought to the operating room, placed in the left lateral decubitus position on the operating room table. Satisfactory general propofol anesthesia was administered. We began by performing a rectal examination, which revealed some skin tags suggestive of previous external hemorrhoids. Next, the endoscope was placed by finger direction into the rectum and subsequently advanced to the level of the cecum. The cecum was identified by the appendiceal orifice, the cecal strap, and ileocecal valve. Next, careful evaluation of the colon was carried out on withdrawal. There were no telangiectasias, no polyps or neoplastic growths, however, there were scattered diverticula throughout the entire colon as far down as the ileocecal valve. This appeared quite mild-to- moderate along the right side of the colon, however, as you approach the left side of the colon this became more moderate to severe. This did not impede placement of the endoscope. Next, on retroflexion was performed in the rectum, which revealed no other significant findings. The colon was then decompressed and the endoscope was withdrawn. Patient tolerated the procedure well. There were no complications. Instrument count was correct. The patient was woken in the OR and taken to PACU for recovery. THI /[id number]
== END 2017-03-22 12:47 ==
LOC: LB.SDS 09:37
PROVIDERS: ATTEND Surgery
DX: Z12.11 Encounter for screening for malignant neoplasm of colon (principal); K57.30 Diverticulosis of large intestine without perforation or abscess without bleeding; K64.4 Residual hemorrhoidal skin tags; J45.909 Unspecified asthma, uncomplicated; N40.0 Benign prostatic hyperplasia without lower urinary tract symptoms; F32.9 Major depressive disorder, single episode, unspecified; E11.9 Type 2 diabetes mellitus without complications; K21.9 Gastro-esophageal reflux disease without esophagitis; E78.5 Hyperlipidemia, unspecified; I10 Essential (primary) hypertension; Z88.8 Allergy status to other drugs, medicaments and biological substances; Z79.82 Long term (current) use of aspirin; Z79.899 Other long term (current) drug therapy; Z90.49 Acquired absence of other specified parts of digestive tract; Z95.1 Presence of aortocoronary bypass graft; Z98.890 Other specified postprocedural states; Z98.52 Vasectomy status; Z87.891 Personal history of nicotine dependence
CPT/HCPCS: 82962; G0121; J2704; J7040

== ENCOUNTER 2018-07-14 16:01 | Emergency (ER) | payer MEDICARE, MEDICAID ==
--- NOTE | 2018-07-14 16:47 | EDM.PDOC ---
ED HPI GENERAL MEDICAL PROBLEM - General Chief Complaint: Laceration Stated Complaint: fell in home and bleeding from face, pain to face Time Seen by Provider: 07/14/18 16:20 Source of Information: Reports: Patient, RN History Limitations: Reports: No Limitations - History of Present Illness INITIAL COMMENTS - FREE TEXT/NARRATIVE: 82 yr male presents with laceration below right eye, fell at his home in the care center, doesn't know if he hit anything on the way down. He has superficial abrasions to knees, right wrist, and 4 cm superficial laceration below right eye. Pt is alert and talkative and states he hurt his pride with this fall. States no loss of consciousness. He was bending over to pick something up off the floor and fell. States he broke his glasses during the fall. - Related Data Allergies Allergy/AdvReac Type Severity Reaction Status Date / Time eszopiclone [From Lunesta] Allergy Cannot Verified 07/14/18 17:00 Remember metoprolol Allergy Cannot Verified 07/14/18 17:00 Remember sertraline HCl [From Zoloft] Allergy Cannot Verified 07/14/18 17:00 Remember Home Meds: Home Meds Aspirin [Low Dose Aspirin EC] 81 mg PO DAILY 06/03/13 [History] Folic Acid 0.8 mg PO DAILY 06/03/13 [History] Lisinopril 2.5 mg PO DAILY 06/03/13 [History] Tamsulosin [Flomax] 0.8 mg PO DAILY 06/03/13 [History] Venlafaxine [Effexor XR] 75 mg PO DAILY 06/03/13 [History] Venlafaxine [Effexor XR] 150 mg PO BEDTIME 06/03/13 [History] Clopidogrel [Plavix] 75 mg PO DAILY 06/22/16 [History] Multivitamin [Multivitamins] 1 each PO DAILY 06/22/16 [History] Pantoprazole Sodium 40 mg PO DAILY 06/22/16 [History] Acetaminophen [Tylenol Extra Strength] 500 mg PO QID PRN 08/20/16 [History] Calcium Carbonate/Vitamin D3 [Caltrate 600+D 1500 MG-400 Units] 1 tab PO DAILY 08/20/16 [History] Carvedilol [Coreg] 3.125 mg PO BID 08/20/16 [History] Diltiazem [Cardizem] 120 mg PO DAILY 08/20/16 [History] Furosemide [Lasix] 20 mg PO DAILY PRN #30 tab 11/02/16 [Rx] QUEtiapine [SEROquel] 37.5 mg PO BEDTIME 11/02/16 [History] Simvastatin [Zocor] 40 mg PO BEDTIME #30 tab 11/02/16 [Rx] Mirtazapine [Remeron] 15 mg PO BEDTIME tablet 11/08/16 [Rx] Sennosides [Senokot] 8.6 mg PO DAILY PRN 03/21/17 [History] Past Medical History HEENT History: Reports: Hard of Hearing, Impaired Vision, Other (See Below) 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 Cardiovascular History: Reports: CAD, Hypertension, Stents Respiratory History: Reports: Asthma, SOB Gastrointestinal History: Reports: GERD, Other (See Below) Other Gastrointestinal History: barretts esophagus Musculoskeletal History: Reports: Arthritis, Fracture, Other (See Below) Other Musculoskeletal History: frequent falls Neurological History: Reports: Headaches, Chronic, Other (See Below) Other Neuro History: occipital neuralgia Psychiatric History: Reports: ADHD, Aggressive/Hostile Behaviors, Anxiety, Depression, Mood Swings Endocrine/Metabolic History: Reports: Diabetes, Type II Hematologic History: Reports: Anticoagulation Therapy - Infectious Disease History Infectious Disease History: Reports: Chicken Pox, Influenza, Measles, Mumps - Past Surgical History HEENT Surgical History: Reports: Tonsillectomy Cardiovascular Surgical History: Reports: Carotid Stents Respiratory Surgical History: Reports: None GI Surgical History: Reports: Colonoscopy, Hernia, Abdominal Male Surgical History: Reports: Vasectomy Neurological Surgical History: Reports: Other (See Below) Other Neurological Surgeries/Procedures: scwannoma Musculoskeletal Surgical History: Reports: Hip Replacement, ORIF Other Musculoskeletal Surgeries/Procedures:: left hip fracture Social & Family History - Family History Family Medical History: Noncontributory Cardiac: Reports: [place] Respiratory: Reports: COPD Musculoskeletal: Reports: Osteoarthritis Oncologic: Reports: Breast - Caffeine Use Caffeine Use: Reports: Soda Other Caffeine Use: 2-3 cups a day ED ROS GENERAL - Review of Systems Review Of Systems: See Below Constitutional: Reports: No Symptoms HEENT: Reports: Other (laceration below right eye, broke glasses, small skin tear to side left eye.) Respiratory: Reports: No Symptoms Cardiovascular: Reports: No Symptoms GI/Abdominal: Reports: No Symptoms Skin: Reports: Bruising, Wound Neurological: Reports: No Symptoms Psychiatric: Reports: No Symptoms Hematologic/Lymphatic: Reports: Easy Bruising (Takes Plavix daily) ED EXAM, GENERAL - Physical Exam Exam: See Below Exam Limited By: No Limitations General Appearance: Alert, No Apparent Distress Eye Exam: Right Eye: PERRL Ears: Hearing Loss (slight OSAGE) Nose: Other (small skin tear to left side of nose). No: Nasal Swelling, Nasal Drainage Throat/Mouth: Normal Teeth, Normal Voice, No Airway Compromise Head: Facial Swelling, Facial Tenderness Neck: Supple, Non-Tender Respiratory/Chest: No Respiratory Distress, Lungs Clear, Normal Breath Sounds Cardiovascular: No Edema, Irregularly Irregular Peripheral Pulses: 2+: Dorsalis Pedis (L), Dorsalis Pedis (R) GI/Abdominal: Normal Bowel Sounds, Soft, Non-Tender Back Exam: Other (tailbone sore and improves with shifting weight, 4 pillows under knees) Extremities: Non-Tender, No Pedal Edema Neurological: Alert, Oriented, Normal Cognition Psychiatric: Normal Affect, Normal Mood Skin Exam: Warm, Dry, Normal Color, Ecchymosis (noted below right eye, to left hand, right hand, right great thumb), Wound/Incision (Laceration below right eye , skin tears to knees, skin tears to right, great thumb.) Course - Vital Signs Last Recorded V/S: Last Vital Signs Temp 99.3 F 07/14/18 16:49 Pulse 83 07/14/18 16:49 Resp 20 07/14/18 16:49 BP 141/76 H 07/14/18 16:49 Pulse Ox 97 07/14/18 16:49 - Re-Assessments/Exams Free Text/Narrative Re-Assessment/Exam: 07/14/18 17:31 Wounds cleansed, steri-strips applied to skin tears of right thumb, below right eye, and to medial side of right eye. Cold packs and pressure applied to areas. He is on Plavix and wounds have some serosanguinous drainage. Telfa and kerlix applied to right thumb/wrist and to right eye. Pt alert and states feeling ok. States he is scheduled for Aleve tonight after his supper. States tomato basil soup sounds good for tonight. Pt transfered to his room on the stretcher. Staff use mechanical lift to get pt into his recliner chair. Discharge instructions to continue with ice to areas for 20 minutes qid for 24 -48 hour prn. reinforce dressings as needed. Monitor for signs of infection Diet as tolerated and continue medications as prescribed. Departure - Departure Time of Disposition: 17:42 Disposition: DC/Tfer to [facility] 61 Condition: Good Clinical Impression: Laceration, Skin tear - Discharge Information *PRESCRIPTION DRUG MONITORING PROGRAM REVIEWED*: Not Applicable *COPY OF PRESCRIPTION DRUG MONITORING REPORT IN PATIENT MARY CARMEN: Not Applicable Referrals: PCP,None [Primary Care Provider] - Forms: ED Department Discharge - Assessment/Plan Plan: Superficial skin tears to knees, right thumb, and superficial 4 cm laceration below right eye. Bleeding controlled. Telfa and seth applied to right humb and right eye/head. Discharge instructions to continue with ice to areas for 20 minutes qid for 24 -48 hour prn. reinforce dressings as needed. Monitor for signs of infection Diet as tolerated and continue medications as prescribed.
[2018-07-14 16:51] VITALS: BP 141/76
== END 2018-07-14 17:45 ==
LOC: LB.ED 16:01
DX: S01.111A Laceration without foreign body of right eyelid and periocular area, initial encounter (principal); S81.012A Laceration without foreign body, left knee, initial encounter; S81.011A Laceration without foreign body, right knee, initial encounter; S61.011A Laceration without foreign body of right thumb without damage to nail, initial encounter; S40.021A Contusion of right upper arm, initial encounter; I25.10 Atherosclerotic heart disease of native coronary artery without angina pectoris; I10 Essential (primary) hypertension; J45.909 Unspecified asthma, uncomplicated; E11.9 Type 2 diabetes mellitus without complications; Z88.8 Allergy status to other drugs, medicaments and biological substances; Z79.82 Long term (current) use of aspirin; Z79.899 Other long term (current) drug therapy; W18.30XA Fall on same level, unspecified, initial encounter
CPT/HCPCS: 99282

== ENCOUNTER 2018-11-02 08:11 | Emergency (ER) | payer MEDICARE, MEDICAID ==
[2018-11-02 09:09] VITALS: BP 128/74
--- NOTE | 2018-11-02 09:16 | EDM.PDOC ---
ED HPI GENERAL MEDICAL PROBLEM - General Time Seen by Provider: 11/02/18 08:30 Source of Information: Reports: Patient History Limitations: Reports: No Limitations - History of Present Illness INITIAL COMMENTS - FREE TEXT/NARRATIVE: According to staff, when they went in to give his daily meds, he was noted to be startling and sort of having difficulty with speaking and he requested to go to emergency room. Staff claims that his shakiness was not his usual shakiness. He refused his medications. When the patient was down in emergency, his vitals are stable. He is alert and oriented. He claims that he is not sure why he wanted to be in the emergency room. He claims that he has schwannoma and it makes him shaky. He is moving all 4 extremities. He is mostly bound to his bed. Pt claims that his little shakes he is getting could be stroke.So his concern is stroke - Related Data Allergies Allergy/AdvReac Type Severity Reaction Status Date / Time eszopiclone [From Lunesta] Allergy Cannot Verified 07/14/18 17:00 Remember metoprolol Allergy Cannot Verified 07/14/18 17:00 Remember sertraline HCl [From Zoloft] Allergy Cannot Verified 07/14/18 17:00 Remember Home Meds: Home Meds Aspirin [Low Dose Aspirin EC] 81 mg PO DAILY 06/03/13 [History] Folic Acid 0.8 mg PO DAILY 06/03/13 [History] Lisinopril 2.5 mg PO DAILY 06/03/13 [History] Venlafaxine [Effexor XR] 75 mg PO DAILY 06/03/13 [History] Venlafaxine [Effexor XR] 150 mg PO BEDTIME 06/03/13 [History] Clopidogrel [Plavix] 75 mg PO DAILY 06/22/16 [History] Pantoprazole Sodium 40 mg PO DAILY 06/22/16 [History] Acetaminophen [Tylenol Extra Strength] 500 mg PO QID PRN 08/20/16 [History] Carvedilol [Coreg] 3.125 mg PO BID 08/20/16 [History] Diltiazem [Cardizem] 120 mg PO DAILY 08/20/16 [History] Simvastatin [Zocor] 40 mg PO BEDTIME #30 tab 11/02/16 [Rx] Mirtazapine [Remeron] 15 mg PO BEDTIME tablet 11/08/16 [Rx] Dextran 70/Hypromellose [Artificial Tears] 1 drop EYEBOTH DAILY 07/14/18 [ History] Donepezil [Aricept] 5 mg PO DAILY 07/14/18 [History] Melatonin [Melatin] 9 mg PO DAILY 07/14/18 [History] Naproxen Sodium [Aleve] 220 mg PO BID 07/14/18 [History] Nitroglycerin [Nitrostat] 0.4 mg SL ASDIRECTED PRN 07/14/18 [History] Tamsulosin HCl [Flomax] 0.8 mg PO DAILY 07/14/18 [History] Past Medical History HEENT History: Reports: Hard of Hearing, Impaired Vision, Other (See Below) 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 Cardiovascular History: Reports: CAD, Hypertension, Stents Respiratory History: Reports: Asthma, SOB Gastrointestinal History: Reports: GERD, Other (See Below) Other Gastrointestinal History: barretts esophagus Musculoskeletal History: Reports: Arthritis, Fracture, Other (See Below) Other Musculoskeletal History: frequent falls Neurological History: Reports: Headaches, Chronic, Other (See Below) Other Neuro History: occipital neuralgia Psychiatric History: Reports: ADHD, Aggressive/Hostile Behaviors, Anxiety, Depression, Mood Swings Endocrine/Metabolic History: Reports: Diabetes, Type II Hematologic History: Reports: Anticoagulation Therapy - Infectious Disease History Infectious Disease History: Reports: Chicken Pox, Influenza, Measles, Mumps - Past Surgical History HEENT Surgical History: Reports: Tonsillectomy Cardiovascular Surgical History: Reports: Carotid Stents Respiratory Surgical History: Reports: None GI Surgical History: Reports: Colonoscopy, Hernia, Abdominal Male Surgical History: Reports: Vasectomy Neurological Surgical History: Reports: Other (See Below) Other Neurological Surgeries/Procedures: scwannoma Musculoskeletal Surgical History: Reports: Hip Replacement, ORIF Other Musculoskeletal Surgeries/Procedures:: left hip fracture Social & Family History - Family History Family Medical History: Noncontributory Cardiac: Reports: [place] Respiratory: Reports: COPD Musculoskeletal: Reports: Osteoarthritis Oncologic: Reports: Breast - Caffeine Use Caffeine Use: Reports: Soda Other Caffeine Use: 2-3 cups a day ED ROS GENERAL - Review of Systems Review Of Systems: See Below Constitutional: Denies: Fever, Chills, Weakness HEENT: Denies: Ear Pain, Rhinitis, Throat Pain Respiratory: Denies: Cough, Sputum Cardiovascular: Denies: Chest Pain, Lightheadedness GI/Abdominal: Denies: Abdominal Pain, Nausea, Vomiting Musculoskeletal: Denies: Joint Pain, Joint Swelling Skin: Denies: Bruising, Pruritis, Rash Neurological: Denies: Confusion, Dizziness, Headache, Numbness, Tingling ED EXAM, GENERAL - Physical Exam Exam: See Below Exam Limited By: No Limitations General Appearance: Alert, WD/WN, No Apparent Distress Eye Exam: Bilateral Eye: EOMI, PERRL Ears: Normal External Exam, Normal Canal, Hearing Grossly Normal, Normal TMs Ear Exam: Bilateral Ear: Auricle Normal, Canal Normal, TM normal Nose: Normal Inspection, Normal Mucosa, No Blood Throat/Mouth: Normal Inspection, Normal Lips, Normal Teeth, Normal Gums, Normal Oropharynx, Normal Voice, No Airway Compromise Head: Atraumatic, Normocephalic Neck: Normal Inspection, Supple, Non-Tender, Full Range of Motion Respiratory/Chest: No Respiratory Distress, Lungs Clear, Normal Breath Sounds, No Accessory Muscle Use, Chest Non-Tender Cardiovascular: Normal Peripheral Pulses, Regular Rate, Rhythm, No Edema, No Gallop, No JVD, No Murmur, No Rub Neurological: Alert, Oriented, CN II-XII Intact, Normal Cognition, Normal Gait, Normal Reflexes, Other (does have involontary jerky movements, which he has had for several years.) Skin Exam: Warm, Intact Course - Vital Signs Text/Narrative:: I have seen patient for several years now. He is bed ridden , He has had involuntary jerky movements of his extremities for a very long time. Gets startled at sound and when I have visited him to sit and talk during his routine visits. He does talk about and ,also himself dying. Appears depressed, and has been visiting counselling, which he claims help. He says his schwannoma make it hard for him to swallow, he did drink some water in the emergency room and swallowed it down with a mild cough, but did not choke on it. Pt was treated with sodium tablet orally for his sodium level of 131. His last sodium form 10/24/18 is 140. He does not need to be on sodium tablets any more.His sodium in the past have been stable. I did order CT of the head as patient is concerned he could have had stroke. I do not have any objective evidence of stroke on clinical exam. Ct head appears unchanged compared with his previous Ct head. Pt prefers a copy of his CT which has been placed on CD and given to him. Will transfer back to care center, can continue his medications. Continue counselling for depression.Pt does appear at his baseline function all the time he has been monitored in the emergency room. Last Recorded V/S: Last Vital Signs Temp 98.2 F 11/02/18 09:07 Pulse 131 H 11/02/18 09:07 Resp 20 11/02/18 09:07 BP 128/74 11/02/18 09:07 Pulse Ox 94 L 11/02/18 09:07 - Orders/Labs/Meds Orders: Active Orders 24 hr Category Date Time Status Head wo Cont [CT] Stat Exams 11/02/18 09:14 Taken Departure - Departure Time of Disposition: 10:30 Disposition: DC/Tfer to [facility] 61 Condition: Fair Clinical Impression: Tremor - Discharge Information *PRESCRIPTION DRUG MONITORING PROGRAM REVIEWED*: Not Applicable *COPY OF PRESCRIPTION DRUG MONITORING REPORT IN PATIENT MARY CARMEN: Not Applicable Referrals: PCP,None [Primary Care Provider] - Additional Instructions: I have seen patient for several years now. He is bed ridden , He has had involuntary jerky movements of his extremities for a very long time. Gets startled at sound and when I have visited him to sit and talk during his routine visits. He does talk about and ,also himself dying. Appears depressed, and has been visiting counselling, which he claims help. He says his schwannoma make it hard for him to swallow, he did drink some water in the emergency room and swallowed it down with a mild cough, but did not choke on it. Pt was treated with sodium tablet orally for his sodium level of 131. His last sodium form 10/24/18 is 140. He does not need to be on sodium tablets any more.His sodium in the past have been stable. I did order CT of the head as patient is concerned he could have had stroke. I do not have any objective evidence of stroke on clinical exam. Ct head appears unchanged compared with his previous Ct head. Pt prefers a copy of his CT which ahs been placed on CD and given to him. Will transfer back to care center, can continue his medications. Continue counselling for depression.Pt does appear at his baseline function all the time he has been monitored in the emergency room. - Problem List & Annotations (1) Tremor SNOMED Code(s): 70174003 Code(s): R25.1 - TREMOR, UNSPECIFIED Status: Acute Current Visit: Yes - Problem List Review Problem List Initiated/Reviewed/Updated: Yes - My Orders Last 24 Hours: My Active Orders 11/02/18 09:14 Head wo Cont [CT] Stat - Assessment/Plan Last 24 Hours: My Active Orders 11/02/18 09:14 Head wo Cont [CT] Stat Assessment:: Tremor episode this morning. Plan: I have seen patient for several years now. He is bed ridden , He has had involuntary jerky movements of his extremities for a very long time. Gets startled at sound and when I have visited him to sit and talk during his routine visits. He does talk about and ,also himself dying. Appears depressed, and has been visiting counselling, which he claims help. He says his schwannoma make it hard for him to swallow, he did drink some water in the emergency room and swallowed it down with a mild cough, but did not choke on it. Pt was treated with sodium tablet orally for his sodium level of 131. His last sodium form 10/24/18 is 140. He does not need to be on sodium tablets any more.His sodium in the past have been stable. I did order CT of the head as patient is concerned he could have had stroke. I do not have any objective evidence of stroke on clinical exam. Ct head appears unchanged compared with his previous Ct head. Pt prefers a copy of his CT which has been placed on CD and given to him. Will transfer back to care center, can continue his medications. Continue counselling for depression.Pt does appear at his baseline function all the time he has been monitored in the emergency room.
--- NOTE | 2018-11-03 08:31 | CT ---
DATE OF SERVICE: 11/02/18 CLINICAL DATA: shaky UNENHANCED BRAIN CT: Multislice axial acquisition was performed. No priors. There is diffuse cerebral atrophy. There are extensive periventricular lucencies bilaterally consistent with small vessel ischemic change. No masses or mass effect. No intracranial hemorrhage. No evidence of acute or subacute infarct. No osseous abnormalities. IMPRESSION: No acute intracranial abnormalities. [id number] [facility]
== END 2018-11-02 10:19 ==
LOC: LB.ED 08:11
DX: R25.1 Tremor, unspecified (principal); I10 Essential (primary) hypertension; I25.10 Atherosclerotic heart disease of native coronary artery without angina pectoris; E11.9 Type 2 diabetes mellitus without complications; M19.90 Unspecified osteoarthritis, unspecified site; F41.9 Anxiety disorder, unspecified; F32.9 Major depressive disorder, single episode, unspecified; Z88.8 Allergy status to other drugs, medicaments and biological substances; Z79.82 Long term (current) use of aspirin; Z79.899 Other long term (current) drug therapy; Z95.5 Presence of coronary angioplasty implant and graft; Z98.890 Other specified postprocedural states
CPT/HCPCS: 70450; 99285-25

== ENCOUNTER 2019-05-21 15:04 | Emergency (ER) | payer MEDICARE, MEDICAID ==
--- NOTE | 2019-05-21 15:22 | EDM.PDOC ---
ED HPI GENERAL MEDICAL PROBLEM - General Chief Complaint: General Stated Complaint: FALL AT HOME Time Seen by Provider: 05/21/19 15:10 Source of Information: Reports: Patient, [facility] Records, RN, RN Notes Reviewed History Limitations: Reports: Other (Dementia) - History of Present Illness INITIAL COMMENTS - FREE TEXT/NARRATIVE: This is a 83yo M who does not recall falling. He was in the bathroom and was found lying face forward on the ground. Staff reports he fell on the call light and hit it with his head. He was alert at the time of the fall but patient denies remembering the fall or falling. He denies any pain at this time but did complain of some Thoracic back pain at the time of the fall and he does have bleeding of the right upper orbit and forehead area. Onset: Sudden Location: Reports: Face, Back Severity: Mild Improves with: Reports: None Worsens with: Reports: None Associated Symptoms: Reports: Weakness - Related Data Allergies Allergy/AdvReac Type Severity Reaction Status Date / Time eszopiclone [From Lunesta] Allergy Cannot Verified 05/21/19 16:08 Remember metoprolol Allergy Cannot Verified 05/21/19 16:08 Remember sertraline HCl [From Zoloft] Allergy Cannot Verified 05/21/19 16:08 Remember Home Meds: Home Meds Aspirin [Low Dose Aspirin EC] 81 mg PO DAILY 06/03/13 [History] Folic Acid 0.8 mg PO DAILY 06/03/13 [History] Lisinopril 2.5 mg PO DAILY 06/03/13 [History] Venlafaxine [Effexor XR] 75 mg PO DAILY 06/03/13 [History] Venlafaxine [Effexor XR] 150 mg PO BEDTIME 06/03/13 [History] Clopidogrel [Plavix] 75 mg PO DAILY 06/22/16 [History] Pantoprazole Sodium 40 mg PO DAILY 06/22/16 [History] Acetaminophen [Tylenol Extra Strength] 500 mg PO QID PRN 08/20/16 [History] Carvedilol [Coreg] 3.125 mg PO BID 08/20/16 [History] Diltiazem [Cardizem] 120 mg PO DAILY 08/20/16 [History] Simvastatin [Zocor] 40 mg PO BEDTIME #30 tab 11/02/16 [Rx] Mirtazapine [Remeron] 15 mg PO BEDTIME tablet 11/08/16 [Rx] Dextran 70/Hypromellose [Artificial Tears] 1 drop EYEBOTH DAILY 07/14/18 [ History] Donepezil [Aricept] 5 mg PO DAILY 07/14/18 [History] Melatonin [Melatin] 9 mg PO DAILY 07/14/18 [History] Naproxen Sodium [Aleve] 220 mg PO BID 07/14/18 [History] Nitroglycerin [Nitrostat] 0.4 mg SL ASDIRECTED PRN 07/14/18 [History] Tamsulosin HCl [Flomax] 0.8 mg PO DAILY 07/14/18 [History] Past Medical History HEENT History: Reports: Hard of Hearing, Impaired Vision, Other (See Below) 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 Cardiovascular History: Reports: CAD, Hypertension, Stents Respiratory History: Reports: Asthma, SOB Gastrointestinal History: Reports: GERD, Other (See Below) Other Gastrointestinal History: barretts esophagus Musculoskeletal History: Reports: Arthritis, Fracture, Other (See Below) Other Musculoskeletal History: frequent falls Neurological History: Reports: Headaches, Chronic, Other (See Below) Other Neuro History: occipital neuralgia Psychiatric History: Reports: ADHD, Aggressive/Hostile Behaviors, Anxiety, Depression, Mood Swings Endocrine/Metabolic History: Reports: Diabetes, Type II Hematologic History: Reports: Anticoagulation Therapy - Infectious Disease History Infectious Disease History: Reports: Chicken Pox, Influenza, Measles, Mumps - Past Surgical History HEENT Surgical History: Reports: Tonsillectomy Cardiovascular Surgical History: Reports: Carotid Stents Respiratory Surgical History: Reports: None GI Surgical History: Reports: Colonoscopy, Hernia, Abdominal Male Surgical History: Reports: Vasectomy Neurological Surgical History: Reports: Other (See Below) Other Neurological Surgeries/Procedures: scwannoma Musculoskeletal Surgical History: Reports: Hip Replacement, ORIF Other Musculoskeletal Surgeries/Procedures:: left hip fracture Social & Family History - Family History Family Medical History: Noncontributory Cardiac: Reports: [place] Respiratory: Reports: COPD Musculoskeletal: Reports: Osteoarthritis Oncologic: Reports: Breast - Caffeine Use Caffeine Use: Reports: Soda Other Caffeine Use: 2-3 cups a day ED ROS GENERAL - Review of Systems Review Of Systems: Comprehensive ROS is negative, except as noted in HPI. ED EXAM, GENERAL - Physical Exam Exam: See Below Exam Limited By: No Limitations General Appearance: Alert, No Apparent Distress, Thin Eye Exam: Bilateral Eye: EOMI, PERRL Ears: Normal External Exam Nose: Normal Inspection Throat/Mouth: Normal Inspection Head: Other (swelling of the right forehead 3x3.2cm, cut 1cm of the right upper brow area) Respiratory/Chest: No Respiratory Distress, Lungs Clear, No Accessory Muscle Use Cardiovascular: Normal Peripheral Pulses, Regular Rate, Rhythm GI/Abdominal: Normal Bowel Sounds Extremities: Normal Inspection Neurological: Alert, CN II-XII Intact Psychiatric: Normal Affect, Normal Mood Skin Exam: Warm, Dry, Intact, Wound/Incision ED GENERAL MEDICAL PROCEDURES - Laceration/Wound Repair Left Upper Forehead Lac/wound length in cm: 3 Appearance: Superficial Distal NVT: Neuro & Vascular Intact Skin Prep: Saline Saline irrigation (cc's): 200 Closed with: Dermabond Sterile Dressing Applied: Provider Complications: No Course - Vital Signs Last Recorded V/S: Last Vital Signs Temp 36.8 C 05/21/19 15:16 Pulse 67 05/21/19 15:57 Resp 18 05/21/19 15:57 BP 120/79 05/21/19 15:57 Pulse Ox 96 05/21/19 15:57 - Orders/Labs/Meds Orders: Active Orders 24 hr Category Date Time Status Head wo Cont [CT] Stat Exams 05/21/19 15:16 Taken Orbit Sella PF IAC wo Cont [CT] Stat Exams 05/21/19 15:16 Taken Thoracic Spine wo Cont [CT] Stat Exams 05/21/19 15:16 Taken Labs: Laboratory Tests 05/21/19 05/21/19 05/21/19 Range/Units 15:16 15:30 15:30 WBC 8.1 (4.0-11.0) K/uL RBC 5.26 (4.50-6.50) M/uL Hgb 15.5 (13.0-18.0) g/dL Hct 46.1 (40.0-54.0) % MCV 88 (76-96) fL MCH 29.5 (27.0-32.0) pg MCHC 33.6 (31.0-35.0) g/dL RDW 13.5 (11.0-16.0) % Plt Count 231 (150-400) K/uL MPV 10.3 H (6.0-10.0) fL Neut % (Auto) 66.0 (45.0-70.0) % Lymph % (Auto) 16.1 L (20.0-40.0) % Hinds % (Auto) 9.2 (3.0-10.0) % Eos % (Auto) 8.3 H (1.0-5.0) % Baso % (Auto) 0.4 (0.0-0.5) % Neut # (Auto) 5.31 (2.00-7.50) K/uL Lymph # (Auto) 1.30 L (1.50-4.00) K/uL Hinds # (Auto) 0.74 (0.20-0.80) K/uL Eos # (Auto) 0.67 H (0.04-0.40) K/uL Baso # (Auto) 0.03 (0.02-0.10) K/uL Sodium 139 (136-145) mmol/L Potassium 4.2 (3.5-5.1) mmol/L Chloride 104 (98-107) mmol/L Carbon Dioxide 26.7 (21.0-32.0) mmol/L Anion Gap 12.5 (5.0-15.0) mmol/L BUN 12 D (8-26) mg/dL Creatinine 0.83 D (0.70-1.30) mg/dL Est Cr Clr Drug Dosing TNP Estimated GFR (MDRD) > 60 (>60) MLS/MIN BUN/Creatinine Ratio 14.5 (6-25) Glucose 165 H (74-100) mg/dL Calcium 8.9 (8.5-10.1) mg/dL Total Bilirubin 0.4 D (0.0-1.0) mg/dL AST 20 (15-37) U/L ALT 16 (12-78) U/L Alkaline Phosphatase 103 (46-116) U/L Troponin I 0.018 (0.000-0.060) ng/mL Total Protein 6.2 L (6.4-8.2) g/dL Albumin 3.0 L (3.4-5.0) g/dL Globulin 3.2 (2.2-4.2) g/dL Albumin/Globulin Ratio 0.9 (0.8-2.0) TSH, Ultra Sensitive 1.425 D (0.358-3.740) uIU/mL Departure - Departure Time of Disposition: 17:37 Disposition: DC/Tfer to Skilled Nursing Care 63 Condition: Good Clinical Impression: Fall Qualifiers: Encounter type: initial encounter Qualified Code(s): W19.XXXA - Unspecified fall, initial encounter - Discharge Information Referrals: PCP,None [Primary Care Provider] - Forms: ED Department Discharge Sepsis Event Note - Focused Exam Vital Signs: Vital Signs Temp Pulse Resp BP Pulse Ox 05/21/19 15:57 67 18 120/79 96 05/21/19 15:16 36.8 C 132 H 20 93/56 L 98 05/21/19 15:15 36.8 C 132 H 18 93/56 L 98 Date Exam was Performed: 05/21/19 Time Exam was Performed: 17:36 - Problem List & Annotations (1) Fall SNOMED Code(s): 5176854, 552183827 Code(s): W19.XXXA - UNSPECIFIED FALL, INITIAL ENCOUNTER Status: Acute Priority: High Current Visit: Yes Qualifiers: Encounter type: initial encounter Qualified Code(s): W19.XXXA - Unspecified fall, initial encounter (2) Laceration SNOMED Code(s): 831185382 Code(s): XYR7577 - Status: Acute Priority: High Current Visit: Yes (3) Skin tear SNOMED Code(s): 860018294 Code(s): BTA5325 - Status: Acute Priority: High Current Visit: Yes - Problem List Review Problem List Initiated/Reviewed/Updated: Yes - My Orders Last 24 Hours: My Active Orders 05/21/19 15:16 Head wo Cont [CT] Stat Orbit Sella PF IAC wo Cont [CT] Stat Thoracic Spine wo Cont [CT] Stat - Assessment/Plan Last 24 Hours: My Active Orders 05/21/19 15:16 Head wo Cont [CT] Stat Orbit Sella PF IAC wo Cont [CT] Stat Thoracic Spine wo Cont [CT] Stat Plan: Counseled staff on continued Neuro monitoring and checks. Discussed f/u in ER or clinic if any concerns or issues. Discussed f/u in clinic post ER as directed. Counseled on wound care.
[2019-05-21 16:32] VITALS: BP 120/79; PULSE 67
--- NOTE | 2019-05-22 08:12 | MR ---
Date of Service: 05/21/19 Clinical Data: fall UNENHANCED BRAIN CT: Multislice acquisition through the brain without IV contrast was performed. Comparison is made to a prior exam dated 11/02/18. There is diffuse cerebral atrophy. There are periventricular lucencies bilaterally consistent with small vessel ischemic change. No masses or mass effect. No intracranial hemorrhage. No evidence of acute or subacute infarct. There is soft tissue swelling of the scalp in the right frontoparietal region. No underlying bony abnormalities. No fractures. IMPRESSION: No acute intracranial abnormalities. [id number] [facility]
--- NOTE | 2019-05-22 08:17 | CT ---
Date of Service: 05/21/19 Clinical Data: fall FACIAL CT: Multislice axial acquisition was performed. Axial images and sagittal and coronal reformations are reviewed. No acute fracture or dislocation. No lytic or blastic bone lesions. There is minimal mucosal thickening in the ethmoid sinuses consistent with chronic sinusitis. The paranasal sinuses are otherwise clear. No air-fluid levels. There is deviation of the nasal septum to the right. The globes and orbital contents appear normal. There is soft tissue swelling in the right frontoparietal region. No underlying fracture. IMPRESSION: No acute abnormalities. [id number] [facility]
--- NOTE | 2019-05-22 08:21 | CT ---
Date of Service: 05/21/19 Clinical Data: Fall THORACIC SPINE CT: Multislice axial acquisition was performed. Axial images and sagittal and coronal reformations are reviewed. There is mild compression deformity of the T12 vertebra. This appears to be chronic. No acute fracture or dislocation. There is degenerative disk disease throughout the thoracic spine. There is mild facet joint hypertrophy at multiple levels. No lytic or blastic bone lesions. The soft tissues are unremarkable. IMPRESSION: No acute abnormalities. [id number] [facility]
== END 2019-05-21 17:50 ==
LOC: LB.ED 15:04
DX: S01.81XA Laceration without foreign body of other part of head, initial encounter (principal); E11.9 Type 2 diabetes mellitus without complications; I10 Essential (primary) hypertension; I25.10 Atherosclerotic heart disease of native coronary artery without angina pectoris; J45.909 Unspecified asthma, uncomplicated; Z88.8 Allergy status to other drugs, medicaments and biological substances; Z79.82 Long term (current) use of aspirin; Z79.899 Other long term (current) drug therapy; Z79.01 Long term (current) use of anticoagulants; W19.XXXA Unspecified fall, initial encounter; Y92.002 Bathroom of unspecified non-institutional (private) residence as the place of occurrence of the external cause
CPT/HCPCS: 12013; 36415; 70450; 70480; 72128; 80053; 84443; 84484; 85025; 99283; 99285-25

== ENCOUNTER → 2019-05-26 | Outpatient (CLI) | payer MEDICARE, MEDICAID ==
--- NOTE | 2019-05-27 07:33 | CR ---
Date of Service: 05/26/19 Clinical Data: M62.81 RIGHT SHOULDER: There is a mildly displaced fracture through the distal clavicle. No other fractures. There are osteoarthritic changes of the AC and glenohumeral joints. There is ascension of the humeral head with narrowing of the subacromial space and erosion of the undersurface of the acromion process consistent with a chronic rotator cuff tear. No other significant findings. [id number] [facility]
== END ==
LOC: LB.DI 13:09
PROVIDERS: ATTEND Family Medicine
DX: M62.81 Muscle weakness (generalized) (principal); M19.011 Primary osteoarthritis, right shoulder
CPT/HCPCS: 73030-RT